=== PATIENT | male | born 1985 | race Caucasian/White ===

== ENCOUNTER → 2017-01-09 | Outpatient (CLI) | payer OTHER ==
[~2017-01-09] MED LIST: ALBUAER2 INH; CEPH500C PO; CEPH500C2 PO; CRG3125 PO; DIPH25TA24 PO; GABA-113 PO; GABA600T PO; IBUP1CAP9 PO; METH10CO2 PO; MOME200A INH; PANT1TAB48 PO; RANI150T3 PO; SULF800T23 PO; SYMIN/8045 INH; TYLOTC500 PO; VNTHFA/IN INH
[2017-01-09 17:47] LABS: ALT/SGPT 38 U/L (12-78); BLOOD UREA NITROGEN 10 mg/dl (7-18); BUN/CREATININE RATIO 11.9 (10-20); CALCIUM 8.5 mg/dl (8.5-10.1); CARBON DIOXIDE 30 mmol/L (21-32); CHLORIDE 101 mmol/L (98-107); CHOLESTEROL 200 mg/dl (0-200); CREATININE 0.84 mg/dl (0.60-1.40); GLUCOSE 77 mg/dl (70-99); POTASSIUM 4.2 mmol/L (3.5-5.1); SODIUM 139 mmol/L (136-145)
[2017-01-09 17:57] LABS: ALB/GLOB RATIO 0.7 (0.9-2); ALKALINE PHOSPHATASE 168 U/L (45-117); AST/SGOT 56 U/L (15-37); CHOLESTEROL/HDL RATIO 3.5; HDL CHOLESTEROL 57 mg/dl; LDL CHOLESTEROL CALCULATED 120 mg/dl; TRIGLYCERIDES 114 mg/dl (0-150); VERY LOW DENSITY LIPOPROT CALC 23 mg/dl
[2017-01-10 06:16] LABS: ESTIMATED AVERAGE GLUCOSE 120 mg/dl; HA1C FLAG Normal (Normal)
== END | disposition home or self-care (01) ==
LOC: C.LABBFT 13:59
PROVIDERS: ATTEND Nurse Practitioner
DX: E03.9 Hypothyroidism, unspecified (principal); I10 Essential (primary) hypertension; R73.01 Impaired fasting glucose

== ENCOUNTER → 2017-01-29 | Outpatient (CLI) | payer OTHER ==
--- NOTE | 2017-01-29 14:32 | DIAGNOSTIC IMAGING REPORT ---
CT OF THE ABDOMEN AND PELVIS WITHOUT CONTRAST CLINICAL HISTORY: Follow up umbilical hernia. COMPARISON STUDY: CT of the abdomen and pelvis August 17, 2015. TECHNIQUE: Axial images of the abdomen and pelvis were obtained without IV contrast. Images were reviewed in the axial, sagittal, and coronal planes. FINDINGS: Fatty infiltration of the liver is noted. Mild splenomegaly is unchanged since CT of August 17, 2015. Unenhanced images of the kidneys, adrenal glands and pancreas are normal. This study is mildly compromised by artifact. There is no evidence for a bowel obstruction. There is chronic diverticulosis without evidence for acute diverticulitis. The 8 cm fat-containing umbilical hernia similar to exam of August 17, 2015. The defect within the anterior abdominal wall measures 3.9 cm. Mild infiltration/fluid adjacent to the hernia sac is unchanged. Skin thickening and subcutaneous infiltration of the lower anterior abdominal wall is unchanged. Prominent abdominal or pelvic lymph nodes are unchanged. IMPRESSION: 1. No change in appearance of the abdomen or pelvis since exam of August 17, 2015. 2. Stable appearance of the fat-containing umbilical hernia. Mild infiltration and fluid adjacent to the hernia sac as well as skin thickening and subcutaneous infiltration of the anterior abdominal wall remain unchanged. 3. Stable mild splenomegaly. 4. Fatty liver. Electronically signed by: Everardo Isabel M.D. 01/29/2017 2:29 PM Dictated Date/Time: 01/29/2017 2:22 PM
== END | disposition home or self-care (01) ==
LOC: C.CTS 12:32
PROVIDERS: ATTEND Nurse Practitioner
DX: K43.2 Incisional hernia without obstruction or gangrene (principal); K76.0 Fatty (change of) liver, not elsewhere classified

== ENCOUNTER 2017-06-22 10:57 | Emergency (ER) | payer OTHER ==
[~2017-06-22] VITALS: Ht 175.3 cm; Wt 185.0 kg
[~2017-06-22 10:57] MED LIST changes: -CEPH500C2 PO; -GABA-113 PO; -MOME200A INH; -SULF800T23 PO; -SYMIN/8045 INH; -VNTHFA/IN INH
[2017-06-22 10:59] VITALS: TEMP 36.6; Ht 175.3 cm; Wt 185.0 kg
[2017-06-22] MEDS ORDERED: VNTHFA/IN INH (11:26)
[2017-06-22] MEDS ORDERED: MOME200A INH (11:26)
[2017-06-22] MEDS ORDERED: CEFTRIAXONE SOD INJ 1 GM ADDVIAL IV STA (11:46)
--- NOTE | 2017-06-22 12:12 | DIAGNOSTIC IMAGING REPORT ---
RIGHT TIBIA/FIBULA 2 VIEWS ROUTINE CLINICAL HISTORY: Right lower leg ulceration. COMPARISON: None. DISCUSSION: There is moderate soft tissue edema, most pronounced anteriorly. There are no acute fractures. No destructive lesions are visualized. There is minimal periosteal reaction involving the lateral aspect the distal fibula. This is a nonspecific finding. If there is clinical concern over the presence of osteomyelitis, an MRI could always be obtained in follow-up. IMPRESSION: 1. Soft tissue swelling 2. No acute fractures 3. Minimal focus of nonspecific periosteal reaction involving the lateral aspect of the distal fibula Electronically signed by: Brian Sethi M.D. 06/22/2017 12:11 PM Dictated Date/Time: 06/22/2017 12:07 PM
[2017-06-22 12:29] LABS: BASO % 0.2 %; BASO ABS # 0.02 K/uL (0-0.2); COMPLETE YES; EOS % 2.4 %; HEMATOCRIT 35.5 % (42-52); IG% 0.1 %; LYMPH % 31.8 %; LYMPH ABS # 2.74 K/uL (1.2-3.4); MEAN CELL VOLUME 77.5 fL (80-100); MEAN CORPUSCULAR HEMOGLOBIN 22.7 pg (25-34); MEAN CORPUSCULAR HGB CONC 29.3 g/dl (32-36); MEAN PLATELET VOLUME 10.1 fL (7.4-10.4); MONO % 7.4 %; NEUT % 58.1 %; PLATELET COUNT 174 K/uL (130-400); RED BLOOD COUNT 4.58 M/uL (4.7-6.1); WHITE BLOOD COUNT 8.61 K/uL (4.8-10.8)
[2017-06-22 12:40] LABS: PARTIAL THROMBOPLASTIN RATIO 1.1; PROTHROMBIN TIME (PATIENT) 10.7 SECONDS (9.0-12.0)
[2017-06-22 12:45] LABS: BUN/CREATININE RATIO 9.2 (10-20); CALCIUM 8.7 mg/dl (8.5-10.1); CREATININE 0.79 mg/dl (0.60-1.40); POTASSIUM 3.9 mmol/L (3.5-5.1)
[2017-06-22 12:48] LABS: ALB/GLOB RATIO 0.7 (0.9-2)
--- NOTE | 2017-06-22 13:41 | DIAGNOSTIC IMAGING REPORT ---
RIGHT VENOUS DOPP LOWER EXT UNILAT CLINICAL HISTORY: 31 years-old Male presenting with RIGHT LOWER LEG ULCERATION Right. TECHNIQUE: Real-time grayscale and color and spectral Doppler ultrasound imaging of the veins of the right lower extremity was performed. Compression and augmentation were also utilized. COMPARISON: 01/20/2010. FINDINGS: Right: Common femoral vein: Patent. Femoral vein: Patent. Greater saphenous vein: Patent. Popliteal vein: Patent. Calf veins: Limited visualization. Other: Prominent benign-appearing right inguinal lymph nodes. Subcutaneous edema noted in the popliteal fossa. IMPRESSION: No evidence of deep venous thrombosis. Electronically signed by: Tyler Castillo M.D. 06/22/2017 1:40 PM Dictated Date/Time: 06/22/2017 1:39 PM
[2017-06-22 14:40] VITALS: BP 134/78; PULSE 75; O2SAT 94
[2017-06-22] MEDS ORDERED: SULFAMETHOXAZOLE/TRIMETHOPRIM DS 800/160MG TAB PO STA (14:50)
[2017-06-22] MEDS ORDERED: CEPH500C2 PO (14:59)
[2017-06-22] MEDS ORDERED: SULF800T23 PO (14:59)
--- NOTE | 2017-06-22 15:00 | EMERGENCY ROOM VISIT NOTE ---
History First contact with patient: 11:06 Chief Complaint: WOUND INFECTION Stated Complaint: 3 WOUNDS ON BOTTOM HALF OF MY RT LEG History of Present Illness Patient is a medically noncompliant 31-year-old white male with past medical history including hypothyroidism, hypertension, morbid obesity, asthma, history of opioid abuse on agonist therapy, among other problems who presents to the emergency department for evaluation of a painful ulceration on the right lower extremity. He has a history of venous stasis and is status post right greater saphenous vein ablation performed many years ago. He has had problems with ulcerations on the right lower extremity for several years. He periodically follows with the wound care center. He was last seen by them in April. He states that he "gets tired of having to go to the doctor" so he stopped going. Patient notes that the ulceration on the lower right leg has progressively gotten larger over the last 2 weeks. He developed 2 smaller ulcerations near the larger ulceration which have now, left. He has begun to experience some sharp, stabbing pain over the last 2 days. He has continued to perform local wound care at home until he ran out of his prescription medical supplies. He has been covering the area with paper towels and Gilbert wrap and Coban. He reports if the leg is not wrapped it drains fluid that can range from clear to bloody. He notes a foul odor from the discharge. He denies any fever, chills, nausea, vomiting or malaise. He reports that the wound care center was in the process of sending him for a new ultrasound to evaluate for any future surgical intervention. He reports that the left leg has been stable, no new wounds or ulcerations. He denies any chest pain, palpitations or shortness of breath. In review of his medication list, he reports that he has not taken his carvedilol for his blood pressure in several months. He denies that he is diabetic. Review of Systems Review of systems as per HPI. All other systems reviewed were negative. 10 systems reviewed. Past Medical/Surgical History Medical Problems: (1) ASTHMA, UNSPECIFIED (2) Bipolar Disorder, Unspecified (3) Cellulitis (4) DRUG DEPEND NOS-CONTIN (5) Edema of right eyelid (6) Esophageal Reflux (7) Foot pain, right (8) Fracture of metatarsal bone (9) Hypertension Nos (10) Hypothyroidism, Unspecified (11) Low back pain on right side with sciatica (12) Lumbago (13) MORBID OBESITY Surgical Problems: (1) CARPAL TUNNEL SYNDROME (2) History of hernia repair (3) History of tonsillectomy (4) Status post ablation of incompetent vein using laser Electronic medical records are reviewed and summarized as above/below. See Problem List. Social History Smoking Status: Current Every Day Smoker Alcohol Use: none Drug Use: none Marital Status: Occupation Status: disabled Current/Historical Medications Scheduled Acetaminophen (Tylenol), 1,000 MG PO DAILY Albuterol Hfa (Ventolin Hfa), 2-4 PUFF INH NEEDED Cephalexin Monohydrate (Keflex), 500 MG PO QID Gabapentin (Neurontin), 900 MG PO TID Ibuprofen (Ibuprofen), 600 MG PO DAILY Methadone Hcl (Methadose), 132 MG PO DAILY Mometasone Furoate-Formoterol (Dulera 200/5 Mcg), 2 PUFF INH BID Sulfa/Trimethoprim (Bactrim Ds 800MG/160MG), 1 TAB PO BID Physical Exam Vital Signs Date Time Temp Pulse Resp B/P (MAP) Pulse Ox O2 Delivery O2 Flow Rate FiO2 06/22/17 14:40 75 16 134/78 94 Room Air 06/22/17 13:46 75 16 110/68 06/22/17 10:59 36.6 92 18 184/101 94 Room Air Physical Exam CONSTITUTIONAL: Patient is a morbidly obese 31-year-old white male who is awake and alert and sitting upright on the gurney in no acute distress. He is noted to be hypertensive in triage. A pressure of 180 01/20/2001. EYES: Pupils equal, round, reactive to light and accommodation. EOMs intact without nystagmus. Sclera are anicteric. ENT: Tympanic membranes intact, with normal landmarks. External canals are clear. Oral and nasopharynx are clear. Mucous membranes are moist, no lesions , tongue and gums appear normal. NECK: No bruits auscultated. Supple without lymphadenopathy. No thyromegaly. No meningeal signs. Full active range of motion without discomfort. CARDIOVASCULAR: Regular rate and rhythm, with normal S1 and S2, no murmur or gallop or rub is heard. No carotid bruits auscultated. No JVD. Peripheral pulses easily palpable. RESPIRATORY: Breath sounds equal and clear to auscultation without wheezes, rales, or rhonchi heard. Full and equal chest expansion without accessory muscle use or retractions. INTEGUMENTARY: Examination of the lower extremities bilaterally note brawny, chronic venous sedation changes circumferentially around the lower leg, proximal to the ankles. There is some dry scaling noted on the left leg, without tenderness or erythema. On the lateral aspect of the right lower leg, proximal to the ankle, the patient has a 5 x 6.5 cm oval-shaped ulceration. There is scant serous drainage noted. He has surrounding erythema, warmth, induration and tenderness. He has 2-3+ pitting edema to the knee. The calf is not particularly tender. Dorsalis pedis pulse is easily palpable. Sensation to light touch is intact. Capillary refills less than 2 seconds. There is no lymphangitic streaking. No palpable cords are appreciated. LYMPH: No lymphadenopathy. Medical Decision & Procedures ER Provider Diagnostic Interpretation: RIGHT TIBIA/FIBULA 2 VIEWS ROUTINE CLINICAL HISTORY: Right lower leg ulceration. COMPARISON: None. DISCUSSION: There is moderate soft tissue edema, most pronounced anteriorly. There are no acute fractures. No destructive lesions are visualized. There is minimal periosteal reaction involving the lateral aspect the distal fibula. This is a nonspecific finding. If there is clinical concern over the presence of osteomyelitis, an MRI could always be obtained in follow-up. IMPRESSION: 1. Soft tissue swelling 2. No acute fractures 3. Minimal focus of nonspecific periosteal reaction involving the lateral aspect of the distal fibula RIGHT VENOUS DOPP LOWER EXT UNILAT CLINICAL HISTORY: 31 years-old Male presenting with RIGHT LOWER LEG ULCERATION Right. TECHNIQUE: Real-time grayscale and color and spectral Doppler ultrasound imaging of the veins of the right lower extremity was performed. Compression and augmentation were also utilized. COMPARISON: 01/20/2010. FINDINGS: Right: Common femoral vein: Patent. Femoral vein: Patent. Greater saphenous vein: Patent. Popliteal vein: Patent. Calf veins: Limited visualization. Other: Prominent benign-appearing right inguinal lymph nodes. Subcutaneous edema noted in the popliteal fossa. IMPRESSION: No evidence of deep venous thrombosis. Laboratory Results 06/22/17 12:05 Red Blood Count 4.58, Mean Corpuscular Volume 77.5, Mean Corpuscular Hemoglobin 22.7, Mean Corpuscular Hemoglobin Concent 29.3, Mean Platelet Volume 10.1, Neutrophils (%) (Auto) 58.1, Lymphocytes (%) (Auto) 31.8, Monocytes (%) (Auto) 7.4, Eosinophils (%) (Auto) 2.4, Basophils (%) (Auto) 0.2, Neutrophils # (Auto) 4.99, Lymphocytes # (Auto) 2.74, Monocytes # (Auto) 0.64, Eosinophils # (Auto) 0.21, Basophils # (Auto) 0.02 06/22/17 12:05 Test 06/22/17 12:05 06/22/17 12:16 White Blood Count 8.61 K/uL (4.8-10.8) Red Blood Count 4.58 M/uL (4.7-6.1) Hemoglobin 10.4 g/dL (14.0-18.0) Hematocrit 35.5 % (42-52) Mean Corpuscular Volume 77.5 fL (80-100) Mean Corpuscular Hemoglobin 22.7 pg (25-34) Mean Corpuscular Hemoglobin Concent 29.3 g/dl (32-36) Platelet Count 174 K/uL (130-400) Mean Platelet Volume 10.1 fL (7.4-10.4) Neutrophils (%) (Auto) 58.1 % Lymphocytes (%) (Auto) 31.8 % Monocytes (%) (Auto) 7.4 % Eosinophils (%) (Auto) 2.4 % Basophils (%) (Auto) 0.2 % Neutrophils # (Auto) 4.99 K/uL (1.4-6.5) Lymphocytes # (Auto) 2.74 K/uL (1.2-3.4) Monocytes # (Auto) 0.64 K/uL (0.11-0.59) Eosinophils # (Auto) 0.21 K/uL (0-0.5) Basophils # (Auto) 0.02 K/uL (0-0.2) RDW Standard Deviation 46.9 fL (36.4-46.3) RDW Coefficient of Variation 16.6 % (11.5-14.5) Immature Granulocyte % (Auto) 0.1 % Immature Granulocyte # (Auto) 0.01 K/uL (0.00-0.02) Prothrombin Time 10.7 SECONDS (9.0-12.0) Prothromb Time International Ratio 1.0 (0.9-1.1) Activated Partial Thromboplast Time 28.7 SECONDS (21.0-31.0) Partial Thromboplastin Ratio 1.1 Anion Gap 6.0 mmol/L (3-11) Est Creatinine Clear Calc Drug Dose 223.1 ml/min Estimated GFR () 138.7 Estimated GFR (Non- 119.7 BUN/Creatinine Ratio 9.2 (10-20) Calcium Level 8.7 mg/dl (8.5-10.1) Total Bilirubin 0.3 mg/dl (0.2-1) Aspartate Amino Transf (AST/SGOT) 32 U/L (15-37) Alanine Aminotransferase (ALT/SGPT) 26 U/L (12-78) Alkaline Phosphatase 153 U/L (45-117) Total Protein 7.8 gm/dl (6.4-8.2) Albumin 3.2 gm/dl (3.4-5.0) Globulin 4.6 gm/dl (2.5-4.0) Albumin/Globulin Ratio 0.7 (0.9-2) Bedside Lactic Acid Venous 0.79 mmol/L (0.90-1.70) Medications Administered Medications (Trade) Dose Ordered Sig/Aida Route Start Time Stop Time Status Last Admin Dose Admin Ceftriaxone Sodium (Rocephin Inj) 1 gm NOW STAT IV 06/22/17 11:46 06/22/17 11:50 DC 06/22/17 12:18 1 GM Trimethoprim/ Sulfamethoxazole (Septra Ds 800/ 160MG Tab) 1 tab NOW STAT PO 06/22/17 14:50 06/22/17 14:52 DC 06/22/17 15:21 1 TAB ED Course The patient was seen and evaluated as above. His old records were reviewed, including his recent wound care visit notes. His last visit to the wound care center was 05/01/17, at which point the wound was debrided. Photographs were reviewed. He did have a culture taken at that time that was positive for pansensitive staph aureus. A prescription for Keflex was phoned in, and the patient reported that he did get and take the prescription as prescribed. He no showed for his next scheduled appointment on 05/08. IV lock was initiated. Laboratory studies were collected including CBC with differential, CMP, coags and [id number] lactic acid. The ulceration was cleansed with saline and a superficial wound culture was obtained and is pending. The patient was given Rocephin 1 g IV empirically. X-ray of the right tib-fib and ultrasound of the right lower extremity was obtained. Laboratory studies noted a normal white count at 8600, no left shift or bandemia. H&H 10.4 and 35.5. On review of his old records, he has always been borderline anemic, with his hemoglobin between 10 and 12, this appears stable for him. Electrolytes are without significant abnormality. Renal functions are normal. [id number] lactic acid is not elevated. Ultrasound of the right lower extremity was negative for DVT. X-ray of the right tib-fib does not show any evidence for acute fractures. Minimal focus of nonspecific periosteal reaction involving the lateral aspect of the distal fibula was noted. MRI could be obtained in follow-up if there was concern for osteomyelitis. All laboratory and diagnostic imaging studies were reviewed with the patient, and discussed with attending physician who also independently evaluated the patient. Given the chronic ulceration of the right lower extremity with associated cellulitis, and his comorbidities, I did discuss with the patient that I thought he would benefit from admission for IV antibiotics. He would prefer to go home. At this point, laboratory studies are fairly unremarkable, he has not been on any antibiotics recently, and would likely only meets for observation status if brought into the hospital. Patient will like to go home with a trial of oral antibiotics. He reassures me that he will be compliant with the antibiotic regimen. He will be placed on Keflex and Bactrim, was given his first dose of Bactrim in the emergency department. Antibiotic ointment and a light dressing were applied to the right lower extremity and a referral to the [facility] was made, as he is well known to them. The patient was given explicit verbal and written instructions outlining the worsening signs or symptoms for which she should return to the emergency department and he expressed understanding of this. Differential diagnoses entertained included DVT, superficial thrombophlebitis, cellulitis, chronic venous stasis changes, dependent edema, sepsis, osteomyelitis, among others. Medical Decision See Emergency Department course. Medication Reconcilliation Current Medication List: was personally reviewed by me Blood Pressure Screening Patient's blood pressure: Elevated blood pressure Blood pressure disposition: Referred to PCP Blood pressure screening: Patient was found to have a slightly elevated blood pressure initially, likely due to circumstances, as repeat blood pressure readings were normal. He does have a history of hypertension however and reports that he is noncompliant with his antihypertensives. I did encourage the patient to resume his carvedilol, and advised that he follow-up with his primary care provider next week for recheck. I do believe that the patient requires hypertension monitoring. Impression Primary Impression: Cellulitis of right lower extremity Additional Impression: Chronic cutaneous venous stasis ulcer Departure Information Prescriptions Sulfa/Trimethoprim (Bactrim Ds 800MG/160MG) Tab 1 TAB PO BID, #20 TAB Prov: Vijaya Miller PA 06/22/17 Cephalexin Monohydrate (KEFLEX) 500 Mg Cap 500 MG PO QID, #40 CAP Prov: Vijaya Miller PA 06/22/17 Referrals No Doctor, Assigned (PCP) Patient Instructions [facility] Additional Instructions Cephalexin(Keflex) 500mg: Take one pill four times daily for 10 days for your skin infection. All antibiotics can cause diarrhea. If this occurs and you feel worse or it does not resolve in 1-2 days follow up with your doctor or return to the Emergency Department as this could be signs of serious underlying problems. Any medication can cause an allergic reaction, stop the pills immediately and return to the ER for rash, hives, breathing difficulties, or swelling. Trimethoprim-Sulfamethoxazole(Bactrim DS): Take one pill twice daily for 10 days for your skin infection. All antibiotics can cause diarrhea. If this occurs and you feel worse or it does not resolve in 1-2 days follow up with your doctor or return to the Emergency Department as this could be signs of serious underlying problems. Any medication can cause an allergic reaction, stop the pills immediately and return to the ER for rash, hives, breathing difficulties, or swelling. Ibuprofen(Motrin, Advil) may be used for fever or pain. Use 600mg every six hours as needed. Take with food. Avoid using more than 2400mg in a 24 hour period. Do not use 2400mg per day for more than three consecutive days without physician direction. Prolonged inappropriate use can lead to stomach upset or ulcers. This is available over the counter and typically comes in 200mg tablets. (AND/OR) Acetaminophen(Tylenol) may be used for fever or pain. Use 1000mg every eight hours as needed. Avoid using more than 3000mg in a 24 hour period. This is available over the counter. Read all the package inserts or medication information paperwork provided. If you have any questions or concerns call your primary provider, pharmacist or the ER for assistance. Warm compresses to the affected area 4 times daily for 15-20 minutes. Rest and drink plenty of fluids. Continue current medications. Return to the ER for severe pain, persistent fevers, spreading redness, or any worsening of your condition. Follow up with your primary physician within 2-3 days for a recheck of the current condition. Follow up with the Wound Care Center as arranged. Problem Qualifiers
--- NOTE | 2017-06-22 15:12 | EMERGENCY ROOM VISIT NOTE ---
ED Visit Note First contact with patient: 11:06 The patient was seen and examined with Latha Miller PA-C. I agree with the history, physical and findings. I saw and evaluated the patient. Patient's laboratories fairly unremarkable however patient did have a fairly large area of cellulitis that was painful, erythematous, and warm. Discussed with patient that he would likely benefit from an inpatient stay within the hospital for IV antibiotics and additional wound care. Patient stated he would rather go home. I explained to the patient that his symptoms and overall health could deteriorate to possible . Patient was of sound mind and able to make his own decisions and stated that he knew the risks and consequences. Patient did state he would be able to follow-up in addition to obtain his antibiotics. He was given a first dose of antibiotics and an effort was made to obtain follow- up care. Please see the note for disposition and details.
--- NOTE | 2017-06-28 14:12 | Pharmacy Progress Note ---
ED Pharmacist Culture FollowUp Date of Service: Jun 28, 2017. Patient was sent home with a prescription for Bactrim 1 tab BID and cephalexin 500mg QID X 10 days, which should cover the coag negative staph/gram negative bacilli growing from the patient's surface wound culture. Per provider notes, patient was also encouraged to seek follow up care.
== END 2017-06-22 15:24 | disposition home or self-care (01) ==
LOC: C.EDB 10:59 → C.EDC 15:24
DX: L03.115 Cellulitis of right lower limb (principal); I87.2 Venous insufficiency (chronic) (peripheral); E03.9 Hypothyroidism, unspecified; I10 Essential (primary) hypertension; E66.01 Morbid (severe) obesity due to excess calories; J45.909 Unspecified asthma, uncomplicated; F11.10 Opioid abuse, uncomplicated; F31.9 Bipolar disorder, unspecified; K21.9 Gastro-esophageal reflux disease without esophagitis; M54.5 Low back pain; F17.210 Nicotine dependence, cigarettes, uncomplicated; Z79.899 Other long term (current) drug therapy

== ENCOUNTER 2017-11-09 07:09 | Inpatient (IN) | payer OTHER ==
[~2017-11-09] VITALS: Ht 175.3 cm; Wt 195.0 kg
[~2017-11-09 07:09] MED LIST changes: -ALBUAER2 INH; -CEPH500C PO; +CEPH500C2 PO; -CRG3125 PO; -DIPH25TA24 PO; +MOME200A INH; -PANT1TAB48 PO; -RANI150T3 PO; +VNTHFA/IN INH
[2017-11-09] MEDS ORDERED: ALBUT/IPRATROP 3MG/0.5MG NEB 3 ML VIAL INH STA ×2 (07:39→08:56)
[2017-11-09] MEDS ORDERED: METHYLPREDNISOLONE 125 MG VIAL IV STA (07:39)
[2017-11-09 08:36] LABS: BASO % 0.3 %; BASO ABS # 0.02 K/uL (0-0.2); EOS ABS # 0.12 K/uL (0-0.5); HEMATOCRIT 31.3 % (42-52); HEMOGLOBIN 9.1 g/dL (14.0-18.0); IG# 0.02 K/uL (0.00-0.02); LYMPH % 27.3 %; LYMPH ABS # 1.66 K/uL (1.2-3.4); MEAN CELL VOLUME 75.1 fL (80-100); MEAN CORPUSCULAR HEMOGLOBIN 21.8 pg (25-34); MEAN CORPUSCULAR HGB CONC 29.1 g/dl (32-36); MEAN PLATELET VOLUME 9.8 fL (7.4-10.4); MONO % 5.9 %; MONO ABS # 0.36 K/uL (0.11-0.59); NEUT % 64.2 %; NEUT ABS # 3.89 K/uL (1.4-6.5); PLATELET COUNT 150 K/uL (130-400); RED CELL DISTRIBUTION WIDTH CV 17.3 % (11.5-14.5); RED CELL DISTRIBUTION WIDTH SD 47.7 fL (36.4-46.3); WHITE BLOOD COUNT 6.07 K/uL (4.8-10.8)
[2017-11-09 08:47] LABS: ALBUMIN 3.1 gm/dl (3.4-5.0); CALCIUM 8.4 mg/dl (8.5-10.1); CREATININE 0.75 mg/dl (0.60-1.40); POTASSIUM 4.1 mmol/L (3.5-5.1)
[2017-11-09 08:49] LABS: TOTAL PROTEIN 7.9 gm/dl (6.4-8.2)
--- NOTE | 2017-11-09 08:51 | DIAGNOSTIC IMAGING REPORT ---
CHEST 2 VIEWS ROUTINE CLINICAL HISTORY: Shortness of breath and cough COMPARISON STUDY: 03/01/2014 FINDINGS: The cardiac and mediastinal contours remain stable. There is no failure. There is no focal pulmonary consolidation. There are no pleural effusions.[ IMPRESSION: No active disease in the chest. Electronically signed by: Brian Sethi M.D. 11/09/2017 8:50 AM Dictated Date/Time: 11/09/2017 8:49 AM
[2017-11-09] MEDS ORDERED: BENZ200C59 PO (09:43)
[2017-11-09] MEDS ORDERED: AMX875 PO (09:43)
--- NOTE | 2017-11-09 10:41 | EMERGENCY ROOM VISIT NOTE ---
History First contact with patient: 07:22 Chief Complaint: RESPIRATORY PROBLEMS Stated Complaint: CAN'T BREATHE AND CONGESTED Nursing Triage Summary: Since Sunday pt has a non productive cough and has been short of breath. Went to PCP, was placed on Amoxicillin and tessalon pearls, has been taking for 4 days without improvement. Sats 89-90% on room air in triage, pt does not wear O2 at home. Denies body aches, chills, or fevers. Pt having difficulty finishing sentences and is unable to walk due to dyspnea. History of Present Illness Patient is a 31-year-old white male with past medical history significant for asthma, GERD, morbid obesity, chronic low back pain, history of opiate dependence on methadone, among other medical problems, who presents to the emergency department today for evaluation of shortness of breath. The patient reports that he became ill last Sunday, one week ago. He states that "because the weather was warm I went outside in a short sleeve shirt," and after that he got sick. He reports that his symptoms started like a cold with sinus and nasal congestion and a cough productive of dark sputum. He is on albuterol MDI chronically, with an albuterol nebulizer treatment at bedtime, and Dulera BID, which he states that he has been compliant with. He was not seen by his primary care provider, rather his had a doctor's appointment and explain his symptoms to the provider on Sunday, 4 days ago, and he was provided a prescription for amoxicillin and Tessalon Perles without actually being evaluated by a practitioner. He reports that he has been taking these medications, in addition to using his inhaler/nebulizer, but his symptoms are worsening. He notes wheezing and shortness of breath and a cough. He denies any chest pain. He has not had a fever. He is a one pack-a-day smoker, but has not been smoking this week due to his illness. He has been hospitalized for asthma exacerbation/bronchitis in the past, but has never been intubated. He has not been on any steroids recently. Review of Systems Review of systems as per HPI. All other systems reviewed were negative. 10 systems reviewed. Past Medical/Surgical History Medical Problems: (1) Acute respiratory failure with hypoxia (2) ASTHMA, UNSPECIFIED (3) Bipolar Disorder, Unspecified (4) Cellulitis (5) Cellulitis of right lower extremity (6) Chronic cutaneous venous stasis ulcer (7) DRUG DEPEND NOS-CONTIN (8) Edema of right eyelid (9) Esophageal Reflux (10) Foot pain, right (11) Fracture of metatarsal bone (12) Hypertension Nos (13) Hypothyroidism, Unspecified (14) Low back pain on right side with sciatica (15) Lumbago (16) MORBID OBESITY Surgical Problems: (1) CARPAL TUNNEL SYNDROME (2) History of hernia repair (3) History of tonsillectomy (4) Status post ablation of incompetent vein using laser Electronic medical records are reviewed and summarized as above/below. See Problem List. Social History Smoking Status: Current Every Day Smoker Alcohol Use: none Drug Use: none Marital Status: Occupation Status: disabled Current/Historical Medications Scheduled Albuterol Hfa (Ventolin Hfa), 2-4 PUFF INH NEEDED Amoxicillin (Amoxicillin), 875 MG PO TID Benzonatate (Tessalon Perles), 200 MG PO TID Gabapentin (Neurontin), 900 MG PO TID Methadone Hcl (Methadose), 132 MG PO DAILY Mometasone Furoate-Formoterol (Dulera 200/5 Mcg), 2 PUFF INH BID Physical Exam Vital Signs Date Time Temp Pulse Resp B/P (MAP) Pulse Ox O2 Delivery O2 Flow Rate FiO2 11/09/17 09:59 81 24 158/91 85 Room Air 11/09/17 09:59 37.2 88 24 134/158 93 Nasal Cannula 2.0 11/09/17 09:15 86 22 134/83 93 Nasal Cannula 2.0 11/09/17 08:38 91 Nasal Cannula 4.0 11/09/17 08:31 88 24 139/91 90 Nasal Cannula 2.0 11/09/17 08:08 95 Nasal Cannula 2.0 11/09/17 07:43 94 Nasal Cannula 2.0 11/09/17 07:31 97 11/09/17 07:17 89 Room Air 11/09/17 07:17 37.2 95 28 163/112 89 Room Air Physical Exam CONSTITUTIONAL: Patient is a morbidly obese 31-year-old white male who is awake and alert and in mild respiratory distress. Oxygen saturation in triage is noted to be 89% on room air, he is, mildly tachycardic and hypertensive. Oxygen saturation in the exam room on 2 L by nasal cannula is 95%. EYES: Pupils equal, round, reactive to light and accommodation. EOMs intact without nystagmus. Sclera are anicteric. ENT: Tympanic membranes intact, with normal landmarks. External canals are clear. Oral and nasopharynx are clear. Mucous membranes are moist, no lesions , tongue and gums appear normal. NECK: No bruits auscultated. Supple without lymphadenopathy. No thyromegaly. No meningeal signs. Full active range of motion without discomfort. CARDIOVASCULAR: Regular rate and rhythm, with normal S1 and S2, no murmur or gallop or rub is heard. No carotid bruits auscultated. No JVD. Peripheral pulses easily palpable. RESPIRATORY: Breath sounds are diminished throughout, with inspiratory and expiratory wheezes. Full and equal chest expansion without accessory muscle use or retractions. INTEGUMENTARY: No lesions or rash, normal skin turgor. LYMPH: No lymphadenopathy. Medical Decision & Procedures ER Provider Diagnostic Interpretation: CHEST 2 VIEWS ROUTINE CLINICAL HISTORY: Shortness of breath and cough COMPARISON STUDY: 03/01/2014 FINDINGS: The cardiac and mediastinal contours remain stable. There is no failure. There is no focal pulmonary consolidation. There are no pleural effusions. IMPRESSION: No active disease in the chest. Laboratory Results 11/09/17 08:13 Test 11/09/17 08:13 11/09/17 08:15 Immature Granulocyte % (Auto) 0.3 % White Blood Count 6.07 K/uL (4.8-10.8) Red Blood Count 4.17 M/uL (4.7-6.1) Hemoglobin 9.1 g/dL (14.0-18.0) Hematocrit 31.3 % (42-52) Mean Corpuscular Volume 75.1 fL (80-100) Mean Corpuscular Hemoglobin 21.8 pg (25-34) Mean Corpuscular Hemoglobin Concent 29.1 g/dl (32-36) Platelet Count 150 K/uL (130-400) Mean Platelet Volume 9.8 fL (7.4-10.4) Neutrophils (%) (Auto) 64.2 % Lymphocytes (%) (Auto) 27.3 % Monocytes (%) (Auto) 5.9 % Eosinophils (%) (Auto) 2.0 % Basophils (%) (Auto) 0.3 % Neutrophils # (Auto) 3.89 K/uL (1.4-6.5) Lymphocytes # (Auto) 1.66 K/uL (1.2-3.4) Monocytes # (Auto) 0.36 K/uL (0.11-0.59) Eosinophils # (Auto) 0.12 K/uL (0-0.5) Basophils # (Auto) 0.02 K/uL (0-0.2) Immature Granulocyte # (Auto) 0.02 K/uL (0.00-0.02) Anion Gap 6.0 mmol/L (3-11) Est Creatinine Clear Calc Drug Dose 243.1 ml/min Estimated GFR () 141.7 Estimated GFR (Non- 122.2 BUN/Creatinine Ratio 9.7 (10-20) Calcium Level 8.4 mg/dl (8.5-10.1) Iron Level 13 mcg/dl (35-175) Total Iron Binding Capacity 362 mcg/dl (250-450) Total Bilirubin 0.3 mg/dl (0.2-1) Aspartate Amino Transf (AST/SGOT) 29 U/L (15-37) Alanine Aminotransferase (ALT/SGPT) 15 U/L (12-78) Alkaline Phosphatase 132 U/L (45-117) Total Protein 7.9 gm/dl (6.4-8.2) Albumin 3.1 gm/dl (3.4-5.0) Globulin 4.8 gm/dl (2.5-4.0) Albumin/Globulin Ratio 0.6 (0.9-2) Prothrombin Time 10.5 SECONDS (9.0-12.0) Prothromb Time International Ratio 1.0 (0.9-1.1) Medications Administered Medications (Trade) Dose Ordered Sig/Aida Route Start Time Stop Time Status Last Admin Dose Admin Methylprednisolone Sodium Succinate (Solu-Medrol IV) 125 mg NOW STAT IV 11/09/17 07:39 11/09/17 07:44 DC 11/09/17 08:03 125 MG Albuterol/ Ipratropium (Duoneb) 3 ml NOW STAT INH 11/09/17 07:39 11/09/17 07:44 DC 11/09/17 08:03 3 ML Albuterol/ Ipratropium (Duoneb) 3 ml NOW STAT INH 11/09/17 08:56 11/09/17 08:58 DC 11/09/17 09:14 3 ML ED Course The patient was seen and assessed as above. He was placed on 2 L of nasal cannula oxygen and placed on a desk monitor upon arrival in the exam room. His old records were reviewed. IV lock was initiated and laboratory studies were collected. CBC and CMP were drawn. He was medicated with Solu-Medrol 125 mg IV and given a DuoNeb treatment. He was reassessed when he returned from x- ray, and breath sounds were clearer, he had only end expiratory wheezes. He was given a second DuoNeb treatment. X-ray was unremarkable. Laboratory studies demonstrated a normal white count at 6.7 thousand, he is anemic with an H&H of 9.1 and 31.3, with a microcytic, hypochromic pattern. Electrolytes are within normal limits. Renal function is normal. LFTs are not elevated. He was reassessed after his second DuoNeb treatment and actually had near complete resolution of his wheezing, however oxygen was turned off, and sats dropped down to 85% on room air. Patient was reviewed with the attending physician and with the ED case management. He has had an upper respiratory illness for about a week, now with an exacerbation of his asthma despite antibiotic 4 days with associated bronchodilators. He appears to have failed outpatient management with suspected acute bronchitis and asthma exacerbation and is requiring oxygen at this time. Patient was reviewed with the [facility] any hospitalist service for further care and management in-house. Differential diagnoses entertained included URI, other viral illness including influenza, asthma exacerbation, acute bronchitis, pneumonia, pneumothorax, pulmonary embolus, CHF, among others. Medical Decision See ED Course. Medication Reconcilliation Current Medication List: was personally reviewed by pa Blood Pressure Screening Patient's blood pressure: Elevated blood pressure Blood pressure disposition: Elevated BP felt to be situational, Referred to PCP Impression Primary Impression: Asthmatic bronchitis with exacerbation Additional Impression: Hypoxia Departure Information Dispostion Admitted as an inpatient Referrals Maura Lee, C.R.N.P. (PCP) Patient Instructions My [facility] Problem Qualifiers
[2017-11-09] MEDS ORDERED: ALBUT/IPRATROP 3MG/0.5MG NEB 3 ML VIAL INH PRN (10:45)
[2017-11-09] MEDS ORDERED: ALUMINUM/MAGNESIUM/SIMETH (MAALOX MAX) 30 ML UDC PO PRN (10:45)
[2017-11-09] MEDS ORDERED: ONDANSETRON INJ 2 MG/ML 2 ML VIAL IV PRN (10:45)
[2017-11-09] MEDS ORDERED: MAGNESIUM HYDROXIDE SUSP 30 ML UDC PO PRN (10:45)
[2017-11-09] MEDS ORDERED: AZITHROMYCIN 250 MG TAB PO ONE (10:45)
[2017-11-09] MEDS ORDERED: ACETAMINOPHEN 325 MG TAB PO PRN (10:45)
--- NOTE | 2017-11-09 11:01 | History and Physical ---
History & Physical Date & Time of Service: Nov 09, 2017 at 10:55 Chief Complaint: Can't Breathe And Congested Primary Care Physician: Maura Lee C.R.NAlbanPAlban History of Present Illness 31-year-old morbidly obese asthmatic patient who takes chronic methadone and Neurontin who presents after 1 week prehospital illness which started as an upper respiratory type infection. He called his primary provider who placed him on antibiotics without significant help he presents today with diaphoresis dyspnea and increased work of breathing. He has had no fevers at home she had no change in bowel habits he said no ill contacts. In the ER is felt that he had respiratory distress similar to an asthmatic exacerbation he remains mildly hypoxemic. Patient currently is resting comfortably breathing through his nose with his nasal cannula he still is mildly diaphoretic but not febrile he has no focal air loss and only occasional respiratory wheezes Past Medical/Surgical History Medical Problems: (1) ASTHMA, UNSPECIFIED Status: Chronic (2) Bipolar Disorder, Unspecified Status: Chronic (3) Cellulitis Status: Resolved (4) Cellulitis of right lower extremity Status: Resolved (5) Chronic cutaneous venous stasis ulcer Status: Chronic (6) DRUG DEPEND NOS-CONTIN Status: Resolved (7) Edema of right eyelid Status: Resolved (8) Esophageal Reflux Status: Chronic (9) Foot pain, right Status: Resolved (10) Fracture of metatarsal bone Status: Resolved (11) Hypertension Nos Status: Chronic (12) Hypothyroidism, Unspecified Status: Chronic (13) Low back pain on right side with sciatica Status: Resolved (14) Lumbago Status: Chronic (15) MORBID OBESITY Status: Chronic Surgical Problems: (1) CARPAL TUNNEL SYNDROME Status: Resolved (2) History of hernia repair Status: Resolved (3) History of tonsillectomy Status: Resolved (4) Status post ablation of incompetent vein using laser Status: Resolved Social History Smoking Status: Current Every Day Smoker Drug Use: none Marital Status: Housing status: lives with family Occupational Status: disabled Immunizations History of Influenza Vaccine: Unknown History of Tetanus Vaccine?: Unknown History of Pneumococcal: Unknown History of Hepatitis B Vaccine: Unknown Multi-Drug Resistant Organisms History of MDRO: No Allergies Coded Allergies: No Known Allergies (Verified , 11/09/17) Home Medications Scheduled Albuterol Hfa (Ventolin Hfa), 2-4 PUFF INH NEEDED Amoxicillin (Amoxicillin), 875 MG PO TID Benzonatate (Tessalon Perles), 200 MG PO TID Gabapentin (Neurontin), 900 MG PO TID Methadone Hcl (Methadose), 132 MG PO DAILY Mometasone Furoate-Formoterol (Dulera 200/5 Mcg), 2 PUFF INH BID Review of Systems ROS: Morbidly obese No double vision blurry vision No problems with speech or swallowing No palpitations, chest pain or pressure Has had some Wheezing and increased work of breathing, he has chronic abdominal pain due to a hernia No nausea vomiting diarrhea changes in appetite or weight No burning urine urine frequency or changes in color No focal joint pain or muscle pain No skin rashes or oral lesions, he is edentulous He has bruising about his abdomen due to aching skin lesions and chronic redness and swelling to his lower legs which he self wraps He has persistent low back pain and paresthesias to his legs but no loss of muscular strength No changes in memory or confusion Physical Exam Vital Signs Date Time Temp Pulse Resp B/P (MAP) Pulse Ox O2 Delivery O2 Flow Rate FiO2 11/09/17 09:59 81 24 158/91 85 Room Air 11/09/17 09:59 37.2 88 24 134/158 93 Nasal Cannula 2.0 11/09/17 09:15 86 22 134/83 93 Nasal Cannula 2.0 11/09/17 08:38 91 Nasal Cannula 4.0 11/09/17 08:31 88 24 139/91 90 Nasal Cannula 2.0 11/09/17 08:08 95 Nasal Cannula 2.0 11/09/17 07:43 94 Nasal Cannula 2.0 11/09/17 07:31 97 11/09/17 07:17 89 Room Air 11/09/17 07:17 37.2 95 28 163/112 89 Room Air General Appearance: + mild distress, + obese Head: normocephalic, atraumatic Eyes: normal inspection, sclerae normal Neck: supple, no JVD Respiratory/Chest: no accessory muscle use, + respiratory distress (mild), + decreased breath sounds, + wheezing (mild) Cardiovascular: regular rate, rhythm, no murmur Abdomen/GI: normal bowel sounds, non tender, soft Back: normal inspection, no CVA tenderness, no muscle spasm Extremities/Musculoskelatal: + pedal edema, + swelling, + pertinent finding ( changes of chronic venostasis wraps are in place will need to be removed for further evaluation) Neurologic/Psych: alert, oriented x 3 Skin: normal color, warm/dry Lymphatic: no adenopathy Diagnostics Laboratory Results Results Past 24 Hours Test 11/09/17 08:13 Range/Units White Blood Count 6.07 4.8-10.8 K/uL Red Blood Count 4.17 4.7-6.1 M/uL Hemoglobin 9.1 14.0-18.0 g/dL Hematocrit 31.3 42-52 % Mean Corpuscular Volume 75.1 80-100 fL Mean Corpuscular Hemoglobin 21.8 25-34 pg Mean Corpuscular Hemoglobin Concent 29.1 32-36 g/dl Platelet Count 150 130-400 K/uL Mean Platelet Volume 9.8 7.4-10.4 fL Neutrophils (%) (Auto) 64.2 % Lymphocytes (%) (Auto) 27.3 % Monocytes (%) (Auto) 5.9 % Eosinophils (%) (Auto) 2.0 % Basophils (%) (Auto) 0.3 % Neutrophils # (Auto) 3.89 1.4-6.5 K/uL Lymphocytes # (Auto) 1.66 1.2-3.4 K/uL Monocytes # (Auto) 0.36 0.11-0.59 K/uL Eosinophils # (Auto) 0.12 0-0.5 K/uL Basophils # (Auto) 0.02 0-0.2 K/uL RDW Standard Deviation 47.7 36.4-46.3 fL RDW Coefficient of Variation 17.3 11.5-14.5 % Immature Granulocyte % (Auto) 0.3 % Immature Granulocyte # (Auto) 0.02 0.00-0.02 K/uL Sodium Level 138 136-145 mmol/L Potassium Level 4.1 3.5-5.1 mmol/L Chloride Level 103 98-107 mmol/L Carbon Dioxide Level 29 21-32 mmol/L Anion Gap 6.0 3-11 mmol/L Blood Urea Nitrogen 7 7-18 mg/dl Creatinine 0.75 0.60-1.40 mg/dl Est Creatinine Clear Calc Drug Dose 243.1 ml/min Estimated GFR () 141.7 Estimated GFR (Non- 122.2 BUN/Creatinine Ratio 9.7 10-20 Random Glucose 101 70-99 mg/dl Calcium Level 8.4 8.5-10.1 mg/dl Total Bilirubin 0.3 0.2-1 mg/dl Aspartate Amino Transf (AST/SGOT) 29 15-37 U/L Alanine Aminotransferase (ALT/SGPT) 15 12-78 U/L Alkaline Phosphatase 132 45-117 U/L Total Protein 7.9 6.4-8.2 gm/dl Albumin 3.1 3.4-5.0 gm/dl Globulin 4.8 2.5-4.0 gm/dl Albumin/Globulin Ratio 0.6 0.9-2 Diagnostic Radiology Microcytic anemia as noted CXR normal Impression Assessment and Plan 31-year-old male with a history of asthma here with bronchitic exacerbation and an exacerbation of his asthma For his asthma he'll be placed on Solu-Medrol 20 mg IV every 12 duo nebs both 4 times a day and every 2 when necessary and will continue his Symbicort For bronchitis of the continue azithromycin For his chronic pain he'll maintain his methadone and gabapentin For chronic venous stasis of the place a low-salt diet with wound care consultation for help with managing his chronic swelling He has a microcytic anemia we'll check an iron and TIBC panel Despite his obesity and large pannus he does not have any obvious intertrigo For DVT prevention the patient will be placed on Lovenox Advanced Directives Existing Advance Directive: No VTE Prophylaxis VTE Risk Assessment Done? Y/N: Yes Risk Level: Moderate Given or contraindicated: Enoxaparin (Lovenox)SQ
[2017-11-09 12:16] VITALS: BP 157/88; PULSE 87; TEMP 37.4; O2SAT 92; Ht 175.3 cm; Wt 195.0 kg
[2017-11-09] MEDS ORDERED: SODIUM CHLORIDE 0.9% 1000ML 1,000 ML IV SCH (12:30)
[2017-11-09 13:11] LABS: HEMATOCRIT 32.2 % (42-52); HEMOGLOBIN 9.4 g/dL (14.0-18.0); MEAN CELL VOLUME 75.2 fL (80-100); MEAN CORPUSCULAR HGB CONC 29.2 g/dl (32-36); MEAN PLATELET VOLUME 9.3 fL (7.4-10.4); PLATELET COUNT 136 K/uL (130-400); RED CELL DISTRIBUTION WIDTH CV 17.2 % (11.5-14.5); WHITE BLOOD COUNT 5.43 K/uL (4.8-10.8)
[2017-11-09] MEDS: GABAPENTIN 600 MG TAB PO SCH ×2 (13:59→21:05)
[2017-11-09] MEDS: NICOTINE 14 MG/24 HR TDSY TD SCH (13:59)
[2017-11-09] MEDS: METHYLPREDNISOLONE IV 40 MG in SYRINGE 0 ML IV SCH ×2 (13:59→21:05)
[2017-11-09] MEDS ORDERED: PNEUMOCOCCAL ADMINISTRATION CHARGE ONE (14:15)
[2017-11-09] MEDS ORDERED: INFLUENZA ADMINISTRATION CHARGE ONE (14:15)
[2017-11-09] MEDS ORDERED: PNEUMOCOCCAL POLYSACCHARIDES 25 MCG/0.5 ML VIAL/SYR IM. ONE (14:15)
[2017-11-09] MEDS ORDERED: INFLUENZA VIRUS QUAD VACCINE 0.5 ML SYR IM. ONE (14:15)
[2017-11-09] MEDS: ENOXAPARIN 40 MG/0.4 ML SYR SQ SCH (15:42)
[2017-11-09] MEDS: ALBUT/IPRATROP 3MG/0.5MG NEB 3 ML VIAL INH SCH ×2 (16:00→21:02)
[2017-11-09 16:04] VITALS: PULSE 82; O2SAT 87
[2017-11-09 21:04] VITALS: PULSE 75; O2SAT 93
[2017-11-09 23:20] VITALS: BP 127/76; PULSE 77; TEMP 36.9; O2SAT 92
[2017-11-10] VITALS: O2SAT 93
[2017-11-10 07:13] VITALS: PULSE 75; O2SAT 95
[2017-11-10] MEDS: ALBUT/IPRATROP 3MG/0.5MG NEB 3 ML VIAL INH SCH ×4 (07:13→19:55)
[2017-11-10 07:36] VITALS: BP 105/63; PULSE 72; TEMP 36.7; O2SAT 95
[2017-11-10 08:14] LABS: CALCIUM 8.2 mg/dl (8.5-10.1); CARBON DIOXIDE 29 mmol/L (21-32); CREATININE 0.65 mg/dl (0.60-1.40); GLUCOSE 101 mg/dl (70-99); POTASSIUM 4.2 mmol/L (3.5-5.1); SODIUM 137 mmol/L (136-145)
[2017-11-10 08:26] LABS: BLOOD UREA NITROGEN 11 mg/dl (7-18); HEMOGLOBIN 9.2 g/dL (14.0-18.0); MEAN CORPUSCULAR HEMOGLOBIN 21.9 pg (25-34); MEAN CORPUSCULAR HGB CONC 28.8 g/dl (32-36); MEAN PLATELET VOLUME 9.5 fL (7.4-10.4); PLATELET COUNT 140 K/uL (130-400); RED CELL DISTRIBUTION WIDTH SD 47.6 fL (36.4-46.3); WHITE BLOOD COUNT 7.74 K/uL (4.8-10.8)
[2017-11-10] MEDS: NICOTINE 14 MG/24 HR TDSY TD SCH (09:00)
[2017-11-10] MEDS: AZITHROMYCIN 250 MG TAB PO SCH (09:02)
[2017-11-10] MEDS: GABAPENTIN 600 MG TAB PO SCH ×3 (09:02→22:04)
[2017-11-10] MEDS: METHADONE ORAL SOLN 2 MG/1ML PO SCH (09:03)
[2017-11-10] MEDS: METHADONE PO SCH (09:03)
[2017-11-10] MEDS: METHYLPREDNISOLONE IV 40 MG in SYRINGE 0 ML IV SCH ×3 (10:41→22:30)
[2017-11-10 11:18] VITALS: PULSE 82; O2SAT 96
--- NOTE | 2017-11-10 12:40 | Progress Note ---
Subjective Date of Service: Nov 10, 2017. Subjective Pt evaluation today including: conversation w/ patient, physical exam, chart review, lab review, review of studies, conversation w/ risk consultant, review of inpatient medication list Still have a lot audible wheezing, but generally is better, reported cough with white sputum, no hemoptysis, denied chest pain palpitation Deny fever and chill Bilateral lower extremity with chronic wound, left lower extremity relative to new, right lower extremity anterior gamino has wound for years Problem List Medical Problems: (1) ASTHMA, UNSPECIFIED Status: Chronic (2) Asthmatic bronchitis with exacerbation Status: Acute (3) Bipolar Disorder, Unspecified Status: Chronic (4) Chronic cutaneous venous stasis ulcer Status: Chronic (5) Esophageal Reflux Status: Chronic (6) Hypertension Nos Status: Chronic (7) Hypothyroidism, Unspecified Status: Chronic (8) Hypoxia Status: Acute (9) Lumbago Status: Chronic (10) MORBID OBESITY Status: Chronic Review of Systems Constitutional: + weakness, No fever, No chills, No sweats, No weight loss, No fatigue, No problem reported Eyes: No worsening of vision, No eye pain, No redness, No discharge, No diplopia ENT: No hearing loss, No unusual epistaxis, No nasal symptoms, No sore throat, No tinnitus, No dental problems, No trouble swallowing Respiratory: + cough, + sputum, + wheezing, + shortness of breath, + dyspnea at rest, No dyspnea on exertion, No hemoptysis Cardiac: No chest pain, No orthopnea, No PND, No edema, No claudication, No palpitations Abdomen: No pain, No nausea, No vomiting, No diarrhea, No constipation Musculoskeletal: No joint pain, No muscle pain, No swelling, No calf pain Male : No dysuria, No urinary frequency, No incontinence, No nocturia more than once/night, No slowing stream, No hematuria Neurologic: No memory loss, No paralysis, No weakness, No numbness/tingling, No vertigo, No balance problems Psychiatric: No depression symptoms, No anhedonism, No anxiety, No insomnia, No substance abuse Heme: No abnormal bleeding/bruising, No clotting problems, No swollen lymph nodes, No night sweats Endo: No fatigue, No excessive thirst, No excessive urination Skin: + rash, + problem reported ( left lower extremity dime size, and rright lower extremity anterior gamino has 4x4 cm wound for years), No itch, No new/ changing skin lesions, No color change, No bleeding Objective Vital Signs Date Time Temp Pulse Resp B/P (MAP) Pulse Ox O2 Delivery O2 Flow Rate FiO2 11/10/17 11:18 82 16 96 Nasal Cannula 3.0 11/10/17 10:00 Nasal Cannula 4.0 11/10/17 08:00 Nasal Cannula 4.0 11/10/17 07:36 36.7 72 20 105/63 (77) 95 Nasal Cannula 4.0 11/10/17 07:13 75 16 95 Nasal Cannula 4.0 11/10/17 00:00 93 Nasal Cannula 4.0 11/09/17 23:20 36.9 77 18 127/76 (93) 92 11/09/17 21:04 75 16 93 Nasal Cannula 4.0 11/09/17 19:48 Nasal Cannula 4.0 11/09/17 16:04 82 16 87 Nasal Cannula 2.0 11/09/17 16:00 Nasal Cannula 4.0 Physical Exam General Appearance: WD/WN, no apparent distress, + obese (morbid obesity) Eyes: normal inspection, PERRL, EOMI, sclerae normal ENT: normal ENT inspection, hearing grossly normal, pharynx normal Neck: supple, no adenopathy, thyroid normal, no JVD, no carotid bruits, trachea midline Respiratory/Chest: chest non-tender, normal breath sounds, no respiratory distress, no accessory muscle use, + decreased breath sounds, + rales, + wheezing (expiratory) Cardiovascular: regular rate, rhythm, no gallop, no JVD, no murmur, + pertinent finding (1+) Abdomen: normal bowel sounds, non tender, soft, no organomegaly, no pulsatile mass Extremities: normal range of motion, non-tender, normal inspection, no pedal edema, no calf tenderness, normal capillary refill, pelvis stable Neurologic/Psychiatric: yarder puncher II-XII nml as tested, no motor/sensory deficits, alert, normal mood/affect, oriented x 3 Skin: normal color, warm/dry, no rash Lymphatic: no adenopathy Laboratory Results Last 24 Hours Test 11/09/17 13:04 11/10/17 07:26 White Blood Count 5.43 K/uL 7.74 K/uL Red Blood Count 4.28 M/uL 4.21 M/uL Hemoglobin 9.4 g/dL 9.2 g/dL Hematocrit 32.2 % 32.0 % Mean Corpuscular Volume 75.2 fL 76.0 fL Mean Corpuscular Hemoglobin 22.0 pg 21.9 pg Mean Corpuscular Hemoglobin Concent 29.2 g/dl 28.8 g/dl RDW Standard Deviation 47.0 fL 47.6 fL RDW Coefficient of Variation 17.2 % 17.0 % Platelet Count 136 K/uL 140 K/uL Mean Platelet Volume 9.3 fL 9.5 fL Sodium Level 137 mmol/L Potassium Level 4.2 mmol/L Chloride Level 101 mmol/L Carbon Dioxide Level 29 mmol/L Anion Gap 7.0 mmol/L Blood Urea Nitrogen 11 mg/dl Creatinine 0.65 mg/dl Est Creatinine Clear Calc Drug Dose 280.5 ml/min Estimated GFR () > 150.0 Estimated GFR (Non- 129.6 BUN/Creatinine Ratio 17.2 Random Glucose 101 mg/dl Calcium Level 8.2 mg/dl Assessment and Plan 31-year-old male with a history of asthma admitted on October and 2017 with bronchitic exacerbation asthma the patient and history of asthma, tobacco abuse disorder still smoking Continue Solu-Medro, duo nebs both 4 times a day and every 2 when necessary, continue his Symbicort, continue azithromycin Consult to quit smoking, offered help, nicotine patch ordered chronic pain, continue his methadone and gabapentin, check urine drug screening chronic venous stasis and chronic wound in bilateral lower extremities: wound care consultation and follow-up Microcytic anemia : Check anemia panel Morbid obesity DVT prevention: on Lovenox Continued [facility] stay due to: multiple IV medications needed Discharge planning: home
[2017-11-10 15:22] VITALS: BP 142/77; PULSE 77; TEMP 37.7; O2SAT 91
[2017-11-10 15:36] VITALS: PULSE 71; O2SAT 96
[2017-11-10] MEDS: ENOXAPARIN 40 MG/0.4 ML SYR SQ SCH (15:40)
[2017-11-11] VITALS (9 sets, daily range): BP systolic 133–145; BP diastolic 76–97; PULSE 68–84; TEMP 35.3–37.1; O2SAT 88–96
[2017-11-11] MEDS: ALBUT/IPRATROP 3MG/0.5MG NEB 3 ML VIAL INH SCH ×3 (07:36→14:36)
[2017-11-11 08:34] LABS: PHOSPHORUS 3.9 mg/dl (2.5-4.9)
[2017-11-11] MEDS: NICOTINE 14 MG/24 HR TDSY TD SCH (08:38)
[2017-11-11] MEDS: METHADONE ORAL SOLN 2 MG/1ML PO SCH (08:39)
[2017-11-11] MEDS: GABAPENTIN 600 MG TAB PO SCH ×2 (08:39→13:50)
[2017-11-11] MEDS: AZITHROMYCIN 250 MG TAB PO SCH (08:39)
[2017-11-11] MEDS: METHADONE PO SCH (08:40)
[2017-11-11] MEDS ORDERED: CYANOCOBALAMIN 100 MCG TAB (VIT B-12) PO SCH (09:00)
[2017-11-11] MEDS: ENOXAPARIN 40 MG/0.4 ML SYR SQ SCH (16:00)
[2017-11-11] MEDS ORDERED: AZIT-57 PO (16:11)
[2017-11-11] MEDS ORDERED: PRD20 PO (16:11)
[2017-11-11] MEDS ORDERED: NICO14DI5 TD (16:11)
[2017-11-11] MEDS ORDERED: VTMB12100 PO (16:11)
--- NOTE | 2017-11-11 16:12 | Discharge Instructions ---
Discharge Instructions Date of Service Nov 11, 2017. Admission Reason for Admission: Acute Respiratory Failure With Hypoxia Discharge Discharge Diagnosis / Problem: asthma exac Discharge Goals Goal(s): Decrease discomfort, Improve function, Increase independence, Improve disease control, Improve nutritional status, Learn about illness, Diagnostic testing, Therapeutic intervention, Prevent Disease Progression, Specific goals Activity Recommendations Activity Limitations: resume your previous activity . Instructions / Follow-Up Instructions / Follow-Up you have asthma exac I Rx you tapering dose of oral prednisone I give you Flovent you need to continue you was smoking, I recommend you quit smoking, never smoking around oxygen I find your Vit B12 is low, I Rx vit b12 pills for you I find your thyroid function is low, I start levothyroxine you need oxygen 2 L per min this when you addressed always neap and said he need them in this when he walking, you need to be referral to keyseating machine set up operator to have pulmonary function testing PCP You need to have on all of your medical conditions follow up with your primary care physician - you need to follow up with your primary care physician in 1 week, - take medication as instructed, never overdose or any misuse, or take with alcohol, because misuse of medicine may cause organ damage or , call your primary care physician if have questions of medicaitons. - call your primary care physician OR go to local emergency room if has any fever/chill, chest pain, shortness of breathing, nausea/vomiting/abdominal pain , facial droop/slurry speech/local weakness, or if has any questions. - fall precaution - diet as instructed - you need to follow up with your subspecialist - you should understand that it is important to follow up the above instruction , and "not following the above instruction" may cause delayed or missed care of your medical conditions which may cause permanent organ damage and even . Current Hospital Diet Patient's current hospital diet: Regular Diet Discharge Diet Recommended Diet: Regular Diet Pending Studies Studies pending at discharge: no Medical Emergencies . Who to Call and When: Medical Emergencies: If at any time you feel your situation is an emergency, please call 911 immediately. . Non-Emergent Contact Non-Emergency issues call your: Primary Care Provider . . "Provider Documentation" section prepared by Fran Kirby. . VTE Core Measure Inpt VTE Proph given/why not?: Enoxaparin (Lovenox)SQ
[2017-11-11] MEDS ORDERED: FLVHFA110 INH (16:15)
[2017-11-11] MEDS ORDERED: SYN25 PO (16:19)
--- NOTE | 2017-11-11 16:41 | Progress Note ---
Subjective Date of Service: Nov 11, 2017. 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 (5) Esophageal Reflux Status: Chronic (6) Hypertension Nos Status: Chronic (7) Hypothyroidism, Unspecified Status: Chronic (8) Hypoxia Status: Acute (9) Lumbago Status: Chronic (10) MORBID OBESITY Status: Chronic Review of Systems Constitutional: No fever, No chills, No sweats, No weight loss, No weakness, No fatigue, No problem reported Eyes: No worsening of vision, No eye pain, No redness, No discharge, No diplopia ENT: No hearing loss, No unusual epistaxis, No nasal symptoms, No sore throat, No tinnitus, No dental problems, No trouble swallowing Respiratory: + wheezing, + dyspnea on exertion, No cough, No sputum, No shortness of breath, No dyspnea at rest, No hemoptysis Cardiac: No chest pain, No orthopnea, No PND, No edema, No claudication, No palpitations Abdomen: No pain, No nausea, No vomiting, No diarrhea, No constipation Musculoskeletal: No joint pain, No muscle pain, No swelling, No calf pain Male : No dysuria, No urinary frequency, No incontinence, No nocturia more than once/night, No slowing stream, No hematuria Neurologic: No memory loss, No paralysis, No weakness, No numbness/tingling, No vertigo, No balance problems Psychiatric: No depression symptoms, No anhedonism, No anxiety, No insomnia, No substance abuse Heme: No abnormal bleeding/bruising, No clotting problems, No swollen lymph nodes, No night sweats Endo: No fatigue, No excessive thirst, No excessive urination Skin: + rash, + problem reported (chronic wounds in left lower extremity is not new), No itch, No new/changing skin lesions, No color change, No bleeding Objective Vital Signs Date Time Temp Pulse Resp B/P (MAP) Pulse Ox O2 Delivery O2 Flow Rate FiO2 1/21/18 15:39 88 Room Air 11/11/17 14:47 35.3 70 20 133/80 (97) 92 Room Air 11/11/17 14:37 75 16 93 Nasal Cannula 3.0 11/11/17 11:35 84 14 93 Nasal Cannula 3.0 11/11/17 08:30 Room Air 11/11/17 07:36 74 16 95 Nasal Cannula 3.0 11/11/17 07:26 37.1 76 20 133/76 (95) 94 Room Air 11/11/17 00:22 36.9 68 20 145/97 (113) 93 Room Air 11/11/17 00:15 96 Nasal Cannula 3.0 Physical Exam General Appearance: WD/WN, no apparent distress, + obese Eyes: normal inspection, PERRL, EOMI, sclerae normal ENT: normal ENT inspection, hearing grossly normal, pharynx normal Neck: supple, no adenopathy, thyroid normal, no JVD, no carotid bruits, trachea midline Respiratory/Chest: chest non-tender, normal breath sounds, no respiratory distress, no accessory muscle use, + decreased breath sounds, + wheezing ( occasional) Cardiovascular: regular rate, rhythm, no edema, no gallop, no JVD, no murmur Abdomen: normal bowel sounds, non tender, soft, no organomegaly, no pulsatile mass Extremities: normal range of motion, non-tender, normal inspection, no pedal edema, no calf tenderness, normal capillary refill, pelvis stable Neurologic/Psychiatric: 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 tested, no motor/sensory deficits, alert, normal mood/affect, oriented x 3 Skin: normal color, warm/dry, no rash Lymphatic: no adenopathy Laboratory Results Last 24 Hours Test 11/11/17 04:20 11/11/17 07:20 11/11/17 08:17 Urine Opiates Screen NEG Urine Methadone, Qualitative POS Urine Barbiturates NEG Urine Phencyclidine (PCP) Level NEG Ur Amphetamine/Methamphetamine NEG MDMA (Ecstasy) Screen NEG Urine Benzodiazepines Screen NEG Urine Cocaine Metabolite NEG Urine Marijuana (THC) NEG Phosphorus Level 3.9 mg/dl Magnesium Level 2.6 mg/dl Free Thyroxine 0.69 ng/dl Free Triiodothyronine 2.20 pg/ml Assessment and Plan 31-year-old male with a history of asthma admitted on October 2017 with bronchitic exacerbation asthma the patient and history of asthma, tobacco abuse disorder still smoking Stable and improved has been on Solu-Medro, duo nebs both 4 times a day and every 2 when necessary, continue his Symbicort, continue azithromycin Consult to quit smoking, offered help, nicotine patch ordered chronic pain, continue his methadone and gabapentin, check urine drug screening chronic venous stasis and chronic wound in bilateral lower extremities: wound care consultation and follow-up Microcytic anemia : Check anemia panel, we found vitamin B12 level is normal, start vitamin B12 by mouth History of hypothyroidism, found TSH is high and T3-T4 is now, therefore I started there was lateralizing 25 g by mouth daily, PCP please follow-up Upon discharge check oxygen, two-step exercise shows he needs 2LPM of [place] oxygen when in rest, and 3 LPM of [place] O2 when walking, requests social workers to setting up home O2 before discharge, Found patient to follow-up with PCP need to be referral to director physical therapy, and may need pulmonary function test Morbid obesity DVT prevention: on Lovenox Instructions / Follow-Up you have asthma exac I Rx you tapering dose of oral prednisone I give you Flovent you need to continue you was smoking, I recommend you quit smoking, never smoking around oxygen I find your Vit B12 is low, I Rx vit b12 pills for you I find your thyroid function is low, I start levothyroxine you need oxygen 2 L per min this when you addressed always neap and said he need them in this when he walking, you need to be referral to director physical therapy to have pulmonary function testing PCP You need to have on all of your medical conditions follow up with your primary care physician - you need to follow up with your primary care physician in 1 week, - take medication as instructed, never overdose or any misuse, or take with alcohol, because misuse of medicine may cause organ damage or , call your primary care physician if have questions of medicaitons. - call your primary care physician OR go to local emergency room if has any fever/chill, chest pain, shortness of breathing, nausea/vomiting/abdominal pain , facial droop/slurry speech/local weakness, or if has any questions. - fall precaution - diet as instructed - you need to follow up with your subspecialist - you should understand that it is important to follow up the above instruction , and "not following the above instruction" may cause delayed or missed care of your medical conditions which may cause permanent organ damage and even . Continued [facility] stay due to: home environment unsafe for pt Discharge planning: home
--- NOTE | 2017-11-11 16:52 | Discharge Summary ---
Discharge Summary Date of Service Nov 11, 2017. Discharge Summary Admission Date: Nov 09, 2017 at 10:35 Discharge Date: Nov 11, 2017 Discharge Disposition: Home Principal Diagnosis: asthma exacerbation Problems/Secondary Diagnoses: (1) ASTHMA, UNSPECIFIED Status: Chronic (2) Bipolar Disorder, Unspecified Status: Chronic (3) Chronic cutaneous venous stasis ulcer Status: Chronic (4) Esophageal Reflux Status: Chronic (5) Hypertension Nos Status: Chronic (6) Hypothyroidism, Unspecified Status: Chronic (7) Lumbago Status: Chronic (8) MORBID OBESITY Status: Chronic Immunizations: Have You Had Influenza Vaccine: Unknown History of Tetanus Vaccine?: Unknown History of Pneumococcal: Unknown History of Hepatitis B Vaccine: Unknown Medication Reconciliation New Medications: Levothyroxine Sodium (Synthroid) 25 Mcg Tab 25 MCG PO DAILY for 30 Days Azithromycin (Azithromycin) 250 Mg Tab 250 MG PO QAM for 3 Days, #3 TAB Cyanocobalamin (Vitamin B-12) 100 Mcg Tab 100 MCG PO QAM for 30 Days, #30 TAB Nicotine (Nicoderm Cq 14MG Patch) 14 Mg/24 Hr Dis 1 PATCH TD QAM for 30 Days Prednisone (Prednisone) 20 Mg Tab 40 MG PO DAILY for 6 Days, #6 TAB 30mg po daily for 2 days, then 20mg po daily for 2 days, then 10mg po daily for 2 days, then stop Continued Medications: Albuterol Hfa (Ventolin Hfa) 200 Puffs/72915 Mcg Aers 2-4 PUFF INH NEEDED, #18 Benzonatate (Tessalon Perles) 200 Mg Cap 200 MG PO TID Gabapentin (Neurontin) 600 Mg Tab 900 MG PO TID, TAB Methadone Hcl (Methadose) 10 Mg/Ml Con 132 MG PO DAILY Mometasone Furoate-Formoterol (Dulera 200/5 Mcg) 1 Aer Aer 2 PUFF INH BID, #13 Discontinued Medications: Amoxicillin (Amoxicillin) 875 Mg Tab 875 MG PO TID Discharge Exam Doing well, mild cough, occasional wheezing denied difficulty breathing, has been up and walk Review of Systems: Constitutional: No fever, No chills, No sweats, No weight loss, No weakness , No fatigue, No problem reported Eyes: No worsening of vision, No eye pain, No redness, No discharge, No diplopia, No problem reported ENT: No hearing loss, No unusual epistaxis, No nasal symptoms, No sore throat, No tinnitus, No dental problems, No trouble swallowing, No problem reported Respiratory: + cough, + shortness of breath, + dyspnea on exertion Cardiovascular: No chest pain, No orthopnea, No PND, No edema, No claudication, No palpitations, No problem reported Abdomen: No pain, No nausea, No vomiting, No diarrhea, No constipation, No GI bleeding, No problem reported Musculoskeletal: No joint pain, No muscle pain, No swelling, No calf pain, No problem reported Genitourinary - Male: No hematuria, No dysuria, No urinary frequency, No urinary urgency, No urinary hesitancy, No urinary retention, No urinary incontinence, No penile discharge, No lesions, No impotence, No problem reported Neurologic: No memory loss, No paralysis, No weakness, No numbness/tingling , No vertigo, No balance problems, No problem reported Psychiatric: No depression symptoms, No anhedonism, No anxiety, No insomnia , No substance abuse, No problem reported Endocrine: No fatigue, No excessive thirst, No excessive urination, No problem reported Hematologic / Lymphatic: No abnormal bleeding/bruising, No clotting problems , No swollen lymph nodes, No night sweats, No problem reported Integumentary: + problem reported (chronic wound in lower extremities), No rash, No itch, No new/changing skin lesions, No color change, No bleeding Physical Exam: General Appearance: WD/WN, no apparent distress, + obese Eyes: normal inspection, PERRL, EOMI ENT: normal ENT inspection, hearing grossly normal, TMs normal Neck: supple, no adenopathy, thyroid normal, no JVD Respiratory/Chest: chest non-tender, normal breath sounds, no respiratory distress, + decreased breath sounds, + wheezing (occasional) Cardiovascular: regular rate, rhythm, no gallop, + pertinent finding (trace edema) Abdomen / GI: normal bowel sounds, non tender, soft, no organomegaly, no pulsatile mass, normal rectal exam Extremities: normal inspection, no calf tenderness, normal capillary refill , no pedal edema Neurologic/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: 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, no motor/sensory deficits , alert, normal mood/affect, normal reflexes, oriented x 3 Skin: + pertinent finding (duane chronic lower extremities owunds are in dressing) Hospital Course 31-year-old male with a history of asthma admitted on October and 2017 with bronchitic exacerbation asthma exacerbation, the patient and history of asthma, tobacco abuse disorder , still smoking Stable and improved has been on Solu-Medro, duo nebs both 4 times a day and every 2 when necessary, continue his Symbicort, continue azithromycin Consult to quit smoking, offered help, nicotine patch ordered Has start tapering dose of prednisone chronic pain, continue his methadone and gabapentin, check urine drug screening chronic venous stasis and chronic wound in bilateral lower extremities: Neck lower extremities chronic wounds: wound care consultation and follow-up Microcytic anemia : Check anemia panel, we found vitamin B12 level is normal, start vitamin B12 by mouth History of hypothyroidism, found TSH is high 4.9 , and T3-T4 is now, therefore I started there was lateralizing 25 g by mouth daily, PCP please follow-up Upon discharge check oxygen, two-step exercise shows he needs 2LPM of [place] oxygen when in rest, and 3 LPM of [place] O2 when walking, requests social workers to setting up home O2 before discharge, Found patient to follow-up with PCP need to be referral to plastic surgery assistant, and may need pulmonary function test Morbid obesity DVT prevention: on Lovenox Instructions / Follow-Up you have asthma exac I Rx you tapering dose of oral prednisone I give you Flovent you need to continue you was smoking, I recommend you quit smoking, never smoking around oxygen I find your Vit B12 is low, I Rx vit b12 pills for you I find your thyroid function is low, I start levothyroxine you need oxygen 2 L per min this when you addressed always neap and said he need them in this when he walking, you need to be referral to plastic surgery assistant to have pulmonary function testing PCP You need to have on all of your medical conditions follow up with your primary care physician - you need to follow up with your primary care physician in 1 week, - take medication as instructed, never overdose or any misuse, or take with alcohol, because misuse of medicine may cause organ damage or , call your primary care physician if have questions of medicaitons. - call your primary care physician OR go to local emergency room if has any fever/chill, chest pain, shortness of breathing, nausea/vomiting/abdominal pain , facial droop/slurry speech/local weakness, or if has any questions. - fall precaution - diet as instructed - you need to follow up with your subspecialist - you should understand that it is important to follow up the above instruction , and "not following the above instruction" may cause delayed or missed care of your medical conditions which may cause permanent organ damage and even . Total Time Spent: Greater than 30 minutes This includes examination of the patient, discharge planning, medication reconciliation, and communication with other providers. Discharge Instructions Please refer to the electronic Patient Visit Report (Discharge Instructions) for additional information. Additional Copies To Maura Lee C.R.N.P.
== END 2017-11-11 18:48 | disposition home or self-care (01) | DRG 202 ==
LOC: C.EDB 07:10 → C.MS2W 10:35 → EDBEDREQ 10:42 → ENRESERV 10:55
PROVIDERS: ADMIT Internal Medicine; ATTEND Hospitalist
DX: J45.901 Unspecified asthma with (acute) exacerbation (principal); Z68.44 Body mass index [BMI] 60.0-69.9, adult; J40 Bronchitis, not specified as acute or chronic; G89.29 Other chronic pain; I87.2 Venous insufficiency (chronic) (peripheral); D50.9 Iron deficiency anemia, unspecified; E66.01 Morbid (severe) obesity due to excess calories; F17.200 Nicotine dependence, unspecified, uncomplicated; Z79.891 Long term (current) use of opiate analgesic; Z79.899 Other long term (current) drug therapy

== ENCOUNTER 2018-02-05 19:40 | Inpatient (IN) | payer OTHER ==
[~2018-02-05] VITALS: Ht 175.3 cm; Wt 191.8 kg
[~2018-02-05 19:40] MED LIST changes: +AZIT-57 PO; +BENZ200C59 PO; -CEPH500C2 PO; -IBUP1CAP9 PO; +NICO14DI5 TD; +PRD20 PO; +SYN25 PO; -TYLOTC500 PO; +VTMB12100 PO
--- NOTE | 2018-02-05 20:39 | EMERGENCY ROOM VISIT NOTE ---
History Report prepared by Lyndsay: Dejon Becerril Under the Supervision of: Dr. Jeff Mcginnis M.D. First contact with patient: 20:31 Chief Complaint: WOUND INFECTION Stated Complaint: WOUND INFECTION ON RT LEG Nursing Triage Summary: c/o a wound right leg for 5 years thinks its infected unable to get weight in triage History of Present Illness The patient is a 32 year old male who presents to the Emergency Room with complaints of a worsening right leg infection that started 5 years ago. He states that he was following-up with wound clinic for this, but the last time he was there was 4 to 5 months ago because he was kicked out and they won't take him back. The patient states this is the case because they needed him to go in twice a week, but he was having transportation problems. The patient says that he thinks the leg is infected, and the leg is reddened and swollen. He states that there was pus coming out of it yesterday. Source of History: patient, family Onset: 5 years ago Position: leg (right) Symptom Intensity: patient "thinks it is infected" - has not seen wound clinic in 4 to 5 months Quality: other (infection) Timing: worsening Note: Associated symptoms: Right lower leg redness and swelling. Pus coming out of it. Review of Systems See HPI for pertinent positives & negatives. A total of 10 systems reviewed and were otherwise negative. Past Medical & Surgical Medical Problems: (1) Acute respiratory failure with hypoxia (2) ASTHMA, UNSPECIFIED (3) Bipolar Disorder, Unspecified (4) Cellulitis (5) Cellulitis of right lower extremity (6) Cellulitis of right lower extremity (7) Chronic cutaneous venous stasis ulcer (8) DRUG DEPEND NOS-CONTIN (9) Edema of right eyelid (10) Esophageal Reflux (11) Foot pain, right (12) Fracture of metatarsal bone (13) Hypertension Nos (14) Hypothyroidism, Unspecified (15) Low back pain on right side with sciatica (16) Lumbago (17) MORBID OBESITY Surgical Problems: (1) CARPAL TUNNEL SYNDROME (2) History of hernia repair (3) History of tonsillectomy (4) Status post ablation of incompetent vein using laser Family History Diabetes mellitus Heart disease Hypertension Social History Smoking Status: Current Every Day Smoker Alcohol Use: none Drug Use: none Marital Status: Occupation Status: disabled Current/Historical Medications Scheduled Gabapentin (Gabapentin), 300 MG PO TID Gabapentin (Gabapentin), 600 MG PO TID Home O2 Therapy (Oxygen), 2-3 LITERS NA CONTINOUS Methadone Hcl (Methadose), 132 MG PO DAILY Omeprazole Magnesium (Prilosec Otc), 20 MG PO BID Scheduled PRN Acetaminophen (Tylenol), 1,000 MG PO Q6H PRN for Pain or Fever Albuterol Hfa (Ventolin Hfa), 2-4 PUFFS INH UD PRN for SOB/Wheezing Ibuprofen (Advil), 800 MG PO Q8 PRN for Pain or Fever Allergies Coded Allergies: No Known Allergies (Verified , 11/09/17) Physical Exam Vital Signs Date Time Temp Pulse Resp B/P (MAP) Pulse Ox O2 Delivery O2 Flow Rate FiO2 02/05/18 21:49 85 22 134/81 98 Room Air 02/05/18 21:34 82 02/05/18 19:50 36.5 91 20 166/77 96 Nasal Cannula Physical Exam GENERAL: Awake, alert, well-appearing, in no acute distress HENT: Normocephalic, atraumatic. Oropharynx unremarkable. EYES: Normal conjunctiva. Sclera non-icteric. NECK: Supple. No nuchal rigidity. FROM. No JVD. RESPIRATORY: Clear to auscultation. CARDIAC: Regular rate, normal rhythm. Extremities warm and well perfused. Pulses equal. ABDOMEN: Soft, non-distended. No tenderness to palpation. No rebound or guarding. No masses. RECTAL: Deferred. MUSCULOSKELETAL: Chest examination reveals no tenderness. The back is symmetrical on inspection without obvious abnormality. There is no CVA tenderness to palpation. No joint edema. LOWER EXTREMITIES: 6 inch by 4 inch ulcer to the right lower extremity. Chronic venous stasis changes. NEURO: Normal sensorium. No sensory or motor deficits noted. SKIN: No rash or jaundice noted. Medical Decision & Procedures ER Provider Diagnostic Interpretation: Patient Name: MICKIE RUTHERFORD Unit Number: [id number] Dictated: 02/05/182230 Transcribed: 02/05/182230 ARG Printed Date/Time: [~ rep prt dt]/[~ rep prt tm] [~ rep ct labl] - [~ rep ct ivnm] [facility] [place] [address] Dictated: 02/05/182230 Transcribed: 02/05/182230 ARG Printed Date/Time: [~ rep prt dt]/[~ rep prt tm] [~ rep ct labl] - [~ rep ct ivnm] R TIBIA/FIBULA 2 VIEWS ROUTINE CLINICAL HISTORY: Right lower leg wound COMPARISON: 06/22/2017 DISCUSSION: No acute fractures are visualized. There is mild periosteal reaction involving the lateral cortex of the distal fibula. IMPRESSION: 1. No evidence of fracture 2. Minimal increase in the periosteal reaction involving the lateral cortex of the distal fibula Electronically signed by: Brian Sethi M.D. 02/05/2018 10:33 PM Dictated Date/Time: 02/05/2018 10:31 PM The status of this report is Signed. Draft = Not yet reviewed or approved by Radiologist. Signed = Reviewed and approved by Radiologist. <AttendingPhy></AttendingPhy> <FamilyPhy>No Doctor, Assigned</FamilyPhy> < PrimaryPhy>No Doctor, Assigned</PrimaryPhy> <UnitNumber>[id number]</UnitNumber> <VisitNumber>[id number]</VisitNumber> <PatientName>MICKIE RUTHERFORD</PatientName> <DateOfBirth>1985</DateOfBirth> <Location>C.EDB</Location> <ServiceDate></ServiceDate> <MNE>ESINDI</MNE> <OrderingPhy>Jeff Mcginnis MD</ OrderingPhy> <OrderingPhyMNE>f rep ord dr almaguer</OrderingPhyMNE> <DictatingPhyMNE> f rep dict dr almaguer</DictatingPhyMNE> <CCListMNE>f rep ct mne</CCListMNE> < AdmittingPhyMNE>f pt admit dr almaguer</AdmittingPhyMNE> <AttendingPhyMNE>f pt attend dr almaguer</AttendingPhyMNE> <ConsultingPhyMNE>f pt consult dr almaguer</ConsultingPhyMNE> <FamilyPhyMNE>f pt fam dr almaguer</FamilyPhyMNE> <OtherPhyMNE>f pt other dr mne</OtherPhyMNE> < PrimaryPhyMNE>f pt prim care dr almaguer</PrimaryPhyMNE> <ReferringPhyMNE>f pt referring dr almaguer</ReferringPhyMNE> Laboratory Results 02/05/18 21:10 Neutrophils (%) (Auto) 55.7, Lymphocytes (%) (Auto) 32.5, Monocytes (%) (Auto) 7.3, Eosinophils (%) (Auto) 3.9, Basophils (%) (Auto) 0.5, Neutrophils # (Auto) 4.25, Lymphocytes # (Auto) 2.48, Monocytes # (Auto) 0.56, Eosinophils # (Auto) 0.30, Basophils # (Auto) 0.04 02/05/18 21:10 Test 02/05/18 21:10 02/05/18 21:20 Neutrophils (%) (Auto) 55.7 % Lymphocytes (%) (Auto) 32.5 % Monocytes (%) (Auto) 7.3 % Eosinophils (%) (Auto) 3.9 % Basophils (%) (Auto) 0.5 % Neutrophils # (Auto) 4.25 K/uL (1.4-6.5) Lymphocytes # (Auto) 2.48 K/uL (1.2-3.4) Monocytes # (Auto) 0.56 K/uL (0.11-0.59) Eosinophils # (Auto) 0.30 K/uL (0-0.5) Basophils # (Auto) 0.04 K/uL (0-0.2) Immature Granulocyte % (Auto) 0.1 % Immature Granulocyte # (Auto) 0.01 K/uL (0.00-0.02) Hypochromasia PRESENT Stomatocytes 1+ Anion Gap 4.0 mmol/L (3-11) Estimated GFR () 138.4 Estimated GFR (Non- 119.4 BUN/Creatinine Ratio 13.8 (10-20) Calcium Level 8.2 mg/dl (8.5-10.1) Total Bilirubin 0.2 mg/dl (0.2-1) Direct Bilirubin < 0.1 mg/dl (0-0.2) Aspartate Amino Transf (AST/SGOT) 26 U/L (15-37) Alanine Aminotransferase (ALT/SGPT) 22 U/L (12-78) Alkaline Phosphatase 132 U/L (45-117) Total Protein 7.8 gm/dl (6.4-8.2) Albumin 3.4 gm/dl (3.4-5.0) Lipase 256 U/L (73-393) Urine Color YELLOW Urine Appearance CLEAR (CLEAR) Urine pH 5.0 (4.5-7.5) Urine Specific [place] 1.025 (1.000-1.030) Urine Protein NEG (NEG) Urine Glucose (UA) NEG (NEG) Urine Ketones NEG (NEG) Urine Occult Blood NEG (NEG) Urine Nitrite NEG (NEG) Urine Bilirubin NEG (NEG) Urine Urobilinogen NEG (NEG) Urine Leukocyte Esterase NEG (NEG) Labs reviewed by ED physician. Medications Administered Medications (Trade) Dose Ordered Sig/Aida Route Start Time Stop Time Status Last Admin Dose Admin Ceftriaxone Sodium (Rocephin Inj) 1 gm NOW STAT IV 02/05/18 20:42 02/05/18 20:46 DC 02/05/18 21:18 1 GM Levofloxacin (Levaquin / D5W) 750 mg NOW STAT IV 02/05/18 20:42 02/05/18 20:46 DC 02/05/18 21:47 750 MG ED Course 2032: Past medical records reviewed. The patient was evaluated in room B3B. A complete history and physical examination was performed. 2041: Vancomycin 1 gm Ed/Asu Omnicell 1 gm IV, Levaquin / D5W 750 mg IV, Rocephin Inj 1 gm IV. 2144: Upon reexamination the patient is resting. I discussed results and treatment plan with the patient. He verbalizes agreement and understanding. The patient will be evaluated for further management. 2154: I discussed the patient with Dr. Briscoe - [facility] it compliance analyst - he will evaluate the patient for further treatment. Medical Decision Differential diagnosis: Etiologies such as cellulitis, abscess, MRSA infection, DVT, necrotizing fasciitis, dermatitis, drug eruption, as well as others were entertained. This is a 32 this is a 32-year-old male who presents to the emergency department complaining of large wound to the right lower extremity. The patient has had poor follow-up in the past for this wound. The wound smells like Pseudomonas. For this reason the patient was started on broad-spectrum antibiotics. Cultures were obtained from both the wound as well as blood. I did discuss the case with the hospitalist service who agreed to admit the patient. Patient and family were in agreement with the treatment plan. Medication Reconcilliation Current Medication List: was personally reviewed by me Blood Pressure Screening Patient's blood pressure: Elevated blood pressure Blood pressure disposition: Elevated BP felt to be situational Consults Time Called: 2144 Consulting Physician: Dr. Rachna JORDAN it compliance analyst Returned Call: 2154 I discussed the patient with Dr. Rachna JORDAN it compliance analyst - he will evaluate the patient for further treatment. Impression Primary Impression: Cellulitis Scribe Attestation The scribe's documentation has been prepared under my direction and personally reviewed by me in its entirety. I confirm that the note above accurately reflects all work, treatment, procedures, and medical decision making performed by me. Departure Information Dispostion Being Evaluated By Hospitalist Referrals No Doctor, Assigned (PCP) Patient Instructions My [facility] Problem Qualifiers Primary Impression: Cellulitis Site of cellulitis: extremity Site of cellulitis of extremity: lower extremity Laterality: right Qualified Codes: L03.115 - Cellulitis of right lower limb
[2018-02-05] MEDS ORDERED: LEVAQUIN 750MG / 150ML D5W IV STA (20:42)
[2018-02-05] MEDS ORDERED: CEFTRIAXONE SOD INJ 1 GM ADDVIAL IV STA (20:42)
[2018-02-05] MEDS ORDERED: VANCOMYCIN 1GM ED/ASU OMNICELL IV STA (20:42)
[2018-02-05] MEDS ORDERED: ACET-1256 PO (20:58)
[2018-02-05] MEDS ORDERED: NRN600 PO (20:58)
[2018-02-05] MEDS ORDERED: GABA-1219 PO (20:58)
[2018-02-05] MEDS ORDERED: IBUP-1050 PO (20:58)
[2018-02-05] MEDS ORDERED: OMEP20TA14 PO (20:58)
[2018-02-05] MEDS ORDERED: OXGN (20:58)
[2018-02-05 21:46] LABS: ALBUMIN 3.4 gm/dl (3.4-5.0); ALT/SGPT 22 U/L (12-78); AST/SGOT 26 U/L (15-37); BLOOD UREA NITROGEN 11 mg/dl (7-18); CALCIUM 8.2 mg/dl (8.5-10.1); CARBON DIOXIDE 29 mmol/L (21-32); CREATININE 0.78 mg/dl (0.60-1.40); GLUCOSE 84 mg/dl (70-99); LIPASE 256 U/L (73-393); SODIUM 135 mmol/L (136-145)
[2018-02-05 21:49] LABS: ALKALINE PHOSPHATASE 132 U/L (45-117); TOTAL PROTEIN 7.8 gm/dl (6.4-8.2)
[2018-02-05] MEDS ORDERED: VANCOMYCIN CONSULT ACTIVE PRN (22:15)
[2018-02-05] MEDS ORDERED: ACETAMINOPHEN 325 MG TAB PO PRN (22:15)
[2018-02-05] MEDS ORDERED: ALUMINUM/MAGNESIUM/SIMETH (MAALOX MAX) 30 ML UDC PO PRN (22:15)
[2018-02-05] MEDS ORDERED: ONDANSETRON 8MG OD TAB PO PRN (22:15)
[2018-02-05] MEDS ORDERED: ONDANSETRON INJ 2 MG/ML 2 ML VIAL IV PRN (22:15)
[2018-02-05] MEDS ORDERED: MAGNESIUM HYDROXIDE SUSP 30 ML UDC PO PRN (22:15)
[2018-02-05] MEDS ORDERED: PIPERACILL/TAZOBAC CONSULT ACTIVE PRN (22:15)
[2018-02-05] MEDS ORDERED: POLYETHYLENE (MIRALAX) 17 GM PACK PO PRN (22:15)
[2018-02-05] MEDS ORDERED: ALBUTEROL HFA 8 GM INHALER INH PRN (22:30)
[2018-02-05] MEDS ORDERED: ALBUT/IPRATROP 3MG/0.5MG NEB 3 ML VIAL INH PRN (22:30)
[2018-02-05] MEDS ORDERED: PATIENT'S HEIGHT AND/OR WEIGHT NEEDED SCH (22:30)
[2018-02-05] MEDS ORDERED: PIPERACILLIN/TAZOBACTAM 4.5 GM/100ML D5W IV STA (22:33)
--- NOTE | 2018-02-05 22:35 | DIAGNOSTIC IMAGING REPORT ---
R TIBIA/FIBULA 2 VIEWS ROUTINE CLINICAL HISTORY: Right lower leg wound COMPARISON: 06/22/2017 DISCUSSION: No acute fractures are visualized. There is mild periosteal reaction involving the lateral cortex of the distal fibula. IMPRESSION: 1. No evidence of fracture 2. Minimal increase in the periosteal reaction involving the lateral cortex of the distal fibula Electronically signed by: Brian Sethi M.D. 02/05/2018 10:33 PM Dictated Date/Time: 02/05/2018 10:31 PM
--- NOTE | 2018-02-05 22:38 | History and Physical ---
History & Physical Date & Time of Service: Feb 05, 2018 at 22:38 Chief Complaint: Wound Infection On Rt Leg Primary Care Physician: No Doctor, Assigned History of Present Illness Source: patient, family The patient is a 32-year-old male, who presents to the emergency department with worsening of her chronic right lower extremity infection, that he is noted over the past 3-4 days. He has had this infection on and off for the past 3-4 years, and has been followed by wound care clinic in the past. Past Medical/Surgical History Medical Problems: (1) Acute respiratory failure with hypoxia (2) ASTHMA, UNSPECIFIED (3) Asthmatic bronchitis with exacerbation (4) Bipolar Disorder, Unspecified (5) Cellulitis (6) Cellulitis of right lower extremity (7) Cellulitis of right lower extremity (8) Chronic cutaneous venous stasis ulcer (9) DRUG DEPEND NOS-CONTIN (10) Edema of right eyelid (11) Esophageal Reflux (12) Foot pain, right (13) Fracture of metatarsal bone (14) Hypertension Nos (15) Hypothyroidism, Unspecified (16) Hypoxia (17) Low back pain on right side with sciatica (18) Lumbago (19) MORBID OBESITY Surgical Problems: (1) CARPAL TUNNEL SYNDROME (2) History of hernia repair (3) History of tonsillectomy (4) Status post ablation of incompetent vein using laser Family History Diabetes mellitus Heart disease Hypertension Social History Smoking Status: Current Every Day Smoker Smokeless Tobacco Use: No Alcohol Use: none Drug Use: none Marital Status: Housing status: lives with family Occupational Status: disabled Immunizations History of Influenza Vaccine: Unknown History of Tetanus Vaccine?: Unknown History of Pneumococcal: Unknown History of Hepatitis B Vaccine: Unknown Allergies Coded Allergies: No Known Allergies (Verified , 11/09/17) Home Medications Scheduled Gabapentin (Gabapentin), 300 MG PO TID Gabapentin (Gabapentin), 600 MG PO TID Home O2 Therapy (Oxygen), 2-3 LITERS NA CONTINOUS Methadone Hcl (Methadose), 132 MG PO DAILY Omeprazole Magnesium (Prilosec Otc), 20 MG PO BID Scheduled PRN Acetaminophen (Tylenol), 1,000 MG PO Q6H PRN for Pain or Fever Albuterol Hfa (Ventolin Hfa), 2-4 PUFFS INH UD PRN for SOB/Wheezing Ibuprofen (Advil), 800 MG PO Q8 PRN for Pain or Fever Review of Systems The patient denies chest pain, palpitations, cough, sore throat, fevers, chills, sweats, weight change, fatigue, nausea, vomiting, diarrhea , constipation, abdominal pain, pelvic pain, blood in urine or stool, dysuria, urinary frequency or urgency, lightheadedness , dizziness, headache, memory loss, loss of consciousness, imbalance, focal or generalized weakness, numbness or tingling in arms, back or neck pain, or night sweats. The review of systems is otherwise negative other than for that already noted above, and at least 10 systems have been reviewed. Physical Exam Vital Signs Date Time Temp Pulse Resp B/P (MAP) Pulse Ox O2 Delivery O2 Flow Rate FiO2 02/05/18 21:49 85 22 134/81 98 Room Air 02/05/18 21:34 82 02/05/18 19:50 36.5 91 20 166/77 96 Nasal Cannula The patient is awake, alert and oriented 3, smells of smoke, normocephalic and atraumatic, lying in bed and in no acute distress. HEENT--PERRL, EOMI, mucous membranes and oropharynx dry. Neck--supple. No JVD. No bruits. Thyroid normal, trachea midline, no adenopathy. Heart--normal S1 and S2. No murmurs, rubs or gallops. Lungs--clear bilaterally, no respiratory distress, no accessory muscle use. Abdomen--normal bowel sounds and soft. Nontender. Nondistended, no hernias or masses, no organomegaly. Extremities--left lower extremity with chronic venous stasis changes. Right lower extremity with large oval area of infection and ulceration down to muscle layer. Dermatologic--normal skin turgor, normal color, no abnormal lymph nodes, no rash. Neurologic--cranial nerves II through XII grossly intact. Rheumatologic--normal range of motion. Psychiatric--normal affect. Diagnostics Laboratory Results Results Past 24 Hours Test 02/05/18 21:10 02/05/18 21:20 Range/Units Neutrophils (%) (Auto) 55.7 % Lymphocytes (%) (Auto) 32.5 % Monocytes (%) (Auto) 7.3 % Eosinophils (%) (Auto) 3.9 % Basophils (%) (Auto) 0.5 % Neutrophils # (Auto) 4.25 1.4-6.5 K/uL Lymphocytes # (Auto) 2.48 1.2-3.4 K/uL Monocytes # (Auto) 0.56 0.11-0.59 K/uL Eosinophils # (Auto) 0.30 0-0.5 K/uL Basophils # (Auto) 0.04 0-0.2 K/uL Immature Granulocyte % (Auto) 0.1 % Immature Granulocyte # (Auto) 0.01 0.00-0.02 K/uL Hypochromasia PRESENT Stomatocytes 1+ Sodium Level 135 136-145 mmol/L Potassium Level 4.0 3.5-5.1 mmol/L Chloride Level 102 98-107 mmol/L Carbon Dioxide Level 29 21-32 mmol/L Anion Gap 4.0 3-11 mmol/L Blood Urea Nitrogen 11 7-18 mg/dl Creatinine 0.78 0.60-1.40 mg/dl Estimated GFR () 138.4 Estimated GFR (Non- 119.4 BUN/Creatinine Ratio 13.8 10-20 Random Glucose 84 70-99 mg/dl Calcium Level 8.2 8.5-10.1 mg/dl Total Bilirubin 0.2 0.2-1 mg/dl Direct Bilirubin < 0.1 0-0.2 mg/dl Aspartate Amino Transf (AST/SGOT) 26 15-37 U/L Alanine Aminotransferase (ALT/SGPT) 22 12-78 U/L Alkaline Phosphatase 132 45-117 U/L Total Protein 7.8 6.4-8.2 gm/dl Albumin 3.4 3.4-5.0 gm/dl Lipase 256 73-393 U/L Urine Color YELLOW Urine Appearance CLEAR CLEAR Urine pH 5.0 4.5-7.5 Urine Specific [place] 1.025 1.000-1.030 Urine Protein NEG NEG Urine Glucose (UA) NEG NEG Urine Ketones NEG NEG Urine Occult Blood NEG NEG Urine Nitrite NEG NEG Urine Bilirubin NEG NEG Urine Urobilinogen NEG NEG Urine Leukocyte Esterase NEG NEG Microbiology Results 02/05/18 Gram Stain, Received Pending 02/05/18 Wound Culture, Received Pending Diagnostic Radiology Patient Name: MICKIE RUTHERFORD Unit Number: [id number] Dictated: 02/05/182230 Transcribed: 02/05/182230 ARG Printed Date/Time: [~ rep prt dt]/[~ rep prt tm] [~ rep ct labl] - [~ rep ct ivnm] [facility] Radiology Department [place], [place] [id number] Dictated: 02/05/182230 Transcribed: 02/05/182230 ARG Printed Date/Time: [~ rep prt dt]/[~ rep prt tm] [~ rep ct labl] - [~ rep ct ivnm] [~ rep ct add3]] R TIBIA/FIBULA 2 VIEWS ROUTINE CLINICAL HISTORY: Right lower leg wound COMPARISON: 06/22/2017 DISCUSSION: No acute fractures are visualized. There is mild periosteal reaction involving the lateral cortex of the distal fibula. IMPRESSION: 1. No evidence of fracture 2. Minimal increase in the periosteal reaction involving the lateral cortex of the distal fibula Electronically signed by: Brian Sethi M.D. 02/05/2018 10:33 PM Dictated Date/Time: 02/05/2018 10:31 PM The status of this report is Signed. Draft = Not yet reviewed or approved by Radiologist. Signed = Reviewed and approved by Radiologist. <AttendingPhy></AttendingPhy> <FamilyPhy>No Doctor, Assigned</FamilyPhy> < PrimaryPhy>No Doctor, Assigned</PrimaryPhy> <UnitNumber>[id number]</UnitNumber> <VisitNumber>[id number]</VisitNumber> <PatientName>MICKIE RUTHERFORD</PatientName> <DateOfBirth>1985</DateOfBirth> <Location>C.EDB</Location> <ServiceDate></ServiceDate> <MNE>ESINDI</MNE> <OrderingPhy>Jeff Mcginnis MD</ OrderingPhy> <OrderingPhyMNE>f rep ord dr almaguer</OrderingPhyMNE> <DictatingPhyMNE> f rep dict dr almaguer</DictatingPhyMNE> <CCListMNE>f rep ct mne</CCListMNE> < AdmittingPhyMNE>f pt admit dr almaguer</AdmittingPhyMNE> <AttendingPhyMNE>f pt attend dr almaguer</AttendingPhyMNE> <ConsultingPhyMNE>f pt consult dr almaguer</ConsultingPhyMNE> <FamilyPhyMNE>f pt fam dr almaguer</FamilyPhyMNE> <OtherPhyMNE>f pt other dr almaguer</OtherPhyMNE> < PrimaryPhyMNE>f pt prim care dr almaguer</PrimaryPhyMNE> <ReferringPhyMNE>f pt referring dr almaguer</ReferringPhyMNE> Impression Assessment and Plan Right lower extremity cellulitis/probable osteomyelitis-- Admit to medical surgical floor.. Expand antibiotics to vancomycin IV, Zosyn IV and Levaquin IV. Follow wound culture, blood culture and sensitivities. Order CT of right lower extremity without contrast. May get an MRI if physically fits in to the MRI unit vs. bone scan in am Consult surgery. Will likely need a PICC line and long-term IV antibiotics. COPD with chronic hypoxia/chronic oxygen requirement 2 L at rest and 3 L with activity/tobacco use disorder- Continue albuterol HFA 2 puffs 4 times daily as needed. Duonebs every 4 hours when necessary. Tobacco cessation counselling. Chronic pain syndrome-- Continue methadone. Neuropathy-- Continue gabapentin 900 mg p.o. 3 times daily. GERD-- Change omeprazole to pantoprazole. Advanced Directives Existing Advance Directive: No Existing Living Will: No Existing Power of Painting Contractor: No Resuscitation Status VTE Prophylaxis Will order VTE Prophylaxis: Yes
[2018-02-05] MEDS ORDERED: VANCOMYCIN IV 2,750 MG in SODIUM CHLORIDE 0.9% 500ML 500 ML IV ONE (22:45)
--- NOTE | 2018-02-05 22:51 | Pharmacy Progress Note ---
Pharmacy Abx Initial Consult Date of Service Feb 05, 2018. Pharmacy Dosing Scope Date of Consult: 02/05/18 Consultation requested by: Dr. Briscoe Pharmacy is consulted to initiate vancomycin/Zosyn IV dosing therapy, order appropriate labs and adjust drug dose/frequency. Subjective The patient is a 32 year old male admitted on 02/05/18 for a chronic wound infection. Objective Height (Feet): 5 Height (Inches): 9.00 Vital Signs (Past 12Hrs) Vital Signs Past 12 Hours Date Time Temp Pulse Resp B/P (MAP) Pulse Ox O2 Delivery O2 Flow Rate FiO2 02/05/18 21:49 85 22 134/81 98 Room Air 02/05/18 21:34 82 02/05/18 19:50 36.5 91 20 166/77 96 Nasal Cannula Lab Results (24Hrs) Laboratory Tests (24 Hours) Test 02/05/18 21:10 Neutrophils (%) (Auto) 55.7 % Lymphocytes (%) (Auto) 32.5 % Monocytes (%) (Auto) 7.3 % Eosinophils (%) (Auto) 3.9 % Basophils (%) (Auto) 0.5 % Neutrophils # (Auto) 4.25 K/uL (1.4-6.5) Lymphocytes # (Auto) 2.48 K/uL (1.2-3.4) Monocytes # (Auto) 0.56 K/uL (0.11-0.59) Eosinophils # (Auto) 0.30 K/uL (0-0.5) Basophils # (Auto) 0.04 K/uL (0-0.2) Micro Results Date/Time Source Procedure Growth Status 02/05/18 21:10 Ulcer Leg Right Lower Gram Stain Pending Received 02/05/18 21:10 Ulcer Leg Right Lower Wound Culture Pending Received Risk Factors for Resistance * History of infection with a multidrug-resistant organism: Enterobacter, MSSA , and coag negative staph sensitive to oxacillin * wound clinic patient (not active x past 4-5 months) Assessment & Plan Assessment 32 year old male with a PMH of chronic wound (previously growing enterobacter, MSSA, and coag negative staph) who presents with worsening infection. Patient states there was pus. Plan vancomycin/Zosyn for treatment of chronic wound infection Vancomycin IV * Loading dose: 2750 mg (14.1 mg/kg) * Maintenance dose: 2500 mg IV (13.5 mg/kg) every 8 hours (population pharmacokinetics suggest a half-life of ~8 hours; due to weight will use lower mg/kg dose plus close frequency_ * Goal trough level for cellulitis, chronic : 15 to 20 mcg/mL * Trough ordered for 02/07/18 * A less than traditional dose has been selected due to likelihood of drug accumulation in obese patient. Piperacillin/tazobactam * 4.5 g bolus administered over 30 minutes, then 4.5 g IV extended infusion every 8 hours for CrCl greater than 20 mL/min * Aggressive dosing selected due to BMI 35 or more. Pharmacy will continue to follow and will adjust dose/frequency as necessary. Thank you.
[2018-02-05] MEDS ORDERED: GABAPENTIN 300 MG CAP PO ONE (23:00)
[2018-02-05 23:51] VITALS: BP 154/93; PULSE 84; TEMP 36.8; Ht 175.3 cm; Wt 191.8 kg
[2018-02-06] VITALS: BP 154/93; PULSE 84; TEMP 36.8; O2SAT 99
[2018-02-06] MEDS ORDERED: PIPERACILL/TAZOBAC IV 4.5 GM in NSS 100 ML IV ONE (00:30)
[2018-02-06] MEDS: PIPERACILL/TAZOBAC IV 4.5 GM in DEXTROSE 5% 100ML 100 ML IV SCH ×2 (06:06→13:38)
--- NOTE | 2018-02-06 07:14 | DIAGNOSTIC IMAGING REPORT ---
R LOWER EXTREMITY WITHOUT HISTORY: 32 years-old Male ulceration RLE acute ulceration of the right lower extremity COMPARISON: Right tibia and fibula radiographs of same day and also 06/22/2017, 10/12/2014 ankle radiographs TECHNIQUE: Multiple axial CT images of the right lower extremity were obtained without the use of IV contrast. Coronal and sagittal reformatted images were obtained from the axial data set and were submitted for review. A dose lowering technique was used consistent with the principals of ANNETTE. FINDINGS: Bone mineralization appears to be within normal limits. There is no acute fracture or dislocation. 7 mm corticated bone fragment is noted adjacent to the anterior process calcaneus suggesting healed remote fracture deformity. Mild to moderate dorsal spurring about the midfoot. Small Achilles enthesophyte about the calcaneus. No intra-articular loose body. Midfoot alignment appears anatomic. Mild marginal spurring with subcortical cystic changes are noted within the distribution of the metatarsal tarsal articulations. Chronic appearing cortical thickening with mild periosteal elevation also distal fibula which appears unchanged dating back to radiograph dated 10/12/2014. Ovoid circumscribed focal area of lucency involving the distal fibula measures up to 1.9 cm in long axis which is unchanged dating back to 2013 suggesting benign etiology. Superior to this there is a focal bone island measuring 10 mm within the distal fibular shaft. No osteochondral defect. There is moderate subcutaneous edema about the imaged right lower extremity with skin thickening also noted. No drainable fluid collections or definite large skin ulcer identified. No opaque foreign body. Imaged flexor and extensor tendons appear grossly intact. The Achilles tendon also appears intact. Thickening of the peroneus longus tendon suggests tendinosis. No large ankle joint effusion. Dorsal band Lisfranc ligament is identified and appears intact. IMPRESSION: 1. No acute fracture or dislocation. Chronic cortical thickening with periosteal elevation involves the distal fibula which appears unchanged dating back to ankle radiograph dated 10/12/2014. No definite evidence of acute osteomyelitis at this time. 2. Circumscribed 1.9 cm lucent lesion of the distal fibular metaphysis also appears unchanged from 2014 suggesting benign etiology. 3. Moderate subcutaneous edema and skin thickening about the imaged lower leg, foot and ankle without drainable fluid collection. Differential considerations would include cellulitis, venous stasis or lymphedema. 4. Probable peroneus longus tendinosis. 5. Healed remote fracture of the anterior process calcaneus. The above report was generated using voice recognition software. It may contain grammatical, syntax or spelling errors. Electronically signed by: Kiko Valdez M.D. 02/06/2018 7:12 AM Dictated Date/Time: 02/06/2018 7:00 AM
[2018-02-06 07:32] VITALS: BP 144/80; PULSE 87; TEMP 36.8; O2SAT 93
[2018-02-06] MEDS: GABAPENTIN 600 MG TAB PO SCH ×3 (07:33→21:08)
[2018-02-06] MEDS: PANTOprazole SOD 40 MG TAB PO SCH ×2 (07:34→21:08)
[2018-02-06] MEDS: GABAPENTIN 300 MG CAP PO SCH ×3 (07:34→21:08)
[2018-02-06 07:39] LABS: CREATININE 0.81 mg/dl (0.60-1.40)
[2018-02-06 07:45] LABS: CALCIUM 8.2 mg/dl (8.5-10.1); CREATININE 0.82 mg/dl (0.60-1.40); POTASSIUM 4.5 mmol/L (3.5-5.1)
[2018-02-06 08:05] LABS: BASO % 0.4 %; BASO ABS # 0.03 K/uL (0-0.2); EOS % 3.6 %; EOS ABS # 0.26 K/uL (0-0.5); HEMOGLOBIN 8.9 g/dL (14.0-18.0); IG# 0.02 K/uL (0.00-0.02); LYMPH % 29.6 %; LYMPH ABS # 2.13 K/uL (1.2-3.4); MEAN CORPUSCULAR HEMOGLOBIN 21.2 pg (25-34); MEAN CORPUSCULAR HGB CONC 28.7 g/dl (32-36); MONO % 8.6 %; MONO ABS # 0.62 K/uL (0.11-0.59); NEUT % 57.5 %; NEUT ABS # 4.14 K/uL (1.4-6.5); PLATELET COUNT 156 K/uL (130-400); RED CELL DISTRIBUTION WIDTH CV 17.3 % (11.5-14.5); RED CELL DISTRIBUTION WIDTH SD 47.1 fL (36.4-46.3)
[2018-02-06] MEDS: VANCOMYCIN IV 2,500 MG in SODIUM CHLORIDE 0.9% 500ML 500 ML IV SCH ×3 (08:15→23:41)
[2018-02-06] MEDS: METHADONE PO SCH (10:37)
[2018-02-06] MEDS: METHADONE ORAL SOLN 2 MG/1ML PO SCH (10:37)
--- NOTE | 2018-02-06 10:48 | Medical Consult ---
Consultation Date of Consultation: Feb 06, 2018. Attending Physician: Stanley Guardado D.O. Reason for Consultation: Recurrent RLE cellulitis History of Present Illness 32-year-old male with severe COPD, with chronic lower extremity lymphedema and venous stasis disease with prior history of recurrent lower extremity cellulitis , with over 1 year history of right lower extremity open wound on the lateral aspect of the lower leg, and over the past several days has noted increasing redness, swelling, and severe pain, rated 8/10 in intensity. Ultimately came to the hospital and found to have right lower extremity cellulitis, and has been started on vancomycin and Zosyn. Gram stain of wound is unremarkable, cultures are pending. Patient denies any significant fever. 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 (5) Esophageal Reflux Status: Chronic (6) Hypertension Nos Status: Chronic (7) Hypothyroidism, Unspecified Status: Chronic (8) Hypoxia Status: Acute (9) Lumbago Status: Chronic (10) MORBID OBESITY Status: Chronic Medical Problems: (1) Acute respiratory failure with hypoxia (2) ASTHMA, UNSPECIFIED (3) Bipolar Disorder, Unspecified (4) Cellulitis (5) Cellulitis of right lower extremity (6) Cellulitis of right lower extremity (7) Chronic cutaneous venous stasis ulcer (8) DRUG DEPEND NOS-CONTIN (9) Edema of right eyelid (10) Esophageal Reflux (11) Foot pain, right (12) Fracture of metatarsal bone (13) Hypertension Nos (14) Hypothyroidism, Unspecified (15) Low back pain on right side with sciatica (16) Lumbago (17) MORBID OBESITY Surgical Problems: (1) CARPAL TUNNEL SYNDROME (2) History of hernia repair (3) History of tonsillectomy (4) Status post ablation of incompetent vein using laser Family History Diabetes mellitus Heart disease Hypertension Social History Smoking Status: Current Every Day Smoker Smokeless Tobacco Use: No Alcohol Use: none Drug Use: none Marital Status: Occupation Status: disabled Allergies Coded Allergies: No Known Allergies (Verified , 11/09/17) Current Inpatient Medications Current Inpatient Medications Medications (Trade) Dose Ordered Sig/Aida Route Start Time Stop Time Status Last Admin Dose Admin Acetaminophen (Tylenol Tab) 650 mg Q4H PRN PO 02/05/18 22:15 03/07/18 22:14 Al Hydrox/Mg Hydrox/Simethicone (Maalox Max Susp) 15 ml Q4H PRN PO 02/05/18 22:15 03/07/18 22:14 Magnesium Hydroxide (Milk Of Magnesia Susp) 30 ml Q6H PRN PO 02/05/18 22:15 03/07/18 22:14 Polyethylene (Miralax Powder Packet) 17 gm DAILY PRN PO 02/05/18 22:15 03/07/18 22:14 Ondansetron HCl (Zofran Odt) 8 mg Q6H PRN PO 02/05/18 22:15 03/07/18 22:14 Piperacillin Sod/ Tazobactam Sod 4.5 gm/Dextrose 120 ml @ 30 mls/hr Q8H IV 02/06/18 06:00 02/16/18 05:59 02/06/18 06:06 30 MLS/HR Vancomycin HCl 2500 mg/Sodium Chloride 550 ml @ 200 mls/hr Q8H IV 02/06/18 08:00 02/16/18 07:59 02/06/18 08:15 200 MLS/HR Ondansetron HCl (Zofran Inj) 4 mg Q6H PRN IV 02/05/18 22:15 03/07/18 22:14 Levofloxacin 500 mg/Prmx 100 ml @ 100 mls/hr Q24H IV 02/06/18 22:00 02/15/18 22:14 Miscellaneous Information (Consult) 1 ea UD PRN N/A 02/05/18 22:15 03/07/18 22:14 Miscellaneous Information (Consult) 1 ea UD PRN N/A 02/05/18 22:15 03/07/18 22:14 Albuterol (Ventolin Hfa Inhaler) 2 puffs QID PRN INH 02/05/18 22:30 03/07/18 22:29 Gabapentin (Neurontin Cap) 300 mg TID PO 02/06/18 09:00 03/08/18 08:59 02/06/18 07:34 300 MG Gabapentin (Neurontin Tab) 600 mg TID PO 02/06/18 09:00 03/08/18 08:59 02/06/18 07:33 600 MG Methadone HCl (Methadone HCl) 132 mg DAILY PO 02/06/18 10:00 02/20/18 08:59 02/06/18 10:37 132 MG Pantoprazole Sodium (Protonix Tab) 40 mg BID PO 02/06/18 09:00 03/08/18 08:59 02/06/18 07:34 40 MG Albuterol/ Ipratropium (Duoneb) 3 ml Q4 PRN INH 02/05/18 22:30 03/07/18 22:29 Non-Formulary Medication (Patient'S Own Controlled Med) 1 ea DAILY PO 02/06/18 10:00 02/20/18 09:59 02/06/18 10:37 1 EA Review of Systems All systems were reviewed and are negative except as per HPI except for chronic shortness of breath. Physical Exam Date Time Temp Pulse Resp B/P (MAP) Pulse Ox O2 Delivery O2 Flow Rate FiO2 02/06/18 08:15 Room Air 02/06/18 07:32 36.8 87 18 144/80 (101) 93 Nasal Cannula 2.0 02/06/18 00:00 Nasal Cannula 2.0 02/06/18 00:00 36.8 84 16 154/93 (113) 99 Nasal Cannula 2.0 02/05/18 23:51 36.8 84 16 154/93 Nasal Cannula 2.0 02/05/18 23:32 86 19 115/75 99 02/05/18 23:25 86 19 115/75 99 Room Air 02/05/18 21:49 85 22 134/81 98 Room Air 02/05/18 21:34 82 02/05/18 19:50 36.5 91 20 166/77 96 Nasal Cannula General Appearance: WD/WN, no apparent distress, + obese Head: normocephalic, atraumatic Eyes: normal inspection, EOMI, sclerae normal ENT: normal ENT inspection, hearing grossly normal, pharynx normal Neck: supple, no adenopathy, thyroid normal, trachea midline Respiratory/Chest: chest non-tender, lungs clear, normal breath sounds, no respiratory distress Cardiovascular: regular rate, rhythm, no gallop, no murmur Abdomen/GI: normal bowel sounds, non tender, soft, no organomegaly Back: normal inspection, no CVA tenderness Extremities/Musculoskelatal: + inflammation (RLE), + swelling (RLE) Neurologic/Psych: alert, oriented x 3 Skin: normal color, + pertinent finding (venous stasis changes, large right lateral lower leg ulcer with cellulitis) Lymphatic: no adenopathy Laboratory Results Date/Time Source Procedure Growth Status 02/05/18 21:10 Ulcer Leg Right Lower Gram Stain - Final Resulted 02/05/18 21:10 Ulcer Leg Right Lower Wound Culture Pending Resulted Last 24 Hours Test 02/05/18 21:10 02/05/18 21:20 02/06/18 06:45 Sodium Level 135 mmol/L 138 mmol/L Potassium Level 4.0 mmol/L 4.5 mmol/L Chloride Level 102 mmol/L 104 mmol/L Carbon Dioxide Level 29 mmol/L 30 mmol/L Anion Gap 4.0 mmol/L 4.0 mmol/L Blood Urea Nitrogen 11 mg/dl 10 mg/dl Creatinine 0.78 mg/dl 0.81 mg/dl Estimated GFR () 138.4 136.3 Estimated GFR (Non- 119.4 117.6 BUN/Creatinine Ratio 13.8 12.1 Random Glucose 84 mg/dl 85 mg/dl Calcium Level 8.2 mg/dl 8.2 mg/dl Total Bilirubin 0.2 mg/dl Direct Bilirubin < 0.1 mg/dl Aspartate Amino Transf (AST/SGOT) 26 U/L Alanine Aminotransferase (ALT/SGPT) 22 U/L Alkaline Phosphatase 132 U/L Total Protein 7.8 gm/dl Albumin 3.4 gm/dl Lipase 256 U/L Urine Color YELLOW Urine Appearance CLEAR Urine pH 5.0 Urine Specific [place] 1.025 Urine Protein NEG Urine Glucose (UA) NEG Urine Ketones NEG Urine Occult Blood NEG Urine Nitrite NEG Urine Bilirubin NEG Urine Urobilinogen NEG Urine Leukocyte Esterase NEG White Blood Count 7.20 K/uL Red Blood Count 4.19 M/uL Hemoglobin 8.9 g/dL Hematocrit 31.0 % Mean Corpuscular Volume 74.0 fL Mean Corpuscular Hemoglobin 21.2 pg Mean Corpuscular Hemoglobin Concent 28.7 g/dl Platelet Count 156 K/uL Mean Platelet Volume 10.0 fL Neutrophils (%) (Auto) 57.5 % Lymphocytes (%) (Auto) 29.6 % Monocytes (%) (Auto) 8.6 % Eosinophils (%) (Auto) 3.6 % Basophils (%) (Auto) 0.4 % Neutrophils # (Auto) 4.14 K/uL Lymphocytes # (Auto) 2.13 K/uL Monocytes # (Auto) 0.62 K/uL Eosinophils # (Auto) 0.26 K/uL Basophils # (Auto) 0.03 K/uL RDW Standard Deviation 47.1 fL RDW Coefficient of Variation 17.3 % Immature Granulocyte % (Auto) 0.3 % Immature Granulocyte # (Auto) 0.02 K/uL Platelet Estimate NORMAL Hypochromasia PRESENT Microcytosis PRESENT Est Creatinine Clear Calc Drug Dose 220.7 ml/min Magnesium Level 2.2 mg/dl C-Reactive Protein 1.57 mg/dl Chemistry Specimen Hemolysis Patient Name: MICKIE RUTHERFORD Unit Number: [id number] Dictated: 02/06/18699 Transcribed: 02/06/18699 JRB Printed Date/Time: [~ rep prt dt]/[~ rep prt tm] [~ rep ct labl] - [~ rep ct ivnm] [facility] [place] [address] Dictated: 02/06/18699 Transcribed: 02/06/18699 JRB Printed Date/Time: [~ rep prt dt]/[~ rep prt tm] [~ rep ct labl] - [~ rep ct ivnm] R LOWER EXTREMITY WITHOUT HISTORY: 32 years-old Male ulceration RLE acute ulceration of the right lower extremity COMPARISON: Right tibia and fibula radiographs of same day and also 06/22/2017, 10/12/2014 ankle radiographs TECHNIQUE: Multiple axial CT images of the right lower extremity were obtained without the use of IV contrast. Coronal and sagittal reformatted images were obtained from the axial data set and were submitted for review. A dose lowering technique was used consistent with the principals of ANNETTE. FINDINGS: Bone mineralization appears to be within normal limits. There is no acute fracture or dislocation. 7 mm corticated bone fragment is noted adjacent to the anterior process calcaneus suggesting healed remote fracture deformity. Mild to moderate dorsal spurring about the midfoot. Small Achilles enthesophyte about the calcaneus. No intra-articular loose body. Midfoot alignment appears anatomic. Mild marginal spurring with subcortical cystic changes are noted within the distribution of the metatarsal tarsal articulations. Chronic appearing cortical thickening with mild periosteal elevation also distal fibula which appears unchanged dating back to radiograph dated 10/12/2014. Ovoid circumscribed focal area of lucency involving the distal fibula measures up to 1.9 cm in long axis which is unchanged dating back to 2014 suggesting benign etiology. Superior to this there is a focal bone island measuring 10 mm within the distal fibular shaft. No osteochondral defect. There is moderate subcutaneous edema about the imaged right lower extremity with skin thickening also noted. No drainable fluid collections or definite large skin ulcer identified. No opaque foreign body. Imaged flexor and extensor tendons appear grossly intact. The Achilles tendon also appears intact. Thickening of the peroneus longus tendon suggests tendinosis. No large ankle joint effusion. Dorsal band Lisfranc ligament is identified and appears intact. IMPRESSION: 1. No acute fracture or dislocation. Chronic cortical thickening with periosteal elevation involves the distal fibula which appears unchanged dating back to ankle radiograph dated 10/12/2014. No definite evidence of acute osteomyelitis at this time. 2. Circumscribed 1.9 cm lucent lesion of the distal fibular metaphysis also appears unchanged from 2014 suggesting benign etiology. 3. Moderate subcutaneous edema and skin thickening about the imaged lower leg, foot and ankle without drainable fluid collection. Differential considerations would include cellulitis, venous stasis or lymphedema. 4. Probable peroneus longus tendinosis. 5. Healed remote fracture of the anterior process calcaneus. The above report was generated using voice recognition software. It may contain grammatical, syntax or spelling errors. Electronically signed by: Kiko Valdez M.D. 02/06/2018 7:12 AM Dictated Date/Time: 02/06/2018 7:00 AM The status of this report is Signed. Draft = Not yet reviewed or approved by Radiologist. Signed = Reviewed and approved by Radiologist. <AttendingPhy>Krystian Briscoe M.D.</AttendingPhy> <FamilyPhy>No Doctor, Assigned</FamilyPhy> <PrimaryPhy>No Doctor, Assigned</PrimaryPhy> <UnitNumber> [id number]</UnitNumber> <VisitNumber>[id number]</VisitNumber> <PatientName> MICKIE RUTHERFORD</PatientName> <DateOfBirth>1985</DateOfBirth> <Location> [facility]</Location> <ServiceDate>02/05/18</ServiceDate> <MNE>ESINDI</MNE> < OrderingPhy>Krystian Briscoe M.D.</OrderingPhy> <OrderingPhyMNE>f rep ord dr almaguer</OrderingPhyMNE> <DictatingPhyMNE>f rep dict dr almaguer</DictatingPhyMNE> < CCListMNE>f rep ct mne</CCListMNE> <AdmittingPhyMNE>f pt admit dr almaguer</ AdmittingPhyMNE> <AttendingPhyMNE>f pt attend dr almaguer</AttendingPhyMNE> <ConsultingPhyMNE>f pt consult dr almaguer</ConsultingPhyMNE> <FamilyPhyMNE>f pt fam dr almaguer</FamilyPhyMNE> <OtherPhyMNE>f pt other dr almaguer</OtherPhyMNE> < PrimaryPhyMNE>f pt prim care dr almaguer</PrimaryPhyMNE> <ReferringPhyMNE>f pt referring dr almaguer</ReferringPhyMNE> Assessment & Plan Recurrent RLE cellulitis with infected ulcer in setting of chronic venous stasis. Vancomycin and Zosyn adequate pending further culture results. Length of IV Rx will be determined by clinical response. Will follow.
[2018-02-06 15:08] LABS: PTT PATIENT 25.2 SECONDS (21.0-31.0)
[2018-02-06 15:24] VITALS: BP 125/62; PULSE 79; TEMP 36.8; O2SAT 94
--- NOTE | 2018-02-06 20:31 | Family Medicine Progress Note ---
Progress Note Date of Service Feb 06, 2018. Subjective Pt evaluation today including: conversation w/ patient, physical exam, chart review, lab review, review of studies Pain: Some tenderness of wound on RLE PO Intake: Tolerating well Voiding: no voiding problems Patient resting comfortably, Reports his wound discomfort is about the same as it was on admission. Has no complaints. Inquires if methadone is available for him yet. Constitutional: No fever, No chills Respiratory: + shortness of breath, + dyspnea on exertion, + dyspnea at rest , No cough Abdomen: No pain, No nausea, No vomiting Musculoskeletal: + muscle pain, + swelling, + calf pain Skin: + new/changing skin lesions, + color change All Other Systems: Reviewed and Negative Medications Current Inpatient Medications Medications (Trade) Dose Ordered Sig/Aida Route Start Time Stop Time Status Last Admin Dose Admin Acetaminophen (Tylenol Tab) 650 mg Q4H PRN PO 02/05/18 22:15 03/07/18 22:14 Al Hydrox/Mg Hydrox/Simethicone (Maalox Max Susp) 15 ml Q4H PRN PO 02/05/18 22:15 03/07/18 22:14 Magnesium Hydroxide (Milk Of Magnesia Susp) 30 ml Q6H PRN PO 02/05/18 22:15 03/07/18 22:14 Polyethylene (Miralax Powder Packet) 17 gm DAILY PRN PO 02/05/18 22:15 03/07/18 22:14 Ondansetron HCl (Zofran Odt) 8 mg Q6H PRN PO 02/05/18 22:15 03/07/18 22:14 Piperacillin Sod/ Tazobactam Sod 4.5 gm/Dextrose 120 ml @ 30 mls/hr Q8H IV 02/06/18 06:00 02/16/18 05:59 02/06/18 13:38 30 MLS/HR Vancomycin HCl 2500 mg/Sodium Chloride 550 ml @ 200 mls/hr Q8H IV 02/06/18 08:00 02/16/18 07:59 02/06/18 16:02 200 MLS/HR Ondansetron HCl (Zofran Inj) 4 mg Q6H PRN IV 02/05/18 22:15 03/07/18 22:14 Levofloxacin 500 mg/Prmx 100 ml @ 100 mls/hr Q24H IV 02/06/18 22:00 02/15/18 22:14 Miscellaneous Information (Consult) 1 ea UD PRN N/A 02/05/18 22:15 03/07/18 22:14 Miscellaneous Information (Consult) 1 ea UD PRN N/A 02/05/18 22:15 03/07/18 22:14 Albuterol (Ventolin Hfa Inhaler) 2 puffs QID PRN INH 02/05/18 22:30 03/07/18 22:29 Gabapentin (Neurontin Cap) 300 mg TID PO 02/06/18 09:00 03/08/18 08:59 02/06/18 13:38 300 MG Gabapentin (Neurontin Tab) 600 mg TID PO 02/06/18 09:00 03/08/18 08:59 02/06/18 13:38 600 MG Methadone HCl (Methadone HCl) 132 mg DAILY PO 02/06/18 10:00 02/20/18 08:59 02/06/18 10:37 132 MG Pantoprazole Sodium (Protonix Tab) 40 mg BID PO 02/06/18 09:00 03/08/18 08:59 02/06/18 07:34 40 MG Albuterol/ Ipratropium (Duoneb) 3 ml Q4 PRN INH 02/05/18 22:30 03/07/18 22:29 Non-Formulary Medication (Patient'S Own Controlled Med) 1 ea DAILY PO 02/06/18 10:00 02/20/18 09:59 02/06/18 10:37 1 EA Objective Vital Signs Date Time Temp Pulse Resp B/P (MAP) Pulse Ox O2 Delivery O2 Flow Rate FiO2 02/06/18 16:15 Room Air 02/06/18 15:24 36.8 79 18 125/62 (83) 94 Nasal Cannula 2.0 02/06/18 08:15 Room Air 02/06/18 07:32 36.8 87 18 144/80 (101) 93 Nasal Cannula 2.0 02/06/18 00:00 Nasal Cannula 2.0 02/06/18 00:00 36.8 84 16 154/93 (113) 99 Nasal Cannula 2.0 02/05/18 23:51 36.8 84 16 154/93 Nasal Cannula 2.0 02/05/18 23:32 86 19 115/75 99 02/05/18 23:25 86 19 115/75 99 Room Air 02/05/18 21:49 85 22 134/81 98 Room Air 02/05/18 21:34 82 Physical Exam General Appearance: WD/WN, no apparent distress, + obese Eyes: EOMI ENT: hearing grossly normal Respiratory/Chest: lungs clear, normal breath sounds, no respiratory distress, + decreased breath sounds Cardiovascular: regular rate, rhythm, no murmur Abdomen: normal bowel sounds, non tender, + distended Extremities: + pedal edema, + pertinent finding (Bilateral chronic venous insufficiency. RLE has open wound 5 cm diameter with surrounding induration) Neurologic/Psychiatric: stove polisher II-XII nml as tested, no motor/sensory deficits, alert, oriented x 3, + pertinent finding (flat affect) Laboratory Results Last Resulted 02/06/18 06:45 Red Blood Count 4.19, Mean Corpuscular Volume 74.0, Mean Corpuscular Hemoglobin 21.2, Mean Corpuscular Hemoglobin Concent 28.7, Mean Platelet Volume 10.0, Neutrophils (%) (Auto) 57.5, Lymphocytes (%) (Auto) 29.6, Monocytes (%) (Auto) 8.6, Eosinophils (%) (Auto) 3.6, Basophils (%) (Auto) 0.4, Neutrophils # (Auto) 4.14, Lymphocytes # (Auto) 2.13, Monocytes # (Auto) 0.62, Eosinophils # (Auto) 0.26, Basophils # (Auto) 0.03 Last Resulted 02/06/18 06:45 Past 24 Hours Test 02/06/18 14:52 Range/Units Prothromb Time International Ratio 1.0 0.9-1.1 Prothrombin Time 10.4 9.0-12.0 SECONDS Assessment and Plan 32 yo M PMH morbid obesity, Bipolar disorder, h/o cellulitis, ?COPD/Asthma presented with worsening RLE infection (chronic, 3-4 years) in the past 3-4 days Right lower extremity cellulitis/?osteomyelitis-- - Continue vanc and levaquin - Vancomycin IV and Levaquin IV. - Follow wound culture, blood culture and sensitivities. - May need a PICC line and long-term IV antibiotics depending on how he handles infection - Patient states he had been seeing wound clinic but was discharged due to no shows as he could not find transport to appointments. Will try to coordinate again - Wound care physician and nurse consult COPD with chronic hypoxia/chronic oxygen requirement 2 L at rest and 3 L with activity/tobacco use disorder- Continue albuterol HFA 2 puffs 4 times daily as needed. Duonebs every 4 hours when necessary. Tobacco cessation counselling. Likely element of obesity hypoventilation syndrome Overnight pulse ox morning ABG outpatient sleep study Chronic pain syndrome-- Continue methadone. Neuropathy-- Continue gabapentin 900 mg p.o. 3 times daily. GERD-- Change omeprazole to pantoprazole. Code:full DVTP: Heparin Dispo: med/surg Resident Physician Supervision Note: I interviewed and examined the patient. Discussed with Dr. Coy and agree with findings and plan as documented in the note. Any exceptions or clarifications are listed here: None Documented By: Stanley Guardado feeling ok notes tired all the time RLE hurts but not that much different was just getting worse vitals noted nad breathing unlabored no pallor or icterus thick voice diffuse b/ l LE edema RLE ulcer but only to about dermis mild surroudning erythema no induration no tenderness no crepitis RLE venous stasis, ulceration and mild cellulitis -lots of bone changes on CT but none appear acute -can't get MRI, could consider bone scan but for now low risk for osteo - and will need ongoing abx and close f/u so can continue to follow closely and w/u more extensively if the need arises -continue abx, supportive care fatigue/hypoxia -strongly concerning for AALIYAH/OHS - overnight pulse ox and AM blood gas to assess for safety and to qualify for bipap if possible. if not severe enough, then still will need sleep study morbid obesity w BMI of 62.4 - driving factor for all of above, will have to try to [employer] on weight loss/lifestyle otherwise as above Resident Tracking Resident Involvement: Resident Care Provided Care Provided: Adult Hospital Medicine
[2018-02-06] MEDS: HEPARIN SOD 5000 UNIT/0.5 ML CARP SQ SCH (21:10)
[2018-02-06] MEDS ORDERED: LEVOFLOXACIN / D5W 500 MG in PREMIXED IN D5W 100 ML IV SCH (22:00)
[2018-02-06 23:10] VITALS: BP 114/69; PULSE 79; TEMP 36.8; O2SAT 91
[2018-02-07 05:19] VITALS: O2SAT 90
[2018-02-07] MEDS ORDERED: VANCOMYCIN TROUGH ONE ×2 (05:30→07:30)
[2018-02-07] MEDS: HEPARIN SOD 5000 UNIT/0.5 ML CARP SQ SCH ×2 (05:48→14:00)
--- NOTE | 2018-02-07 07:10 | Family Medicine Progress Note ---
Progress Note Date of Service Feb 07, 2018. Medications Current Inpatient Medications Medications (Trade) Dose Ordered Sig/Aida Route Start Time Stop Time Status Last Admin Dose Admin Acetaminophen (Tylenol Tab) 650 mg Q4H PRN PO 02/05/18 22:15 03/07/18 22:14 Al Hydrox/Mg Hydrox/Simethicone (Maalox Max Susp) 15 ml Q4H PRN PO 02/05/18 22:15 03/07/18 22:14 Magnesium Hydroxide (Milk Of Magnesia Susp) 30 ml Q6H PRN PO 02/05/18 22:15 03/07/18 22:14 Polyethylene (Miralax Powder Packet) 17 gm DAILY PRN PO 02/05/18 22:15 03/07/18 22:14 Ondansetron HCl (Zofran Odt) 8 mg Q6H PRN PO 02/05/18 22:15 03/07/18 22:14 Vancomycin HCl 2500 mg/Sodium Chloride 550 ml @ 200 mls/hr Q8H IV 02/06/18 08:00 02/16/18 07:59 02/06/18 23:41 200 MLS/HR Ondansetron HCl (Zofran Inj) 4 mg Q6H PRN IV 02/05/18 22:15 03/07/18 22:14 Levofloxacin 500 mg/Prmx 100 ml @ 100 mls/hr Q24H IV 02/06/18 22:00 02/15/18 22:14 02/06/18 21:15 100 MLS/HR Miscellaneous Information (Consult) 1 ea UD PRN N/A 02/05/18 22:15 03/07/18 22:14 Albuterol (Ventolin Hfa Inhaler) 2 puffs QID PRN INH 02/05/18 22:30 03/07/18 22:29 Gabapentin (Neurontin Cap) 300 mg TID PO 02/06/18 09:00 03/08/18 08:59 02/06/18 21:08 300 MG Gabapentin (Neurontin Tab) 600 mg TID PO 02/06/18 09:00 03/08/18 08:59 02/06/18 21:08 600 MG Methadone HCl (Methadone HCl) 132 mg DAILY PO 02/06/18 10:00 02/20/18 08:59 02/06/18 10:37 132 MG Pantoprazole Sodium (Protonix Tab) 40 mg BID PO 02/06/18 09:00 03/08/18 08:59 02/06/18 21:08 40 MG Albuterol/ Ipratropium (Duoneb) 3 ml Q4 PRN INH 02/05/18 22:30 03/07/18 22:29 Non-Formulary Medication (Patient'S Own Controlled Med) 1 ea DAILY PO 02/06/18 10:00 02/20/18 09:59 02/06/18 10:37 1 EA Heparin Sodium (Porcine) (Heparin Sq 5000 Unit/0.5ml) 5,000 unit Q8 SQ 02/06/18 22:00 03/08/18 21:59 Objective Vital Signs Date Time Temp Pulse Resp B/P (MAP) Pulse Ox O2 Delivery O2 Flow Rate FiO2 02/07/18 05:19 90 Room Air 02/07/18 00:00 Room Air 02/06/18 23:10 36.8 79 18 114/69 (84) 91 Room Air 02/06/18 16:15 Room Air 02/06/18 15:24 36.8 79 18 125/62 (83) 94 Nasal Cannula 2.0 02/06/18 08:15 Room Air 02/06/18 07:32 36.8 87 18 144/80 (101) 93 Nasal Cannula 2.0 Laboratory Results Past 24 Hours Test 02/06/18 14:52 02/07/18 04:44 Range/Units Prothromb Time International Ratio 1.0 0.9-1.1 Prothrombin Time 10.4 9.0-12.0 SECONDS Assessment and Plan 32 yo M PMH morbid obesity, Bipolar disorder, h/o cellulitis, ?COPD/Asthma presented with worsening RLE infection (chronic, 3-4 years) in the past 3-4 days Right lower extremity cellulitis/?osteomyelitis-- - Continue vanc and levaquin IV, day 2 - Follow wound culture, blood culture and sensitivities. - May need a PICC line and long-term IV antibiotics depending on how he handles infection - Patient states he had been seeing wound clinic but was discharged due to no shows as he could not find transport to appointments. Will try to coordinate again - Wound care physician and nurse consult COPD with chronic hypoxia/chronic oxygen requirement 2 L at rest and 3 L with activity/tobacco use disorder- Continue albuterol HFA 2 puffs 4 times daily as needed. Duonebs every 4 hours when necessary. Tobacco cessation counselling. Likely element of obesity hypoventilation syndrome Overnight pulse ox showed significant time <88% morning ABG outpatient sleep study Chronic pain syndrome-- Continue methadone. Neuropathy-- Continue gabapentin 900 mg p.o. 3 times daily. GERD-- Change omeprazole to pantoprazole. Code:full DVTP: Heparin, patient declined injections Dispo: med/surg Resident Tracking Resident Involvement: Resident Care Provided Care Provided: Adult Hospital Medicine
[2018-02-07 07:37] VITALS: BP 152/83; PULSE 81; TEMP 36.8; O2SAT 93
[2018-02-07 07:51] LABS: HEMATOCRIT 31.8 % (42-52); HEMOGLOBIN 8.9 g/dL (14.0-18.0); MEAN CELL VOLUME 74.6 fL (80-100); MEAN CORPUSCULAR HEMOGLOBIN 20.9 pg (25-34); MEAN PLATELET VOLUME 9.7 fL (7.4-10.4); PLATELET COUNT 122 K/uL (130-400); PTT PATIENT 22.1 SECONDS (21.0-31.0); RED CELL DISTRIBUTION WIDTH CV 17.2 % (11.5-14.5); RED CELL DISTRIBUTION WIDTH SD 47.3 fL (36.4-46.3); WHITE BLOOD COUNT 6.06 K/uL (4.8-10.8)
[2018-02-07 08:08] LABS: CALCIUM 8.2 mg/dl (8.5-10.1); CREATININE 0.8 mg/dl (0.60-1.40); POTASSIUM 4.3 mmol/L (3.5-5.1)
[2018-02-07 08:19] LABS: BASO % 0.5 %; BASO ABS # 0.03 K/uL (0-0.2); EOS ABS # 0.18 K/uL (0-0.5); IG# 0.01 K/uL (0.00-0.02); LYMPH ABS # 1.76 K/uL (1.2-3.4); MONO % 8.1 %; MONO ABS # 0.49 K/uL (0.11-0.59); NEUT % 59.2 %; NEUT ABS # 3.59 K/uL (1.4-6.5)
[2018-02-07] MEDS: GABAPENTIN 300 MG CAP PO SCH ×3 (08:39→16:50)
[2018-02-07] MEDS: VANCOMYCIN IV 2,500 MG in SODIUM CHLORIDE 0.9% 500ML 500 ML IV SCH (08:39)
[2018-02-07] MEDS: METHADONE ORAL SOLN 2 MG/1ML PO SCH (08:39)
[2018-02-07] MEDS: PANTOprazole SOD 40 MG TAB PO SCH (08:40)
[2018-02-07] MEDS: METHADONE PO SCH (08:40)
[2018-02-07] MEDS: GABAPENTIN 600 MG TAB PO SCH ×3 (08:40→16:50)
--- NOTE | 2018-02-07 13:17 | Wound Clinic H&P ---
History & Physical Wound Clinic Date of Service: Feb 07, 2018. Complaint: Right lower extremity venous stasis ulcer Primary Care Physician: No Doctor, Assigned History of Present Illness Patient was recently admitted to [facility] 2 days ago for treatment of cellulitis the right lower extremity. Patient has had a long- standing chronic history of venous stasis ulcerations that have been nonhealing for "years". Patient states he got worse over the past 3-4 days requiring admission to the hospital. Patient denies any fever chills or night sweats. Patient denies any increased pain. Patient states she has had chronic swelling as before. Patient denies any chest pain shortness of breath abdominal discomfort nausea or vomiting. Patient denies any other systemic complaints at this time. Patient was a patient of the [facility] in a wound clinic however the patient was unable to keep his appointments and discontinued coming. Medical History (1) Acute respiratory failure with hypoxia (2) Cellulitis of right lower extremity (3) Cellulitis (4) Fracture of metatarsal bone (5) Edema of right eyelid (6) Low back pain on right side with sciatica Surgical History Hx Surgeries: Yes Hx Abdominal Surgery: Yes (Hernia repair ) Hx Cardiac Surgery: No Hx Urinary Tract Surgery: Yes Hx Orthopedic: Yes (Left wrist cyst removal, carpel tunnel ) Social History Occupation: disabled Smoking Status: Current Every Day Smoker Smokeless Tobacco Use: No Alcohol Use: none Current Medications Scheduled Gabapentin (Gabapentin), 300 MG PO TID Gabapentin (Gabapentin), 600 MG PO TID Home O2 Therapy (Oxygen), 2-3 LITERS NA CONTINOUS Methadone Hcl (Methadose), 132 MG PO DAILY Omeprazole Magnesium (Prilosec Otc), 20 MG PO BID Scheduled PRN Acetaminophen (Tylenol), 1,000 MG PO Q6H PRN for Pain or Fever Albuterol Hfa (Ventolin Hfa), 2-4 PUFFS INH UD PRN for SOB/Wheezing Ibuprofen (Advil), 800 MG PO Q8 PRN for Pain or Fever Allergies Coded Allergies: No Known Allergies (Verified , 11/09/17) Review of Systems 10 systems were reviewed in their entirety and positive findings were noted in HPI. Physical Exam Vital Signs: Last Vital Signs Documentation Date Time Temp Pulse Resp B/P (MAP) Pulse Ox O2 Delivery O2 Flow Rate FiO2 02/07/18 08:00 Room Air 02/07/18 07:37 36.8 81 19 152/83 (106) 93 02/06/18 15:24 2.0 Current Pain Level: 0.0 General: The patient is lying in hospital bed in no distress. Alert, cooperative and appropriate to all questions. HEENT: Pupils equal and reactive to light. Sclera clear, EOM intact. Neck: Supple, No JVD noted Chest: CTA in all [place]. No deformity Heart: RRR without murmurs, S3, S4, thrills, rubs or heaves Abdomen: Soft, No masses, Bowel Sound present Extremities: Venous stasis ulcerations present on the right lower extremity measuring 6.2 x 7.1 x 0.1 cm. Central slough is present. There is no eschar formation noted. Chronic edema with brawny induration is noted to both lower extremities. No appreciable tenderness to palpation is noted. No fluctuance is present. Range of motion appears intact. Neurological: Alert and oriented x3. No focal deficits. Assessment 1.: Venous stasis ulceration right lower extremity 2.: Chronic venous insufficiency Plan At this time the ulcer site did require debridement. With patient's permission and after the application topical Xylocaine 4% the site was debrided with a #5 curette of central slough. Minimal bleeding occurred which was controlled with direct pressure. The site of be dressed with Aquacel Ag and gauze a Coban light compression wrap will be applied. This rapidly reevaluated tomorrow. Patient will continue to be monitored during his hospital course. Due to the patient's noncompliance with follow-up the compression wraps will be moved upon discharge. Culture had already been obtained at this site and results are pending. This represented an acute non-excisional debridement of 43 cm.
[2018-02-07] MEDS ORDERED: DOXY-300 PO (13:35)
[2018-02-07] MEDS ORDERED: LEVO500T19 PO (13:35)
--- NOTE | 2018-02-07 13:36 | Discharge Instructions ---
Discharge Instructions Date of Service Feb 07, 2018. Admission Reason for Admission: Cellulitis On Rle Discharge Discharge Diagnosis / Problem: leg ulcer with surrounding infection Discharge Goals Goal(s): Diagnostic testing, Therapeutic intervention Activity Recommendations Activity Limitations: resume your previous activity . Instructions / Follow-Up Instructions / Follow-Up a) infection (cellulitis) -fortunately the infection itself did not seem too severe -we'll need ongoing antibiotics for now - possibly indefinite antibiotics to suppress further infection - this will be determined in follow up with Dr Christian of infectious disease -the current ulcer we'll treat with levaquin 500mg once a day for 10 more days, and doxycycline 100mg twice a day for 10 more days as well. your next dose of levaquin is tomorrow, you're next dose of doxycycline is tonight -levaquin can (really rarely) cause risk of tendonitis or even a tendon tear - so while we talked about starting to work towards getting more active, we'll want you to actually take it easy for the next month or so just to be safe -both levaquin and doxycycline have a small chance of causing an upset stomach - if that happens with you, just take it with food, usually that solves the problem, if you really can't take it, then call Dr Rudd / Maura Lee' s office for a switch to different medications -we'll have you follow up with Dr Christian in the next week or so to evaluate how long with antibiotics, and if a chronic suppressive antibiotic is going to be needed b) leg ulcer -the leg ulcer is related to the chronic swelling (see below) - the swelling constantly puts a pressure on the skin from the inside out - almost like a "pressure ulcer from within" - so treatment for the swelling is also treatment to help the ulcer itself heal. unless the swelling is managed, the ulcer is likely to be an ongoing thing, but if the swelling gets improved, it's also quite likely that over time the ulcer should be able to heal as well -we've got you set up with [facility] to work on the swelling and continue to do wound care for the ulcer. it is critically important to keep these appointments , because (especially early on) the physical management of wounds and swelling is the main way things get better - and not getting treated will almost guarantee not getting better -- if you're having trouble making appointments, call [facility] to let them know (so you're not viewed as a "no show") and also call Dr Rudd's office to see if they're able to work with the [facility] on any ways to help with transportation c) venous stasis (chronic swelling) -this is the main problem underlying the ulcer, and the infection -the leg swelling is from what's called venous stasis, or venous insufficiency. this happens because the blood flow from your legs back to central circulation (big veins, heart, etc) doesn't go as well as it should. veins are the "return circuit" of circulation, and unlike arteries (which carry blood out from the heart to the body) veins are a very elastic/stretchy tube (rather than a tight thick walled tube like an artery) and veins are also a very low pressure system (a steady pressure of about 10, instead of the 120/80 that most people's arteries run). veins have blood flow return by muscle contraction squeezing the vein and pushing blood up, then one-way valves keep the blood from flowing backwards. because you hold much of your weight centrally, your veins are always under backpressure (remember, veins only run at about 10 of pressure, so it doesn't take much to back them up) - this back pressure leads to the veins being swollen and then leaking - and this leaking is the fluid that ends up in your legs. -over the short term, the only truly successful way to manage this kind of swelling is compression - the reason being that by compressing your legs from the outside, it can create more pressure than your veins naturally can - and this can then move the blood up from your legs into central circulation. (to a degree this happens when you're asleep - which is why then you have to pee so frequently through the night - the fluid gets back to central circulation because when you're laying down your legs are up and gravity is out of the way, then once the fluid gets back to your heart it goes forward to your kidneys, which see all this "extra" fluid and make lots of urine, which then makes you have to pee). -because compression is the best way to manage the fluid in the short term, it' s critically important to follow up for your treatments to keep working on reducing the swelling -over time, working to be able to exercise more and get weight off will help to fundamentally fix the problem that is leading to the swelling -- so as we discussed, try as best you can to slowly increase activity (starting in about a month after you're off the levaquin for a while) to work to get the weight off d) sleep apnea -your overnight pulse ox and blood gas showed that you do appear to have sleep apnea - and while the caseworker protective services are re-reviewing that data, it appears that we'll need to get a formal sleep study to get treatment -as we discussed, the problem with sleep apnea starts because when we sleep, our brain secretes a natural muscle relaxant, which then relaxes the muscles in your throat and neck. when this happens, your neck and throat are able to " fold shut" cutting off breathing. there are lots of problems that this leads to : -sleep interruptions - almost every time you have an event where your airway closes off, your sleep will be interrupted. this happens because as your brain notices the drop in oxygen or rise in carbon dioxide, it will wake you to make you take a deep breath. this is usually not "awake and alert" -- but rather just "not asleep." because a healthy night's sleep - going through sleep cycles every 60-90 minutes, actually helps our brains secrete growth hormone and melatonin and other chemicals that help us heal and feel refreshed -- when your sleep gets interrupted it really knocks down how much of those hormones you can make -- this can impede healing, and definitely makes you feel exhausted and not as sharp as you can be -stress on your heart and lungs - every time you breathe in against a closed off airway, it generates a lot of pressure in your chest which slowly over time puts strain on your heart and lungs - leading to elevated blood pressures in your lungs, and stretched out heart muscles -oxygen alone only treats part of the problem - it generally blunts how low your oxygen numbers drop when you stop breathing - but does nothing to stop the sleep interruptions or change the pressure in your chest. pressure devices like CPAP and BiPAP generally are the only things that will help with this. as we discussed, the only people i've seen fail getting used to CPAP or BiPAP are people who have decided ahead of time they're not going to get used to it -- so give it an honest go, and I'm certain you'll get used to it -- then, much like my father in law, you'll see that you're sleeping so much better and feeling so much better you'll want to use it -over time, much like with the swelling, as you're able to get moving more and start to get weight off, it's highly likely the sleep apnea will improve (and a small chance it will go away) take care of yourself!! Current Hospital Diet Patient's current hospital diet: Regular Diet Discharge Diet Recommended Diet: Regular Diet Pending Studies Studies pending at discharge: no Medical Emergencies . Who to Call and When: Medical Emergencies: If at any time you feel your situation is an emergency, please call 911 immediately. . Non-Emergent Contact Non-Emergency issues call your: Primary Care Provider, Specialist . . "Provider Documentation" section prepared by Stanley Guardado. .
[2018-02-07 15:05] VITALS: BP 128/69; PULSE 84; TEMP 36.8; O2SAT 92
[2018-02-07 15:42] VITALS: BP 128/69; PULSE 84; TEMP 36.8; O2SAT 92
[2018-02-07] MEDS ORDERED: DAPTOMYCIN IV SCH (16:00)
--- NOTE | 2018-02-07 18:37 | Discharge Summary ---
Discharge Summary Date of Service Feb 07, 2018. Discharge Summary Admission Date: Feb 05, 2018 at 22:15 Discharge Date: Feb 07, 2018 Discharge Disposition: Home Principal Diagnosis: venous stasis ulcer, mild surrounding cellulitis Problems/Secondary Diagnoses: (1) ASTHMA, UNSPECIFIED Status: Chronic (2) Bipolar Disorder, Unspecified Status: Chronic (3) Chronic cutaneous venous stasis ulcer Status: Chronic (4) Esophageal Reflux Status: Chronic (5) Hypertension Nos Status: Chronic (6) Hypothyroidism, Unspecified Status: Chronic (7) Lumbago Status: Chronic (8) MORBID OBESITY Status: Chronic Immunizations: Have You Had Influenza Vaccine: Unknown History of Tetanus Vaccine?: Unknown History of Pneumococcal: Unknown History of Hepatitis B Vaccine: Unknown Procedures: debridement of ulcer by wound care physician CT leg: [~ rep ct add3]] R LOWER EXTREMITY WITHOUT HISTORY: 32 years-old Male ulceration RLE acute ulceration of the right lower extremity COMPARISON: Right tibia and fibula radiographs of same day and also 06/22/2017, 10/12/2014 ankle radiographs TECHNIQUE: Multiple axial CT images of the right lower extremity were obtained without the use of IV contrast. Coronal and sagittal reformatted images were obtained from the axial data set and were submitted for review. A dose lowering technique was used consistent with the principals of ANNETTE. FINDINGS: Bone mineralization appears to be within normal limits. There is no acute fracture or dislocation. 7 mm corticated bone fragment is noted adjacent to the anterior process calcaneus suggesting healed remote fracture deformity. Mild to moderate dorsal spurring about the midfoot. Small Achilles enthesophyte about the calcaneus. No intra-articular loose body. Midfoot alignment appears anatomic. Mild marginal spurring with subcortical cystic changes are noted within the distribution of the metatarsal tarsal articulations. Chronic appearing cortical thickening with mild periosteal elevation also distal fibula which appears unchanged dating back to radiograph dated 10/12/2014. Ovoid circumscribed focal area of lucency involving the distal fibula measures up to 1.9 cm in long axis which is unchanged dating back to 2013 suggesting benign etiology. Superior to this there is a focal bone island measuring 10 mm within the distal fibular shaft. No osteochondral defect. There is moderate subcutaneous edema about the imaged right lower extremity with skin thickening also noted. No drainable fluid collections or definite large skin ulcer identified. No opaque foreign body. Imaged flexor and extensor tendons appear grossly intact. The Achilles tendon also appears intact. Thickening of the peroneus longus tendon suggests tendinosis. No large ankle joint effusion. Dorsal band Lisfranc ligament is identified and appears intact. IMPRESSION: 1. No acute fracture or dislocation. Chronic cortical thickening with periosteal elevation involves the distal fibula which appears unchanged dating back to ankle radiograph dated 10/12/2014. No definite evidence of acute osteomyelitis at this time. 2. Circumscribed 1.9 cm lucent lesion of the distal fibular metaphysis also appears unchanged from 2014 suggesting benign etiology. 3. Moderate subcutaneous edema and skin thickening about the imaged lower leg, foot and ankle without drainable fluid collection. Differential considerations would include cellulitis, venous stasis or lymphedema. 4. Probable peroneus longus tendinosis. 5. Healed remote fracture of the anterior process calcaneus. The above report was generated using voice recognition software. It may contain grammatical, syntax or spelling errors. Electronically signed by: Kiko Valdez M.D. 02/06/2018 7:12 AM Dictated Date/Time: 02/06/2018 7:00 AM Last Resulted CBC 02/07/18 07:31 Red Blood Count 4.26, Mean Corpuscular Volume 74.6, Mean Corpuscular Hemoglobin 20.9, Mean Corpuscular Hemoglobin Concent 28.0, Mean Platelet Volume 9.7, Neutrophils (%) (Auto) 59.2, Lymphocytes (%) (Auto) 29.0, Monocytes (%) (Auto) 8.1, Eosinophils (%) (Auto) 3.0, Basophils (%) (Auto) 0.5, Neutrophils # (Auto) 3.59, Lymphocytes # (Auto) 1.76, Monocytes # (Auto) 0.49, Eosinophils # (Auto) 0.18, Basophils # (Auto) 0.03 Last Resulted BMP 02/07/18 07:31 Last 24 Hours Test 02/07/18 07:31 02/07/18 08:08 White Blood Count 6.06 K/uL Red Blood Count 4.26 M/uL Hemoglobin 8.9 g/dL Hematocrit 31.8 % Mean Corpuscular Volume 74.6 fL Mean Corpuscular Hemoglobin 20.9 pg Mean Corpuscular Hemoglobin Concent 28.0 g/dl Platelet Count 122 K/uL Mean Platelet Volume 9.7 fL Neutrophils (%) (Auto) 59.2 % Lymphocytes (%) (Auto) 29.0 % Monocytes (%) (Auto) 8.1 % Eosinophils (%) (Auto) 3.0 % Basophils (%) (Auto) 0.5 % Neutrophils # (Auto) 3.59 K/uL Lymphocytes # (Auto) 1.76 K/uL Monocytes # (Auto) 0.49 K/uL Eosinophils # (Auto) 0.18 K/uL Basophils # (Auto) 0.03 K/uL RDW Standard Deviation 47.3 fL RDW Coefficient of Variation 17.2 % Immature Granulocyte % (Auto) 0.2 % Immature Granulocyte # (Auto) 0.01 K/uL Microcytosis PRESENT Prothrombin Time 10.4 SECONDS Prothromb Time International Ratio 1.0 Activated Partial Thromboplast Time 22.1 SECONDS Partial Thromboplastin Ratio 0.9 Sodium Level 139 mmol/L Potassium Level 4.3 mmol/L Chloride Level 104 mmol/L Carbon Dioxide Level 31 mmol/L Anion Gap 4.0 mmol/L Blood Urea Nitrogen 9 mg/dl Creatinine 0.80 mg/dl Est Creatinine Clear Calc Drug Dose 223.4 ml/min Estimated GFR () 137.0 Estimated GFR (Non- 118.2 BUN/Creatinine Ratio 11.3 Random Glucose 92 mg/dl Calcium Level 8.2 mg/dl Magnesium Level 2.2 mg/dl Vancomycin Level Trough 30.7 mcg/ml Arterial Blood pH 7.40 Arterial Blood Partial Pressure CO2 51 mmHg Arterial Blood Partial Pressure O2 62 mm/Hg Arterial Blood HCO3 31 mmol/L Arterial Blood Oxygen Saturation 89.7 % Arterial Blood Base Excess 5.4 mEq/L Arterial Blood Gas Delivery ROOM AIR Alfonzo Test POS Consultations: wound infectious disease Medication Reconciliation New Medications: Doxycycline (Monohydrate) (Doxycycline) 100 Mg Cap 1 CAP PO BID, #20 CAP Levofloxacin (Levaquin) 500 Mg Tab 1 TAB PO DAILY for 10 Days, #10 TAB Continued Medications: Acetaminophen (Tylenol) 500 Mg Tab 1000 MG PO Q6H PRN for Pain or Fever, TAB Albuterol Hfa (Ventolin Hfa) 200 Puffs/85686 Mcg Aers 2-4 PUFFS INH UD PRN for SOB/Wheezing Gabapentin (Gabapentin) 300 Mg Cap 300 MG PO TID Gabapentin (Gabapentin) 600 Mg Tab 600 MG PO TID Home O2 Therapy (Oxygen) Gas 2-3 LITERS NA CONTINOUS, BTL Ibuprofen (Advil) 200 Mg Tab 800 MG PO Q8 PRN for Pain or Fever, TAB Methadone Hcl (Methadose) 10 Mg/Ml Con 132 MG PO DAILY Omeprazole Magnesium (Prilosec Otc) 20 Mg Tab 20 MG PO BID, TAB Discharge Exam Physical Exam: General Appearance: no apparent distress Eyes: EOMI ENT: hearing grossly normal Neck: trachea midline Respiratory/Chest: no respiratory distress, no accessory muscle use Extremities: + pertinent finding (RLE dressed, ongoing diffuse edema, no surrounding erythema) Neurologic/Psychiatric: assignment editor II-XII nml as tested, alert Hospital Course see discharge instructions given to pt for further information as well. venous stasis ulcer w mild surrounding cellulitis -debrided by wound care -local care and edema management need to be ongoing - due to prior noncompliance [facility] will not see him, but [facility] willing to work with him -twyla watson x 10 more days for now, then ongoing abx and/or suppressive abx based on clinical response and ongoing ID input -extensive discussion and reiterated in writing the importance of management of venous stasis in allowing ulcer to heal, and importance of working towards healthier lifestyle to help affect weight loss to improve venous stasis OHS/AALIYAH -overnight pulse ox and AM ABG confirm - fortunately not so severe as to be immediate crisis - case management working to either be able to set up BiPAP at home or more likely to arrange outpt sleep study in near future -extensive discussion w pt on pathophys/morbidity/mortality from this, and how CPAP/BiPAP are far superior treatment to simple NC O2, discussed how in my experience the enormous majority of people who can't tolerate CPAP/BiPAP don't truly fail, they decide before trying that they won't tolerate and simply prove themselves right (he expressed this as a concern not based on past experience but on his neighbor's machine being loud) -also discussed weight loss in this respect morbid obesity w BMI 62.4 -driving factor for all of above -he does face numerous hurdles - income situation, 's lifestyle perpetuates his own, his feeling that the methadone induces cravings for sweets -discussed the "have to rather than want to" necessity of his situation - that with positive lifestyle changes a lot of his comorbidities can improve (or ? resolve) but without lifestyle change they definitely won't improve, and he'll continue to get sicker -discussed practical starting points -for him simply slowly getting more active seems the most realistic for his hurdles/roadblocks and limitations -- will want him to wait ~4wks before getting more active simply due to levaquin carrying small risk of tendonitis/tendon rupture Total Time Spent: Greater than 30 minutes This includes examination of the patient, discharge planning, medication reconciliation, and communication with other providers. Discharge Instructions Please refer to the electronic Patient Visit Report (Discharge Instructions) for additional information. Additional Copies To Shiva Christian MD; Darrell Rudd M.D.; Maura Lee, C.R.N.P.
== END 2018-02-07 17:20 | disposition home health service (06) | DRG 593 ==
LOC: C.EDB 19:41 → C.MS2W 22:15 → ENRESERV 23:10
PROVIDERS: ADMIT Hospitalist; ATTEND Family Medicine
PROC: 0HDKXZZ Extraction of Right Lower Leg Skin, External Approach (ICD-10-PCS; principal; 2018-02-07)
DX: L97.219 Non-pressure chronic ulcer of right calf with unspecified severity (principal); L03.115 Cellulitis of right lower limb; E66.2 Morbid (severe) obesity with alveolar hypoventilation; Z68.44 Body mass index [BMI] 60.0-69.9, adult; I87.2 Venous insufficiency (chronic) (peripheral); I87.8 Other specified disorders of veins; I10 Essential (primary) hypertension; J44.9 Chronic obstructive pulmonary disease, unspecified; R09.02 Hypoxemia; G89.4 Chronic pain syndrome; G62.9 Polyneuropathy, unspecified; E03.9 Hypothyroidism, unspecified; K21.9 Gastro-esophageal reflux disease without esophagitis; J45.909 Unspecified asthma, uncomplicated; F17.200 Nicotine dependence, unspecified, uncomplicated; Z79.891 Long term (current) use of opiate analgesic; Z79.899 Other long term (current) drug therapy; Z99.81 Dependence on supplemental oxygen

== ENCOUNTER → 2018-06-13 | Outpatient (CLI) | payer OTHER ==
[~2018-06-13] MED LIST changes: +ACET-1256 PO; -AZIT-57 PO; +BCTROWC TOP; -BENZ200C59 PO; +CARV3.122 PO; +CEPH500C2 PO; +DOXY-300 PO; +GABA-1219 PO; -GABA600T PO; +IBUP-1050 PO; +MNC100 PO; -MOME200A INH; -NICO14DI5 TD; +NRN600 PO; +OMEP20TA14 PO; +OXGN; -PRD20 PO; -VTMB12100 PO; +XYLO/5 TOP
[2018-06-13 18:04] LABS: BLOOD UREA NITROGEN 8 mg/dl (7-18); CALCIUM 8.2 mg/dl (8.5-10.1); CARBON DIOXIDE 30 mmol/L (21-32); CREATININE 1.01 mg/dl (0.60-1.40); GLUCOSE 112 mg/dl (70-99); SODIUM 138 mmol/L (136-145)
[2018-06-13 18:08] LABS: HEMATOCRIT 26.1 % (42-52); HEMOGLOBIN 7.1 g/dL (14.0-18.0); MEAN CELL VOLUME 69.6 fL (80-100); MEAN CORPUSCULAR HEMOGLOBIN 18.9 pg (25-34); MEAN CORPUSCULAR HGB CONC 27.2 g/dl (32-36); MEAN PLATELET VOLUME 9.8 fL (7.4-10.4); PLATELET COUNT 204 K/uL (130-400); RED CELL DISTRIBUTION WIDTH CV 18.5 % (11.5-14.5); RED CELL DISTRIBUTION WIDTH SD 47.5 fL (36.4-46.3); WHITE BLOOD COUNT 8.42 K/uL (4.8-10.8)
[2018-06-13 18:10] LABS: BASO % 0.4 %; BASO ABS # 0.03 K/uL (0-0.2); EOS % 3.3 %; EOS ABS # 0.28 K/uL (0-0.5); IG# 0.02 K/uL (0.00-0.02); LYMPH % 25.8 %; LYMPH ABS # 2.17 K/uL (1.2-3.4); MONO % 6.9 %; MONO ABS # 0.58 K/uL (0.11-0.59); NEUT % 63.4 %; NEUT ABS # 5.34 K/uL (1.4-6.5)
== END | disposition home or self-care (01) ==
LOC: C.LABBFT 15:00
PROVIDERS: ATTEND Nurse Practitioner
DX: I83.009 Varicose veins of unspecified lower extremity with ulcer of unspecified site (principal); E03.9 Hypothyroidism, unspecified

== ENCOUNTER 2018-06-17 10:16 | Emergency (ER) | payer OTHER ==
[~2018-06-17] VITALS: Ht 175.3 cm; Wt 178.3 kg
[2018-06-17] VITALS (7 sets, daily range): BP systolic 100–129; BP diastolic 60–75; PULSE 77–88; TEMP 36.7–37.1; O2SAT 95–98; Ht 175.3 cm; Wt 178.3 kg
[~2018-06-17 10:16] MED LIST changes: -BCTROWC TOP; -CARV3.122 PO; -CEPH500C2 PO; -MNC100 PO; -SYN25 PO; -XYLO/5 TOP
[2018-06-17] MEDS ORDERED: CARV3.122 PO (10:55)
[2018-06-17] MEDS ORDERED: CEPH500C2 PO (10:55)
[2018-06-17] MEDS ORDERED: XYLO/5 TOP (10:55)
[2018-06-17] MEDS ORDERED: MNC100 PO (10:55)
[2018-06-17] MEDS ORDERED: BCTROWC TOP (10:55)
[2018-06-17 12:21] LABS: CREATININE 0.77 mg/dl (0.60-1.40); HEMATOCRIT 23.7 % (42-52); HEMOGLOBIN 6.2 g/dL (14.0-18.0); MEAN CELL VOLUME 69.3 fL (80-100); MEAN CORPUSCULAR HEMOGLOBIN 18.1 pg (25-34); MEAN CORPUSCULAR HGB CONC 26.2 g/dl (32-36); MEAN PLATELET VOLUME 9.6 fL (7.4-10.4); PLATELET COUNT 162 K/uL (130-400); POTASSIUM 4.1 mmol/L (3.5-5.1); RED CELL DISTRIBUTION WIDTH CV 18.6 % (11.5-14.5); RED CELL DISTRIBUTION WIDTH SD 47.7 fL (36.4-46.3); TOTAL PROTEIN 7.4 gm/dl (6.4-8.2); WHITE BLOOD COUNT 7.49 K/uL (4.8-10.8)
--- NOTE | 2018-06-17 12:27 | DIAGNOSTIC IMAGING REPORT ---
ABDOMEN 2VIEW W/PA CHEST RTN CLINICAL HISTORY: abd pain anemia ? perf ulcer pain COMPARISON STUDY: No previous studies for comparison. FINDINGS: The soft tissues, psoas shadows, renal outlines and intestinal gas pattern appear normal. There is no evidence for bowel obstruction. There is no evidence for free intraperitoneal air. No abnormal abdominal calcifications are seen. A frontal view of the chest was performed and is unremarkable. IMPRESSION: Normal study. The above report was generated using voice recognition software. It may contain grammatical, syntax or spelling errors. Electronically signed by: Ralph Durham M.D. 06/17/2018 12:26 PM Dictated Date/Time: 06/17/2018 12:25 PM
[2018-06-17] MEDS ORDERED: ACETAMINOPHEN 500 MG TAB PO STA (12:33)
[2018-06-17 12:36] LABS: BASO % 0.4 %; BASO ABS # 0.03 K/uL (0-0.2); EOS % 2.8 %; EOS ABS # 0.21 K/uL (0-0.5); IG# 0.02 K/uL (0.00-0.02); LYMPH % 24.7 %; LYMPH ABS # 1.85 K/uL (1.2-3.4); MONO % 6.4 %; MONO ABS # 0.48 K/uL (0.11-0.59); NEUT % 65.4 %
--- NOTE | 2018-06-17 12:50 | EMERGENCY ROOM VISIT NOTE ---
History First contact with patient: 11:01 Chief Complaint: REFERRED BY DOCTOR Stated Complaint: REFERRED BY History of Present Illness The patient is a 32 year old male who presents to the Emergency Room with complaints of intermittent dizziness and weakness for the last month. The patient saw his primary care physician last week. He had blood drawn. He was called on Sunday by his primary care physician telling him that he was severely anemic, and that he had to come to the hospital. He says he "did not get around to it until now." The patient denies chest pain or shortness of breath. He does admit to chronic epigastric abdominal pain, which she relates to having an ulcer. He denies any dark stools or blood in his stool. No fever or chills. He does have a history of mild anemia, but has never required a transfusion. Review of Systems 10 system review performed and negative unless noted in HPI or below Past Medical/Surgical History Medical Problems: (1) Acute respiratory failure with hypoxia (2) Anemia (3) ASTHMA, UNSPECIFIED (4) Bipolar Disorder, Unspecified (5) Cellulitis (6) Cellulitis of right lower extremity (7) Cellulitis of right lower extremity (8) Chronic cutaneous venous stasis ulcer (9) DRUG DEPEND NOS-CONTIN (10) Edema of right eyelid (11) Esophageal Reflux (12) Foot pain, right (13) Fracture of metatarsal bone (14) Hypertension Nos (15) Hypothyroidism, Unspecified (16) Low back pain on right side with sciatica (17) Lumbago (18) MORBID OBESITY Surgical Problems: (1) CARPAL TUNNEL SYNDROME (2) History of hernia repair (3) History of tonsillectomy (4) Status post ablation of incompetent vein using laser Family History Diabetes mellitus Heart disease Hypertension Social History Smoking Status: Current Every Day Smoker Alcohol Use: none Drug Use: none Marital Status: Occupation Status: disabled Current/Historical Medications Scheduled Carvedilol (Coreg), 3.125 MG PO DAILY Cephalexin Monohydrate (Keflex), 500 MG PO TID Gabapentin (Gabapentin), 300 MG PO TID Gabapentin (Gabapentin), 600 MG PO TID Home O2 Therapy (Oxygen), 2-3 LITERS NA CONTINOUS Lidocaine HCl (Lidocaine), 1 APPL TOP DAILY Methadone Hcl (Methadose), 132 MG PO DAILY Minocycline HCl (Minocycline HCl), 100 MG PO BID Mupirocin (Bactroban 2% Oint), 1 APPLN TOP BID Omeprazole Magnesium (Prilosec Otc), 20 MG PO BID Scheduled PRN Acetaminophen (Tylenol), 1,000 MG PO Q6H PRN for Pain or Fever Albuterol Hfa (Ventolin Hfa), 2-4 PUFFS INH UD PRN for SOB/Wheezing Physical Exam Vital Signs Date Time Temp Pulse Resp B/P (MAP) Pulse Ox O2 Delivery O2 Flow Rate FiO2 06/17/18 16:30 88 118/68 98 Nasal Cannula 2.0 06/17/18 15:47 37.1 80 16 114/69 98 2.0 06/17/18 15:24 77 16 114/69 99 Room Air 06/17/18 15:10 37.1 77 14 100/72 97 06/17/18 14:46 36.9 77 15 119/60 95 2.0 06/17/18 14:16 36.8 79 15 124/75 95 2.0 06/17/18 14:01 36.7 79 15 129/73 96 2.0 06/17/18 13:53 36.7 82 16 105/ 95 2.0 06/17/18 12:36 86 06/17/18 12:34 86 16 106/57 92 Room Air 06/17/18 10:41 37.0 87 20 164/96 94 Room Air 06/17/18 10:31 37.0 87 20 164/96 94 Room Air Physical Exam VITALS: Vitals are noted on the nurse's note and reviewed by myself. Vital signs stable. GENERAL: 32-year-old male, morbidly obese,, in no acute distress, SKIN: Skin is brawny in appearance on the lower extremities bilaterally.. HEAD: Normocephalic atraumatic. EYES: Conjunctivae without injection, sclerae without icterus. Extraocular movements intact. MOUTH: Mucous membranes fairly moist. NECK: Supple without nuchal rigidity. No JVD. HEART: Regular rate and rhythm without murmurs gallops or rubs. LUNGS: Clear to auscultation bilaterally without wheezes, rales or rhonchi. No accessory muscle use. ABDOMEN: Positive bowel sounds x 4.Soft, tenderness to palpation in the epigastric and right upper quadrant without organomegaly. No guarding or rebound tenderness. MUSCULOSKELETAL: No erythema or pitting edema in the lower extremities bilaterally. Strength 5/5 throughout. NEURO: Patient was alert and oriented to person place and time. Normal sensation to touch. No focal neurological deficits. RECTAL exam: Patient refused Medical Decision & Procedures ER Provider Diagnostic Interpretation: Chest/abdominal x-rays IMPRESSION: Normal study. The above report was generated using voice recognition software. It may contain grammatical, syntax or spelling errors. Electronically signed by: Ralph Durham M.D. 06/17/2018 12:26 PM Dictated Date/Time: 06/17/2018 12:25 PM Laboratory Results 06/17/18 11:38 Red Blood Count 3.42, Mean Corpuscular Volume 69.3, Mean Corpuscular Hemoglobin 18.1, Mean Corpuscular Hemoglobin Concent 26.2, Mean Platelet Volume 9.6, Neutrophils (%) (Auto) 65.4, Lymphocytes (%) (Auto) 24.7, Monocytes (%) (Auto) 6.4, Eosinophils (%) (Auto) 2.8, Basophils (%) (Auto) 0.4, Neutrophils # (Auto) 4.90, Lymphocytes # (Auto) 1.85, Monocytes # (Auto) 0.48, Eosinophils # (Auto) 0.21, Basophils # (Auto) 0.03 06/17/18 11:38 Test 06/17/18 11:38 06/17/18 12:36 06/17/18 17:45 White Blood Count 7.49 K/uL (4.8-10.8) Red Blood Count 3.42 M/uL (4.7-6.1) Hemoglobin 6.2 g/dL (14.0-18.0) Hematocrit 23.7 % (42-52) Mean Corpuscular Volume 69.3 fL (80-100) Mean Corpuscular Hemoglobin 18.1 pg (25-34) Mean Corpuscular Hemoglobin Concent 26.2 g/dl (32-36) Platelet Count 162 K/uL (130-400) Mean Platelet Volume 9.6 fL (7.4-10.4) Neutrophils (%) (Auto) 65.4 % Lymphocytes (%) (Auto) 24.7 % Monocytes (%) (Auto) 6.4 % Eosinophils (%) (Auto) 2.8 % Basophils (%) (Auto) 0.4 % Neutrophils # (Auto) 4.90 K/uL (1.4-6.5) Lymphocytes # (Auto) 1.85 K/uL (1.2-3.4) Monocytes # (Auto) 0.48 K/uL (0.11-0.59) Eosinophils # (Auto) 0.21 K/uL (0-0.5) Basophils # (Auto) 0.03 K/uL (0-0.2) RDW Standard Deviation 47.7 fL (36.4-46.3) RDW Coefficient of Variation 18.6 % (11.5-14.5) Immature Granulocyte % (Auto) 0.3 % Immature Granulocyte # (Auto) 0.02 K/uL (0.00-0.02) Hypochromasia PRESENT Anisocytosis PRESENT Ovalocytes 1+ Prothrombin Time 10.8 SECONDS (9.0-12.0) Prothromb Time International Ratio 1.0 (0.9-1.1) Anion Gap 6.0 mmol/L (3-11) Est Creatinine Clear Calc Drug Dose 221.6 ml/min Estimated GFR () 139.2 Estimated GFR (Non- 120.1 BUN/Creatinine Ratio 14.2 (10-20) Calcium Level 8.0 mg/dl (8.5-10.1) Iron Level 17 mcg/dl (35-175) Total Iron Binding Capacity 356 mcg/dl (250-450) Transferrin 267 mg/dl (200-360) Transferrin % Saturation 4 % (20-50) Ferritin 4.0 ng/ml (8.0-388.0) Total Bilirubin 0.3 mg/dl (0.2-1) Aspartate Amino Transf (AST/SGOT) 18 U/L (15-37) Alanine Aminotransferase (ALT/SGPT) 11 U/L (12-78) Alkaline Phosphatase 147 U/L (45-117) Total Protein 7.4 gm/dl (6.4-8.2) Albumin 3.0 gm/dl (3.4-5.0) Globulin 4.4 gm/dl (2.5-4.0) Albumin/Globulin Ratio 0.7 (0.9-2) Urine Color YELLOW Urine Appearance CLEAR (CLEAR) Urine pH 6.5 (4.5-7.5) Urine Specific [place] 1.009 (1.000-1.030) Urine Protein NEG (NEG) Urine Glucose (UA) NEG (NEG) Urine Ketones NEG (NEG) Urine Occult Blood NEG (NEG) Urine Nitrite NEG (NEG) Urine Bilirubin NEG (NEG) Urine Urobilinogen NEG (NEG) Urine Leukocyte Esterase NEG (NEG) Medications Administered Medications (Trade) Dose Ordered Sig/Aida Route Start Time Stop Time Status Last Admin Dose Admin Acetaminophen (Tylenol Tab) 1,000 mg NOW STAT PO 06/17/18 12:33 06/17/18 12:34 DC 06/17/18 12:57 1,000 MG Pantoprazole Sodium (Protonix IV Bolus/Drip) 1 ea NOW STAT IV 06/17/18 13:39 06/17/18 13:40 DC 06/17/18 13:39 1 EA Pantoprazole Sodium 80 mg/ Dextrose 120 ml @ 480 mls/hr NOW STAT IV 06/17/18 13:46 06/17/18 14:00 DC 06/17/18 14:32 480 MLS/HR Pantoprazole Sodium 40 mg/ Dextrose 100 ml @ 20 mls/hr Q5H IV 06/17/18 14:00 06/17/18 18:59 DC 06/17/18 14:52 20 MLS/HR ED Course Patient was seen and examined Vital signs including blood pressure were reviewed medications list was verified with patient Labs were obtained, and a saline lock was established A blood consent was signed. The patient was ordered 2 units of packed RBCs I discussed the findings of the workup with the patient and the patient's significant other. They voiced understanding. The patient was ordered Protonix bolus and drip the case was discussed with case management and subsequently the [facility]. They kindly agreed to evaluate the patient for further Workup, treatment and possible admission to the hospital Medical Decision Differential diagnosis: Acute on chronic anemia, GI bleed, malignancy, renal disease, malnutrition, among others were considered This patient is a 32-year-old male that was sent into the emergency department by his primary care with a significantly low hemoglobin. On exam, his vital signs were stable. He did have some epigastric discomfort. He also had a history of ulcer. The patient refused a rectal exam. His labs reveal marketed anemia. The patient was ordered 2 units of packed RBCs in the emergency department. Given his history of ulcer and profound drop in hemoglobin, I ordered Protonix. Again, the patient refused a rectal exam; therefore I cannot confirm a guaiac positive stool. Either way, the patient will be evaluated by the hospitalist service for further workup and treatment This chart was completed in part utilizing [employer] Speech Voice Recognition software. Attempts were made to minimize the grammatical errors, random word insertions, pronoun errors and incomplete sentences. Any formal questions or concerns about the content, text or information contained within the body of this dictation should be directly addressed to the provider for clarification. Medication Reconcilliation Current Medication List: was personally reviewed by me Blood Pressure Screening Patient's blood pressure: Elevated blood pressure Blood pressure disposition: Elevated BP felt to be situational, Did not require urgent referral Consults Consulting Physician: Dr. Wilson Impression Primary Impression: Anemia Departure Information Referrals Maura Lee, C.R.N.P. (PCP) Patient Instructions [facility]
[2018-06-17] MEDS ORDERED: PANTOprazole INJ 80 MG in DEXTROSE 5% 100ML IV STA (13:46)
[2018-06-17] MEDS ORDERED: PANTOprazole INJ 40 MG in DEXTROSE 5% 100ML IV SCH (14:00)
[2018-06-17] MEDS ORDERED: SODIUM CHLORIDE 0.9% 1000ML 1,000 ML IV SCH (17:45)
[2018-06-17] MEDS ORDERED: MAGNESIUM HYDROXIDE SUSP 30 ML UDC PO PRN (17:45)
[2018-06-17] MEDS ORDERED: ACETAMINOPHEN 325 MG TAB PO PRN (17:45)
[2018-06-17] MEDS ORDERED: ALBUTEROL HFA 8 GM INHALER INH PRN (17:45)
[2018-06-17] MEDS ORDERED: ONDANSETRON INJ 2 MG/ML 2 ML VIAL IV PRN (17:45)
--- NOTE | 2018-06-17 18:01 | History and Physical ---
History & Physical Date & Time of Service: Jun 17, 2018 at 17:52 Chief Complaint: Referred By Primary Care Physician: Maura Lee, C.R.N.PAlban History of Present Illness Source: patient, clinic records 32 y/o M who came to the ED for further evaluation after being called by PCP for abn labs. Pt states he went to see his PCP on for b/l LE redness and infection. He has a hx of b/l LE infections requiring abx and states he was told by ID that he would need abx for the rest of his life most likely. He has been off abx for about 1 month and noted b/l LE redness and ulceration. He states he would not get any abx unless he was seen, so he made an appt. He was started on 2 abx at that time, although he is not sure of the names. He states that the b/l LE redness is better. While he was in the office, it was mentioned that he has been dizzy, which he qualifies as a lightheadedness. This has been going on for about the last month. Pt states he gets chest pains at times and this is no different. He has asthma and wears O2, so he gets SOB regularly, which is no different. He has an abd hernia so he get abd pain and this is no different. Pt denies fever, abd pain, n/v/c/d. Pt denies blood in stool or on toilet tissue. No dark stools. Labs returned and pt was called on Sunday to come to the ED for a Hb of 7.1, however he "didn't get around to it" until today. Pt states he is supposed to taking thyroid medication, although he does not and has not for some time. "I don't know why, I just don't." He also states he has been told his iron was low in the past, but does not take iron. Past Medical/Surgical History Asthma, chronic O2 use HTN GERD Hypothyroidism, untx Hx of ulcer 2002 Hx of opiate abuse, on methadone Family History Family history was reviewed; no changes noted. Social History Smoking Status: Current Every Day Smoker (1ppd) Alcohol Use: none Drug Use: other (hx of opiate abuse (prescription meds), now on methadone and no opioid use in 6 yrs) Marital Status: Housing status: lives with family Occupational Status: disabled Immunizations History of Influenza Vaccine: Unknown History of Tetanus Vaccine?: Unknown History of Pneumococcal: Unknown History of Hepatitis B Vaccine: Unknown Allergies Coded Allergies: No Known Allergies (Verified , 06/17/18) Home Medications Scheduled Carvedilol (Coreg), 3.125 MG PO DAILY Cephalexin Monohydrate (Keflex), 500 MG PO TID Gabapentin (Gabapentin), 300 MG PO TID Gabapentin (Gabapentin), 600 MG PO TID Home O2 Therapy (Oxygen), 2-3 LITERS NA CONTINOUS Lidocaine HCl (Lidocaine), 1 APPL TOP DAILY Methadone Hcl (Methadose), 132 MG PO DAILY Minocycline HCl (Minocycline HCl), 100 MG PO BID Mupirocin (Bactroban 2% Oint), 1 APPLN TOP BID Omeprazole Magnesium (Prilosec Otc), 20 MG PO BID Scheduled PRN Acetaminophen (Tylenol), 1,000 MG PO Q6H PRN for Pain or Fever Albuterol Hfa (Ventolin Hfa), 2-4 PUFFS INH UD PRN for SOB/Wheezing Review of Systems Pertinent positives and negatives reviewed in HPI--all others negative Physical Exam Vital Signs Date Time Temp Pulse Resp B/P (MAP) Pulse Ox O2 Delivery O2 Flow Rate FiO2 06/17/18 15:47 37.1 80 16 114/69 98 2.0 06/17/18 15:24 77 16 114/69 99 Room Air 06/17/18 15:10 37.1 77 14 100/72 97 06/17/18 14:46 36.9 77 15 119/60 95 2.0 06/17/18 14:16 36.8 79 15 124/75 95 2.0 06/17/18 14:01 36.7 79 15 129/73 96 2.0 06/17/18 13:53 36.7 82 16 105/ 95 2.0 06/17/18 12:36 86 06/17/18 12:34 86 16 106/57 92 Room Air 06/17/18 10:41 37.0 87 20 164/96 94 Room Air 06/17/18 10:31 37.0 87 20 164/96 94 Room Air General Appearance: no apparent distress, + obese Head: normocephalic, atraumatic Eyes: normal inspection, sclerae normal Respiratory/Chest: normal breath sounds, no respiratory distress Cardiovascular: regular rate, rhythm, normal peripheral pulses Abdomen/GI: soft, + tenderness (along L sided abd hernia) Extremities/Musculoskelatal: no calf tenderness, + swelling (chronic appearing , non-pitting) Neurologic/Psych: alert, oriented x 3 Skin: warm/dry, + pertinent finding (b/l LE with chronic appearing skin changes , b/l bandages noted that are clean and dry) Diagnostics Laboratory Results Results Past 24 Hours Test 06/17/18 11:38 06/17/18 12:36 Range/Units White Blood Count 7.49 4.8-10.8 K/uL Red Blood Count 3.42 4.7-6.1 M/uL Hemoglobin 6.2 14.0-18.0 g/dL Hematocrit 23.7 42-52 % Mean Corpuscular Volume 69.3 80-100 fL Mean Corpuscular Hemoglobin 18.1 25-34 pg Mean Corpuscular Hemoglobin Concent 26.2 32-36 g/dl Platelet Count 162 130-400 K/uL Mean Platelet Volume 9.6 7.4-10.4 fL Neutrophils (%) (Auto) 65.4 % Lymphocytes (%) (Auto) 24.7 % Monocytes (%) (Auto) 6.4 % Eosinophils (%) (Auto) 2.8 % Basophils (%) (Auto) 0.4 % Neutrophils # (Auto) 4.90 1.4-6.5 K/uL Lymphocytes # (Auto) 1.85 1.2-3.4 K/uL Monocytes # (Auto) 0.48 0.11-0.59 K/uL Eosinophils # (Auto) 0.21 0-0.5 K/uL Basophils # (Auto) 0.03 0-0.2 K/uL RDW Standard Deviation 47.7 36.4-46.3 fL RDW Coefficient of Variation 18.6 11.5-14.5 % Immature Granulocyte % (Auto) 0.3 % Immature Granulocyte # (Auto) 0.02 0.00-0.02 K/uL Hypochromasia PRESENT Anisocytosis PRESENT Ovalocytes 1+ Prothrombin Time 10.8 9.0-12.0 SECONDS Prothromb Time International Ratio 1.0 0.9-1.1 Sodium Level 137 136-145 mmol/L Potassium Level 4.1 3.5-5.1 mmol/L Chloride Level 102 98-107 mmol/L Carbon Dioxide Level 29 21-32 mmol/L Anion Gap 6.0 3-11 mmol/L Blood Urea Nitrogen 11 7-18 mg/dl Creatinine 0.77 0.60-1.40 mg/dl Est Creatinine Clear Calc Drug Dose 221.6 ml/min Estimated GFR () 139.2 Estimated GFR (Non- 120.1 BUN/Creatinine Ratio 14.2 10-20 Random Glucose 96 70-99 mg/dl Calcium Level 8.0 8.5-10.1 mg/dl Total Bilirubin 0.3 0.2-1 mg/dl Aspartate Amino Transf (AST/SGOT) 18 15-37 U/L Alanine Aminotransferase (ALT/SGPT) 11 12-78 U/L Alkaline Phosphatase 147 45-117 U/L Total Protein 7.4 6.4-8.2 gm/dl Albumin 3.0 3.4-5.0 gm/dl Globulin 4.4 2.5-4.0 gm/dl Albumin/Globulin Ratio 0.7 0.9-2 Urine Color YELLOW Urine Appearance CLEAR CLEAR Urine pH 6.5 4.5-7.5 Urine Specific [place] 1.009 1.000-1.030 Urine Protein NEG NEG Urine Glucose (UA) NEG NEG Urine Ketones NEG NEG Urine Occult Blood NEG NEG Urine Nitrite NEG NEG Urine Bilirubin NEG NEG Urine Urobilinogen NEG NEG Urine Leukocyte Esterase NEG NEG Diagnostic Radiology CXR/AXR: neg for acute Impression Assessment and Plan 32 y/o M who was admitted on 06/17 with sx anemia Anemia: uncertain etiology, seen on prior labs as far back as 2013 Pt advised to come to the ED for care on Sunday Found to have worsening microcytic anemia today Given 1 unit PRBC in the ED, awaiting 2nd Iron, B12, folate pending Heme neg in ED Full liquid diet until repeat H/H completed after second unit of blood Iron noted to be low 10/2017 HTN: continue home meds Hypothyroid: pt has not taken medications for this for quite some time TSH noted to be elevated on last week's labs Restart synthroid Asthma: O2 as at home Continues to smoke on home O2 Tobacco use: declines nicotine patch "They don't work anyway" Reminded pt it is illegal to smoke in the hospital Methadone use: hx of prescription based opioid addiction continue home dose Resuscitation Status VTE Prophylaxis Will order VTE Prophylaxis: Yes Additional Copies To Maura Lee, C.R.N.P.
[2018-06-17] MEDS ORDERED: GABAPENTIN 600 MG TAB PO SCH (21:00)
[2018-06-17] MEDS ORDERED: MUPIROCIN 2% OINT 22 GM TUBE TOP SCH (21:00)
[2018-06-17] MEDS ORDERED: CEPHALEXIN MONOHYDRATE 500 MG CAP PO SCH (21:00)
[2018-06-17] MEDS ORDERED: PANTOprazole SOD 40 MG TAB PO SCH (21:00)
[2018-06-17] MEDS ORDERED: GABAPENTIN 300 MG CAP PO SCH (21:00)
[2018-06-18] MEDS ORDERED: [UNRECOGNIZED DRUG - OTHER] SCH
[2018-06-18] MEDS ORDERED: METHADONE ORAL SOLN 2 MG/1ML PO SCH (09:00)
[2018-06-18] MEDS ORDERED: LIDOCAINE HCL 5% OINT 30 GM TUBE EXT SCH (09:00)
[2018-06-18] MEDS ORDERED: CARVEDILOL 3.125 MG TAB PO SCH (09:00)
[2018-06-20] MEDS ORDERED: CARV3.122 PO (20:02)
[2018-06-20] MEDS ORDERED: SYN25 PO (20:04)
== END 2018-06-17 18:25 | disposition left against medical advice (07) ==
LOC: C.EDB 10:17 → C.EDA 18:25 → ENRESERV 18:25 → CANBEDREQ 18:33
DX: D64.9 Anemia, unspecified (principal); J45.909 Unspecified asthma, uncomplicated; F31.9 Bipolar disorder, unspecified; F17.210 Nicotine dependence, cigarettes, uncomplicated; K21.9 Gastro-esophageal reflux disease without esophagitis; I10 Essential (primary) hypertension; E03.9 Hypothyroidism, unspecified; E66.01 Morbid (severe) obesity due to excess calories; Z83.3 Family history of diabetes mellitus; Z82.49 Family history of ischemic heart disease and other diseases of the circulatory system; Z79.899 Other long term (current) drug therapy; Z99.81 Dependence on supplemental oxygen

== ENCOUNTER 2022-03-16 15:33 | Observation (INO) ==
[2022-03-16] MEDS ORDERED: PIPERACILLIN/TAZOBACTAM 4.5 GM/120 ML BAG IV ONE (15:59)
[2022-03-16] MEDS ORDERED: PIPERACILL/TAZOBAC CONSULT ACTIVE PRN (15:59)
--- NOTE | 2022-03-16 16:14 | Emergency Department Note ---
Impression & Plan Infected stasis ulcer of right lower extremity, Morbid obesity ED Provider Note Provider: Jayant Koehler MD DATE OF SERVICE: 03/16/2022 CHIEF COMPLAINT: Clearance for group home with a right leg infection HISTORY OF PRESENT ILLNESS: Patient is a 36-year-old gentleman history of chronic wound to the right lower extremity. Patient states this is been present for about 10 years. I patient states it seems to have recently worsened somewhat over the gamino with a deeper pain and some slightly increased discharge. Also states he had a blister on the back of his right lower leg that popped with a small wound there. States it does hurt. Denies new significant trauma. Patient denies fever or chills. Patient is currently with probation and they are here for clearance to possibly take him to [facility] group home. Patient states he has seen [facility] wound clinic recently and has been on Keflex. Over the last several months has been on several antibiotics. States the wound has not gotten better and he has inquired about possibly having the leg cut off. Patient states he has a few abrasions on his left leg but denies significant other injury here. She denies a history of diabetes. REVIEW OF SYSTEMS: A total of 10 review of systems was obtained and negative except as stated above in the HPI. PAST MEDICAL HISTORY: As noted above MEDICATIONS: Reviewed home medications currently on Keflex and uses methadone SOCIAL HISTORY: Patient endorses smoking. PHYSICAL EXAM: GENERAL: alert and oriented in no acute distress on stretcher with probation at bedside handcuffed Head: normocephalic and atraumatic EYES: No injection, discharge or icterus. NECK: Trachea midline. ENT: Mucous membranes pink and moist. LUNGS: Airway patent. No retractions. Breath sounds clear HEART: Regular rate and rhythm. No chest wall tenderness ABDOMEN: Soft and non-tender, without guarding or rebound. SKIN: Acyanotic, warm, dry EXTREMITIES: Some dry scaly skin in the left lower extremity minimally to no swelling with a small few abrasions in the calf here. The right lower extremity is erythematous with a large wound to the right anterior gamino to the right lateral aspect with a very small ulceration of the posterior right lower calf. No significant swelling or wounds of the right foot itself. Patient with a large amount of purulent brownish-green sloughing and discharge from the wound without fluctuant nature noted. NEUROLOGICAL: No focal deficits. No aphasia. No facial droop or slurred speech. Ambulatory. EK beats per normal sinus rhythm. No PVC or PAC. QTc 454. No acute ST segment elevation noted. Patient's laboratory studies and imaging reviewed. Differential includes Cellulitis, abscess, MRSA infection, DVT, necrotizing fasciitis, dermatitis, drug eruption, allergic reaction, as well as other pathologies. IMPRESSION/MEDICAL DECISION MAKING: Reviewed medical record he has been evaluated multiple times for this leg infection before. Refused admission and December. Wound culture from then noted. Over the past 6 months has been on Bactrim, Augmentin, doxycycline, and most recently last several days Keflex. Recently followed at the [facility] wound clinic in [place] he says several days ago. Denies trauma. Significant purulence and malodorous smell on exam. Removing the dressing which been in place for several days large amount of green to brownish sloughing and purulent material comes off. The wound is diffusely ulcerated. Clean this briefly with chlorhexidine and a significant amount of saline. X-ray and basic labs obtained as well as cultures. X-ray report reviewed without findings concerning for osteomyelitis noted. Surface culture from the wound sent. Covered empirically with Zosyn. Discussed with the hospitalist and the patient was agreeable to staying for further care of his wounds. DIAGNOSIS: Right lower leg cellulitis and wound DISPOSITION: Hospitalist will evaluate Past Med/Surg History Medical History (Updated 03/16/22 @ 21:27 by Jayant Koehler M.D.) Anemia Anxiety panic attacks Asthma treated at [facility] for asthma with bronchitis exacerbation/respiratory failure 10/2017- tx with oral steroids, duo nebs, azithromycin Chronic back pain Chronic venous stasis GERD (gastroesophageal reflux disease) Gout H/O gastric ulcer remote bleeding gastric ulcer (2000) Hiatal hernia History of wound infection 07/2020 abdominal, "resolved" Hx of opioid abuse 2012, follows with methadone clinic Hypertension Hypothyroidism Migraine Morbid obesity Obstructive sleep apnea Surgical History History of adenoidectomy History of carpal tunnel surgery of right wrist History of esophagogastroduodenoscopy (EGD) History of femoropopliteal bypass right leg History of herniorrhaphy UMBILICAL HERNIA REPAIR History of tonsillectomy History of tooth extraction S/P excision of ganglion cyst left wrist Family History Mother Cellulitis, leg Other No family history of adverse response to anesthesia Social History Smoking Status: Current every day smoker Tobacco Type: Cigarettes Cigarettes Per Day: 1 PPD; Second Hand Exposure: Yes; Hx Alcohol Use: No Hx Substance Use: Yes Last Used Substance Other:: 2012, follows with methadone clinic Substance Use Type Other:: hx opiate addiction Preferred Language: Qatari Communication Ability: Effective Insurance Application Investigator Required: No Beliefs That Will Affect Care: None Current Living Situation: Spouse Feels Safe at Home: Yes Assistive Devices: Cane, Contacts, Denture - Upper and Denture - Lower Allergies Allergies Allergy/AdvReac Type Severity Reaction Status Date / Time No Known Allergies Allergy Verified 03/16/22 17:50 Home Meds Home Medications Medication Instructions Recorded Confirmed albuterol sulfate 90 mcg/actuation 2 puff INHALATION Q4 PRN 08/20/18 03/16/22 aerosol inhaler methadone 10 mg/5 mL oral solution 111 mg PO QAM 08/20/18 03/16/22 pantoprazole 40 mg tablet,delayed 40 mg PO QAM 07/14/20 03/16/22 release acetaminophen 500 mg tablet 2,500 mg PO TID PRN 03/16/22 03/16/22 (Tylenol Extra Strength) cephalexin 500 mg capsule 500 mg PO TID 03/16/22 03/16/22 cyanocobalamin (vitamin B-12) 1,000 mcg PO DAILY 03/16/22 03/16/22 1,000 mcg tablet cyclobenzaprine 10 mg tablet 10 mg PO TID PRN 03/16/22 03/16/22 gabapentin 800 mg tablet 800 mg PO TID 03/16/22 03/16/22 ibuprofen 200 mg tablet 1,600 mg PO TID PRN 03/16/22 03/16/22 levothyroxine 25 mcg tablet 25 mcg PO QAM 03/16/22 03/16/22 lisinopril 10 mg tablet 10 mg PO QAM 03/16/22 03/16/22 Results & Data (ED) Vital Signs Vital Signs - 24 hr 03/16/22 15:38 03/16/22 16:34 03/16/22 17:28 Temperature 36.7 C Temperature Source Oral Pulse Rate 104 H Pulse Rate [Apical] 100 H 99 H Pulse Rhythm [Apical] Regular Regular Pulse Strength [Apical] Normal Respiratory Rate 18 22 20 Respiratory Effort / Characteristics Non-Labored Non-Labored Spontaneous Respiratory Depth Normal Normal Respiratory Pattern Regular Blood Pressure 187/111 H Blood Pressure [Left Arm] 190/110 H 164/90 H Blood Pressure Mean 136 Blood Pressure Mean [Left Arm] 136 114 Blood Pressure Position [Left Arm] Lying Pulse Oximetry 98 95 95 Oxygen Delivery Method Room Air Room Air Room Air Sepsis Recent Fever Within 48 Hours Yes Sepsis New/Unexplained Change in Mental Status No Sepsis Action Taken by Nursing No Action Required 03/16/22 19:00 Temperature Temperature Source Pulse Rate Pulse Rate [Apical] 92 H Pulse Rhythm [Apical] Pulse Strength [Apical] Respiratory Rate 18 Respiratory Effort / Characteristics Respiratory Depth Normal Respiratory Pattern Blood Pressure Blood Pressure [Left Arm] 180/110 H Blood Pressure Mean Blood Pressure Mean [Left Arm] 133 Blood Pressure Position [Left Arm] Pulse Oximetry 98 Oxygen Delivery Method Room Air Sepsis Recent Fever Within 48 Hours Sepsis New/Unexplained Change in Mental Status Sepsis Action Taken by Nursing Laboratory Data Result diagrams: 03/16/22 16:38 03/16/22 16:38 Lab Results 03/16/22 03/16/22 03/16/22 Range/Units 16:30 16:30 16:38 WBC 8.02 (4.8-10.8) K/uL RBC 4.71 (4.7-6.1) M/uL Hgb 10.9 L (14.0-18.0) g/dL Hct 37.3 L (42-52) % MCV 79.2 L (80-100) fL MCH 23.1 L (25-34) pg MCHC 29.2 L (32-36) g/dL RDW Std Deviation 47.2 H (36.4-46.3) fL RDW Coeff of Raul 16.2 H (11.5-14.5) % Plt Count 190 (130-400) K/uL MPV 9.9 (7.4-10.4) fL Immature Gran % (Auto) 0.4 % Neut % (Auto) 67.5 % Lymph % (Auto) 20.7 % [place] % (Auto) 8.9 % Eos % (Auto) 2.1 % Baso % (Auto) 0.4 % Neut # (Auto) 5.42 (1.4-6.5) K/uL Lymph # (Auto) 1.66 (1.2-3.4) K/uL [place] # (Auto) 0.71 H (0.11-0.59) K/uL Eos # (Auto) 0.17 (0-0.5) K/uL Baso # (Auto) 0.03 (0-0.2) K/uL Immature Gran # (Auto) 0.03 H (0.00-0.02) K/uL Stomatocytes 1+ ESR (0-15) mm/hr Sodium (136-145) mmol/L Potassium (3.5-5.1) mmol/L Chloride (98-107) mmol/L Carbon Dioxide (21-32) mmol/L Anion Gap (3-11) BUN (6-23) mg/dl Creatinine (0.6-1.4) mg/dl Est Cr Clr Drug Dosing ml/min Est GFR ( Amer) ml/min Est GFR (Non-Af Amer) ml/min BUN/Creatinine Ratio (10-20) Glucose (70-99(Fasting)) mg/dl Lactate (0.4-2.0) mmol/L Calcium (8.5-10.1) mg/dl Total Bilirubin (0.2-1.0) mg/dl AST (13-39) U/L ALT (7-52) U/L Alkaline Phosphatase (34-104) U/L C-Reactive Protein (0-0.5) mg/dl Total Protein (6.0-8.3) gm/dl Albumin (3.4-5.0) gm/dl Globulin (2.5-4.0) gm/dl Albumin/Globulin Ratio (0.9-2) Procalcitonin (0-0.5) ng/ml Nasal Screen MRSA (PCR) Negative (Negative) SARS-CoV-2, RNA, NAAT NEGATIVE (NEGATIVE) 03/16/22 03/16/22 03/16/22 Range/Units 16:38 16:38 16:38 WBC (4.8-10.8) K/uL RBC (4.7-6.1) M/uL Hgb (14.0-18.0) g/dL Hct (42-52) % MCV (80-100) fL MCH (25-34) pg MCHC (32-36) g/dL RDW Std Deviation (36.4-46.3) fL RDW Coeff of Raul (11.5-14.5) % Plt Count (130-400) K/uL MPV (7.4-10.4) fL Immature Gran % (Auto) % Neut % (Auto) % Lymph % (Auto) % [place] % (Auto) % Eos % (Auto) % Baso % (Auto) % Neut # (Auto) (1.4-6.5) K/uL Lymph # (Auto) (1.2-3.4) K/uL [place] # (Auto) (0.11-0.59) K/uL Eos # (Auto) (0-0.5) K/uL Baso # (Auto) (0-0.2) K/uL Immature Gran # (Auto) (0.00-0.02) K/uL Stomatocytes ESR 79 H (0-15) mm/hr Sodium 138 (136-145) mmol/L Potassium 3.9 (3.5-5.1) mmol/L Chloride 100 (98-107) mmol/L Carbon Dioxide 33 H (21-32) mmol/L Anion Gap 5 (3-11) BUN 10 (6-23) mg/dl Creatinine 0.77 (0.6-1.4) mg/dl Est Cr Clr Drug Dosing 196.6 ml/min Est GFR ( Amer) 135.3 ml/min Est GFR (Non-Af Amer) 116.7 ml/min BUN/Creatinine Ratio 13.0 (10-20) Glucose 85 (70-99(Fasting)) mg/dl Lactate (0.4-2.0) mmol/L Calcium 8.9 (8.5-10.1) mg/dl Total Bilirubin 0.4 (0.2-1.0) mg/dl AST 16 (13-39) U/L ALT 8 (7-52) U/L Alkaline Phosphatase 101 (34-104) U/L C-Reactive Protein 3.10 H (0-0.5) mg/dl Total Protein 7.9 (6.0-8.3) gm/dl Albumin 4.1 (3.4-5.0) gm/dl Globulin 3.8 (2.5-4.0) gm/dl Albumin/Globulin Ratio 1.1 (0.9-2) Procalcitonin < 0.05 (0-0.5) ng/ml Nasal Screen MRSA (PCR) (Negative) SARS-CoV-2, RNA, NAAT (NEGATIVE) 03/16/22 Range/Units 16:38 WBC (4.8-10.8) K/uL RBC (4.7-6.1) M/uL Hgb (14.0-18.0) g/dL Hct (42-52) % MCV (80-100) fL MCH (25-34) pg MCHC (32-36) g/dL RDW Std Deviation (36.4-46.3) fL RDW Coeff of Raul (11.5-14.5) % Plt Count (130-400) K/uL MPV (7.4-10.4) fL Immature Gran % (Auto) % Neut % (Auto) % Lymph % (Auto) % [place] % (Auto) % Eos % (Auto) % Baso % (Auto) % Neut # (Auto) (1.4-6.5) K/uL Lymph # (Auto) (1.2-3.4) K/uL [place] # (Auto) (0.11-0.59) K/uL Eos # (Auto) (0-0.5) K/uL Baso # (Auto) (0-0.2) K/uL Immature Gran # (Auto) (0.00-0.02) K/uL Stomatocytes ESR (0-15) mm/hr Sodium (136-145) mmol/L Potassium (3.5-5.1) mmol/L Chloride (98-107) mmol/L Carbon Dioxide (21-32) mmol/L Anion Gap (3-11) BUN (6-23) mg/dl Creatinine (0.6-1.4) mg/dl Est Cr Clr Drug Dosing ml/min Est GFR ( Amer) ml/min Est GFR (Non-Af Amer) ml/min BUN/Creatinine Ratio (10-20) Glucose (70-99(Fasting)) mg/dl Lactate 0.8 (0.4-2.0) mmol/L Calcium (8.5-10.1) mg/dl Total Bilirubin (0.2-1.0) mg/dl AST (13-39) U/L ALT (7-52) U/L Alkaline Phosphatase (34-104) U/L C-Reactive Protein (0-0.5) mg/dl Total Protein (6.0-8.3) gm/dl Albumin (3.4-5.0) gm/dl Globulin (2.5-4.0) gm/dl Albumin/Globulin Ratio (0.9-2) Procalcitonin (0-0.5) ng/ml Nasal Screen MRSA (PCR) (Negative) SARS-CoV-2, RNA, NAAT (NEGATIVE) Administered Medications Doxycycline Hyclate 100 mg/ (Dextrose) 110 mls @ 50 mls/hr IV NOW STA Stop: 03/16/22 21:34 Last Admin: 03/16/22 20:57 Dose: 50 mls/hr Documented by: [id number] Discontinued Medications Albuterol (Albut/Ipratrop 3mg/0.5mg Neb 3 Ml Vial) Confirm Administered Dose 3 ml .ROUTE .STK-MED ONE Stop: 03/16/22 20:25 Last Admin: 03/16/22 20:25 Dose: Not Given Documented by: [id number] Piperacillin Sod/Tazobactam Sod (Zosyn) 4.5 gm in 120 mls @ 240 mls/hr IV NOW ONE Stop: 03/16/22 16:28 Last Admin: 03/16/22 17:09 Dose: 240 mls/hr Documented by: [id number] Imaging Data Radiologist's Impression: Tibia/Fibula X-Ray 03/16/22 15:58 XR tibia fibula RT 2V CLINICAL HISTORY: gamino wound Comparison: None available at the time of this dictation. TECHNIQUE: 2 radiographic views of the right leg were obtained. FINDINGS: There is no evidence of an acute fracture. The alignment is anatomic. Joint spaces are well-preserved. Soft tissue swelling is seen. IMPRESSION: Soft tissue swelling is seen. ACT 112: Negative or not required by law. Electronically signed by: Wagner Bauer M.D. 03/16/2022 4:31 PM Discharge Plan Visit Data Chief Complaint: Infection Stated Complaint: INFECTION ON R LEG, SWELLING, MED CLEARANCE ED Provider: Jayant Koehler Discharge Problem: Infected stasis ulcer of right lower extremity, Morbid obesity Patient Disposition: Being Evaluated by Hospitalist Forms Stand Alone Forms: My [facility] Prescriptions Prescriptions: No Action pantoprazole 40 mg tablet,delayed release (DR/EC) 40 mg PO QAM RF: 0 methadone 10 mg/5 mL Solution 111 mg PO QAM RF: 0 albuterol sulfate 90 mcg/actuation Hfa Aerosol Inhaler 2 puff INHALATION Q4 PRN (Reason: Shortness Of Breath Or Wheezing) RF: 0 cyclobenzaprine 10 mg tablet 10 mg PO TID PRN (Reason: MUSCLE SPASMS) RF: 0 cyanocobalamin (vitamin B-12) 1,000 mcg Tablet 1,000 mcg PO DAILY RF: 0 acetaminophen [Tylenol Extra Strength] 500 mg Tablet 2,500 mg PO TID PRN (Reason: Pain) RF: 0 levothyroxine 25 mcg tablet 25 mcg PO QAM RF: 0 cephalexin 500 mg capsule 500 mg PO TID RF: 0 lisinopril 10 mg tablet 10 mg PO QAM RF: 0 ibuprofen 200 mg Tablet 1,600 mg PO TID PRN (Reason: Pain) RF: 0 gabapentin 800 mg tablet 800 mg PO TID RF: 0 Referrals Referrals: PCP,NO [Primary Care Provider] -
--- NOTE | 2022-03-16 16:33 | XRay Report ---
XR tibia fibula RT 2V CLINICAL HISTORY: gamino wound Comparison: None available at the time of this dictation. TECHNIQUE: 2 radiographic views of the right leg were obtained. FINDINGS: There is no evidence of an acute fracture. The alignment is anatomic. Joint spaces are well-preserved . Soft tissue swelling is seen. IMPRESSION: Soft tissue swelling is seen. ACT 112: Negative or not required by law. Electronically signed by: Wagner Bauer M.D. 03/16/2022 4:31 PM
[2022-03-16 16:52] LABS: Hematocrit (blood only) 37.3 % (42-52); Hemoglobin 10.9 g/dL (14.0-18.0); Mean Corpuscular Hemoglobin 23.1 pg (25-34); Mean Corpuscular Hgb Conc 29.2 g/dL (32-36); Mean Corpuscular Volume 79.2 fL (80-100); Mean Platelet Volume 9.9 fL (7.4-10.4); Platelet Count 190 K/uL (130-400); RDW Coefficient of Variation 16.2 % (11.5-14.5); RDW Standard Deviation 47.2 fL (36.4-46.3); Red Blood Count 4.71 M/uL (4.7-6.1); White Blood Count 8.02 K/uL (4.8-10.8)
[2022-03-16 17:08] LABS: Basophils # (auto) 0.03 K/uL (0-0.2); Basophils % (auto) 0.4 %; Eosinophils # (auto) 0.17 K/uL (0-0.5); Eosinophils % (auto) 2.1 %; Immature Granulocytes # (auto) 0.03 K/uL (0.00-0.02); Immature Granulocytes % (auto) 0.4 %; Lymphocytes # (auto) 1.66 K/uL (1.2-3.4); Lymphocytes % (auto) 20.7 %; Monocytes # (auto) 0.71 K/uL (0.11-0.59); Monocytes % (auto) 8.9 %; Neutrophils # (auto) 5.42 K/uL (1.4-6.5); Neutrophils % (auto) 67.5 %; Stomatocytes 1+
[2022-03-16 17:12] LABS: Albumin Globulin Ratio 1.1 (0.9-2); Albumin Level 4.1 gm/dl (3.4-5.0); Bilirubin,Total 0.4 mg/dl (0.2-1.0); C Reactive Protein 3.1 mg/dl (0-0.5); Calcium 8.9 mg/dl (8.5-10.1); Creatinine Clr Calc Pharmacy 196.6 ml/min; Est GFR (African American) 135.3 ml/min; Est GFR (Non-African American) 116.7 ml/min; Globulin 3.8 gm/dl (2.5-4.0); Potassium 3.9 mmol/L (3.5-5.1); Total Protein 7.9 gm/dl (6.0-8.3)
--- NOTE | 2022-03-16 17:54 | History & Physical Report ---
Date of Service March 16, 2022 Assessment & Plan (1) Infected stasis ulcer of right lower extremity: Plan: - Admit to med tele due to elevated BP and tachycardia - Empiric broad-spectrum antibiotics - continue Zosyn started in the ED, add doxycycline. At risk for MRSA with prior incarceration. Awaiting MRSA swab and wound culture collected in ED - Consult wound care and podiatry for additional recommendations - Blood cultures pending although does not appear septic at present - AM labs (2) Asthma: Plan: - Add prn albuterol nebs since wheezing on exam (3) GERD (gastroesophageal reflux disease): Plan: - Continue outpatient PPI therapy (4) Hx of opioid abuse: Plan: - Continue methadone (5) Hypothyroidism: Plan: Unclear if pt has been compliant with levothyroxine. Outpatient records revi ewed - pt is to be on 25 mcg daily so will order while admitted with outpatient f/u to adjust dose if needed (6) Morbid obesity: (7) Hypertension: Plan: BP in ED initially elevated - unclear if pt took the Lisinopril today. - Resume lisinopril - Add prn hydralazine for SBP >180, DBP >100 (8) Tobacco abuse: Plan: pt would like nicotine patch while admitted Plan: Pt seen and reviewed with collaborating physician, Dr. Jones. Plan of care discussed and as outlined above. When pt is ready for discharge, there is paperwork on the chart with the appropriate contacts since he is to be dis[facility] to [facility] as of this time. DVT Prophylaxis: Heparin subQ Code Status: Full code Cesar Small PA-C History of Present Illness Chief Complaint: RLE ulcer Primary Care Provider: Ralph Singer MD This is a 36 y/o male with a PMH of hypothyroidism, hx opioid abuse on chronic methadone, GERD, morbid obesity, AALIYAH not on CPAP due to missed appts with sleep med, HTN, and asthma who presented to the ED today for evaluation on a RLE ulcer. The patient has a history of chronic RLE wound due to venous stasis. Also notes a LLE wound though less severe. He has most recently been seen at the wound clinic in [place] then at [facility] wound clinic on 03/13/22. Wound was debrided at that visit and pt was started on cephalexin due to concern for infection. Santyl, aquacel, absorbent gauze and ProFore dressings were applied and pt was to return to wound clinic in 1 week for dressing change and evaluation. Pt reports increased pain in the RLE which he currently rates as an 8 out of 10. He has been changing the dressing daily because of significant amounts of purulent bloody drainage. Of note, pt has been on probation and was brought to the ED today for medical clearance prior to incarceration at [facility]. In the ED, wound was noted to have purulent drainage with concern for ongoing infection so admission was recommended for IV antibiotics and additional wound care. Pt's medical records were extensively reviewed. Previously, pt was noted to have some difficulty with compliance with prescribed medications and has refused treatment for these wounds at times. He was discharged from [place] wound clinic due to repeated no-shows. Currently, pt denies fevers, chills, sweats, chest pain, N/V. He has noted some wheezing, REID, and chronic cough which he attributes to underlying asthma. He does still smoke 1 PPD. He is on chronic methadone for which he follows at [facility]. Allergies Allergy/AdvReac Type Severity Reaction Status Date / Time No Known Allergies Allergy Verified 03/16/22 17:50 Home Medications Medication Instructions Recorded Confirmed Type albuterol sulfate 90 mcg/actuation 2 puff INHALATION Q4 PRN 08/20/18 03/16/22 History aerosol inhaler methadone 10 mg/5 mL oral solution 111 mg PO QAM 08/20/18 03/16/22 History pantoprazole 40 mg tablet,delayed 40 mg PO QAM 07/14/20 03/16/22 History release acetaminophen 500 mg tablet 2,500 mg PO TID PRN 03/16/22 03/16/22 History (Tylenol Extra Strength) cephalexin 500 mg capsule 500 mg PO TID 03/16/22 03/16/22 History cyanocobalamin (vitamin B-12) 1,000 mcg PO DAILY 03/16/22 03/16/22 History 1,000 mcg tablet cyclobenzaprine 10 mg tablet 10 mg PO TID PRN 03/16/22 03/16/22 History gabapentin 800 mg tablet 800 mg PO TID 03/16/22 03/16/22 History ibuprofen 200 mg tablet 1,600 mg PO TID PRN 03/16/22 03/16/22 History levothyroxine 25 mcg tablet 25 mcg PO QAM 03/16/22 03/16/22 History lisinopril 10 mg tablet 10 mg PO QAM 03/16/22 03/16/22 History Past Med/Surg History Medical History (Updated 03/16/22 @ 19:05 by Jeanette Small PA-C) Anemia Anxiety panic attacks Asthma treated at [facility] for asthma with bronchitis exacerbation/respiratory failure 10/2017- tx with oral steroids, duo nebs, azithromycin Chronic back pain Chronic venous stasis GERD (gastroesophageal reflux disease) Gout H/O gastric ulcer remote bleeding gastric ulcer (2000) Hiatal hernia History of wound infection 07/2020 abdominal, "resolved" Hx of opioid abuse 2012, follows with methadone clinic Hypertension Hypothyroidism Migraine Morbid obesity Obstructive sleep apnea Surgical History History of adenoidectomy History of carpal tunnel surgery of right wrist History of esophagogastroduodenoscopy (EGD) History of femoropopliteal bypass right leg History of herniorrhaphy UMBILICAL HERNIA REPAIR History of tonsillectomy History of tooth extraction S/P excision of ganglion cyst left wrist Family History Mother Cellulitis, leg Other No family history of adverse response to anesthesia Social History Smoking Status: Current every day smoker Tobacco Type: Cigarettes Cigarettes Per Day: 1 PPD; Second Hand Exposure: Yes; Hx Alcohol Use: No Hx Substance Use: Yes Last Used Substance Other:: 2012, follows with methadone clinic Substance Use Type Other:: hx opiate addiction Preferred Language: French Communication Ability: Effective Dental Insurance Coordinator Required: No Beliefs That Will Affect Care: None Current Living Situation: Spouse Feels Safe at Home: Yes Assistive Devices: Cane, Contacts, Denture - Upper and Denture - Lower Review of Systems Review of Systems: All systems reviewed & are unremarkable except as noted in HPI & below Constitutional: no fever, no chills, no sweats and no anorexia Respiratory: + cough, + dyspnea on exertion and + wheezing Cardiovascular: + edema; no chest pain and no palpitations Gastrointestinal: no nausea, no vomiting and no diarrhea/loose stools Genitourinary: no dysuria Musculoskeletal: + problem reported (RLE pain) Integumentary: as per Subjective / HPI and + wounds Neurologic: no generalized weakness and no headache(s) Physical Exam Constitutional: + morbidly obese; no acute distress Eyes: + anicteric sclerae Neck: trachea midline Respiratory: no respiratory distress and no labored breathing Auscultation: + wheezes (throughout but good air movement) Cardiovascular: Rate/Rhythm: regular rhythm and + tachycardic Extremities: + edema Gastrointestinal (Abdomen): Inspection/Auscultation: normal bowel sounds; abdomen not distended Percussion/Palpation: abdomen soft; abdomen nontender Musculoskeletal: Head/Neck/Chest: normocephalic, head atraumatic and neck supple Skin: scabbed wounds noted sternal area and right elbow. Bilateral LE with stasis changes. RLE ulcer with dressing that has purulent bloody drainage, wound and surrounding area tender to touch. Neurologic: moves all extremities; no focal motor deficits Psychiatric: A+Ox3, euthymic affect Results & Data Results & Data ([facility]) Vital Signs (Past 12 Hours) Vital Signs Temp Pulse Pulse Resp BP BP Pulse Ox 03/16/22 17:28 99 H 20 164/90 H 95 03/16/22 16:34 100 H 22 190/110 H 95 03/16/22 15:38 36.7 C 104 H 18 187/111 H 98 Laboratory Results Laboratory Results - last 24 hr 03/16/22 03/16/22 03/16/22 16:30 16:30 16:38 WBC 8.02 RBC 4.71 Hgb 10.9 L Hct 37.3 L MCV 79.2 L MCH 23.1 L MCHC 29.2 L RDW Std Deviation 47.2 H RDW Coeff of Raul 16.2 H Plt Count 190 MPV 9.9 Immature Gran % (Auto) 0.4 Neut % (Auto) 67.5 Lymph % (Auto) 20.7 Howell % (Auto) 8.9 Eos % (Auto) 2.1 Baso % (Auto) 0.4 Neut # (Auto) 5.42 Lymph # (Auto) 1.66 Howell # (Auto) 0.71 H Eos # (Auto) 0.17 Baso # (Auto) 0.03 Immature Gran # (Auto) 0.03 H Stomatocytes 1+ ESR Sodium Potassium Chloride Carbon Dioxide Anion Gap BUN Creatinine Est Cr Clr Drug Dosing Est GFR ( Amer) Est GFR (Non-Af Amer) BUN/Creatinine Ratio Glucose Lactate Calcium Total Bilirubin AST ALT Alkaline Phosphatase C-Reactive Protein Total Protein Albumin Globulin Albumin/Globulin Ratio Procalcitonin Nasal Screen MRSA (PCR) Pending SARS-CoV-2, RNA, NAAT NEGATIVE 03/16/22 03/16/22 03/16/22 16:38 16:38 16:38 WBC RBC Hgb Hct MCV MCH MCHC RDW Std Deviation RDW Coeff of Raul Plt Count MPV Immature Gran % (Auto) Neut % (Auto) Lymph % (Auto) Howell % (Auto) Eos % (Auto) Baso % (Auto) Neut # (Auto) Lymph # (Auto) Howell # (Auto) Eos # (Auto) Baso # (Auto) Immature Gran # (Auto) Stomatocytes ESR 79 H Sodium 138 Potassium 3.9 Chloride 100 Carbon Dioxide 33 H Anion Gap 5 BUN 10 Creatinine 0.77 Est Cr Clr Drug Dosing 196.6 Est GFR ( Amer) 135.3 Est GFR (Non-Af Amer) 116.7 BUN/Creatinine Ratio 13.0 Glucose 85 Lactate Calcium 8.9 Total Bilirubin 0.4 AST 16 ALT 8 Alkaline Phosphatase 101 C-Reactive Protein 3.10 H Total Protein 7.9 Albumin 4.1 Globulin 3.8 Albumin/Globulin Ratio 1.1 Procalcitonin < 0.05 Nasal Screen MRSA (PCR) SARS-CoV-2, RNA, NAAT 03/16/22 16:38 WBC RBC Hgb Hct MCV MCH MCHC RDW Std Deviation RDW Coeff of Raul Plt Count MPV Immature Gran % (Auto) Neut % (Auto) Lymph % (Auto) Howell % (Auto) Eos % (Auto) Baso % (Auto) Neut # (Auto) Lymph # (Auto) Howell # (Auto) Eos # (Auto) Baso # (Auto) Immature Gran # (Auto) Stomatocytes ESR Sodium Potassium Chloride Carbon Dioxide Anion Gap BUN Creatinine Est Cr Clr Drug Dosing Est GFR ( Amer) Est GFR (Non-Af Amer) BUN/Creatinine Ratio Glucose Lactate 0.8 Calcium Total Bilirubin AST ALT Alkaline Phosphatase C-Reactive Protein Total Protein Albumin Globulin Albumin/Globulin Ratio Procalcitonin Nasal Screen MRSA (PCR) SARS-CoV-2, RNA, NAAT Diagnostic Findings Right Tib/Fib X-ray 03/16/22 - IMPRESSION: Soft tissue swelling is seen. Medications Administered Discontinued Medications Piperacillin Sod/Tazobactam Sod (Zosyn) 4.5 gm in 120 mls @ 240 mls/hr IV NOW ONE Stop: 03/16/22 16:28 Last Admin: 03/16/22 17:09 Dose: 240 mls/hr Documented by: [id number] Code Status & VTE Plan VTE Prophylaxis Plan VTE Prophylaxis will be ordered: Yes Supervising Physician Co-Signing Physician Notes Patient is a 36-year-old male with history of hypothyroidism, chronic methadone use, GERD, morbid obesity, chronic venous stasis and other medical problems presents for evaluation of right leg ulcer. Patient states having chronic leg wounds and follows with wound clinic as outpatient. Patient was debrided at wound clinic recently and was started on Keflex. He states having significant pain of the right leg but denies any numbness, tingling, fever, chills, chest pain. Reports having shortness of breath associated with wheezing on exertion which he attributes to her asthma and smoking. Patient uses albuterol as needed. Please review HPI for complete details of presentation. On exam patie nt is morbidly obese, no apparent distress, normocephalic atraumatic, EOMI, decreased breath sounds, bilateral wheezing, S1-S2, no murmur, + scabbed wound on anterior chest,+ nonpitting bilateral lower extremity edema, abdomen soft, nontender,+S/P umbilical hernia repair, alert, awake, oriented, grossly no focal deficits, bilateral leg venous stasis present, right lower extremity ulcer purulent, tender, mildly erythematous, also has left lower extremity wound in dressing. Blood work showed no leukocytosis. Platelet count 190 K, CRP 3.1, normal procalcitonin, nasal MRSA screen negative, leg x-ray showed soft tissue swelling. Blood cultures pending. EKG showed normal sinus rhythm, nonspecific ST-T changes, QTC 454. Patient is admitted for management of infected right lower extremity venous stasis ulcer, mild asthma exacerbation. Will start on broad-spectrum antibiotics, wound and blood cultures obtained. Podiatry consulted for possible debridement. Will start on nebs for asthma management. Nicotine patch. Counseled to quit. I personally reviewed the record. Patient is interviewed and examined at bedside. Patient's care is coordinated with Jeanette Small PA-C. Please refer to the documentation above for details of patient's presentation and for discussion of other issues.
[2022-03-16] MEDS ORDERED: hydrALAZINE 10 MG TAB PO PRN (18:49)
[2022-03-16] MEDS ORDERED: ALBUT/IPRATROP 3MG/0.5MG NEB 3 ML VIAL NEB PRN (18:49)
[2022-03-16] MEDS ORDERED: DOXYCYCLINE HYCLATE 100 MG in DEXTROSE 5% 100 ML IV SCH (19:00)
[2022-03-16] MEDS ORDERED: DOXYCYCLINE HYCLATE 100 MG in DEXTROSE 5% 100 ML IV STA (19:23)
[2022-03-16] MEDS ORDERED: ALBUT/IPRATROP 3MG/0.5MG NEB 3 ML VIAL ONE (20:24)
[2022-03-16] MEDS: ALBUT/IPRATROP 3MG/0.5MG NEB 3 ML VIAL NEB SCH (20:30)
[2022-03-16] MEDS ORDERED: ACETAMINOPHEN 325 MG TAB PO PRN (22:50)
[2022-03-16] MEDS: HEPARIN SOD 5,000 UNIT/0.5 ML VIAL SQ SCH (23:45)
[2022-03-16] MEDS: PIPERACILLIN/TAZOBACTAM 4.5 GM in DEXTROSE 5% 100 ML IV SCH (23:46)
[2022-03-16] MEDS: GABAPENTIN 800 MG TAB PO SCH (23:46)
[2022-03-17] MEDS: HEPARIN SOD 5,000 UNIT/0.5 ML VIAL SQ SCH ×3 (05:36→21:07)
[2022-03-17] MEDS: LEVOTHYROXINE SODIUM 25 MCG TABLET PO SCH ×2 (05:37→09:13)
[2022-03-17] MEDS: ALBUT/IPRATROP 3MG/0.5MG NEB 3 ML VIAL NEB SCH (07:40)
[2022-03-17 08:56] LABS: Hematocrit (blood only) 35.4 % (42-52); Hemoglobin 10.3 g/dL (14.0-18.0); Mean Corpuscular Hemoglobin 22.9 pg (25-34); Mean Corpuscular Hgb Conc 29.1 g/dL (32-36); Mean Corpuscular Volume 78.8 fL (80-100); Mean Platelet Volume 9.8 fL (7.4-10.4); Platelet Count 157 K/uL (130-400); RDW Coefficient of Variation 16.5 % (11.5-14.5); RDW Standard Deviation 47.1 fL (36.4-46.3); Red Blood Count 4.49 M/uL (4.7-6.1); White Blood Count 6.06 K/uL (4.8-10.8)
[2022-03-17] MEDS: GABAPENTIN 800 MG TAB PO SCH ×3 (08:59→21:07)
[2022-03-17] MEDS: lisinopril 10 MG TAB PO SCH (09:00)
[2022-03-17] MEDS: PANTOprazole 40 MG TAB PO SCH (09:00)
[2022-03-17] MEDS: NICOTINE 21 MG/24 HR TDSY TD SCH (09:01)
[2022-03-17] MEDS: PATIENT'S OWN CONTROLLED MED 2 PO SCH (09:02)
[2022-03-17] MEDS: METHADONE ORAL SOLN 2 MG/ML PO SCH (09:02)
[2022-03-17] MEDS: DOXYCYCLINE HYCLATE 100 MG in DEXTROSE 5% 100 ML IV SCH ×2 (09:08→21:07)
[2022-03-17] MEDS: PIPERACILLIN/TAZOBACTAM 4.5 GM in DEXTROSE 5% 100 ML IV SCH ×2 (09:45→16:39)
[2022-03-17] MEDS ORDERED: ALBUT/IPRATROP 3MG/0.5MG NEB 3 ML VIAL NEB PRN (09:49)
[2022-03-17 10:08] LABS: Albumin Globulin Ratio 1.1 (0.9-2); Albumin Level 3.6 gm/dl (3.4-5.0); Bilirubin,Total 0.4 mg/dl (0.2-1.0); Calcium 8.4 mg/dl (8.5-10.1); Creatinine Clr Calc Pharmacy 234.7 ml/min; Est GFR (African American) 141.6 ml/min; Est GFR (Non-African American) 122.1 ml/min; Globulin 3.3 gm/dl (2.5-4.0); Magnesium 1.9 mg/dl (1.7-2.4); Potassium 4.1 mmol/L (3.5-5.1); Total Protein 6.9 gm/dl (6.0-8.3)
--- NOTE | 2022-03-17 13:26 | Hospitalist Progress Note ---
Date of Service March 17, 2022 Assessment & Plan (1) Infected stasis ulcer of right lower extremity: Plan: - Ongoing issue, follows OP wound clinic at [place], recently debrided and started on keflex - WBC normal, procal negative, ESR and CRP elevated. Does not meet SIRS criteria. Not septic or sick looking. - continue empiric antibiotics pending clx results - WOCN and podiatry to evaluate the patient (2) Asthma: Plan: - prn albuterol. Not in active exacerbation (3) GERD (gastroesophageal reflux disease): Plan: - Continue outpatient PPI therapy (4) Hx of opioid abuse: Plan: - Continue methadone (5) Hypothyroidism: Plan: Unclear if pt has been compliant with levothyroxine. Outpatient records reviewed - pt is to be on 25 mcg daily so will continue while admitted with outpatient f/u to adjust dose if needed (6) Morbid obesity: Plan: BMI 56.7. Weight loss recommended (7) Hypertension: Plan: Continue lisinopril- uptitrate if needed. Also on prn hydralazine (8) Tobacco abuse: Plan: recommend quitting. Continue nicoderm patch Plan: On chronic methadone Medical non compliance DVT Prophylaxis: Heparin subQ Dispo- continue empiric ABx pending wound clx as well as WOCN/podiatry evaluation. When medically stable, he is to discharge to skilled nursing. There is paperwork on the chart with the appropriate contacts since he is to be discharged to [facility] as of this time. Admission and Anticipated Discharge Date Admission Date: March 16, 2022 Subjective Feels okay. Denies any fever, chills, pain, nausea, vomiting. States ongoing right leg ulcer and on ABx as OP as well as follows wound clinic. Asking what time his morning meds would be administered. Physical Exam Physical Exam: General: Morbidly obese, lying comfortably in bed, not in distress, on room air HEENT: EOMI, KIARRA, MMM Chest: Clear breath sounds bilaterally, no wheezes or crackles CVS: Regular rate and rhythm, normal heart sounds, no murmur Abdomen: Soft, non tender, not distended, normal bowel sounds Neuro: Awake, alert, oriented, conversing well, non focal Extremities: Pretty large size right leg ulcer almost circumferential- covered with mepilex- some discharge+. Bilateral venous stasis changes noted. Results & Data Results & Data ([facility]) Vital Signs (Past 12 Hours) Vital Signs Temp Pulse Pulse Resp BP Pulse Ox 03/17/22 10:59 37.0 C 92 H 18 92 03/17/22 08:07 36.9 C 78 18 141/84 H 90 03/17/22 07:50 80 03/17/22 07:40 77 16 03/17/22 03:55 36.6 C 82 18 160/90 H 94 Laboratory Results Short CBC 03/16/22 03/17/22 Range/Units 16:38 08:22 WBC 8.02 6.06 (4.8-10.8) K/uL Hgb 10.9 L 10.3 L (14.0-18.0) g/dL Hct 37.3 L 35.4 L (42-52) % Plt Count 190 157 (130-400) K/uL BMP 03/16/22 03/17/22 16:38 08:22 Sodium 138 138 Potassium 3.9 4.1 Chloride 100 101 Carbon Dioxide 33 H 31 BUN 10 9 Creatinine 0.77 0.69 Glucose 85 90 Calcium 8.9 8.4 L Liver Function 03/16/22 03/17/22 Range/Units 16:38 08:22 Total Bilirubin 0.4 0.4 (0.2-1.0) mg/dl AST 16 15 (13-39) U/L ALT 8 6 L (7-52) U/L Alkaline Phosphatase 101 88 (34-104) U/L Albumin 4.1 3.6 (3.4-5.0) gm/dl Medications Administered Current Inpatient Medications Acetaminophen (Acetaminophen 325 Mg Tab) 650 mg PO Q4H PRN PRN Reason: Pain or Fever Stop: 04/15/22 22:49 Albuterol (Albut/Ipratrop 3mg/0.5mg Neb 3 Ml Vial) 3 ml NEB QIDR PRN; Protocol PRN Reason: Shortness Of Breath Or Wheezing Stop: 04/15/22 20:59 Gabapentin (Gabapentin 800 Mg Tab) 800 mg PO TID KERWIN Stop: 04/15/22 22:49 Last Admin: 03/17/22 08:59 Dose: 800 mg Documented by: Heparin Sodium (Porcine) (Heparin Sod 5,000 Unit/0.5 Ml Vial) 7,500 units SQ Q8 KERWIN Stop: 04/15/22 22:49 Last Admin: 03/17/22 05:36 Dose: Not Given Documented by: Hydralazine HCl (Hydralazine 10 Mg Tab) 10 mg PO Q6H PRN PRN Reason: Hypertension Stop: 04/15/22 18:59 Doxycycline Hyclate 100 mg/ (Dextrose) 110 mls @ 50 mls/hr IV Q12H [facility] Stop: 03/24/22 08:59 Last Infusion: 03/17/22 11:25 Dose: Infused Documented by: Piperacillin Sod/Tazobactam (Sod 4.5 gm/ Dextrose) 120 mls @ 30 mls/hr IV Q8H [facility]; Protocol Stop: 03/24/22 00:00 Last Admin: 03/17/22 09:45 Dose: 30 mls/hr Documented by: Levothyroxine Sodium (Levothyroxine Sodium 25 Mcg Tablet) [facility] Stop: 04/16/22 06:29 Last Admin: 03/17/22 09:13 Dose: 25 mcg Documented by: Lisinopril (Lisinopril 10 Mg Tab) 10 mg PO [facility] Stop: 04/16/22 08:59 Last Admin: 03/17/22 09:00 Dose: 10 mg Documented by: Methadone HCl (Methadone Oral Soln 2 Mg/Ml) 111 mg PO [facility] Stop: 03/31/22 08:59 Last Admin: 03/17/22 09:02 Dose: 111 mg Documented by: Miscellaneous (Remove Nicoderm Patch) 1 ea N/A DAILY@[id number] [facility] Stop: 04/16/22 08:58 Last Admin: 03/17/22 08:59 Dose: Not Given Documented by: Miscellaneous Information (Piperacill/Tazobac Consult Active) 1 ea N/A UD PRN PRN Reason: Consult Stop: 04/15/22 15:58 Nicotine (Nicotine 21 Mg/24 Hr Tdsy) 21 mg TD [facility] Stop: 04/16/22 08:59 Last Admin: 03/17/22 09:01 Dose: 21 mg Documented by: Non-Formulary Medication (Patient's Own Controlled Med 2) [facility] Stop: 03/31/22 08:59 Last Admin: 03/17/22 09:02 Dose: 1 ea Documented by: Pantoprazole Sodium (Pantoprazole 40 Mg Tab) 40 mg PO QAM [facility] Stop: 04/16/22 08:59 Last Admin: 03/17/22 09:00 Dose: 40 mg Documented by:
--- NOTE | 2022-03-17 15:35 | Electrocardiogram Report ---
Test Reason : Blood Pressure : / mmHG Vent. Rate : 100 BPM Atrial Rate : 100 BPM P-R Int : 160 ms QRS Dur : 084 ms QT Int : 352 ms P-R-T Axes : 035 -11 019 degrees QTc Int : 454 ms Normal sinus rhythm Nonspecific ST abnormality Abnormal ECG When compared with ECG of 19-JUN-2018 18:29, No significant change was found Confirmed by Salvatore Arroyo ([id number]) on 03/17/2022 3:35:26 PM Referred By: REFERRED SELF Confirmed By:Salvatore Arroyo
--- NOTE | 2022-03-17 21:32 | Orthopedic Consultation ---
Date of Consultation March 17, 2022 Assessment & Plan (1) Infected stasis ulcer of right lower extremity: I examined the patient for RLE ulcers that have been resistant to healing despite numerous interventions. The plan is now to examine any underlying characteristics that may impede healing. A thorough evaluation of the wound was done in detail. After evaluation of the patient and wound status and characteristics, it was decided that the wound would be debrided. See procedure note below. Wound cleanse with betadine followed by normal saline. Santyl ordered to bedside. Manners in which pressure reduction could be achieved were investigated and initiated. Pressure reduction from wound is a critical part of this patient's management. To remove pressure to the wound is essential. Application of adaptic, Aquacel, Foam. Application of multiple layer compression dressing including unna boot, coban, tubi risk management manager. Thank you for allowing me to participate in the Patients care. I will continue to follow while in house with dressing changes. Once discharged Patient will require continued weekly wound care. Today's procedure is an excisional debridement of deep tissue. There is a moderate amount of serosanguineous exudate draining from the ulcer. The ulcer base is described as containing has pink granulation. Necrotic or devitalized tissue is estimated to be present in approximately 60% of the pressure ulcer bed. The ulcer has been exposed full-thickness tissue. I have informed the patient of the risks and benefit of this procedure and they have had the opportunity to ask questions. Appropriate consent has been obtained. The patient refused site marking. The area was prepped and draped in usual aseptic manner. The procedure was performed and a clean field. I debrided the wound sharply with a sterile #15 blade and necrotic tissue was excised down to and including subcutaneous tissue . Bleeding was minimal and hemostasis was achieved using pressure. The patient tolerated procedure and anesthesia well. History of Present Illness Attending Physician: Zbigniew Hearn MD History of Present Illness Patient is a 36-year-old male seen at bedside in no acute distress. Patient has history of hypothyroidism, chronic methadone use, GERD, morbid obesity, chronic venous stasis. Patient notes chronic right leg wounds open for greater than one year. He has been seen at multiple wound centers most recently at [place] then at [facility] would clinic on 03/13/22. Wound was debrided at that visit and Patient was started on cephalexin due to concern for infection. Patient was discharged from [place] wound clinic due to repeated no-show. He notes treatments have utilized multiple layer lower extremity compression and Pneumatic Pump device. Patient self reports poor compliance. Allergies Allergy/AdvReac Type Severity Reaction Status Date / Time No Known Allergies Allergy Verified 03/16/22 17:50 Home Medications Medication Instructions Recorded Confirmed Type albuterol sulfate 90 mcg/actuation 2 puff INHALATION Q4 PRN 08/20/18 03/16/22 History aerosol inhaler methadone 10 mg/5 mL oral solution 111 mg PO QAM 08/20/18 03/16/22 History pantoprazole 40 mg tablet,delayed 40 mg PO QAM 07/14/20 03/16/22 History release acetaminophen 500 mg tablet 2,500 mg PO TID PRN 03/16/22 03/16/22 History (Tylenol Extra Strength) cephalexin 500 mg capsule 500 mg PO TID 03/16/22 03/16/22 History cyanocobalamin (vitamin B-12) 1,000 mcg PO DAILY 03/16/22 03/16/22 History 1,000 mcg tablet cyclobenzaprine 10 mg tablet 10 mg PO TID PRN 03/16/22 03/16/22 History gabapentin 800 mg tablet 800 mg PO TID 03/16/22 03/16/22 History ibuprofen 200 mg tablet 1,600 mg PO TID PRN 03/16/22 03/16/22 History levothyroxine 25 mcg tablet 25 mcg PO QAM 03/16/22 03/16/22 History lisinopril 10 mg tablet 10 mg PO QAM 03/16/22 03/16/22 History Patient History Medical History Anemia Anxiety panic attacks Asthma treated at [facility] for asthma with bronchitis exacerbation/respiratory failure 10/2017- tx with oral steroids, duo nebs, azithromycin Chronic back pain Chronic venous stasis GERD (gastroesophageal reflux disease) Gout H/O gastric ulcer remote bleeding gastric ulcer (2000) Hiatal hernia History of wound infection 07/2020 abdominal, "resolved" Hx of opioid abuse 2012, follows with methadone clinic Hypertension Hypothyroidism Migraine Morbid obesity Obstructive sleep apnea Surgical History History of adenoidectomy History of carpal tunnel surgery of right wrist History of esophagogastroduodenoscopy (EGD) History of femoropopliteal bypass right leg History of herniorrhaphy UMBILICAL HERNIA REPAIR History of tonsillectomy History of tooth extraction S/P excision of ganglion cyst left wrist Family History Mother Cellulitis, leg Other No family history of adverse response to anesthesia Social History Smoking Status: Current every day smoker Tobacco Type: Cigarettes Cigarettes Per Day: 1 PPD; Second Hand Exposure: Yes; Hx Alcohol Use: No Hx Substance Use: No Preferred Language: Luxembourger Communication Ability: Effective [employer] Required: No Beliefs That Will Affect Care: None marital status: Current Living Situation: Spouse Other Information That Helps Us Care for You: No Feels Safe at Home: Yes Assistive Devices: Cane Physical Exam Constitutional: WD/WN, vitals as above Cardiovascular: Regular rate and rhythm, normal heart sounds, no murmur Skin: Atrophic changes noted to skin secondary to chronic venous stasis. Integument shows hyperpigmentation hyperkeratosis hyperplasia with papillomatosis and fibrosis. Right full thickness ulcer into subcutaneous tissue. 60% fibrotic 40% granulation. Neurologic: Awake, alert, oriented, conversing well, non focal Psychiatric: A+Ox3, euthymic affect Lymphatic: Atrophic changes noted to skin secondary to lymphedema integument shows hyperpigmentation hyperkeratosis hyperplasia with papillomatosis and fibrosis. Results & Data ([facility]) Vital Signs (Past 12 Hours) Vital Signs Temp Pulse Pulse Resp BP Pulse Ox 03/17/22 19:09 36.7 C 80 18 132/82 93 03/17/22 15:21 85 03/17/22 10:59 37.0 C 92 H 18 92
[2022-03-17] MEDS ORDERED: COLLAGENASE OINT 30 GM TUBE EXT PRN (21:56)
[2022-03-18] MEDS: PIPERACILLIN/TAZOBACTAM 4.5 GM in DEXTROSE 5% 100 ML IV SCH ×2 (01:53→10:53)
[2022-03-18] MEDS: HEPARIN SOD 5,000 UNIT/0.5 ML VIAL SQ SCH ×2 (05:48→13:27)
[2022-03-18] MEDS: LEVOTHYROXINE SODIUM 25 MCG TABLET PO SCH (05:48)
[2022-03-18] MEDS: METHADONE ORAL SOLN 2 MG/ML PO SCH (08:47)
[2022-03-18] MEDS: DOXYCYCLINE HYCLATE 100 MG in DEXTROSE 5% 100 ML IV SCH (08:47)
[2022-03-18] MEDS: lisinopril 10 MG TAB PO SCH (08:48)
[2022-03-18] MEDS: NICOTINE 21 MG/24 HR TDSY TD SCH (08:48)
[2022-03-18] MEDS: GABAPENTIN 800 MG TAB PO SCH ×2 (08:48→13:27)
[2022-03-18] MEDS: PATIENT'S OWN CONTROLLED MED 2 PO SCH (08:48)
[2022-03-18] MEDS: PANTOprazole 40 MG TAB PO SCH (08:48)
[2022-03-18 10:29] LABS: Hematocrit (blood only) 36.4 % (42-52); Hemoglobin 10.5 g/dL (14.0-18.0); Mean Corpuscular Hemoglobin 22.7 pg (25-34); Mean Corpuscular Hgb Conc 28.8 g/dL (32-36); Mean Corpuscular Volume 78.8 fL (80-100); Mean Platelet Volume 9.9 fL (7.4-10.4); Platelet Count 146 K/uL (130-400); RDW Coefficient of Variation 16.6 % (11.5-14.5); RDW Standard Deviation 47.5 fL (36.4-46.3); Red Blood Count 4.62 M/uL (4.7-6.1); White Blood Count 6.19 K/uL (4.8-10.8)
[2022-03-18 10:42] LABS: C Reactive Protein 2.15 mg/dl (0-0.5); Calcium 8.8 mg/dl (8.5-10.1); Creatinine Clr Calc Pharmacy 221.1 ml/min; Est GFR (African American) 138.3 ml/min; Est GFR (Non-African American) 119.3 ml/min
--- NOTE | 2022-03-18 17:35 | Hospitalist Progress Note ---
Date of Service March 18, 2022 Assessment & Plan (1) Infected stasis ulcer of right lower extremity: Plan: (1) Infected stasis ulcer of right lower extremity: Plan: - Ongoing issue, follows OP wound clinic at [place], recently debrided and started on keflex - At admission: WBC normal, procal negative, ESR and CRP elevated. Does not meet SIRS criteria. Not septic or sick looking. - 03/16 Rt Leg Wound Cx: P. mirabilis, E. cloacae, Staph spp. f/u final results. - 03/17 doxy and 03/17 Zosyn --> can change zosyn to Cefepime 03/18 - WOCN on board. - ortho evaluated, s/p excisional debridement of deep tissue 03/18. (2) Asthma: Plan: - prn albuterol. Not in active exacerbation (3) GERD (gastroesophageal reflux disease): Plan: - Continue outpatient PPI therapy (4) Hx of opioid abuse: Plan: - Continue methadone (5) Hypothyroidism: Plan: Unclear if pt has been compliant with levothyroxine. Outpatient records reviewed - pt is to be on 25 mcg daily so will continue while admitted with outpatient f/u to adjust dose if needed (6) Morbid obesity: Plan: BMI 56.7. Weight loss recommended (7) Hypertension: Plan: Continue lisinopril- uptitrate if needed. Also on prn hydralazine (8) Tobacco abuse: Plan: recommend quitting. Continue nicoderm patch Plan: On chronic methadone Medical non compliance DVT Prophylaxis: Heparin subQ Dispo- continue tailoring ABx pending wound clx as well as WOCN/podiatry evaluation. When medically stable, he is to discharge to [facility]. There is paperwork on the chart with the appropriate contacts since he is to be d ischarged to [facility] as of this time. Admission and Anticipated Discharge Date Admission Date: March 17, 2022 Subjective Patient seen and examined at bedside as a follow-up of infected stasis ulcer of RLE. Patient was lying in bed, on room air, NAD, no new acute events overnight. Patient reports feeling better. Patient denies any fever/headache/chills/chest pain/palpitations/belly pain/acute changes in his bowel or bladder habits. Patient reports eating okay. Physical Exam Physical Exam: GENERAL: Alert and oriented x3. NAD, on RA. Morbidly obese. HEENT: No pallor, no icterus. Pupils equal, round and reactive to light. Oral mucosa moist. NECK: No JVD, no neck masses. HEART: S1 and S2 heard. Regular rate and rhythm. No murmur, no gallop. RESPIRATORY SYSTEM: Normal AP diameter. No accessory muscle use. No wheezing, no crackles. ABDOMEN: Soft, bowel sounds present, nontender, no distention. CENTRAL NERVOUS SYSTEM: No facial droop. Speech is clear. Obeys simple commands. Moves extremities. EXTREMITIES: LLE trace edema with venous stasis changes noted. RLE with dressing without soakage noted. RLE picture image reviewed, pretty large size right leg ulcer almost circumferential with some discharge. Results & Data Results & Data ([facility]) Vital Signs (Past 12 Hours) Vital Signs Temp Pulse Resp BP Pulse Ox 03/18/22 15:17 37.2 C 81 18 127/78 92 03/18/22 11:10 36.9 C 91 H 18 130/91 94 03/18/22 07:40 37.1 C 83 18 156/103 H 95
[2022-03-18] MEDS ORDERED: CEFEPIME 2,000 MG in SYRINGE 0 ML IV SCH (18:00)
[2022-03-19] MEDS ORDERED: ADVANCED PROBIOTIC 1250 MG CAPSULE PO SCH (09:00)
--- NOTE | 2022-03-19 16:38 | Discharge Summary ---
Date of Service March 18, 2022 Admission HPI Per Admitting Provider This is a 36 y/o male with a PMH of hypothyroidism, hx opioid abuse on chronic methadone, GERD, morbid obesity, AALIYAH not on CPAP due to missed appts with sleep med, HTN, and asthma who presented to the ED today for evaluation on a RLE ulcer. The patient has a history of chronic RLE wound due to venous stasis. Also notes a LLE wound though less severe. He has most recently been seen at the wound clinic in [place] then at [facility] wound clinic on 03/13/22. Wound was debrided at that visit and pt was started on cephalexin due to concern for infection. Santyl, aquacel, absorbent gauze and ProFore dressings were applied and pt was to return to wound clinic in 1 week for dressing change and evaluation. Pt reports increased pain in the RLE which he currently rates as an 8 out of 10. He has been changing the dressing daily because of significant amounts of purulent bloody drainage. Of note, pt has been on probation and was brought to the ED today for medical clearance prior to incarceration at [facility]. In the ED, wound was noted to have purulent drainage with concern for ongoing infection so admission was recommended for IV antibiotics and additional wound care. Pt's medical records were extensively reviewed. Previously, pt was noted to have some difficulty with compliance with prescribed medications and has refused treatment for these wounds at times. He was discharged from [place] wound clinic due to repeated no-shows. Currently, pt denies fevers, chills, sweats, chest pain, N/V. He has noted some wheezing, REID, and chronic cough which he attributes to underlying asthma. He does still smoke 1 PPD. He is on chronic methadone for which he follows at [facility]. Principal Diagnosis Constitutional: + morbidly obese; no acute distress Eyes: + anicteric sclerae Neck: trachea midline Respiratory: no respiratory distress and no labored breathing Auscultation: + wheezes (throughout but good air movement) Cardiovascular: Rate/Rhythm: regular rhythm and + tachycardic Extremities: + edema Gastrointestinal (Abdomen): Inspection/Auscultation: normal bowel sounds; abdomen not distended Percussion/Palpation: abdomen soft; abdomen nontender Musculoskeletal: Head/Neck/Chest: normocephalic, head atraumatic and neck supple Skin: scabbed wounds noted sternal area and right elbow. Bilateral LE with stasis changes. RLE ulcer with dressing that has purulent bloody drainage, wound and surrounding area tender to touch. Neurologic: moves all extremities; no focal motor deficits Psychiatric: A+Ox3, euthymic affect Discharge Exam see Progress note of March 18, 2022 Discharge Data Allergies Allergy/AdvReac Type Severity Reaction Status Date / Time No Known Allergies Allergy Verified 03/16/22 17:50 Consultations 03/16/22 17:21 ED Decision to Admit Stat 03/16/22 18:49 Consult Podiatry Routine Hospital Course (1) Infected stasis ulcer of right lower extremity: Pt was being managed for the following: (1) Infected stasis ulcer of right lower extremity: Plan: - Ongoing issue, follows OP wound clinic at [place], recently debrided and started on keflex - At admission: WBC normal, procal negative, ESR and CRP elevated. Does not meet SIRS criteria. Not septic or sick looking. - 03/16 Rt Leg Wound Cx: P. mirabilis, E. cloacae, Staph spp. f/u final results. - 03/17 doxy and 03/17 Zosyn --> can change zosyn to Cefepime 03/18 - WOCN on board. - ortho evaluated, s/p excisional debridement of deep tissue 03/18. (2) Asthma: Plan: - prn albuterol. Not in active exacerbation (3) GERD (gastroesophageal reflux disease): Plan: - Continue outpatient PPI therapy (4) Hx of opioid abuse: Plan: - Continue methadone (5) Hypothyroidism: Plan: Unclear if pt has been compliant with levothyroxine. Outpatient records reviewed - pt is to be on 25 mcg daily so will continue while admitted with outpatient f/u to adjust dose if needed (6) Morbid obesity: Plan: BMI 56.7. Weight loss recommended (7) Hypertension: Plan: Continue lisinopril- uptitrate if needed. Also on prn hydralazine (8) Tobacco abuse: Plan: recommend quitting. Continue nicoderm patch Plan: On chronic methadone Medical non compliance DVT Prophylaxis: Heparin subQ Dispo- continue tailoring ABx pending wound clx as well as WOCN/podiatry evaluation. When medically stable, he is to [facility]. There is paperwork on the chart with the appropriate contacts since he is to be discharged to [facility] as of this time. On March 18, 2022 he left AMA without notifying anybody. In other terms he "sneaked out" and later it was found that patient already left the hospital. Total Time Total Time Spent Total Time Spent (In Minutes): 30 Discharge Plan Discharge Items Patient Disposition: Against Medical Advice Reason For Visit: INFECTED LE ULCER Follow-up/Referrals: PCP,NO [Primary Care Provider] - Stand-Alone Forms: [facility], Smoking Cessation Medications and DC Order Prescriptions: No Action pantoprazole 40 mg tablet,delayed release (DR/EC) 40 mg PO QAM RF: 0 methadone 10 mg/5 mL Solution 111 mg PO QAM RF: 0 albuterol sulfate 90 mcg/actuation Hfa Aerosol Inhaler 2 puff INHALATION Q4 PRN (Reason: Shortness Of Breath Or Wheezing) RF: 0 cyclobenzaprine 10 mg tablet 10 mg PO TID PRN (Reason: MUSCLE SPASMS) RF: 0 cyanocobalamin (vitamin B-12) 1,000 mcg Tablet 1,000 mcg PO DAILY RF: 0 acetaminophen [Tylenol Extra Strength] 500 mg Tablet 2,500 mg PO TID PRN (Reason: Pain) RF: 0 levothyroxine 25 mcg tablet 25 mcg PO QAM RF: 0 cephalexin 500 mg capsule 500 mg PO TID RF: 0 lisinopril 10 mg tablet 10 mg PO QAM RF: 0 ibuprofen 200 mg Tablet 1,600 mg PO TID PRN (Reason: Pain) RF: 0 gabapentin 800 mg tablet 800 mg PO TID RF: 0 Discharge Orders: Left Against Medical Advice (Routine); Ordered 03/18/22 Ordered By: Bisi Welsh Admission Data Admit Date/Time: 03/17/22 15:49 Attending Provider: Bisi Welsh Admit Provider: Calin Jones Primary Care Provider: PCP,NO Other Providers: Calin Jones ; Marcelo Dupont
== END 2022-03-18 18:48 | disposition left against medical advice (07) | DRG 264 ==
LOC: ED 15:33 → 2N 15:33 → SUATTDRO 17:45 → 2N 22:43 → SUATTDRO 03-17 15:49

== ENCOUNTER 2022-03-30 13:53 | Inpatient (IN) ==
[2022-03-30] MEDS ORDERED: SODIUM CHLORIDE 0.9% 1000ML 1,000 ML IV ONE (14:16)
[2022-03-30] MEDS ORDERED: diphenhydrAMINE 50 MG/ML VIAL IV STA (14:35)
[2022-03-30] MEDS ORDERED: ONDANSETRON INJ 2 MG/ML 2 ML VIAL IV STA (14:35)
[2022-03-30 14:56] LABS: Basophils # (auto) 0.03 K/uL (0-0.2); Basophils % (auto) 0.3 %; Eosinophils # (auto) 0.07 K/uL (0-0.5); Eosinophils % (auto) 0.7 %; Hematocrit (blood only) 43.8 % (42-52); Hemoglobin 13.2 g/dL (14.0-18.0); Immature Granulocytes # (auto) 0.03 K/uL (0.00-0.02); Immature Granulocytes % (auto) 0.3 %; Lymphocytes # (auto) 2.25 K/uL (1.2-3.4); Lymphocytes % (auto) 21.5 %; Mean Corpuscular Hgb Conc 30.1 g/dL (32-36); Mean Corpuscular Volume 76.3 fL (80-100); Mean Platelet Volume 11.3 fL (7.4-10.4); Monocytes # (auto) 1.21 K/uL (0.11-0.59); Monocytes % (auto) 11.5 %; Neutrophils # (auto) 6.89 K/uL (1.4-6.5); Neutrophils % (auto) 65.7 %; Platelet Count 224 K/uL (130-400); RDW Coefficient of Variation 16.3 % (11.5-14.5); RDW Standard Deviation 45.4 fL (36.4-46.3); Red Blood Count 5.74 M/uL (4.7-6.1); White Blood Count 10.48 K/uL (4.8-10.8)
[2022-03-30 14:59] LABS: BUN Creatinine Ratio 13.2 (10-20); Calcium 9.3 mg/dl (8.5-10.1); Creatinine Clr Calc Pharmacy 167.8 ml/min; Est GFR (African American) 125.2 ml/min; Potassium 3.8 mmol/L (3.5-5.1)
[2022-03-30 15:03] LABS: Albumin Globulin Ratio 1.2 (0.9-2); Albumin Level 4.5 gm/dl (3.4-5.0); Bilirubin,Total 0.4 mg/dl (0.2-1.0); Globulin 3.8 gm/dl (2.5-4.0); Total Protein 8.3 gm/dl (6.0-8.3)
[2022-03-30] MEDS ORDERED: OPTIRAY 320 125ml IV ONE (15:13)
[2022-03-30 15:26] LABS: Bilirubin Direct 0.1 mg/dl (0-0.2)
--- NOTE | 2022-03-30 15:36 | CT Scan Report ---
ABDOMEN AND PELVIS CT WITH IV CONTRAST CT DOSE: 2135.30 mGy.cm HISTORY: Acute generalized abdominal pain with nausea abd pain, nausea TECHNIQUE: Multiaxial CT images of the abdomen and pelvis were performed following the IV administrat ion of 119 cc of Optiray, A dose lowering technique was utilized adhering to the principles of ALARA . COMPARISON STUDY: CT abdomen and pelvis 01/12/2020 FINDINGS: Imaged inferior cardiac chambers are unremarkable. Clear lung bases. No pneumatosis or pneu moperitoneum. Spleen is enlarged measuring up to 17 cm in length. The liver is mildly enlarged with h epatic steatosis. Patency of the hepatic and portal veins. Unremarkable gallbladder, pancreas and adr enal glands. Punctate nonobstructing calculus of the superior pole left kidney. Symmetric enhancement of the kidneys. No ureteral calculi or hydronephrosis. Unremarkable urinary bladder with partial dis tention mild wall thickening. Small fat filled left inguinal hernia. Aorta and IVC are unremarkable. There is a mildly enlarged right iliac chain lymph node on image 429 measuring 1.3 cm, similar to mil dly enlarged with the prior study and favored to be benign. Prominent bilateral inguinal chain lymph nodes. No bowel obstruction or bowel wall thickening. Colonic diverticulosis without acute diverticulitis. N o ascites or mesenteric inflammation. Normal terminal ileum and appendix. Status post periumbilical h ernia repair with trace fluid and inflammatory stranding superficial to the hernia mesh. There are 2 persistent versus recurrent fat filled abdominal wall hernias noted marginally along the mesh measuri ng 1.3 cm superiorly on image 256 and 2.3 cm inferiorly on image 305. Mild gynecomastia. No acute fra cture. Spondylitic spurring of the thoracic spine with intervertebral disc space narrowing. IMPRESSION: 1. No bowel obstruction or bowel wall thickening. Normal appendix. 2. Colonic diverticulosis. 3. Status post umbilical hernia repair with trace fluid and stranding noted superficial to the hernia mesh. Small recurrent versus residual fat filled periumbilical hernias are noted adjacent to the mes h. 4. Hepatosplenomegaly with hepatic steatosis. 5. Punctate nonobstructing left renal calculus. ACT 112: Negative or not required by law. The above report was generated using voice recognition software. It may contain grammatical, syntax o r spelling errors. Electronically signed by: Price Valdez M.D. 03/30/2022 3:34 PM
--- NOTE | 2022-03-30 15:52 | Emergency Department Note ---
Impression & Plan Infected stasis ulcer of right lower extremity, Hx of opioid abuse, History of umbilical hernia repair, Abdominal pain ED Provider Note NAME: MICKIE [id number] SNOW AGE: 36 SEX: M ARRIVES VIA: Ambulance INFORMANT: Patient ED PROVIDER(S): Sundar Duval MD CHIEF COMPLAINT: Abdominal pain, fever, referred. PLAN: Disposition: Admit MEDICAL DECISION MAKING: The patient is a pleasant 36-year-old gentleman, current [place] [facility] [place] inmate at [facility] with a past medical history of opioid abuse on methadone, hypertension, hypothyroidism, morbid obesity, GERD, history of prior umbilical hernia repair who presents to the emergency department from [facility], referred for evaluation of ongoing abdominal pain which he reports has been present for 6 months or more but became worse over the past several weeks. He reports it is associated with nausea where he has not eaten anything for "3 weeks". He reports he tried to eat something today and the pain became worse. He reports he has not moved his bowels in 3 weeks either because he reports "if you do not eat anything nothing will come out". He had a fever to 101 prior to arrival at the [facility]. Of note, the patient was admitted to this facility at the end of February for IV antibiotics and treatment of acute on chronic right lower leg wound infection but it was noted that the patient eloped from the hospital prior to discharge. The patient then returned several days later for medical clearance prior to being incarcerated at [facility] and was discharged with oral antibiotics, clindamycin and cefdinir which would be effective per his superficial wound culture on his recent admission. Patient reports he completed his antibiotics today. He does not feel as though the wound is any better and it continues to be painful. On arrival patient is no acute distress, with a temperature of 37.7 heart rate in 100s, BP 140-160s/90s and vital signs otherwise stable. He appears clinically dry. He is holding his left mid lower abdomen where reports the pain is worse but has generalized tenderness throughout his abdomen. He has acute on chronic right lower leg wound which is erythematous warm and tender. WBC and platelets within normal limits. HCT within normal limits. Chemistry without metabolic acidosis. Electrolytes and LFTs without significant abnormality. Lipase not significantly elevated. Procalcitonin is undetectable. Lactate, within normal limits. COVID-19 RNA, NAAT test was negative. CT of the abdomen pelvis was performed and demonstrates soft tissue stranding related to fat-containing periumbilical hernia adjacent to mesh from prior hernia repair. However, upon reevaluation the patient's abdominal pain was significantly improved and Resolved after IV fluid hydration, Zofran and Benadryl for antispasmodic. Given the patient's improvement and location of pain on arrival it is suspected that CT findings are not the cause of his presenting abdominal pain. Rather patient reports that since he has been incarcerated at [facility] he has not been provided with his methadone as this is not permitted due to policy and so symptoms may be related to opioid withdrawal. Given the patient's fever and persistent acute on chronic wound infection we will proceed with admission for additional IV antibiotics. Patient with discussed with general surgery on-call PRICILA Hernandez regarding CT finding [place] unlikely to require acute surgical intervention at this time. Case was discussed with Dr. Welsh, [facility], who will evaluate the patient for admission. Triage Nursing notes reviewed and agree them. Prior medical records reviewed Vital Signs: reviewed and remarkable for hypertension. Differential diagnosis: Appendicitis, testicular torsion, infections, diverticulitis, UTI, obstruction, mesenteric ischemia, aortic pathology, inflammatory bowel disease, renal colic, PUD, pancreatitis, biliary pathology, hernia, volvulus, constipation, as well as other pathologies. ER treatment provided: See below. Diagnostics interpreted by me: Cardiac Monitoring: An order for continuous cardiac monitoring was placed and demonstrated NSR, 89 bpm, no ectopy. Laboratory studies: See below Imaging studies: See below Consultation(s[facility], PAC Sheree Hernandez, with Dr. Mcallister. HPI: The patient is a pleasant 36-year-old gentleman, current [place] inmate at [facility] with a past medical history of opioid abuse on methadone, hypertension, hypothyroidism, morbid obesity, GERD, history of prior umbilical hernia repair who presents to the emergency department from [facility], referred for evaluation of ongoing abdominal pain which he reports has been present for 6 months or more but became worse over the past several weeks. He reports it is associated with nausea where he has not eaten anything for "3 weeks". He reports he tried to eat something today and the pain became worse. He reports he has not moved his bowels in 3 weeks either because he reports "if you do not eat anything nothing will come out". He had a fever to 101 prior to arrival at the [facility]. Of note, the patient was admitted to this facility at the end of February for IV antibiotics and treatment of acute on chronic right lower leg wound infection but it was noted that the patient eloped from the hospital prior to discharge. The patient then returned several days later for medical clearance prior to being incarcerated at [facility] and was discharged with oral antibiotics, clindamycin and cefdinir which would be effective per his superficial wound culture on his recent admission. Patient reports he completed his antibiotics today. He does not feel as though the wound is any better and it continues to be painful. ROS: See above HPI for pertinent positives & negatives. A total of 10 systems reviewed and were otherwise negative. VITALS:See Below PHYSICAL EXAMINATION: GENERAL: Awake, alert, uncomfortable-appearing, in no distress, BMI 50.5. HENT: Normocephalic, atraumatic. Oropharynx with dry mucous membranes and otherwise unremarkable. EYES: Normal conjunctiva. Sclera non-icteric. NECK: Supple. No nuchal rigidity. FROM. No JVD. RESPIRATORY: Clear to auscultation. CARDIAC: Regular rate, normal rhythm. Extremities warm and well perfused. Pulses equal. ABDOMEN: Soft, non-distended. He is holding his left mid lower abdomen where reports the pain is worse but has generalized tenderness throughout his abdomen. RECTAL: Deferred. MUSCULOSKELETAL: Chest examination reveals no tenderness. The back is symmetr ical on inspection without obvious abnormality. There is no CVA tenderness to palpation. No joint edema. LOWER EXTREMITIES: Calves are equal size bilaterally and non-tender. No edema. Acute on chronic right lateral lower leg wound which is erythematous warm and tender. NEURO: Normal sensorium. No sensory or motor deficits noted. SKIN: No rash or jaundice noted. Sundar Duval MD Past Med/Surg History Medical History Anemia Anxiety panic attacks Asthma treated at [facility] for asthma with bronchitis exacerbation/respiratory failure 10/2017- tx with oral steroids, duo nebs, azithromycin Chronic back pain Chronic venous stasis GERD (gastroesophageal reflux disease) Gout H/O gastric ulcer remote bleeding gastric ulcer (2000) Hiatal hernia History of wound infection 07/2020 abdominal, "resolved" Hx of opioid abuse 2012, follows with methadone clinic Hypertension Hypothyroidism Migraine Morbid obesity Obstructive sleep apnea Surgical History History of adenoidectomy History of carpal tunnel surgery of right wrist History of esophagogastroduodenoscopy (EGD) History of femoropopliteal bypass right leg History of herniorrhaphy UMBILICAL HERNIA REPAIR History of tonsillectomy History of tooth extraction S/P excision of ganglion cyst left wrist Family History Mother Cellulitis, leg Other No family history of adverse response to anesthesia Social History Smoking Status: Never smoker Tobacco Type: Cigarettes Cigarettes Per Day: 1 PPD; Second Hand Exposure: Yes; Hx Alcohol Use: No Hx Substance Use: No Preferred Language: [place] Communication Ability: Effective Operational Intelligence Analyst Required: No Beliefs That Will Affect Care: None marital status: Current Living Situation: Spouse Current Living Situation Comment: Inmate Feels Safe at Home: Yes Assistive Devices: Cane Allergies Allergies Allergy/AdvReac Type Severity Reaction Status Date / Time No Known Allergies Allergy Verified 03/30/22 14:41 Home Meds Home Medications Medication Instructions Recorded Confirmed albuterol sulfate 90 mcg/actuation 2 puff INHALATION QID PRN 08/20/18 03/30/22 aerosol inhaler acetaminophen 500 mg tablet 2,500 mg PO BID PRN 03/16/22 03/30/22 (Tylenol Extra Strength) cyanocobalamin (vitamin B-12) 1,000 mcg PO DAILY 03/16/22 03/30/22 1,000 mcg tablet levothyroxine 25 mcg tablet 25 mcg PO QAM 03/16/22 03/30/22 clindamycin HCl 300 mg capsule 300 mg PO QID 03/30/22 03/30/22 (Cleocin HCl) clonazepam 0.5 mg tablet 0.5 mg PO TID 03/30/22 03/30/22 clonazepam 1 mg tablet 1 mg PO BID 03/30/22 03/30/22 gabapentin 300 mg capsule 300 mg PO TID 03/30/22 03/30/22 lisinopril 20 mg tablet 20 mg PO DAILY 03/30/22 03/30/22 omeprazole 20 mg capsule,delayed 40 mg PO DAILY 03/30/22 03/30/22 release Results & Data (ED) Vital Signs Vital Signs - 24 hr 03/30/22 14:19 03/30/22 16:19 Temperature 37.7 C H Temperature Source Oral Pulse Rate 108 H Pulse Rate [Apical] 95 H Pulse Rhythm Regular Pulse Strength Normal Respiratory Rate 17 15 Respiratory Effort / Characteristics Non-Labored Respiratory Depth Normal Respiratory Pattern Regular Blood Pressure [Left Arm] 142/82 H Blood Pressure Mean [Left Arm] 102 Pulse Oximetry 97 98 Oxygen Delivery Method Room Air Room Air Sepsis Recent Fever Within 48 Hours Yes Sepsis New/Unexplained Change in Mental Status N/A Sepsis Action Taken by Nursing No Action Required Laboratory Data Attestation: I reviewed the patient's lab results. Result diagrams: 03/30/22 Unknown 03/30/22 Unknown Lab Results 03/30/22 03/30/22 03/30/22 Range/Units 14:35 15:23 15:50 PT Cancelled 11.5 INR Cancelled 1.1 Lactate (0.4-2.0) mmol/L Procalcitonin (0-0.5) ng/ml Urine Color Urine Appearance (Clear) Urine pH (4.5-7.5) Ur Specific [place] (1.000-1.030) Urine Protein (Negative) Urine Glucose (UA) (Negative) Urine Ketones (Negative) Urine Blood (Negative) Urine Nitrite (Negative) Urine Bilirubin (Negative) Urine Urobilinogen (Negative) Ur Leukocyte Esterase (Negative) SARS-CoV-2, RNA, NAAT NEGATIVE (NEGATIVE) 03/30/22 03/30/22 03/30/22 Range/Units 16:07 16:40 16:40 PT INR Lactate 0.9 (0.4-2.0) mmol/L Procalcitonin < 0.05 (0-0.5) ng/ml Urine Color Yellow Urine Appearance Clear (Clear) Urine pH 8.0 H (4.5-7.5) Ur Specific [place] > 1.045 H (1.000-1.030) Urine Protein Negative (Negative) Urine Glucose (UA) Negative (Negative) Urine Ketones Negative (Negative) Urine Blood Negative (Negative) Urine Nitrite Negative (Negative) Urine Bilirubin Negative (Negative) Urine Urobilinogen Negative (Negative) Ur Leukocyte Esterase Negative (Negative) SARS-CoV-2, RNA, NAAT (NEGATIVE) Administered Medications Acetaminophen (Acetaminophen 325 Mg Tab) 650 mg PO Q4H PRN PRN Reason: Pain or Fever Stop: 04/29/22 17:06 Last Admin: 03/30/22 19:22 Dose: 650 mg Documented by: [id number] Lactated Ringer's (Lr) 1,000 mls @ 75 mls/hr IV .[id number] KERWIN Stop: 04/29/22 16:29 Last Admin: 03/30/22 21:05 Dose: 125 mls/hr Documented by: [id number] Infusion: 03/30/22 21:05 Dose: 125 mls/hr Documented by: [id number] Admin: 03/30/22 17:27 Dose: 125 mls/hr Documented by: [id number] Ibuprofen (Ibuprofen 600 Mg Tab) 600 mg PO Q8H PRN PRN Reason: moderate pain Stop: 04/29/22 20:24 Last Admin: 03/30/22 20:45 Dose: 600 mg Documented by: [id number] Discontinued Medications Diphenhydramine HCl (Diphenhydramine 50 Mg/Ml Vial) 25 mg IV NOW STA Stop: 03/30/22 14:36 Last Admin: 03/30/22 14:46 Dose: 25 mg Documented by: [id number] Sodium Chloride (Nss 1000ml) 1,000 mls @ 999 mls/hr IV .[id number] ONE Stop: 03/30/22 15:16 Last Infusion: 03/30/22 15:47 Dose: 0 mls/hr Documented by: [id number] Admin: 03/30/22 14:46 Dose: 999 mls/hr Documented by: [id number] Piperacillin Sod/Tazobactam Sod (Zosyn) 4.5 gm in 120 mls @ 240 mls/hr IV NOW ONE Stop: 03/30/22 16:47 Last Infusion: 03/30/22 17:20 Dose: 0 mls/hr Documented by: [id number] Admin: 03/30/22 16:46 Dose: 240 mls/hr Documented by: [id number] Daptomycin 625 mg/ Syringe 12.5 mls @ 6.25 mls/min IV NOW ONE; Protocol Stop: 03/30/22 16:19 Last Admin: 03/30/22 16:41 Dose: 6.25 mls/min Documented by: [id number] Ioversol (Optiray 320 125ml) 119 ml IV ONCE ONE Stop: 03/30/22 15:14 Last Admin: 03/30/22 15:14 Dose: 119 ml Documented by: [id number] Ondansetron HCl (Ondansetron Inj 2 Mg/Ml 2 Ml Vial) 4 mg IV NOW STA Stop: 03/30/22 14:36 Last Admin: 03/30/22 14:46 Dose: 4 mg Documented by: [id number] Imaging Data Radiologist's Impression: Abdomen/Pelvis CT 03/30/22 14:[address] WITH IV CONTRAST CT DOSE: 2135.30 mGy.cm HISTORY: Acute generalized abdominal pain with nausea abd pain, nausea TECHNIQUE: Multiaxial CT images of the abdomen and pelvis were performed following the IV administration of 119 cc of Optiray, A dose lowering technique was utilized adhering to the principles of ALARA. COMPARISON STUDY: CT abdomen and pelvis 01/12/2020 FINDINGS: Imaged inferior cardiac chambers are unremarkable. Clear lung bases. No pneumatosis or pneumoperitoneum. Spleen is enlarged measuring up to 17 cm in length. The liver is mildly enlarged with hepatic steatosis. Patency of the hepatic and portal veins. Unremarkable gallbladder, pancreas and adrenal glands. Punctate nonobstructing calculus of the superior pole left kidney. Symmetric enhancement of the kidneys. No ureteral calculi or hydronephrosis. Unremarkable urinary bladder with partial distention mild wall thickening. Small fat filled left inguinal hernia. Aorta and IVC are unremarkable. There is a mildly enlarged right iliac chain lymph node on image 429 measuring 1.3 cm, similar to mildly enlarged with the prior study and favored to be benign. Prominent bilateral inguinal chain lymph nodes. No bowel obstruction or bowel wall thickening. Colonic diverticulosis without acute diverticulitis. No ascites or mesenteric inflammation. Normal terminal ileum and appendix. Status post periumbilical hernia repair with trace fluid and inflammatory stranding superficial to the hernia mesh. There are 2 persistent versus recurrent fat filled abdominal wall hernias noted marginally along the mesh measuring 1.3 cm superiorly on image 256 and 2.3 cm inferiorly on image 305. Mild gynecomastia. No acute fracture. Spondylitic spurring of the thoracic spine with intervertebral disc space narrowing. IMPRESSION: 1. No bowel obstruction or bowel wall thickening. Normal appendix. 2. Colonic diverticulosis. 3. Status post umbilical hernia repair with trace fluid and stranding noted superficial to the hernia mesh. Small recurrent versus residual fat filled per iumbilical hernias are noted adjacent to the mesh. 4. Hepatosplenomegaly with hepatic steatosis. 5. Punctate nonobstructing left renal calculus. ACT 112: Negative or not required by law. The above report was generated using voice recognition software. It may contain grammatical, syntax or spelling errors. Electronically signed by: Price Valdez M.D. 03/30/2022 3:34 PM Discharge Plan Visit Data Chief Complaint: Abdominal Pain Stated Complaint: AB PAIN ED Provider: Sundar Duval Discharge Problem: Infected stasis ulcer of right lower extremity, Hx of opioid abuse, History of umbilical hernia repair, Abdominal pain Patient Disposition: Admitted As Inpatient Discharge Instructions Interventions: ED Discharge Assessment Last Done: 03/30/22 20:07 Discharge Problem: Abdominal pain Qualifiers: Abdominal location: generalized Qualified Code(s): R10.84 - Generalized abdominal pain
[2022-03-30 16:11] LABS: INR 1.1 (0.9-1.1); Prothrombin Time 11.5 Seconds (9.0-12.0)
[2022-03-30] MEDS ORDERED: DAPTOmycin 625 MG in SYRINGE 0 ML IV ONE (16:18)
[2022-03-30] MEDS ORDERED: PIPERACILLIN/TAZOBACTAM 4.5 GM/120 ML BAG IV ONE (16:18)
[2022-03-30 16:46] LABS: Appearance Urine Clear (Clear); Bilirubin Urine Negative (Negative); Blood Urine Negative (Negative); Color Urine Yellow; Glucose Urine UA Negative (Negative); Ketones Urine Negative (Negative); Leukocyte Esterase Urine Negative (Negative); Nitrite Urine Negative (Negative); Protein Urine Negative (Negative); Specific Gravity Urine > 1.045 (1.000-1.030); Urobilinogen Urine Negative (Negative)
[2022-03-30] MEDS ORDERED: ONDANSETRON INJ 2 MG/ML 2 ML VIAL IV PRN (17:07)
[2022-03-30] MEDS ORDERED: ALUMINUM/MAGNESIUM SUSP 30 ML UDC PO PRN (17:07)
[2022-03-30] MEDS ORDERED: VANCOMYCIN CONSULT ACTIVE PRN (17:19)
[2022-03-30] MEDS: LACTATED RINGER'S 1,000 ML IV SCH ×2 (17:27→21:05)
--- NOTE | 2022-03-30 17:33 | Surgery Consultation ---
Date of Consultation March 30, 2022 Assessment & Plan (1) History of umbilical hernia repair: This is a 36y M recently incarcerated inmate as of 10 days ago with PMH of venous stasis wound of RLE, history of opioid abuse who was on methadone,, morbid obesity, HTN, GERD who presented to the [facility] on 03/30/22 with complaints of abdominal pain and nausea. Patient reports a history of abdominal hernia repair x3 in the past, most recently 08/[address] Pollard where he underwent an open umbilical and ventral hernia repair with mesh. He tells me pain started 6 months ago, but has become more severe over the last couple of weeks. He has had a low appetite and today he was encouraged to tried to eat some food which worsened his belly pain and prompted him to come into the ER. A CT a/p was obtained that revealed evidence of umbilical hernia repair with trace fluid and stranding noted superficial to the hernia mesh. Small recurrent versus residual fat filled periumbilical hernias are noted adjacent to the mesh. There is no evidence of bowel obstruction. On exam his abdomen is soft, non distended, with some discomfort elicited in the infraumbilical regions and left lower abdomen. He is febrile with a WBC of 10, being admitted for acute on chronic RLE wound infection. Patient does not have a surgical abdomen, there is no bowel in the hernia's, and there is no evidence of bowel obstruction on CT scan. ?wonder if constipation could be from history of opioid usage. He may resume a diet from our standpoint as he tolerates. We have no plans for acute surgical intervention in this patient at this time. He may follow up with a surgeon as outpatient if indicated for evaluation of fat containing abdominal wall hernias. Regarding his wound infection he has been started on IV abx and wound care has been consulted. Supervising Physician Co-Signing Physician Notes Dr. Mcallisterpatient is complaining of right leg pain and abdominal pain-he has had multiple hernia operations in the past including mesh placement by Dr. Pollard. His current CT does show the mesh in place with some changes in the subcutaneous tissue which I do not feel are concerning at all. He has no bowel involvement- his small and large bowel appear to be relatively normal and do not appear to be obstructed in any sense. I do not have an etiology for his pain. I would try to advance his diet There is no plan for any surgical intervention in our institution-if he would need further hernia surgery he may need to go to [facility] or other tertiary institution History of Present Illness History of Present Illness This is a 36y M recently incarcerated inmate as of 10 days ago with PMH of venous stasis wound of RLE, history of opioid abuse who was on methadone, morbid obesity, HTN, GERD who presented to the [facility] on 03/30/22 with complaints of abdominal pain. Patient reports a history of abdominal hernia repair x3 in the past, most recently 08/[address] Pollard where he underwent an open umbilical and ventral hernia repair with mesh. Patient reports as of 6 months ago he developed some abdominal pain. More recently over the last 2 weeks he tells me food has been unappetizing to him and that he has not been eating. He tells me his last BM was 2 weeks ago as well. Today he says the [facility] guards asked him to try eating of which he did and says his belly pain worsened. He points to the infraumbilical region and left lower abdomen. He reports + nausea, no vomiting. In the ER a CT a/p was performed that revealed evidence of umbilical hernia repair with trace fluid and stranding noted superficial to the hernia mesh. Small recurrent versus residual fat filled periumbilical hernias are noted adjacent to the mesh. No evidence of bowel obstruction. He does tell me he is feeling better than when he first came in. Of note he is being admitted for fevers likely related to an acute on chronic wound infection of his RLE related to a presumed venous stasis ulcer that he tells me has been present for >10 years. Allergies Allergy/AdvReac Type Severity Reaction Status Date / Time No Known Allergies Allergy Verified 03/30/22 14:41 Home Medications Medication Instructions Recorded Confirmed Type albuterol sulfate 90 mcg/actuation 2 puff INHALATION QID PRN 08/20/18 03/30/22 History aerosol inhaler acetaminophen 500 mg tablet 2,500 mg PO BID PRN 03/16/22 03/30/22 History (Tylenol Extra Strength) cyanocobalamin (vitamin B-12) 1,000 mcg PO DAILY 03/16/22 03/30/22 History 1,000 mcg tablet levothyroxine 25 mcg tablet 25 mcg PO QAM 03/16/22 03/30/22 History clindamycin HCl 300 mg capsule 300 mg PO QID 03/30/22 03/30/22 History (Cleocin HCl) clonazepam 0.5 mg tablet 0.5 mg PO TID 03/30/22 03/30/22 History clonazepam 1 mg tablet 1 mg PO BID 03/30/22 03/30/22 History gabapentin 300 mg capsule 300 mg PO TID 03/30/22 03/30/22 History lisinopril 20 mg tablet 20 mg PO DAILY 03/30/22 03/30/22 History omeprazole 20 mg capsule,delayed 40 mg PO DAILY 03/30/22 03/30/22 History release Patient History Medical History Anemia Anxiety panic attacks Asthma treated at [facility] for asthma with bronchitis exacerbation/respiratory failure 10/2017- tx with oral steroids, duo nebs, azithromycin Chronic back pain Chronic venous stasis GERD (gastroesophageal reflux disease) Gout H/O gastric ulcer remote bleeding gastric ulcer (2000) Hiatal hernia History of wound infection 07/2020 abdominal, "resolved" Hx of opioid abuse 2012, follows with methadone clinic Hypertension Hypothyroidism Migraine Morbid obesity Obstructive sleep apnea Surgical History History of adenoidectomy History of carpal tunnel surgery of right wrist History of esophagogastroduodenoscopy (EGD) History of femoropopliteal bypass right leg History of herniorrhaphy UMBILICAL HERNIA REPAIR History of tonsillectomy History of tooth extraction S/P excision of ganglion cyst left wrist Family History Mother Cellulitis, leg Other No family history of adverse response to anesthesia Social History Smoking Status: Never smoker Tobacco Type: Cigarettes Cigarettes Per Day: 1 PPD; Second Hand Exposure: Yes; Hx Alcohol Use: No Hx Substance Use: No Preferred Language: [place]orese Communication Ability: Effective [employer] 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: No Beliefs That Will Affect Care: None marital status: Current Living Situation: Spouse Feels Safe at Home: Yes Assistive Devices: Cane Review of Systems Constitutional: + fever and + anorexia Gastrointestinal: + abdominal pain, + bloating, + nausea and + constipation; no vomiting Integumentary: + wound on RLE Physical Exam Physical Exam: awake/alert, no acute distress Gastrointestinal (Abdomen): Inspection/Auscultation: + abdominal surgical scar (midline); abdomen not distended Percussion/Palpation: + abdomen tender (ttp infraumbically and left lower abd) and abdomen soft due to body habitus i do not appreciate any obvious hernia Skin: + venous stasis ulcer on RLE Results & Data ([facility]) Vital Signs (Past 12 Hours) Vital Signs Temp Pulse Pulse Resp BP Pulse Ox 03/30/22 16:19 95 H 15 142/82 H 98 03/30/22 14:19 37.7 C H 108 H 17 97 Diagnostic Findings ABDOMEN AND PELVIS CT WITH IV CONTRAST CT DOSE: 2135.30 mGy.cm HISTORY: Acute generalized abdominal pain with nausea abd pain, nausea TECHNIQUE: Multiaxial CT images of the abdomen and pelvis were performed fol lowing the IV administration of 119 cc of Optiray, A dose lowering technique was utilized adhering to the principles of ALARA. COMPARISON STUDY: CT abdomen and pelvis 01/12/2020 FINDINGS: Imaged inferior cardiac chambers are unremarkable. Clear lung bases. No pneumatosis or pneumoperitoneum. Spleen is enlarged measuring up to 17 cm in length. The liver is mildly enlarged with hepatic steatosis. Patency of the hepatic and portal veins. Unremarkable gallbladder, pancreas and adrenal glands. Punctate nonobstructing calculus of the superior pole left kidney. Symmetric enhancement of the kidneys. No ureteral calculi or hydronephrosis. Unremarkable urinary bladder with partial distention mild wall thickening. Small fat filled left inguinal hernia. Aorta and IVC are unremarkable. There is a mildly enlarged right iliac chain lymph node on image 429 measuring 1.3 cm, similar to mildly enlarged with the prior study and favored to be benign. Prominent bilateral inguinal chain lymph nodes. No bowel obstruction or bowel wall thickening. Colonic diverticulosis without acute diverticulitis. No ascites or mesenteric inflammation. Normal terminal ileum and appendix. Status post periumbilical hernia repair with trace fluid and inflammatory stranding superficial to the hernia mesh. There are 2 persistent versus recurrent fat filled abdominal wall hernias noted marginally along the mesh measuring 1.3 cm superiorly on image 256 and 2.3 cm inferiorly on image 305. Mild gynecomastia. No acute fracture. Spondylitic spurring of the thoracic spine with intervertebral disc space narrowing. IMPRESSION: 1. No bowel obstruction or bowel wall thickening. Normal appendix. 2. Colonic diverticulosis. 3. Status post umbilical hernia repair with trace fluid and stranding noted superficial to the hernia mesh. Small recurrent versus residual fat filled periumbilical hernias are noted adjacent to the mesh. 4. Hepatosplenomegaly with hepatic steatosis. 5. Punctate nonobstructing left renal calculus. ACT 112: Negative or not required by law. The above report was generated using voice recognition software. It may contain grammatical, syntax or spelling errors. Electronically signed by: Price Valdez M.D. 03/30/2022 3:34 PM PG Care Time/CCT Total # of Minutes Spent Total Time Spent with Patient: Total time spent is greater than 50% in coordination of care (as documented) at patient's floor/unit and/or counseling patient: Coding Level of Care Code 80637 Inpt Consult Level 2 Diagnoses History of umbilical hernia repair Z98.890; Z87.19
--- NOTE | 2022-03-30 17:42 | History & Physical Report ---
Date of Service March 30, 2022 Assessment & Plan (1) History of umbilical hernia repair: Plan: #. Abdominal pain #. History of umbilical hernia repair Patient had prior hernia repair, comes in with chronic abdominal pain worsening since last 2 to 3 weeks and not able to eat, has not moved bowel since last 2 to 3 weeks per patient. Admitting WBC WNL, admitting lactate WNL, admitting Pro-Mark negative, admitting lipase minimally elevated. Admitting CTAP reviewed, no bowel obstruction or bowel wall thickening, s/p umbilical hernia repair with trace fluid and stranding noted superficial to the hernia mesh. Small periumbilical hernia noted adjacent to mesh. Hepatic steatosis. Surgery aware by ER doctor, appreciate recs, will resume diet, advance MOISES, ? OP f/u w/ Sx. . Pain control, IV fluids. DC ivf if pt able to eat/drink. #. RLE Cellulitis Patient was receiving cefdinir and clindamycin as an outpatient for his RLE cellulitis, previously on IV antibiotic, 03/18 wound culture polymicrobial Patient reporting pain at his ulcer site, CT scan of RLE to rule out osteomyelitis. f/u result 03/13/22 [place] wound care OP chart review: Patient's visit was for evaluation of chronic right leg wound secondary to venous stasis, per chart review, patient had undergone several surgical intervention with wound graft application over the past 8 years, he had been seen at wound care clinics at both [facility], was discharged on oral Keflex 500mg 4 times daily at the time, also received debridement of right leg wound after application of lidocaine, was asked for follow-up in 1 week for dressing change and evaluation. Pt has h/o noncompliance w/ f/u with wound clinic and also medicine non compliance. Start cefepime and dapto per culture and sensitivity on 03/18, will send blood culture and wound culture, follow-up culture results and taper antibiotics. Mild fever at presentation. WBC wnl, pulse elevated, RR wnl; doesn't meet sepsis criteria. patient will likely need IV antibiotics on discharge #. Other chronic medical conditions: Asthma, GERD, history of PUD abuse, hypothyroidism, morbid obesity, HTN, tobacco abuse Continue with/resume home meds as and when appropriate Patient has history of medical noncompliance, noncompliance with follow-up with medical facilities Uses methadone 67 mg daily per outpatient chart review. DVT prophylaxis: Enoxaparin Full code History of Present Illness Chief Complaint: Abdominal pain Primary Care Provider: [facility] 36-year-old male with PMH of multiple hernia repair, recurrent RLE cellulitis [noncompliance with wound care clinic follow-up and with antibiotics], venous insufficiency, venous ulcer of right and left leg, hypothyroidism, opiate abuse on chronic methadone, GERD, morbid obesity, AALIYAH not on CPAP [noncompliance with sleep medicine follow-up], HTN, asthma presented to the ED 03/30 with complaint of abdominal pain. Patient states that he has been having this "stomach pain" for 6 months which has been worsening lately, patient reports that he has not been eating since last 2-3 weeks. When he eats anything, he reports having severe belly pain, denies any nausea or vomiting or diarrhea. Patient denies any bowel movement for the same duration, he refers it is mostly due to him not being able to eat. Patient denies any fever or dizziness. Patient reports some mild headache. Patient denies any chest pain or feeling of heart racing. Patient reports RLE pain at the ulcer site. Patient denies any cough. Patient reports smoking tobacco 1 packs a day, for 29 years, going use. Patient denies alcohol use. Patient reports past drug use, currently on methadone for which he follows at [facility]. Full code Allergies Allergy/AdvReac Type Severity Reaction Status Date / Time No Known Allergies Allergy Verified 03/30/22 14:41 Home Medications Medication Instructions Recorded Confirmed Type albuterol sulfate 90 mcg/actuation 2 puff INHALATION QID PRN 08/20/18 03/30/22 History aerosol inhaler acetaminophen 500 mg tablet 2,500 mg PO BID PRN 03/16/22 03/30/22 History (Tylenol Extra Strength) cyanocobalamin (vitamin B-12) 1,000 mcg PO DAILY 03/16/22 03/30/22 History 1,000 mcg tablet levothyroxine 25 mcg tablet 25 mcg PO QAM 03/16/22 03/30/22 History clindamycin HCl 300 mg capsule 300 mg PO QID 03/30/22 03/30/22 History (Cleocin HCl) clonazepam 0.5 mg tablet 0.5 mg PO TID 03/30/22 03/30/22 History clonazepam 1 mg tablet 1 mg PO BID 03/30/22 03/30/22 History gabapentin 300 mg capsule 300 mg PO TID 03/30/22 03/30/22 History lisinopril 20 mg tablet 20 mg PO DAILY 03/30/22 03/30/22 History omeprazole 20 mg capsule,delayed 40 mg PO DAILY 03/30/22 03/30/22 History release Past Med/Surg History Medical History Anemia Anxiety panic attacks Asthma treated at [facility] for asthma with bronchitis exacerbation/respiratory failure 10/2017- tx with oral steroids, duo nebs, azithromycin Chronic back pain Chronic venous stasis GERD (gastroesophageal reflux disease) Gout H/O gastric ulcer remote bleeding gastric ulcer (2000) Hiatal hernia History of wound infection 07/2020 abdominal, "resolved" Hx of opioid abuse 2012, follows with methadone clinic Hypertension Hypothyroidism Migraine Morbid obesity Obstructive sleep apnea Surgical History History of adenoidectomy History of carpal tunnel surgery of right wrist History of esophagogastroduodenoscopy (EGD) History of femoropopliteal bypass right leg History of herniorrhaphy UMBILICAL HERNIA REPAIR History of tonsillectomy History of tooth extraction S/P excision of ganglion cyst left wrist Family History Mother Cellulitis, leg Other No family history of adverse response to anesthesia Social History Smoking Status: Never smoker Tobacco Type: Cigarettes Cigarettes Per Day: 1 PPD; Second Hand Exposure: Yes; Hx Alcohol Use: No Hx Substance Use: No Preferred Language: Libyan Communication Ability: Effective Power Press Supervisor Required: No Beliefs That Will Affect Care: None marital status: Current Living Situation: Spouse Feels Safe at Home: Yes Assistive Devices: Cane Review of Systems Review of Systems: Negative otherwise mentioned in HPI. Physical Exam Physical Exam: GENERAL: Alert and oriented x3. NAD, on RA. Morbidly obese. HEENT: No pallor, no icterus. Pupils equal, round and reactive to light. Oral mucosa moist. NECK: No JVD, no neck masses. HEART: S1 and S2 heard. Regular rate and rhythm. No murmur, no gallop. RESPIRATORY SYSTEM: Normal AP diameter. No accessory muscle use. No wheezing, no crackles. Decreased breath sound, likely secondary to obesity. ABDOMEN: Soft, bowel sounds present, periumbilical and left upper quadrant tenderness, healed laparoscopic scars noted, no distention. CENTRAL NERVOUS SYSTEM: No facial droop. Speech is clear. Obeys simple commands. Moves extremities. EXTREMITIES: No edema, no erythema seen. LLE with chronic skin changes, RLE with chronic superficial wound/cellulitis, approximately 10 x 10 cm, tender, no surrounding erythema. Results & Data Results & Data ([facility]) Vital Signs (Past 12 Hours) Vital Signs Temp Pulse Pulse Resp BP Pulse Ox 03/30/22 16:19 95 H 15 142/82 H 98 03/30/22 14:19 37.7 C H 108 H 17 97 Code Status & VTE Plan VTE Prophylaxis Plan VTE Prophylaxis will be ordered: Yes
[2022-03-30] MEDS: ACETAMINOPHEN 325 MG TAB PO PRN (19:22)
--- NOTE | 2022-03-30 20:10 | CT Scan Report ---
CT tib/fib RT wo con CLINICAL HISTORY: r/o OM; RLE ulcer/cellulitis present. TECHNIQUE: Multidetector row helical CT of the right lower extremity was performed without intravenou s contrast. Coronal and sagittal reformations were obtained. Automated dose lowering techniques and/o r adjustment according to patient size were utilized for this examination. CT DOSE: 469.52 mGy.cm Comparison: Comparison is made to right lower extremity CT 02/05/2018 FINDINGS: Redemonstration of distal fibular cystic lesion, unchanged. The joint spaces are maintained. Soft tis luz swelling is seen most prominent in the anterolateral surface of the leg. There is no underlying e rosions to suggest osteomyelitis. IMPRESSION: Findings are compatible with cellulitis without evidence of osteomyelitis. ACT 112: Negative or not required by law. Electronically signed by: Wagner Bauer M.D. 03/30/2022 8:07 PM
[2022-03-30] MEDS ORDERED: ALBUTEROL HFA 8 GM INHALER INH PRN (20:25)
[2022-03-30] MEDS: IBUPROFEN 600 MG TAB PO PRN (20:45)
[2022-03-30] MEDS: CEFEPIME 2,000 MG in SYRINGE 0 ML IV SCH (21:49)
[2022-03-30] MEDS: CYCLOBENZAPRINE HCL 10 MG TAB PO SCH (21:50)
[2022-03-30] MEDS: ENOXAPARIN INJ 40 MG/0.4 ML SYR SQ SCH (21:50)
[2022-03-30] MEDS: GABAPENTIN 400 MG CAP PO SCH (21:51)
[2022-03-31] MEDS: ACETAMINOPHEN 325 MG TAB PO PRN ×2 (00:32→09:23)
[2022-03-31] MEDS: LEVOTHYROXINE SODIUM 25 MCG TABLET PO SCH (06:01)
[2022-03-31] MEDS: ENOXAPARIN INJ 40 MG/0.4 ML SYR SQ SCH ×2 (06:01→18:06)
[2022-03-31] MEDS: LACTATED RINGER'S 1,000 ML IV SCH ×2 (06:02→19:00)
[2022-03-31 06:30] LABS: Hematocrit (blood only) 42.9 % (42-52); Hemoglobin 12.5 g/dL (14.0-18.0); Mean Corpuscular Hemoglobin 22.5 pg (25-34); Mean Corpuscular Hgb Conc 29.1 g/dL (32-36); Mean Corpuscular Volume 77.3 fL (80-100); Mean Platelet Volume 10.5 fL (7.4-10.4); Platelet Count 182 K/uL (130-400); RDW Coefficient of Variation 16.3 % (11.5-14.5); RDW Standard Deviation 45.8 fL (36.4-46.3); Red Blood Count 5.55 M/uL (4.7-6.1); White Blood Count 8.59 K/uL (4.8-10.8)
[2022-03-31 06:41] LABS: Potassium 3.4 mmol/L (3.5-5.1)
[2022-03-31 06:42] LABS: BUN Creatinine Ratio 11.8 (10-20); Calcium 8.8 mg/dl (8.5-10.1); Creatinine Clr Calc Pharmacy 198.5 ml/min; Est GFR (Non-African American) 117.4 ml/min; Phosphorus 4.3 mg/dl (2.5-4.9)
[2022-03-31] MEDS ORDERED: POTASSIUM CHLORIDE CRTAB 20 MEQ TABCR PO STA (08:36)
--- NOTE | 2022-03-31 08:42 | Hospitalist Progress Note ---
Date of Service March 31, 2022 Assessment & Plan (1) History of umbilical hernia repair: Plan: Abdominal pain History of umbilical hernia repair Patient had prior hernia repair, comes in with chronic abdominal pain worsening since last 2 to 3 weeks and not able to eat, has not moved bowel since last 2 to 3 weeks per patient. Admitting WBC WNL, admitting lactate WNL, admitting Pro-Mark negative, admitting lipase minimally elevated. Admitting CTAP reviewed, no bowel obstruction or bowel wall thickening, s/p umbilical hernia repair with trace fluid and stranding noted superficial to the hernia mesh. Small periumbilical hernia noted adjacent to mesh. Hepatic steatosis. Surgery aware by ER doctor, appreciate recs, no surgical intervention planned, nonsurgical abdomen at this time resume diet, advance MOISES, ? OP f/u w/ Sx. . Pain control, IV fluids. DC ivf if pt able to eat/drink. Patient until recently on methadone. Last dose March 21. Then incarcerated, and being off methadone. RLE Cellulitis Patient was receiving cefdinir and clindamycin as an outpatient for his RLE cellulitis, previously on IV antibiotic, 03/18 wound culture polymicrobial Patient reporting pain at his ulcer site, CT scan of RLE to rule out osteomyelitis. IMPRESSION: Findings are compatible with cellulitis without evidence of osteomyelitis. 03/13/22 [place] wound care OP chart review: Patient's visit was for evaluation of chronic right leg wound secondary to venous stasis, per chart review, patient had undergone several surgical intervention with wound graft application over the past 8 years, he had been seen at wound care clinics at both [place] and [place], was discharged on oral Keflex 500mg 4 times daily at the time, also received debridement of right leg wound after application of lidocaine, was asked for follow-up in 1 week for dressing change and evaluation. Pt has h/o noncompliance w/ f/u with wound clinic and also medicine non compliance. Started cefepime and dapto on admission, per culture and sensitivity on 03/18, will cont. blood culture and wound culture pending Mild fever at presentation. WBC wnl, pulse elevated, RR wnl; doesn't meet sepsis criteria. patient may need IV antibiotics on discharge Wound care nurse consulted, reviewed wound together at the bedside Other chronic medical conditions: Asthma, GERD, history of PUD abuse, hypothyroidism, morbid obesity, HTN, tobacco abuse Continue with/resume home meds as and when appropriate Patient has history of medical noncompliance, noncompliance with follow-up with medical facilities Used methadone 111- 67 mg daily prior to his recent incarceration. DVT prophylaxis: Enoxaparin Full code Admission and Anticipated Discharge Date Admission Date: March 30, 2022 Subjective Patient seen in follow-up of abdominal pain, right lower extremity venous stasis ulcer/cellulitis Patient until recently on methadone, since he has been incarcerated, patient was stopped Also reports constipation for past 2 to 3 weeks Denies fevers, chills, chest pain, shortness of breath Reports inability to eat much CT abdomen obtained, surgery consulted, no intervention planned Wound culture pending wound care nurse consulted Review of Systems Review of Systems: All systems reviewed & are unremarkable except as noted in Subjective Physical Exam Physical Exam: GENERAL: Alert and oriented x3. NAD, on RA. Morbidly obese. HEENT: No pallor, no icterus . Pupils equal, r ound and reactive to light. Oral mu cosa moist. NECK: No JVD, no neck m asses. HEART: S1 and S2 heard. Reg ular rate and rhyt hm. No murmur, no gallop. RESPIRATO RY SYSTEM: Normal AP diameter. No accessory muscle u se. No wheezing, no crackles. Decr eased breath sound at bases ABDOMEN: Soft, bowel soun ds present, perium bilical and left u pper quadrant tend erness, healed lap aroscopic scars no tadeo, no distention . CENTRAL NERVOUS SYSTEM: No facial droop. Speech is clear. Obeys sim ple commands. Mov es extremities. EX TREMITIES: No srinivas ma, no erythema se en. LLE with desulfurizer machine morgan skin changes, RLE with chronic s uperficial wound/c ellulitis, approxi mately 10 x 10 cm, tender, no surrou nding erythema. Results & Data Results & Data ([facility]) Vital Signs (Past 12 Hours) Vital Signs Temp Pulse Resp BP Pulse Ox 03/31/22 07:55 37.1 C 86 16 147/96 H 99 03/30/22 22:42 36.9 C 89 18 150/89 H 100 Laboratory Results 03/31/22 03/31/22 03/30/22 Range/Units 06:09 06:09 Unknown WBC 8.59 (4.8-10.8) K/uL RBC 5.55 (4.7-6.1) M/uL Hgb 12.5 L (14.0-18.0) g/dL Hct 42.9 (42-52) % MCV 77.3 L (80-100) fL MCH 22.5 L (25-34) pg MCHC 29.1 L (32-36) g/dL RDW Std Deviation 45.8 (36.4-46.3) fL RDW Coeff of Raul 16.3 H (11.5-14.5) % Plt Count 182 (130-400) K/uL MPV 10.5 H (7.4-10.4) fL Immature Gran % (Auto) % Neut % (Auto) % Lymph % (Auto) % [place] % (Auto) % Eos % (Auto) % Baso % (Auto) % Neut # (Auto) (1.4-6.5) K/uL Lymph # (Auto) (1.2-3.4) K/uL [place] # (Auto) (0.11-0.59) K/uL Eos # (Auto) (0-0.5) K/uL Baso # (Auto) (0-0.2) K/uL Immature Gran # (Auto) (0.00-0.02) K/uL PT INR Sodium 140 (136-145) mmol/L Potassium 3.4 L (3.5-5.1) mmol/L Chloride 106 (98-107) mmol/L Carbon Dioxide 29 (21-32) mmol/L Anion Gap 5 (3-11) BUN 9 (6-23) mg/dl Creatinine 0.76 (0.6-1.4) mg/dl Est Cr Clr Drug Dosing 198.5 ml/min Est GFR ( Amer) 136.0 ml/min Est GFR (Non-Af Amer) 117.4 ml/min BUN/Creatinine Ratio 11.8 (10-20) Glucose 100 H (70-99(Fasting)) mg/dl Lactate (0.4-2.0) mmol/L Calcium 8.8 (8.5-10.1) mg/dl Phosphorus 4.3 (2.5-4.9) mg/dl Magnesium 2.0 (1.7-2.4) mg/dl Total Bilirubin (0.2-1.0) mg/dl Direct Bilirubin (0-0.2) mg/dl AST (13-39) U/L ALT (7-52) U/L Alkaline Phosphatase (34-104) U/L Total Protein (6.0-8.3) gm/dl Albumin (3.4-5.0) gm/dl Globulin (2.5-4.0) gm/dl Albumin/Globulin Ratio (0.9-2) Lipase (11-82) U/L Procalcitonin (0-0.5) ng/ml Urine Color Urine Appearance (Clear) Urine pH (4.5-7.5) Ur Specific [place] (1.000-1.030) Urine Protein (Negative) Urine Glucose (UA) (Negative) Urine Ketones (Negative) Urine Blood (Negative) Urine Nitrite (Negative) Urine Bilirubin (Negative) Urine Urobilinogen (Negative) Ur Leukocyte Esterase (Negative) Nasal Screen MRSA (PCR) Negative (Negative) SARS-CoV-2, RNA, NAAT (NEGATIVE) 03/30/22 03/30/22 03/30/22 Range/Units Unknown Unknown 16:40 WBC 10.48 (4.8-10.8) K/uL RBC 5.74 (4.7-6.1) M/uL Hgb 13.2 L (14.0-18.0) g/dL Hct 43.8 (42-52) % MCV 76.3 L (80-100) fL MCH 23.0 L (25-34) pg MCHC 30.1 L (32-36) g/dL RDW Std Deviation 45.4 (36.4-46.3) fL RDW Coeff of Raul 16.3 H (11.5-14.5) % Plt Count 224 (130-400) K/uL MPV 11.3 H (7.4-10.4) fL Immature Gran % (Auto) 0.3 % Neut % (Auto) 65.7 % Lymph % (Auto) 21.5 % [place] % (Auto) 11.5 % Eos % (Auto) 0.7 % Baso % (Auto) 0.3 % Neut # (Auto) 6.89 H (1.4-6.5) K/uL Lymph # (Auto) 2.25 (1.2-3.4) K/uL [place] # (Auto) 1.21 H (0.11-0.59) K/uL Eos # (Auto) 0.07 (0-0.5) K/uL Baso # (Auto) 0.03 (0-0.2) K/uL Immature Gran # (Auto) 0.03 H (0.00-0.02) K/uL PT INR Sodium 143 (136-145) mmol/L Potassium 3.8 (3.5-5.1) mmol/L Chloride 108 H (98-107) mmol/L Carbon Dioxide 27 (21-32) mmol/L Anion Gap 8 (3-11) BUN 12 (6-23) mg/dl Creatinine 0.91 (0.6-1.4) mg/dl Est Cr Clr Drug Dosing 167.8 ml/min Est GFR ( Amer) 125.2 ml/min Est GFR (Non-Af Amer) 108.0 ml/min BUN/Creatinine Ratio 13.2 (10-20) Glucose 98 (70-99(Fasting)) mg/dl Lactate (0.4-2.0) mmol/L Calcium 9.3 (8.5-10.1) mg/dl Phosphorus (2.5-4.9) mg/dl Magnesium (1.7-2.4) mg/dl Total Bilirubin 0.4 (0.2-1.0) mg/dl Direct Bilirubin 0.1 (0-0.2) mg/dl AST 21 (13-39) U/L ALT 14 (7-52) U/L Alkaline Phosphatase 88 (34-104) U/L Total Protein 8.3 (6.0-8.3) gm/dl Albumin 4.5 (3.4-5.0) gm/dl Globulin 3.8 (2.5-4.0) gm/dl Albumin/Globulin Ratio 1.2 (0.9-2) Lipase 83 H (11-82) U/L Procalcitonin < 0.05 (0-0.5) ng/ml Urine Color Urine Appearance (Clear) Urine pH (4.5-7.5) Ur Specific Hutch[place] (1.000-1.030) Urine Protein (Negative) Urine Glucose (UA) (Negative) Urine Ketones (Negative) Urine Blood (Negative) Urine Nitrite (Negative) Urine Bilirubin (Negative) Urine Urobilinogen (Negative) Ur Leukocyte Esterase (Negative) Nasal Screen MRSA (PCR) (Negative) SARS-CoV-2, RNA, NAAT (NEGATIVE) 03/30/22 03/30/22 03/30/22 Range/Units 16:40 16:07 15:50 WBC (4.8-10.8) K/uL RBC (4.7-6.1) M/uL Hgb (14.0-18.0) g/dL Hct (42-52) % MCV (80-100) fL MCH (25-34) pg MCHC (32-36) g/dL RDW Std Deviation (36.4-46.3) fL RDW Coeff of Raul (11.5-14.5) % Plt Count (130-400) K/uL MPV (7.4-10.4) fL Immature Gran % (Auto) % Neut % (Auto) % Lymph % (Auto) % [place] % (Auto) % Eos % (Auto) % Baso % (Auto) % Neut # (Auto) (1.4-6.5) K/uL Lymph # (Auto) (1.2-3.4) K/uL [place] # (Auto) (0.11-0.59) K/uL Eos # (Auto) (0-0.5) K/uL Baso # (Auto) (0-0.2) K/uL Immature Gran # (Auto) (0.00-0.02) K/uL PT 11.5 INR 1.1 Sodium (136-145) mmol/L Potassium (3.5-5.1) mmol/L Chloride (98-107) mmol/L Carbon Dioxide (21-32) mmol/L Anion Gap (3-11) BUN (6-23) mg/dl Creatinine (0.6-1.4) mg/dl Est Cr Clr Drug Dosing ml/min Est GFR ( Amer) ml/min Est GFR (Non-Af Amer) ml/min BUN/Creatinine Ratio (10-20) Glucose (70-99(Fasting)) mg/dl Lactate 0.9 (0.4-2.0) mmol/L Calcium (8.5-10.1) mg/dl Phosphorus (2.5-4.9) mg/dl Magnesium (1.7-2.4) mg/dl Total Bilirubin (0.2-1.0) mg/dl Direct Bilirubin (0-0.2) mg/dl AST (13-39) U/L ALT (7-52) U/L Alkaline Phosphatase (34-104) U/L Total Protein (6.0-8.3) gm/dl Albumin (3.4-5.0) gm/dl Globulin (2.5-4.0) gm/dl Albumin/Globulin Ratio (0.9-2) Lipase (11-82) U/L Procalcitonin (0-0.5) ng/ml Urine Color Yellow Urine Appearance Clear (Clear) Urine pH 8.0 H (4.5-7.5) Ur Specific [place]inson > 1.045 H (1.000-1.030) Urine Protein Negative (Negative) Urine Glucose (UA) Negative (Negative) Urine Ketones Negative (Negative) Urine Blood Negative (Negative) Urine Nitrite Negative (Negative) Urine Bilirubin Negative (Negative) Urine Urobilinogen Negative (Negative) Ur Leukocyte Esterase Negative (Negative) Nasal Screen MRSA (PCR) (Negative) SARS-CoV-2, RNA, NAAT (NEGATIVE) 03/30/22 03/30/22 Range/Units 15:23 14:35 WBC (4.8-10.8) K/uL RBC (4.7-6.1) M/uL Hgb (14.0-18.0) g/dL Hct (42-52) % MCV (80-100) fL MCH (25-34) pg MCHC (32-36) g/dL RDW Std Deviation (36.4-46.3) fL RDW Coeff of Raul (11.5-14.5) % Plt Count (130-400) K/uL MPV (7.4-10.4) fL Immature Gran % (Auto) % Neut % (Auto) % Lymph % (Auto) % [place] % (Auto) % Eos % (Auto) % Baso % (Auto) % Neut # (Auto) (1.4-6.5) K/uL Lymph # (Auto) (1.2-3.4) K/uL [place] # (Auto) (0.11-0.59) K/uL Eos # (Auto) (0-0.5) K/uL Baso # (Auto) (0-0.2) K/uL Immature Gran # (Auto) (0.00-0.02) K/uL PT Cancelled INR Cancelled Sodium (136-145) mmol/L Potassium (3.5-5.1) mmol/L Chloride (98-107) mmol/L Carbon Dioxide (21-32) mmol/L Anion Gap (3-11) BUN (6-23) mg/dl Creatinine (0.6-1.4) mg/dl Est Cr Clr Drug Dosing ml/min Est GFR ( Amer) ml/min Est GFR (Non-Af Amer) ml/min BUN/Creatinine Ratio (10-20) Glucose (70-99(Fasting)) mg/dl Lactate (0.4-2.0) mmol/L Calcium (8.5-10.1) mg/dl Phosphorus (2.5-4.9) mg/dl Magnesium (1.7-2.4) mg/dl Total Bilirubin (0.2-1.0) mg/dl Direct Bilirubin (0-0.2) mg/dl AST (13-39) U/L ALT (7-52) U/L Alkaline Phosphatase (34-104) U/L Total Protein (6.0-8.3) gm/dl Albumin (3.4-5.0) gm/dl Globulin (2.5-4.0) gm/dl Albumin/Globulin Ratio (0.9-2) Lipase (11-82) U/L Procalcitonin (0-0.5) ng/ml Urine Color Urine Appearance (Clear) Urine pH (4.5-7.5) Ur Specific [place] (1.000-1.030) Urine Protein (Negative) Urine Glucose (UA) (Negative) Urine Ketones (Negative) Urine Blood (Negative) Urine Nitrite (Negative) Urine Bilirubin (Negative) Urine Urobilinogen (Negative) Ur Leukocyte Esterase (Negative) Nasal Screen MRSA (PCR) (Negative) SARS-CoV-2, RNA, NAAT NEGATIVE (NEGATIVE) Medications Administered Current Inpatient Medications Acetaminophen (Acetaminophen 325 Mg Tab) 650 mg PO Q4H PRN PRN Reason: Pain or Fever Stop: 04/29/22 17:06 Last Admin: 03/31/22 00:32 Dose: 650 mg Documented by: Al Hydrox/Mg Hydrox/Simethicone (Aluminum/Magnesium Susp 30 Ml Udc) 15 ml PO Q4H PRN PRN Reason: Dyspepsia Stop: 04/29/22 17:06 Albuterol (Albuterol Hfa 8 Gm Inhaler) 2 puffs INH QID PRN PRN Reason: Shortness Of Breath Or Wheezing Stop: 04/29/22 20:24 Cyanocobalamin (Cyanocobalamin (B-12) 500 Mcg Tablet) 1,000 mcg PO DAILY [facility] Stop: 04/30/22 08:59 Cyclobenzaprine HCl (Cyclobenzaprine Hcl 10 Mg Tab) 10 mg PO TID [facility] Stop: 04/29/22 20:59 Last Admin: 03/30/22 21:50 Dose: 10 mg Documented by: Enoxaparin Sodium (Enoxaparin Inj 40 Mg/0.4 Ml Syr) 40 mg SQ Q12H [facility] Stop: 04/29/22 18:59 Last Admin: 03/31/22 06:01 Dose: 40 mg Documented by: Gabapentin (Gabapentin 400 Mg Cap) 800 mg PO TID [facility] Stop: 04/29/22 20:59 Last Admin: 03/30/22 21:51 Dose: 800 mg Documented by: Lactated Ringer's (Lr) 1,000 mls @ 75 mls/hr IV .[id number] [facility] Stop: 04/29/22 16:29 Last Infusion: 03/31/22 06:16 Dose: 75 mls/hr Documented by: Cefepime HCl 2,000 mg/ Syringe 20 mls @ 5 mls/min IV Q12H [facility]; Protocol Stop: 04/06/22 20:59 Last Admin: 03/30/22 21:49 Dose: 5 mls/min Documented by: Daptomycin 625 mg/ Syringe 12.5 mls @ 6.25 mls/min IV Q24H [facility]; Protocol Stop: 04/07/22 17:59 Ibuprofen (Ibuprofen 600 Mg Tab) 600 mg PO Q8H PRN PRN Reason: moderate pain Stop: 04/29/22 20:24 Last Admin: 03/30/22 20:45 Dose: 600 mg Documented by: Levothyroxine Sodium ([facility]othyroxine Sodium 25 Mcg Tablet) [facility]: 04/30/22 06:29 Last Admin: 03/31/22 06:01 Dose: 25 mcg Documented by: Lisinopril (Lisinopril 10 Mg Tab) 10 mg PO DAILY [facility] Stop: 04/30/22 08:59 Magnesium Hydroxide (Magnesium Hydroxide Susp 30 Ml Udc) 30 ml PO Q12H PRN PRN Reason: Constipation Stop: 04/29/22 17:06 Methadone HCl (Methadone Oral Soln 2 Mg/Ml) 67 mg PO QAM [facility] Stop: 04/14/22 08:59 Pantoprazole Sodium (Pantoprazole 40 Mg Tab) 40 mg PO DAILY [facility] Stop: 04/30/22 08:59 Polyethylene Glycol (Polyethylene (Miralax) 17 Gm Pack) 17 gm PO DAILY PRN PRN Reason: Constipation Stop: 04/29/22 17:06 Potassium Chloride (Potassium Chloride Crtab 20 Meq Tabcr) 40 meq PO NOW STA Stop: 03/31/22 08:37
[2022-03-31] MEDS ORDERED: METHADONE ORAL SOLN 2 MG/ML PO SCH (09:00)
[2022-03-31] MEDS: CEFEPIME 2,000 MG in SYRINGE 0 ML IV SCH ×2 (09:08→20:13)
[2022-03-31] MEDS: CYANOCOBALAMIN (B-12) 500 MCG TABLET PO SCH (09:09)
[2022-03-31] MEDS: PANTOprazole 40 MG TAB PO SCH (09:09)
[2022-03-31] MEDS: CYCLOBENZAPRINE HCL 10 MG TAB PO SCH ×3 (09:09→20:12)
[2022-03-31] MEDS: lisinopril 10 MG TAB PO SCH (09:09)
[2022-03-31] MEDS: GABAPENTIN 400 MG CAP PO SCH ×3 (09:09→20:12)
[2022-03-31] MEDS: clonazePAM 0.5 MG TAB PO SCH ×2 (09:23→20:13)
[2022-03-31] MEDS: IBUPROFEN 600 MG TAB PO PRN (09:23)
[2022-03-31] MEDS: ACETAMINOPHEN W/CODEINE #3 1 TAB PO PRN ×3 (11:58→20:22)
--- NOTE | 2022-03-31 12:06 | Ultrasound Report ---
US arterial duplex LE RT CLINICAL HISTORY: nonhealing ulcer in the right distal calf TECHNIQUE: Real-time grayscale and color and spectral Doppler ultrasound imaging of the bilateral low er extremity arteries was performed. Measurements calculated based on NASCET criteria. COMPARISON: None available at the time of this dictation. FINDINGS: RIGHT: Common femoral artery: Triphasic waveforms. Peak systolic velocity (PSV) 111 cm/s. Deep femoral artery: Triphasic waveforms. PSV 49 cm/s. Superficial femoral artery: Triphasic waveforms. PSV 03 cm/s. Popliteal artery: Triphasic waveforms. PSV 80 cm/s. Anterior tibial artery: Triphasic waveforms. PSV 63 cm/s. Posterior tibial artery: Triphasic waveforms. PSV 84 cm/s. Peroneal artery: Triphasic waveforms. PSV 58 cm/s. Dorsalis pedis: Triphasic waveforms. PSV 55 cm/s. Reference ranges: Normal Ankle/Brachial Index (DEVANTE) 1.0-1.4; 0.91-0.99 borderline; < or = 0.9 abnormal (0.7-0.89 mild, 0.51-0.69 moderate, < or = 0.5 severe peripheral arterial disease). Normal Toe/Brachial Index (TBI) > or = 0.6; < 0.6 abnormal (0.34-0.59 mild, 0.12-0.34 moderate, < or = 0.11 severe peripheral arterial disease). IMPRESSION: No hemodynamically significant stenosis. ACT 112: Negative or not required by law. Electronically signed by: Wagner Bauer M.D. 03/31/2022 12:05 PM
[2022-03-31] MEDS ORDERED: bisacodyL 10 MG SUPP PR STA (12:40)
[2022-03-31] MEDS: POLYETHYLENE (MIRALAX) 17 GM PACK PO PRN ×2 (13:36→18:32)
[2022-03-31] MEDS: SENNA 8.6 MG TAB PO SCH (13:36)
[2022-03-31] MEDS: DAPTOmycin 625 MG in SYRINGE 0 ML IV SCH (17:08)
[2022-03-31] MEDS: MAGNESIUM HYDROXIDE SUSP 30 ML UDC PO PRN (18:05)
--- NOTE | 2022-04-01 06:00 | Electrocardiogram Report ---
Test Reason : Blood Pressure : / mmHG Vent. Rate : 115 BPM Atrial Rate : 115 BPM P-R Int : 134 ms QRS Dur : 074 ms QT Int : 300 ms P-R-T Axes : 043 -20 -65 degrees QTc Int : 415 ms Poor data quality, interpretation may be adversely affected Sinus tachycardia Left ventricular hypertrophy with repolarization abnormality Abnormal ECG When compared with ECG of 16-MAR-2022 16:45, ST now depressed in Inferior leads ST now depressed in Lateral leads T wave inversion now evident in Lateral leads Confirmed by Chalo Mendoza ([id number]) on 04/01/2022 5:59:30 AM Referred By: [facility] Confirmed By:Chalo Mendoza
[2022-04-01] MEDS: LEVOTHYROXINE SODIUM 25 MCG TABLET PO SCH (06:13)
[2022-04-01] MEDS: ENOXAPARIN INJ 40 MG/0.4 ML SYR SQ SCH ×2 (06:14→18:54)
[2022-04-01] MEDS: LACTATED RINGER'S 1,000 ML IV SCH ×2 (06:14→20:07)
[2022-04-01] MEDS ORDERED: LACTULOSE SYRUP 30 GM/45 ML UDP PO PRN (08:03)
--- NOTE | 2022-04-01 08:04 | Hospitalist Progress Note ---
Date of Service April 01, 2022 Assessment & Plan (1) History of umbilical hernia repair: Plan: Abdominal pain History of umbilical hernia repair Patient had prior hernia repair, comes in with chronic abdominal pain worsening since last 2 to 3 weeks and not able to eat, has not moved bowel since last 2 to 3 weeks per patient. Admitting WBC WNL, admitting lactate WNL, admitting Pro-Mark negative, admitting lipase minimally elevated. Admitting CTAP reviewed, no bowel obstruction or bowel wall thickening, s/p umbilical hernia repair with trace fluid and stranding noted superficial to the hernia mesh. Small periumbilical hernia noted adjacent to mesh. Hepatic steatosis. Surgery aware by ER doctor, appreciate recs, no surgical intervention planned, nonsurgical abdomen at this time resume diet, advance MOISES, ? OP f/u w/ Sx. . Pain control, IV fluids. DC ivf if pt able to eat/drink. Patient until recently on methadone. Last dose March 21. Then incarcerated, and being off methadone. Currently on Tylenol No. 3, ibuprofen Constipation -Likely opioid related -Bowel regimen RLE Cellulitis Patient was receiving cefdinir and clindamycin as an outpatient for his RLE cellulitis, previously on IV antibiotic, 03/18 wound culture polymicrobial Patient reporting pain at his ulcer site, CT scan of RLE to rule out osteomyelitis. IMPRESSION: Findings are compatible with cellulitis without evidence of osteomyelitis. 03/13/22 [facility] OP chart review: Patient's visit was for evaluation of chronic right leg wound secondary to venous stasis, per chart review, patient had undergone several surgical intervention with wound graft application over the past 8 years, he had been seen at wound care clinics at both [facility] and [facility] (formerly [facility]), was discharged on oral Keflex 500mg 4 times daily at the time, also received debridement of right leg wound after application of lidocaine, was asked for follow-up in 1 week for dressing change and evaluation. Pt has h/o noncompliance w/ f/u with wound clinic and also medicine non compliance. Started cefepime and dapto on admission, per culture and sensitivity on 03/18, will cont. blood culture and wound culture pending Mild fever at presentation. WBC wnl, pulse elevated, RR wnl; doesn't meet sepsis criteria. patient may need IV antibiotics on discharge Wound care nurse consulted, reviewed wound together at the bedside Arterial Doppler obtained, No hemodynamically significant stenosis. Patient developed rash, upper chest, upper back, upper arms, likely drug related. Switch cefepime to Zosyn. Other chronic medical conditions: Asthma, GERD, history of PUD abuse, hypothyroidism, morbid obesity, HTN, tobacco abuse Continue with/resume home meds as and when appropriate Patient has history of medical noncompliance, noncompliance with follow-up with medical facilities Used methadone 111- 67 mg daily prior to his recent incarceration. DVT prophylaxis: Enoxaparin Full code Admission and Anticipated Discharge Date Admission Date: March 31, 2022 Subjective Patient seen in follow-up of abdominal pain, right lower extremity venous stasis ulcer/cellulitis Patient until recently on methadone, since he has been incarcerated, methadone was stopped Also reports constipation for past 2 to 3 weeks Denies fevers, chills, chest pain, shortness of breath Reports inability to eat much CT abdomen obtained, surgery consulted, no intervention planned Wound culture pending wound care nurse consulted Today patient had a very small BM, after bowel regimen. Patient is to be often persuaded to comply with treatment. Still reports abdominal pain/discomfort. He ate lunch, no vomiting. Rash noted at upper back, arms, upper chest, likely consistent with drug reaction. We will switch cefepime to Zosyn. Benadryl also ordered. Patient denies any itching or pain associated with the rash. Review of Systems Review of Systems: All systems reviewed & are unremarkable except as noted in Subjective Physical Exam Physical Exam: GENERAL: Alert and oriented x3. NAD, on RA. Morbidly obese. HEENT: No pallor, no icterus .EOMI. Pupils equ al, round and reac tive to light. Or al mucosa moist. N MARION: No JVD, no n marion masses. HEART: S1 and S2 heard. Regular rate and rhythm. No murmu r, no gallop. RESP IRATORY SYSTEM: N ormal AP diameter. No accessory mus chelsy use. No wheez ing, no crackles. Decreased breath sound at bases ABD OMEN: Soft, obese , bowel sounds pre sent, periumbilica l and left upper q uadrant tenderness , healed laparosco pic scars noted, n o distention. CENT RAL NERVOUS SYSTEM : No facial droop . Obeys simple co mmands. Moves ext remities. EXTREMIT IES: No edema, no erythema seen. L LE with chronic sk in changes, RLE wi th chronic superfi cial wound/celluli tis, approximately 10 x 10 cm, tende r, no surrounding erythema. Results & Data Results & Data ([facility]) Vital Signs (Past 12 Hours) Vital Signs Temp Pulse Resp BP BP Pulse Ox 04/01/22 07:09 36.7 C 74 17 156/93 H 100 04/01/22 06:16 36.7 C 03/31/22 22:49 36.7 C 79 18 120/79 94 Laboratory Results 04/01/22 04/01/22 Range/Units 08:33 08:33 WBC 6.02 (4.8-10.8) K/uL RBC 5.04 (4.7-6.1) M/uL Hgb 11.9 L (14.0-18.0) g/dL Hct 39.1 L (42-52) % MCV 77.6 L (80-100) fL MCH 23.6 L (25-34) pg MCHC 30.4 L (32-36) g/dL RDW Std Deviation 45.2 (36.4-46.3) fL RDW Coeff of Raul 15.9 H (11.5-14.5) % Plt Count 141 (130-400) K/uL MPV 10.7 H (7.4-10.4) fL Sodium 139 (136-145) mmol/L Potassium 3.7 (3.5-5.1) mmol/L Chloride 106 (98-107) mmol/L Carbon Dioxide 28 (21-32) mmol/L Anion Gap 5 (3-11) BUN 6 (6-23) mg/dl Creatinine 0.67 (0.6-1.4) mg/dl Est Cr Clr Drug Dosing 225.2 ml/min Est GFR ( Amer) 143.3 ml/min Est GFR (Non-Af Amer) 123.6 ml/min BUN/Creatinine Ratio 9.0 L (10-20) Glucose 104 H (70-99(Fasting)) mg/dl Calcium 8.6 (8.5-10.1) mg/dl Phosphorus 3.3 D (2.5-4.9) mg/dl Magnesium 2.0 (1.7-2.4) mg/dl Medications Administered Current Inpatient Medications Acetaminophen (Acetaminophen 325 Mg Tab) 650 mg PO Q4H PRN PRN Reason: Pain or Fever Stop: 04/29/22 17:06 Last Admin: 03/31/22 09:23 Dose: 650 mg Documented by: Acetaminophen/Codeine Phosphate (Acetaminophen W/Codeine #3 1 Tab) 1 tab PO QID PRN PRN Reason: Pain Stop: 04/30/22 11:19 Last Admin: 03/31/22 20:22 Dose: 1 tab Documented by: Al Hydrox/Mg Hydrox/Simethicone (Aluminum/Magnesium Susp 30 Ml Udc) 15 ml PO Q4H PRN PRN Reason: Dyspepsia Stop: 04/29/22 17:06 Albuterol (Albuterol Hfa 8 Gm Inhaler) 2 puffs INH QID PRN PRN Reason: Shortness Of Breath Or Wheezing Stop: 04/29/22 20:24 Bisacodyl (Bisacodyl 10 Mg Supp) 10 mg AR QAM [facility] Stop: 05/01/22 08:59 Clonazepam (Clonazepam 0.5 Mg Tab) 0.5 mg PO BID [facility]; Taper Stop: 04/04/22 08:59 Last Admin: 03/31/22 20:13 Dose: 0.5 mg Documented by: Cyanocobalamin (Cyanocobalamin (B-12) 500 Mcg Tablet) 1,000 mcg PO DAILY [facility] Stop: 04/30/22 08:59 Last Admin: 03/31/22 09:09 Dose: 1,000 mcg Documented by: Cyclobenzaprine HCl (Cyclobenzaprine Hcl 10 Mg Tab) 10 mg PO TID [facility] Stop: 04/29/22 20:59 Last Admin: 03/31/22 20:12 Dose: 10 mg Documented by: Enoxaparin Sodium (Enoxaparin Inj 40 Mg/0.4 Ml Syr) 40 mg SQ Q12H [facility] Stop: 04/29/22 18:59 Last Admin: 04/01/22 06:14 Dose: 40 mg Documented by: Gabapentin (Gabapentin 400 Mg Cap) 800 mg PO TID [facility] Stop: 04/29/22 20:59 Last Admin: 03/31/22 20:12 Dose: 800 mg Documented by: Lactated Ringer's (Lr) 1,000 mls @ 75 mls/hr IV .[id number] [facility] Stop: 04/29/22 16:29 Last Admin: 04/01/22 06:14 Dose: 75 mls/hr Documented by: Cefepime HCl 2,000 mg/ Syringe 20 mls @ 5 mls/min IV Q12H [facility]; Protocol Stop: 04/06/22 20:59 Last Admin: 03/31/22 20:13 Dose: 5 mls/min Documented by: Daptomycin 625 mg/ Syringe 12.5 mls @ 6.25 mls/min IV Q24H [facility]; Protocol Stop: 04/07/22 17:59 Last Admin: 03/31/22 17:08 Dose: 6.25 mls/min Documented by: Ibuprofen (Ibuprofen 600 Mg Tab) 600 mg PO Q8H PRN PRN Reason: moderate pain Stop: 04/29/22 20:24 Last Admin: 03/31/22 09:23 Dose: 600 mg Documented by: Lactulose (Lactulose Syrup 30 Gm/45 Ml Udp) 30 gm PO DAILY PRN PRN Reason: daily Stop: 05/01/22 08:59 Levothyroxine Sodium (Levothyroxine Sodium 25 Mcg Tablet) 25 mcg PO DAILYBB [facility] Stop: 04/30/22 06:29 Last Admin: 04/01/22 06:13 Dose: 25 mcg Documented by: Lisinopril (Lisinopril 10 Mg Tab) 10 mg PO DAILY [facility] Stop: 04/30/22 08:59 Last Admin: 03/31/22 09:09 Dose: 10 mg Documented by: Magnesium Hydroxide (Magnesium Hydroxide Susp 30 Ml Udc) 30 ml PO Q12H PRN PRN Reason: Constipation Stop: 04/29/22 17:06 Last Admin: 03/31/22 18:05 Dose: 30 ml Documented by: Pantoprazole Sodium (Pantoprazole 40 Mg Tab) 40 mg PO DAILY [facility] Stop: 04/30/22 08:59 Last Admin: 03/31/22 09:09 Dose: 40 mg Documented by: Polyethylene Glycol (Polyethylene (Miralax) 17 Gm Pack) 17 gm PO BID [facility] Stop: 05/01/22 08:59 Sennosides (Senna 8.6 Mg Tab) 8.6 mg PO QAM [facility] Stop: 04/30/22 12:44 Last Admin: 03/31/22 13:36 Dose: 8.6 mg Documented by:
[2022-04-01] MEDS: bisacodyL 10 MG SUPP PR SCH ×2 (08:42→10:28)
[2022-04-01] MEDS: SENNA 8.6 MG TAB PO SCH (08:43)
[2022-04-01] MEDS: CYANOCOBALAMIN (B-12) 500 MCG TABLET PO SCH (08:43)
[2022-04-01] MEDS: lisinopril 10 MG TAB PO SCH (08:43)
[2022-04-01] MEDS: PANTOprazole 40 MG TAB PO SCH (08:43)
[2022-04-01] MEDS: GABAPENTIN 400 MG CAP PO SCH ×3 (08:44→20:33)
[2022-04-01] MEDS: POLYETHYLENE (MIRALAX) 17 GM PACK PO SCH ×2 (08:45→20:33)
[2022-04-01] MEDS: CYCLOBENZAPRINE HCL 10 MG TAB PO SCH ×3 (08:45→20:33)
[2022-04-01 08:47] LABS: Mean Corpuscular Hgb Conc 30.4 g/dL (32-36)
[2022-04-01] MEDS: ACETAMINOPHEN W/CODEINE #3 1 TAB PO PRN ×3 (08:51→23:03)
[2022-04-01] MEDS: clonazePAM 0.5 MG TAB PO SCH ×2 (08:53→20:33)
[2022-04-01] MEDS: CEFEPIME 2,000 MG in SYRINGE 0 ML IV SCH (08:54)
[2022-04-01 09:04] LABS: Calcium 8.6 mg/dl (8.5-10.1); Creatinine Clr Calc Pharmacy 225.2 ml/min; Est GFR (African American) 143.3 ml/min; Est GFR (Non-African American) 123.6 ml/min; Phosphorus 3.3 mg/dl (2.5-4.9); Potassium 3.7 mmol/L (3.5-5.1)
[2022-04-01 09:17] LABS: Hematocrit (blood only) 39.1 % (42-52); Hemoglobin 11.9 g/dL (14.0-18.0); Mean Corpuscular Hemoglobin 23.6 pg (25-34); Mean Corpuscular Volume 77.6 fL (80-100); RDW Coefficient of Variation 15.9 % (11.5-14.5); RDW Standard Deviation 45.2 fL (36.4-46.3); Red Blood Count 5.04 M/uL (4.7-6.1); White Blood Count 6.02 K/uL (4.8-10.8)
[2022-04-01 09:21] LABS: Mean Platelet Volume 10.7 fL (7.4-10.4); Platelet Count 141 K/uL (130-400)
[2022-04-01] MEDS ORDERED: diphenhydrAMINE Capsule 25 MG CAP PO ONE (17:01)
[2022-04-01] MEDS ORDERED: PIPERACILLIN/TAZOBACTAM 3.375 GM in DEXTROSE 5% 100 ML IV SCH (17:15)
[2022-04-01] MEDS: DAPTOmycin 625 MG in SYRINGE 0 ML IV SCH (17:40)
[2022-04-01] MEDS ORDERED: PIPERACILLIN/TAZOBACTAM 4.5 GM in DEXTROSE 5% 100 ML IV ONE (20:00)
[2022-04-02] MEDS: PIPERACILLIN/TAZOBACTAM 4.5 GM in DEXTROSE 5% 100 ML IV SCH ×3 (01:51→18:06)
[2022-04-02] MEDS: LEVOTHYROXINE SODIUM 25 MCG TABLET PO SCH (06:13)
[2022-04-02] MEDS: ENOXAPARIN INJ 40 MG/0.4 ML SYR SQ SCH ×2 (06:14→18:30)
--- NOTE | 2022-04-02 07:48 | Hospitalist Progress Note ---
Date of Service April 02, 2022 Assessment & Plan (1) History of umbilical hernia repair: Plan: Abdominal pain History of umbilical hernia repair Patient had prior hernia repair, comes in with chronic abdominal pain worsening since last 2 to 3 weeks and not able to eat, has not moved bowel since last 2 to 3 weeks per patient. Admitting WBC WNL, admitting lactate WNL, admitting Pro-Mark negative, admitting lipase minimally elevated. Admitting CTAP reviewed, no bowel obstruction or bowel wall thickening, s/p umbilical hernia repair with trace fluid and stranding noted superficial to the hernia mesh. Small periumbilical hernia noted adjacent to mesh. Hepatic steatosis. Surgery aware by ER doctor, appreciate recs, no surgical intervention planned, nonsurgical abdomen at this time resume diet, advance MOISES, ? OP f/u w/ Sx. . Pain control, IV fluids. DC ivf if pt able to eat/drink. Patient until recently on methadone. Last dose March 21. Then incarcerated, and being off methadone. Currently on Tylenol No. 3, ibuprofen Constipation -Likely opioid related -Bowel regimen RLE Cellulitis Patient was receiving cefdinir and clindamycin as an outpatient for his RLE cellulitis, previously on IV antibiotic, 03/18 wound culture polymicrobial Patient reporting pain at his ulcer site, CT scan of RLE to rule out osteomyelitis. IMPRESSION: Findings are compatible with cellulitis without evidence of osteomyelitis. 03/13/22 [facility] wound [facility] OP chart review: Patient's visit was for evaluation of chronic right leg wound secondary to venous stasis, per chart review, patient had undergone several surgical intervention with wound graft application over the past 8 years, he had been seen at wound care clinics at both [place] and [facility], was discharged on oral Keflex 500mg 4 times daily at the time, also received debridement of right leg wound after application of lidocaine, was asked for follow-up in 1 week for dressing change and evaluation. Pt has h/o noncompliance w/ f/u with wound clinic and also medicine non compliance. Started cefepime and dapto on admission, per culture and sensitivity on 03/18, will cont. blood culture and wound culture obtained Wound culture positive for coag negative Staphylococcus Blood culture, so far negative Mild fever at presentation. WBC wnl, pulse elevated, RR wnl; doesn't meet sepsis criteria. patient may need IV antibiotics on discharge Wound care nurse consulted, reviewed wound together at the bedside Arterial Doppler obtained, No hemodynamically significant stenosis. Patient developed rash, upper chest, upper back, upper arms, likely drug related. Switch cefepime to Zosyn. ID consult pending Other chronic medical conditions: Asthma, GERD, history of PUD abuse, hypothyroidism, morbid obesity, HTN, tobacco abuse Continue with/resume home meds as and when appropriate Patient has history of medical noncompliance, noncompliance with follow-up with medical facilities Used methadone 111- 67 mg daily prior to his recent incarceration. DVT prophylaxis: Enoxaparin Full code Admission and Anticipated Discharge Date Admission Date: March 31, 2022 Subjective Patient seen in follow-up of abdominal pain, right lower extremity venous stasis ulcer/cellulitis Patient until recently on methadone, since he has been incarcerated, methadone w as stopped Also reports constipation for past 2 to 3 weeks Denies fevers, chills, chest pain, shortness of breath Reports inability to eat much CT abdomen obtained, surgery consulted, no intervention planned wound care nurse consulted Patient having small BMs. Patient is to be often persuaded to comply with treatment. Still reports abdominal pain/discomfort. No vomiting. No blood in the stool. Rash noted at upper back, arms, upper chest, likely consistent with drug reaction. Review of Systems Review of Systems: All systems reviewed & are unremarkable except as noted in Subjective Physical Exam Physical Exam: GENERAL: Alert and oriented x3. NAD, on RA. Morbidly obese. HEENT: No pallor, no icterus .EOMI. Pupils equ al, round and reac tive to light. Or al mucosa moist. N MARION: No JVD, no n marion masses. HEART: S1 and S2 heard. Regular rate and rhythm. No murmu r, no gallop. RESP IRATORY SYSTEM: N ormal AP diameter. No accessory mus chelsy use. No wheez ing, no crackles. Decreased breath sound at bases ABD OMEN: Soft, obese , bowel sounds pre sent, periumbilica l and left upper q uadrant tenderness , healed laparosco pic scars noted, n o distention. CENT RAL NERVOUS SYSTEM : No facial droop . Obeys simple co mmands. Moves ext remities. EXTREMIT IES: No edema, no erythema seen. L LE with chronic sk in changes, RLE wi th chronic superfi cial wound/celluli tis, approximately 10 x 10 cm, tende r, no surrounding erythema. Results & Data Results & Data ([facility]) Vital Signs (Past 12 Hours) Vital Signs Temp Pulse Resp BP Pulse Ox 04/02/22 07:29 36.6 C 73 17 137/79 99 04/01/22 23:05 36.9 C 75 18 124/83 98 Laboratory Results 04/01/22 04/01/22 Range/Units 08:33 08:33 WBC 6.02 (4.8-10.8) K/uL RBC 5.04 (4.7-6.1) M/uL Hgb 11.9 L (14.0-18.0) g/dL Hct 39.1 L (42-52) % MCV 77.6 L (80-100) fL MCH 23.6 L (25-34) pg MCHC 30.4 L (32-36) g/dL RDW Std Deviation 45.2 (36.4-46.3) fL RDW Coeff of Raul 15.9 H (11.5-14.5) % Plt Count 141 (130-400) K/uL MPV 10.7 H (7.4-10.4) fL Sodium 139 (136-145) mmol/L Potassium 3.7 (3.5-5.1) mmol/L Chloride 106 (98-107) mmol/L Carbon Dioxide 28 (21-32) mmol/L Anion Gap 5 (3-11) BUN 6 (6-23) mg/dl Creatinine 0.67 (0.6-1.4) mg/dl Est Cr Clr Drug Dosing 225.2 ml/min Est GFR ( Amer) 143.3 ml/min Est GFR (Non-Af Amer) 123.6 ml/min BUN/Creatinine Ratio 9.0 L (10-20) Glucose 104 H (70-99(Fasting)) mg/dl Calcium 8.6 (8.5-10.1) mg/dl Phosphorus 3.3 D (2.5-4.9) mg/dl Magnesium 2.0 (1.7-2.4) mg/dl Medications Administered Current Inpatient Medications Acetaminophen (Acetaminophen 325 Mg Tab) 650 mg PO Q4H PRN PRN Reason: Pain or Fever Stop: 04/29/22 17:06 Last Admin: 03/31/22 09:23 Dose: 650 mg Documented by: Acetaminophen/Codeine Phosphate (Acetaminophen W/Codeine #3 1 Tab) 2 tab PO TID PRN PRN Reason: Pain Stop: 04/30/22 19:59 Last Admin: 04/01/22 23:03 Dose: 2 tab Documented by: Al Hydrox/Mg Hydrox/Simethicone (Aluminum/Magnesium Susp 30 Ml Udc) 15 ml PO Q4H PRN PRN Reason: Dyspepsia Stop: 04/29/22 17:06 Albuterol (Albuterol Hfa 8 Gm Inhaler) 2 puffs INH QID PRN PRN Reason: Shortness Of Breath Or Wheezing Stop: 04/29/22 20:24 Bisacodyl (Bisacodyl 10 Mg Supp) 10 mg MT QAM [facility] Stop: 05/01/22 08:59 Last Admin: 04/01/22 10:28 Dose: 10 mg Documented by: Clonazepam (Clonazepam 0.5 Mg Tab) 0.5 mg PO BID [facility]; Taper Stop: 04/04/22 08:59 Last Admin: 04/01/22 20:33 Dose: 0.5 mg Documented by: Cyanocobalamin (Cyanocobalamin (B-12) 500 Mcg Tablet) 1,000 mcg PO DAILY [facility] Stop: 04/30/22 08:59 Last Admin: 04/01/22 08:43 Dose: 1,000 mcg Documented by: Cyclobenzaprine HCl (Cyclobenzaprine Hcl 10 Mg Tab) 10 mg PO TID [facility] Stop: 04/29/22 20:59 Last Admin: 04/01/22 20:33 Dose: 10 mg Documented by: Enoxaparin Sodium (Enoxaparin Inj 40 Mg/0.4 Ml Syr) 40 mg SQ Q12H [facility] Stop: 04/29/22 18:59 Last Admin: 04/02/22 06:14 Dose: 40 mg Documented by: Gabapentin (Gabapentin 400 Mg Cap) 800 mg PO TID [facility] Stop: 04/29/22 20:59 Last Admin: 04/01/22 20:33 Dose: 800 mg Documented by: Lactated Ringer's (Lr) 1,000 mls @ 75 mls/hr IV .[id number] [facility] Stop: 04/29/22 16:29 Last Admin: 04/01/22 20:07 Dose: 75 mls/hr Documented by: Daptomycin 625 mg/ Syringe 12.5 mls @ 6.25 mls/min IV Q24H [facility]; Protocol Stop: 04/07/22 17:59 Last Admin: 04/01/22 17:40 Dose: 6.25 mls/min Documented by: Piperacillin Sod/Tazobactam (Sod 4.5 gm/ Dextrose) 120 mls @ 30 mls/hr IV Q8H [facility]; Protocol Stop: 04/06/22 20:59 Last Infusion: 04/02/22 05:51 Dose: Infused Documented by: Ibuprofen (Ibuprofen 600 Mg Tab) 600 mg PO Q8H PRN PRN Reason: moderate pain Stop: 04/29/22 20:24 Last Admin: 03/31/22 09:23 Dose: 600 mg Documented by: Lactulose (Lactulose Syrup 30 Gm/45 Ml Udp) 30 gm PO DAILY PRN PRN Reason: daily Stop: 05/01/22 08:59 Levothyroxine Sodium (Levothyroxine Sodium 25 Mcg Tablet) 25 mcg PO DAILYBB [facility] Stop: 04/30/22 06:29 Last Admin: 04/02/22 06:13 Dose: 25 mcg Documented by: Lisinopril (Lisinopril 10 Mg Tab) 10 mg PO DAILY [facility] Stop: 04/30/22 08:59 Last Admin: 04/01/22 08:43 Dose: 10 mg Documented by: Magnesium Hydroxide (Magnesium Hydroxide Susp 30 Ml Udc) 30 ml PO Q12H PRN PRN Reason: Constipation Stop: 04/29/22 17:06 Last Admin: 03/31/22 18:05 Dose: 30 ml Documented by: Pantoprazole Sodium (Pantoprazole 40 Mg Tab) 40 mg PO DAILY [facility] Stop: 04/30/22 08:59 Last Admin: 04/01/22 08:43 Dose: 40 mg Documented by: Polyethylene Glycol (Polyethylene (Miralax) 17 Gm Pack) 17 gm PO BID [facility] Stop: 05/01/22 08:59 Last Admin: 04/01/22 20:33 Dose: Not Given Documented by: Sennosides (Senna 8.6 Mg Tab) 8.6 mg PO QAM [facility] Stop: 04/30/22 12:44 Last Admin: 04/01/22 08:43 Dose: Not Given Documented by:
[2022-04-02 08:45] LABS: Hematocrit (blood only) 41.4 % (42-52); Hemoglobin 12.2 g/dL (14.0-18.0); Mean Corpuscular Hemoglobin 22.8 pg (25-34); Mean Corpuscular Hgb Conc 29.5 g/dL (32-36); Mean Corpuscular Volume 77.4 fL (80-100); Mean Platelet Volume 11.4 fL (7.4-10.4); Platelet Count 152 K/uL (130-400); RDW Standard Deviation 44.9 fL (36.4-46.3); Red Blood Count 5.35 M/uL (4.7-6.1); White Blood Count 5.61 K/uL (4.8-10.8)
[2022-04-02] MEDS: CYANOCOBALAMIN (B-12) 500 MCG TABLET PO SCH (08:56)
[2022-04-02 08:58] LABS: BUN Creatinine Ratio 6.7 (10-20); Calcium 8.8 mg/dl (8.5-10.1); Creatinine Clr Calc Pharmacy 202.2 ml/min; Est GFR (African American) 136.8 ml/min; Phosphorus 4.1 mg/dl (2.5-4.9); Potassium 3.8 mmol/L (3.5-5.1)
[2022-04-02] MEDS: lisinopril 10 MG TAB PO SCH (08:59)
[2022-04-02] MEDS: POLYETHYLENE (MIRALAX) 17 GM PACK PO SCH ×2 (08:59→21:51)
[2022-04-02] MEDS: PANTOprazole 40 MG TAB PO SCH (08:59)
[2022-04-02] MEDS: CYCLOBENZAPRINE HCL 10 MG TAB PO SCH ×3 (09:00→21:50)
[2022-04-02] MEDS: GABAPENTIN 400 MG CAP PO SCH ×3 (09:00→21:50)
[2022-04-02] MEDS: SENNA 8.6 MG TAB PO SCH (09:00)
[2022-04-02] MEDS: bisacodyL 10 MG SUPP PR SCH (09:01)
[2022-04-02] MEDS ORDERED: diphenhydrAMINE Capsule 25 MG CAP PO ONE (10:09)
[2022-04-02] MEDS: ACETAMINOPHEN W/CODEINE #3 1 TAB PO PRN ×2 (11:13→21:50)
[2022-04-02] MEDS ORDERED: FAMOTIDINE 20 MG in SYRINGE 3 ML IV ONE (17:45)
[2022-04-02] MEDS: diphenhydrAMINE Capsule 25 MG CAP PO PRN (18:01)
[2022-04-02] MEDS: DAPTOmycin 625 MG in SYRINGE 0 ML IV SCH (18:02)
[2022-04-02] MEDS: MAGNESIUM HYDROXIDE SUSP 30 ML UDC PO PRN (18:22)
[2022-04-02] MEDS: clonazePAM 0.5 MG TAB PO SCH (21:49)
[2022-04-03] MEDS: PIPERACILLIN/TAZOBACTAM 4.5 GM in DEXTROSE 5% 100 ML IV SCH ×3 (01:33→18:47)
[2022-04-03] MEDS: LEVOTHYROXINE SODIUM 25 MCG TABLET PO SCH (05:24)
[2022-04-03] MEDS: ENOXAPARIN INJ 40 MG/0.4 ML SYR SQ SCH ×2 (06:06→19:34)
[2022-04-03] MEDS: POLYETHYLENE (MIRALAX) 17 GM PACK PO SCH ×2 (08:20→21:52)
[2022-04-03] MEDS: lisinopril 10 MG TAB PO SCH (08:20)
[2022-04-03] MEDS: CYCLOBENZAPRINE HCL 10 MG TAB PO SCH ×3 (08:20→21:50)
[2022-04-03] MEDS: SENNA 8.6 MG TAB PO SCH (08:21)
[2022-04-03] MEDS: PANTOprazole 40 MG TAB PO SCH (08:21)
[2022-04-03] MEDS: CYANOCOBALAMIN (B-12) 500 MCG TABLET PO SCH (08:21)
[2022-04-03] MEDS: GABAPENTIN 400 MG CAP PO SCH ×3 (08:21→21:51)
[2022-04-03] MEDS: bisacodyL 10 MG SUPP PR SCH (08:21)
[2022-04-03] MEDS: ACETAMINOPHEN W/CODEINE #3 1 TAB PO PRN ×3 (09:44→16:54)
[2022-04-03] MEDS: diphenhydrAMINE Capsule 25 MG CAP PO PRN (10:33)
--- NOTE | 2022-04-03 14:00 | Hospitalist Progress Note ---
Date of Service April 03, 2022 Assessment & Plan (1) History of umbilical hernia repair: Plan: Abdominal pain History of umbilical hernia repair Patient had prior hernia repair, comes in with chronic abdominal pain worsening since last 2 to 3 weeks and not able to eat, has not moved bowel since last 2 to 3 weeks per patient. Admitting WBC WNL, admitting lactate WNL, admitting Pro-Mark negative, admitting lipase minimally elevated. Admitting CTAP reviewed, no bowel obstruction or bowel wall thickening, s/p umbilical hernia repair with trace fluid and stranding noted superficial to the hernia mesh. Small periumbilical hernia noted adjacent to mesh. Hepatic steatosis. Surgery aware by ER doctor, appreciate recs, no surgical intervention planned, nonsurgical abdomen at this time resume diet, advance MOISES, ? OP f/u w/ Sx. . Pain control, IV fluids. DC ivf if pt able to eat/drink. Patient until recently on methadone. Last dose March 21. Then incarcerated, and being off methadone. Currently on Tylenol No. 3, ibuprofen Constipation -Likely opioid related -Bowel regimen 04/03 -patient had small breakfast in the morning, and small BM. He has chronic abdominal pain, that was managed with Tylenol with codeine. After lunch, pt developed acute exacerbation of abd. pain, per patient excruciating pain, patient became diaphoretic, RN contacted physician. I examined patient immedi ately, ordered stat CBC, BMP, lactic acid. Also ordered stat CT abdomen pelvis with IV contrast. I also contacted immediately Dr. Pollard, the surgeon on-call, Dr. Pollard also operated on the patient in the past. IV morphine ordered to control the pain. Also IV Tylenol given. Patient has history of several abdominal surgeries for his hernia. At least 30-minute critical care time was spent. RLE Cellulitis Patient was receiving cefdinir and clindamycin as an outpatient for his RLE cellulitis, previously on IV antibiotic, 03/18 wound culture polymicrobial Patient reporting pain at his ulcer site, CT scan of RLE to rule out osteomyelitis. IMPRESSION: Findings are compatible with cellulitis without evidence of osteomyelitis. 03/13/22 [place] wound care OP chart review: Patient's visit was for evaluation of chronic right leg wound secondary to venous stasis, per chart review, patient had undergone several surgical intervention with wound graft application over the past 8 years, he had been seen at wound care clinics at both [place] and [place], was discharged on oral Keflex 500mg 4 times daily at the time, also received debridement of right leg wound after application of lidocaine, was asked for follow-up in 1 week for dressing change and evaluation. Pt has h/o noncompliance w/ f/u with wound clinic and also medicine non com pliance. Started cefepime and dapto on admission, per culture and sensitivity on 03/18, will cont. blood culture and wound culture obtained Wound culture positive for coag negative Staphylococcus Blood culture, so far negative Mild fever at presentation. WBC wnl, pulse elevated, RR wnl; doesn't meet sepsis criteria. patient may need IV antibiotics on discharge Wound care nurse consulted, reviewed wound together at the bedside Arterial Doppler obtained, No hemodynamically significant stenosis. Patient developed rash, upper chest, upper back, upper arms, likely drug related. Switch cefepime to Zosyn. ID consult pending Other chronic medical conditions: Asthma, GERD, history of PUD abuse, hypothyroidism, morbid obesity, HTN, tobacco abuse Continue with/resume home meds as and when appropriate Patient has history of medical noncompliance, noncompliance with follow-up with medical facilities Used methadone 111- 67 mg daily prior to his recent incarceration. DVT prophylaxis: Enoxaparin Full code Admission and Anticipated Discharge Date Admission Date: March 31, 2022 Subjective Patient seen in follow-up of abdominal pain, right lower extremity venous stasis ulcer/cellulitis Patient until recently on methadone, since he has been incarcerated, methadone was stopped Also reports constipation for past 2 to 3 weeks Denies fevers, chills, chest pain, shortness of breath Reports inability to eat much CT abdomen on admission obtained, surgery consulted, no intervention planned wound care nurse consulted Patient having small BMs. Still reports abdominal pain/discomfort. No vomiting. No blood in the stool. Rash noted at upper back, arms, upper chest, likely consistent with drug reaction. 04/03 -patient had small breakfast in the morning, and small BM. He has chronic abdominal pain, that was managed with Tylenol with codeine. After lunch, pt developed acute exacerbation of abd. pain, per patient excruciating pain, patient became diaphoretic, RN contacted physician. I examined patient immediately, ordered stat CBC, BMP, lactic acid. Also ordered stat CT abdomen pelvis with IV contrast. I also contacted immediately Dr. Pollard, the surgeon on- call, Dr. Pollard also operated on the patient in the past. IV morphine ordered to control the pain. Also IV Tylenol given. Review of Systems Review of Systems: All systems reviewed & are unremarkable except as noted in Subjective Physical Exam Physical Exam: GENERAL: Alert and oriented x3. NAD, on RA. Morbidly obese. HEENT: No pallor, no icterus .EOMI. Pupils equ al, round and reac tive to light. Or al mucosa moist. N MARION: No JVD, no n marion masses. HEART: S1 and S2 heard. Regular rate and rhythm. No murmu r, no gallop. RESP IRATORY SYSTEM: N ormal AP diameter. No accessory mus chelsy use. No wheez ing, no crackles. Decreased breath sound at bases ABD OMEN: Soft, obese , bowel sounds pre sent, periumbilica l and left upper q uadrant tenderness , healed laparosco pic scars noted, n o distention. CENT RAL NERVOUS SYSTEM : No facial droop . Obeys simple co mmands. Moves ext remities. EXTREMIT IES: No edema, no erythema seen. L LE with chronic sk in changes, RLE wi th chronic superfi cial wound/celluli tis, approximately 10 x 10 cm, tende r, no surrounding erythema. Results & Data Results & Data ([facility]) Vital Signs (Past 12 Hours) Vital Signs Temp Pulse Resp BP Pulse Ox 04/03/22 08:17 36.5 C 76 17 146/92 H 97 Laboratory Results 04/03/22 04/03/22 04/03/22 Range/Units 17:40 17:40 17:40 WBC 9.88 (4.8-10.8) K/uL RBC 5.68 (4.7-6.1) M/uL Hgb 13.1 L (14.0-18.0) g/dL Hct 43.5 (42-52) % MCV 76.6 L (80-100) fL MCH 23.1 L (25-34) pg MCHC 30.1 L (32-36) g/dL RDW Std Deviation 44.5 (36.4-46.3) fL RDW Coeff of Raul 15.9 H (11.5-14.5) % Plt Count 180 (130-400) K/uL MPV 11.0 H (7.4-10.4) fL Sodium 140 (136-145) mmol/L Potassium 3.9 (3.5-5.1) mmol/L Chloride 105 (98-107) mmol/L Carbon Dioxide 26 (21-32) mmol/L Anion Gap 9 (3-11) BUN 6 (6-23) mg/dl Creatinine 0.80 (0.6-1.4) mg/dl Est Cr Clr Drug Dosing 189.5 ml/min Est GFR ( Amer) 133.2 ml/min Est GFR (Non-Af Amer) 114.9 ml/min BUN/Creatinine Ratio 7.5 L (10-20) Glucose 99 (70-99(Fasting)) mg/dl Lactate 1.1 (0.4-2.0) mmol/L Calcium 9.1 (8.5-10.1) mg/dl Phosphorus 3.3 (2.5-4.9) mg/dl Magnesium 2.1 (1.7-2.4) mg/dl Medications Administered Current Inpatient Medications Acetaminophen (Acetaminophen 325 Mg Tab) 650 mg PO Q4H PRN PRN Reason: Pain or Fever Stop: 04/29/22 17:06 Last Admin: 03/31/22 09:23 Dose: 650 mg Documented by: Acetaminophen/Codeine Phosphate (Acetaminophen W/Codeine #3 1 Tab) 2 tab PO TID PRN PRN Reason: Pain Stop: 04/30/22 19:59 Last Admin: 04/03/22 09:44 Dose: 2 tab Documented by: Al Hydrox/Mg Hydrox/Simethicone (Aluminum/Magnesium Susp 30 Ml Udc) 15 ml PO Q4H PRN PRN Reason: Dyspepsia Stop: 04/29/22 17:06 Albuterol (Albuterol Hfa 8 Gm Inhaler) 2 puffs INH QID PRN PRN Reason: Shortness Of Breath Or Wheezing Stop: 04/29/22 20:24 Bisacodyl (Bisacodyl 10 Mg Supp) 10 mg NE QAM [facility] Stop: 05/01/22 08:59 Last Admin: 04/03/22 08:21 Dose: Not Given Documented by: Clonazepam (Clonazepam 0.5 Mg Tab) 0.5 mg PO HS [facility]ERWIN; Taper Stop: 04/04/22 08:59 Last Admin: 04/02/22 21:49 Dose: 0.5 mg Documented by: Cyanocobalamin (Cyanocobalamin (B-12) 500 Mcg Tablet) 1,000 mcg PO DAILY [facility] Stop: 04/30/22 08:59 Last Admin: 04/03/22 08:21 Dose: 1,000 mcg Documented by: Cyclobenzaprine HCl (Cyclobenzaprine Hcl 10 Mg Tab) 10 mg PO TID [facility] Stop: 04/29/22 20:59 Last Admin: 04/03/22 08:20 Dose: 10 mg Documented by: Diphenhydramine HCl (Diphenhydramine Capsule 25 Mg Cap) 25 mg PO Q4H PRN PRN Reason: Rash Stop: 05/02/22 17:29 Last Admin: 04/03/22 10:33 Dose: 25 mg Documented by: Enoxaparin Sodium (Enoxaparin Inj 40 Mg/0.4 Ml Syr) 40 mg SQ Q12H [facility] Stop: 04/29/22 18:59 Last Admin: 04/03/22 06:06 Dose: Not Given Documented by: Gabapentin (Gabapentin 400 Mg Cap) 800 mg PO TID [facility] Stop: 04/29/22 20:59 Last Admin: 04/03/22 08:21 Dose: 800 mg Documented by: Daptomycin 625 mg/ Syringe 12.5 mls @ 6.25 mls/min IV Q24H [facility]; Protocol Stop: 04/07/22 17:59 Last Admin: 04/02/22 18:02 Dose: 6.25 mls/min Documented by: Piperacillin Sod/Tazobactam (Sod 4.5 gm/ Dextrose) 120 mls @ 30 mls/hr IV Q8H [facility]; Protocol Stop: 04/06/22 20:59 Last Admin: 04/03/22 10:31 Dose: 30 mls/hr Documented by: Ibuprofen (Ibuprofen 600 Mg Tab) 600 mg PO Q8H PRN PRN Reason: moderate pain Stop: 04/29/22 20:24 Last Admin: 03/31/22 09:23 Dose: 600 mg Documented by: Lactulose (Lactulose Syrup 30 Gm/45 Ml Udp) 30 gm PO DAILY PRN PRN Reason: daily Stop: 05/01/22 08:59 Levothyroxine Sodium (Levothyroxine Sodium 25 Mcg Tablet) 25 mcg PO DAILYBB [facility] Stop: 04/30/22 06:29 Last Admin: 04/03/22 05:24 Dose: 25 mcg Documented by: Lisinopril (Lisinopril 10 Mg Tab) 10 mg PO DAILY [facility] Stop: 04/30/22 08:59 Last Admin: 04/03/22 08:20 Dose: 10 mg Documented by: Magnesium Hydroxide (Magnesium Hydroxide Susp 30 Ml Udc) 30 ml PO Q12H PRN PRN Reason: Constipation Stop: 04/29/22 17:06 Last Admin: 04/02/22 18:22 Dose: 30 ml Documented by: Pantoprazole Sodium (Pantoprazole 40 Mg Tab) 40 mg PO DAILY [facility] Stop: 04/30/22 08:59 Last Admin: 04/03/22 08:21 Dose: 40 mg Documented by: Polyethylene Glycol (Polyethylene (Miralax) 17 Gm Pack) 17 gm PO BID [facility] Stop: 05/01/22 08:59 Last Admin: 04/03/22 08:20 Dose: 17 gm Documented by: Sennosides (Senna 8.6 Mg Tab) 8.6 mg PO QAM [facility] Stop: 04/30/22 12:44 Last Admin: 04/03/22 08:21 Dose: 8.6 mg Documented by:
[2022-04-03] MEDS ORDERED: clonazePAM 0.25 MG TAB PO STA (16:38)
[2022-04-03] MEDS ORDERED: MoRPHine SULFATE 2 MG/ML CARP IV STA ×2 (17:00→17:31)
[2022-04-03] MEDS ORDERED: ACETAMINOPHEN 1,000 MG/100 ML VIAL IV STA (17:31)
[2022-04-03 18:07] LABS: Hematocrit (blood only) 43.5 % (42-52); Hemoglobin 13.1 g/dL (14.0-18.0); Mean Corpuscular Hemoglobin 23.1 pg (25-34); Mean Corpuscular Volume 76.6 fL (80-100); Platelet Count 180 K/uL (130-400); RDW Coefficient of Variation 15.9 % (11.5-14.5); RDW Standard Deviation 44.5 fL (36.4-46.3); Red Blood Count 5.68 M/uL (4.7-6.1); White Blood Count 9.88 K/uL (4.8-10.8)
[2022-04-03 18:16] LABS: BUN Creatinine Ratio 7.5 (10-20); Calcium 9.1 mg/dl (8.5-10.1); Creatinine Clr Calc Pharmacy 189.5 ml/min; Est GFR (African American) 133.2 ml/min; Est GFR (Non-African American) 114.9 ml/min; Magnesium 2.1 mg/dl (1.7-2.4); Phosphorus 3.3 mg/dl (2.5-4.9); Potassium 3.9 mmol/L (3.5-5.1)
[2022-04-03] MEDS ORDERED: OPTIRAY 320 125ml IV ONE (18:22)
[2022-04-03] MEDS ORDERED: MoRPHine SULFATE 4 MG/ML 1 ML CARP\\VIAL IV STA (18:41)
[2022-04-03 18:42] LABS: Mean Corpuscular Hgb Conc 30.1 g/dL (32-36)
[2022-04-03] MEDS: DAPTOmycin 625 MG in SYRINGE 0 ML IV SCH (18:47)
[2022-04-03] MEDS ORDERED: SODIUM CHLORIDE 0.9% 1000ML 1,000 ML IV SCH (19:00)
--- NOTE | 2022-04-03 19:15 | CT Scan Report ---
CT SCAN OF THE ABDOMEN AND PELVIS WITH IV CONTRAST CLINICAL HISTORY: Acute on chronic generalized abdominal pain. COMPARISON STUDY: Prior abdominal CT scans, most recently dated 03/30/2022. TECHNIQUE: Following the IV administration of 119 cc of Optiray 320, CT scan of the abdomen and pelv is is performed from the lung bases to the proximal femora. Images are reviewed in the axial, sagitta l, and coronal planes. IV contrast was administered without complication. A dose lowering technique w as utilized adhering to the principles of ALARA. CT DOSE: 2368.75 mGy.cm FINDINGS: Lung bases: The heart is normal in size and without pericardial effusion. The lung bases are clear. T here is a tiny hiatal hernia. Liver: The contrast-enhanced liver is enlarged, measuring 19.5 cm in length. The liver demonstrates d iffusely diminished attenuation consistent with hepatic steatosis. Fatty sparing is seen adjacent to the gallbladder fossa. There is no intrahepatic biliary ductal dilatation. The hepatic veins and port al veins are patent. Gallbladder: Unremarkable. Spleen: The spleen is enlarged, measuring 17.8 cm in length. Pancreas: Unremarkable. Adrenal glands: Unremarkable. Kidneys: The contrast enhanced kidneys are normal in size and without hydronephrosis. The kidneys enh ance symmetrically. There is a punctate nonobstructing left renal calculus. Abdominal vasculature: The abdominal aorta is normal in course and caliber. Bowel: There is mild colonic diverticulosis without CT evidence of acute diverticulitis. No bowel obs truction is seen. The appendix is well-visualized and normal. Peritoneum: There is no intraperitoneal free air or abdominal ascites. There is laxity of the ventral abdominal wall with evidence of previous hernia repair. Trace fluid and stranding are again seen sup erficial to the hernia mesh. Lymphadenopathy: None. Pelvic viscera: The bladder, prostate, and seminal vesicles are normal as visualized. There is a fat- containing left inguinal hernia. Skeletal structures: No lytic or blastic lesions are seen. There is mild lumbosacral spondylosis. IMPRESSION: 1. There are no acute infectious or inflammatory findings in the abdomen or pelvis. No significant ch cresencio from 03/30/2022. 2. Hepatomegaly and hepatic steatosis. 3. Splenomegaly. 4. Punctate nonobstructing left renal calculus. 5. Trace fluid and stranding are again seen superficial to the ventral hernia mesh. 6. Additional findings as above. ACT 112: Negative or not required by law. Electronically signed by: Ar Lazaro M.D. 04/03/2022 7:13 PM
--- NOTE | 2022-04-03 19:44 | Surgery Consultation ---
Date of Consultation April 03, 2022 Assessment & Plan (1) Abdominal pain: pt is a 36 year-old male who is consulted for acute abdominal pain, IMP : abdominal pain, Plan, base on H/P, normal WBC, lactate acid, and CT scan finding, no surgical indication now, order U/S study for gallbladder to R/O gallbladder disease, U/A to R/O kidney stone, conservative treatment, control pain, repeat labs in morning, NPO now, I agree with DR. Mcallister consult note, will F/U Supervising Physician Co-Signing Physician Notes Dr. Mcallisterpatient is complaining of right leg pain and abdominal pain-he has had multiple hernia operations in the past including mesh placement by Dr. Pollard. His current CT does show the mesh in place with some changes in the subcutaneous tissue which I do not feel are concerning at all. He has no bowel involvement- his small and large bowel appear to be relatively normal and do not appear to be obstructed in any sense. I do not have an etiology for his pain. I would try to advance his diet There is no plan for any surgical intervention in our institution-if he would need further hernia surgery he may need to go to [facility] or other tertiary institution History of Present Illness Reason for Consultation: abdominal pain Requesting Physician: Nick Boggs MD Attending Physician: Nick Boggs MD History of Present Illness Chief Complaint: Abdominal pain Primary Care Provider: [facility] 36-year-old male with PMH of multiple hernia repair, recurrent RLE cellulitis [noncompliance with wound care clinic follow-up and with antibiotics], venous in sufficiency, venous ulcer of right and left leg, hypothyroidism, opiate abuse on chronic methadone, GERD, morbid obesity, AALIYAH not on CPAP [noncompliance with sleep medicine follow-up], HTN, asthma presented to the ED 03/30 with complaint of abdominal pain. Patient states that he has been having this "stomach pain" for 6 months which has been worsening lately, patient reports that he has not been eating since last 2-3 weeks. When he eats anything, he reports having severe belly pain, denies any nausea or vomiting or diarrhea. Patient denies any bowel movement for the same duration, he refers it is mostly due to him not being able to eat. Patient denies any fever or dizziness. Patient reports some mild headache. Patient denies any chest pain or feeling of heart racing. Patient reports RLE pain at the ulcer site. Patient denies any cough. Patient reports smoking tobacco 1 packs a day, for 29 years, going use. Patient denies alcohol use. Patient reports past drug use, currently on methadone for which he follows at [facility]. Full code I ( Donna Pollard MD ) got a call for consult acute abdominal pain, I reviewed pt's H/P, labs, CT scan with pt, pt started have abdominal pain today afternoon, with nausea, no vomiting, pt passed BM today, pt denies fever, I did ventral and umbilical hernia repair with [facility] on 08/2020. I reviewed pt's OR note, Allergies Allergy/AdvReac Type Severity Reaction Status Date / Time No Known Allergies Allergy Verified 03/30/22 14:41 Home Medications Medication Instructions Recorded Confirmed Type albuterol sulfate 90 mcg/actuation 2 puff INHALATION QID PRN 08/20/18 03/30/22 History aerosol inhaler acetaminophen 500 mg tablet 2,500 mg PO BID PRN 03/16/22 03/30/22 His tory (Tylenol Extra Strength) cyanocobalamin (vitamin B-12) 1,000 mcg PO DAILY 03/16/22 03/30/22 H istory 1,000 mcg tablet levothyroxine 25 mcg tablet 25 mcg PO QAM 03/16/22 03/30/22 His tory clindamycin HCl 300 mg capsule 300 mg PO QID 03/30/22 03/30/22 History (Cleocin HCl) clonazepam 0.5 mg tablet 0.5 mg PO TID 03/30/22 03/30/22 Histor y clonazepam 1 mg tablet 1 mg PO BID 03/30/22 03/30/22 History gabapentin 300 mg capsule 300 mg PO TID 03/30/22 03/30/22 Histo ry lisinopril 20 mg tablet 20 mg PO DAILY 03/30/22 03/30/22 History omeprazole 20 mg capsule,delayed 40 mg PO DAILY 03/30/22 2 History release Past Med/Surg History Medical History Anemia Anxiety panic attacksAsthma treated at [facility] asthma with bronchitis exacerbation/respiratory failure 10/2017- tx with oral steroids, duo nebs, azithromycinChronic back pain Chronic venous stasis GERD (gastroesophageal reflux disease) Gout H/O gastric ulcer remote bleeding gastric ulcer (2000)Hiatal hernia History of wound infection 07/2020 abdominal, "resolved"Hx of opioid abuse 2012, follows with methadone clinicHypertension Hypothyroidism Migraine Morbid obesity Obstructive sleep apnea Surgical History History of adenoidectomy History of carpal tunnel surgery of right wrist History of esophagogastroduodenoscopy (EGD) History of femoropopliteal bypass right legHistory of herniorrhaphy UMBILICAL HERNIA REPAIRHistory of tonsillectomy History of tooth extraction S/P excision of ganglion cyst left wrist Family History Mother Cellulitis, legOther No family history of adverse response to anesthesia Social History Smoking Status: Never smoker Tobacco Type: Cigarettes Cigarettes Per Day: 1 PPD; Second Hand Exposure: Yes; Hx Alcohol Use: No Hx Substance Use: No Preferred Language: [place] African Communication Ability: Effective Satellite Dish Installer Required: No Beliefs That Will Affect Care: None marital status: Current Living Situation: Spouse Feels Safe at Home: Yes Assistive Devices: Cane Review of Systems Review of Systems: Negative otherwise mentioned in HPI. Allergies Allergy/AdvReac Type Severity Reaction Status Date / Time No Known Allergies Allergy Verified 03/30/22 14:41 Home Medications Medication Instructions Recorded Confirmed Type albuterol sulfate 90 mcg/actuation 2 puff INHALATION QID PRN 08/20/18 03/30/22 History aerosol inhaler acetaminophen 500 mg tablet 2,500 mg PO BID PRN 03/16/22 03/30/22 History (Tylenol Extra Strength) cyanocobalamin (vitamin B-12) 1,000 mcg PO DAILY 03/16/22 03/30/22 History 1,000 mcg tablet levothyroxine 25 mcg tablet 25 mcg PO QAM 03/16/22 03/30/22 History clindamycin HCl 300 mg capsule 300 mg PO QID 03/30/22 03/30/22 History (Cleocin HCl) clonazepam 0.5 mg tablet 0.5 mg PO TID 03/30/22 03/30/22 History clonazepam 1 mg tablet 1 mg PO BID 03/30/22 03/30/22 History gabapentin 300 mg capsule 300 mg PO TID 03/30/22 03/30/22 History lisinopril 20 mg tablet 20 mg PO DAILY 03/30/22 03/30/22 History omeprazole 20 mg capsule,delayed 40 mg PO DAILY 03/30/22 03/30/22 History release Patient History Medical History Anemia Anxiety panic attacks Asthma treated at [facility] for asthma with bronchitis exacerbation/respiratory failure 10/2017- tx with oral steroids, duo nebs, azithromycin Chronic back pain Chronic venous stasis GERD (gastroesophageal reflux disease) Gout H/O gastric ulcer remote bleeding gastric ulcer (2000) Hiatal hernia History of wound infection 07/2020 abdominal, "resolved" Hx of opioid abuse 2012, follows with methadone clinic Hypertension Hypothyroidism Migraine Morbid obesity Obstructive sleep apnea Surgical History History of adenoidectomy History of carpal tunnel surgery of right wrist History of esophagogastroduodenoscopy (EGD) History of femoropopliteal bypass right leg History of herniorrhaphy UMBILICAL HERNIA REPAIR History of tonsillectomy History of tooth extraction S/P excision of ganglion cyst left wrist Family History Mother Cellulitis, leg Other No family history of adverse response to anesthesia Social History Smoking Status: Never smoker Tobacco Type: Cigarettes Cigarettes Per Day: 1 PPD; Second Hand Exposure: Yes; Hx Alcohol Use: No Hx Substance Use: No Preferred Language: [place] African Communication Ability: Effective Satellite Dish Installer Required: No Beliefs That Will Affect Care: None marital status: Current Living Situation: Spouse Current Living Situation Comment: Inmate Feels Safe at Home: Yes Assistive Devices: None Review of Systems Constitutional: obesity Eyes: as per Subjective / HPI Respiratory: tobacco abuse Cardiovascular: as per Subjective / HPI Gastrointestinal: GERD, diverticulosis, s/p open repair ventral and umbilical hernia with mesh 08/2020 Genitourinary: + problem reported (kidney stone) Musculoskeletal: as per Subjective / HPI (stasis ulcer orf right lower leg) Neurologic: as per Subjective / HPI Psychiatric: as per Subjective / HPI Endocrine: hypothyroidism Physical Exam Constitutional: WD/WN, vitals as above Eyes: PERRL, conjunctivae normal, anicteric sclerae Neck: trachea midline, no thyromegaly Respiratory: normal respiratory effort, lungs clear to auscultation Cardiovascular: RRR, no murmur, no edema Gastrointestinal (Abdomen): soft, tenderness at RUQ, periumbilical area, no rebound pain, no distend, surgical incision scar just above umbilical area, no redness, Neurologic: patellar DTR's 2+ bilat, sensation intact Psychiatric: A+Ox3, euthymic affect Results & Data ([facility]) Vital Signs (Past 12 Hours) Vital Signs Temp Pulse Resp BP Pulse Ox 04/03/22 16:04 139/94 04/03/22 15:35 36.9 C 78 18 146/90 H 97 04/03/22 09:45 136/84 04/03/22 08:17 36.5 C 76 17 146/92 H 97 Laboratory Results Abnormal lab results 04/03/22 04/03/22 Range/Units 17:40 17:40 Hgb 13.1 L (14.0-18.0) g/dL MCV 76.6 L (80-100) fL MCH 23.1 L (25-34) pg MCHC 30.1 L (32-36) g/dL RDW Coeff of Raul 15.9 H (11.5-14.5) % MPV 11.0 H (7.4-10.4) fL BUN/Creatinine Ratio 7.5 L (10-20) Diagnostic Findings CT SCAN OF THE ABDOMEN AND PELVIS WITH IV CONTRAST CLINICAL HISTORY: Acute on chronic generalized abdominal pain. COMPARISON STUDY: Prior abdominal CT scans, most recently dated 03/30/2022. TECHNIQUE: Following the IV administration of 119 cc of Optiray 320, CT scan of the abdomen and pelvis is performed from the lung bases to the proximal femora. Images are reviewed in the axial, sagittal, and coronal planes. IV contrast was administered without complication. A dose lowering technique was utilized adhering to the principles of ALARA. CT DOSE: 2368.75 mGy.cm FINDINGS: Lung bases: The heart is normal in size and without pericardial effusion. The lung bases are clear. There is a tiny hiatal hernia. Liver: The contrast-enhanced liver is enlarged, measuring 19.5 cm in length. The liver demonstrates diffusely diminished attenuation consistent with hepatic steatosis. Fatty sparing is seen adjacent to the gallbladder fossa. There is no intrahepatic biliary ductal dilatation. The hepatic veins and portal veins are patent. Gallbladder: Unremarkable. Spleen: The spleen is enlarged, measuring 17.8 cm in length. Pancreas: Unremarkable. Adrenal glands: Unremarkable. Kidneys: The contrast enhanced kidneys are normal in size and without hydronephrosis. The kidneys enhance symmetrically. There is a punctate nonobstructing left renal calculus. Abdominal vasculature: The abdominal aorta is normal in course and caliber. Bowel: There is mild colonic diverticulosis without CT evidence of acute diverticulitis. No bowel obstruction is seen. The appendix is well-visualized and normal. Peritoneum: There is no intraperitoneal free air or abdominal ascites. There is laxity of the ventral abdominal wall with evidence of previous hernia repair. Trace fluid and stranding are again seen superficial to the hernia mesh. Lymphadenopathy: None. Pelvic viscera: The bladder, prostate, and seminal vesicles are normal as visualized. There is a fat-containing left inguinal hernia. Skeletal structures: No lytic or blastic lesions are seen. There is mild lumbosacral spondylosis. IMPRESSION: 1. There are no acute infectious or inflammatory findings in the abdomen or pelvis. No significant change from 03/30/2022. 2. Hepatomegaly and hepatic steatosis. 3. Splenomegaly. 4. Punctate nonobstructing left renal calculus. 5. Trace fluid and stranding are again seen superficial to the ventral hernia mesh. 6. Additional findings as above. (1) Abdominal pain Abdominal location: generalized Qualified Code(s): R10.84 - Generalized abdominal pain
[2022-04-03] MEDS: clonazePAM 0.5 MG TAB PO SCH (21:51)
[2022-04-03] MEDS: IBUPROFEN 600 MG TAB PO PRN (21:57)
[2022-04-04] MEDS: PIPERACILLIN/TAZOBACTAM 4.5 GM in DEXTROSE 5% 100 ML IV SCH ×3 (01:24→18:12)
[2022-04-04] MEDS: LEVOTHYROXINE SODIUM 25 MCG TABLET PO SCH (05:32)
[2022-04-04] MEDS: ACETAMINOPHEN 325 MG TAB PO PRN (05:37)
[2022-04-04] MEDS: ENOXAPARIN INJ 40 MG/0.4 ML SYR SQ SCH ×2 (06:08→18:13)
--- NOTE | 2022-04-04 07:38 | Hospitalist Progress Note ---
Date of Service April 04, 2022 Assessment & Plan (1) History of umbilical hernia repair: Plan: Abdominal pain History of umbilical hernia repair Patient had prior hernia repair, comes in with chronic abdominal pain worsening since last 2 to 3 weeks and not able to eat, has not moved bowel since last 2 to 3 weeks per patient. Admitting WBC WNL, admitting lactate WNL, admitting Pro-Mark negative, admitting lipase minimally elevated. Admitting CTAP reviewed, no bowel obstruction or bowel wall thickening, s/p umbilical hernia repair with trace fluid and stranding noted superficial to the hernia mesh. Small periumbilical hernia noted adjacent to mesh. Hepatic steatosis. Surgery aware by ER doctor, appreciate recs, no surgical intervention planned, nonsurgical abdomen at this time resume diet, advance MOISES, ? OP f/u w/ Sx. . Pain control, IV fluids. DC ivf if pt able to eat/drink. Patient until recently on methadone. Last dose March 21. Then incarcerated, and being off methadone. Currently on Tylenol No. 3, ibuprofen Constipation -Likely opioid related -Bowel regimen 04/03 -patient had small breakfast in the morning, and small BM. He has chronic abdominal pain, that was managed with Tylenol with codeine. After lunch, pt developed acute exacerbation of abd. pain, per patient excruciating pain, patient became diaphoretic, RN contacted physician. I examined patient immedi ately, ordered stat CBC, BMP, lactic acid. Also ordered stat CT abdomen pelvis with IV contrast. I also contacted immediately Dr. Pollard, the surgeon on-call, Dr. Pollard also operated on the patient in the past. IV morphine ordered to control the pain. Also IV Tylenol given. Patient has history of several abdominal surgeries for his hernia. At least 30-minute critical care time was spent. 04/04 CT abd/pelvis 1. There are no acute infectious or inflammatory findings in the abdomen or pelvis. No significant change from 03/30/2022. 2. Hepatomegaly and hepatic steatosis. 3. Splenomegaly. 4. Punctate nonobstructing left renal calculus. 5. Trace fluid and stranding are again seen superficial to the ventral hernia mesh. US liver - 1. Cholelithiasis with no definite ultrasound evidence for acute cholecystitis. There was a negative sonographic Radford sign reported. However, the patient was medicated. GI and Gen. surgery consult (Dr. Pollard) - based on pt is still have abdominal pain, U/S finding- cholelithiasis, CT scan- possible small hernia recurrence with fat contain, I recommend to do laparoscopic cholecystectomy, possible open or cholangiogram, and open repair ventral hernia, possible mesh, tomorrow (04/05) RLE Cellulitis Patient was receiving cefdinir and clindamycin as an outpatient for his RLE cellulitis, previously on IV antibiotic, 03/18 wound culture polymicrobial Patient reporting pain at his ulcer site, CT scan of RLE to rule out ost eomyelitis. IMPRESSION: Findings are compatible with cellulitis without evidence of osteomyelitis. 03/13/22 [place] wound care OP chart review: Patient's visit was for evaluation of chronic right leg wound secondary to venous stasis, per chart review, patient had undergone several surgical intervention with wound graft application over the past 8 years, he had been seen at wound care clinics at both [place] and [place], was discharged on oral Keflex 500mg 4 times daily at the time, also received debridement of right leg wound after application of lidocaine, was asked for follow-up in 1 week for dressing change and evaluation. Pt has h/o noncompliance w/ f/u with wound clinic and also medicine non compliance. Started cefepime and dapto on admission, per culture and sensitivity on 03/18, will cont. blood culture and wound culture obtained Wound culture positive for coag negative Staphylococcus Blood culture, so far negative Mild fever at presentation. WBC wnl, pulse elevated, RR wnl; doesn't meet sepsis criteria. patient may need IV antibiotics on discharge Wound care nurse consulted, reviewed wound together at the bedside Arterial Doppler obtained, No hemodynamically significant stenosis. Patient developed rash, upper chest, upper back, upper arms, likely drug related. Switch cefepime to Zosyn. 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 DVT prophylaxis: Enoxaparin Full code Admission and Anticipated Discharge Date Admission Date: March 31, 2022 Subjective Patient seen in follow-up of abdominal pain, right lower extremity venous stasis ulcer/cellulitis Patient until recently on methadone, since he has been incarcerated, methadone was stopped Also reports constipation for past 2 to 3 weeks Denies fevers, chills, chest pain, shortness of breath Reports inability to eat much CT abdomen on admission obtained, surgery consulted, no intervention planned wound care nurse consulted Rash noted at upper back, arms, upper chest, likely consistent with drug reaction. 04/03 another episode of acute abdominal pain- CT abdomen pelvis obtained, surgery consulted, liver ultrasound obtained, plan for cholecystectomy tomorrow Review of Systems Review of Systems: All systems reviewed & are unremarkable except as noted in Subjective Physical Exam Physical Exam: GENERAL: Alert and oriented x3. NAD, on RA. Morbidly obese. HEENT: No pallor, no icterus .EOMI. Pupils equ al, round and reac tive to light. Or al mucosa moist. N MARION: No JVD, no n marion masses. HEART: S1 and S2 heard. Regular rate and rhythm. No murmu r, no gallop. RESP IRATORY SYSTEM: N ormal AP diameter. No accessory mus chelsy use. No wheez ing, no crackles. Decreased breath sound at bases ABD OMEN: Soft, obese , bowel sounds pre sent, periumbilica l and upper quadra nt tenderness, hea led laparoscopic s cars noted, no dis tention. CENTRAL N ERVOUS SYSTEM: No facial droop. Ob eys simple command s. Moves extremit ies. EXTREMITIES: No edema, no eryt sherine seen. LLE wi th chronic skin ch anges, RLE with ch ronic superficial wound/cellulitis, approximately 10 x 10 cm, tender, no surrounding eryth marlon. Results & Data Results & Data ([facility]) Vital Signs (Past 12 Hours) Vital Signs Temp Pulse Pulse Resp BP Pulse Ox 04/04/22 07:24 36.8 C 81 20 151/73 H 100 04/03/22 21:23 37.0 C 85 18 134/89 91
--- NOTE | 2022-04-04 07:43 | Ultrasound Report ---
US liver CLINICAL HISTORY: Acute right upper quadrant pain. COMPARISON: None. TECHNIQUE: Multiple grayscale and color images of the right upper quadrant of the abdomen. FINDINGS: The study is limited by overlying bowel gas. Pancreas: The imaged portion of the pancreas is within normal limits with no focal mass or peripancre atic fluid collection identified. Liver: The liver is enlarged with increase echogenicity present characteristic of fatty infiltration. It measures 20 cm in the axillary margin. There is no evidence for a focal mass. There is no intrahe patic biliary duct dilatation. Gallbladder: The gallbladder is well distended with cholelithiasis. There is no evidence for wall thi ckening or pericholecystic edema. There was reportedly a negative sonographic Radford sign. However, t he patient was medicated. Common Bile Duct: (CBD): It is normal in size measuring 4 mm. Inferior Vena Cava (IVC): The imaged IVC is patent. Right kidney: There is no evidence for hydronephrosis, calculus or gross renal mass. The kidney is no rmal in size. It measures 10.7 cm in greatest length. IMPRESSION: 1. Cholelithiasis with no definite ultrasound evidence for acute cholecystitis. There was a negative sonographic Radford sign reported. However, the patient was medicated. ACT 112: Negative or not required by law. Electronically signed by: Gabriel Petersen M.D. 04/04/2022 7:42 AM
[2022-04-04] MEDS: ACETAMINOPHEN W/CODEINE #3 1 TAB PO PRN ×3 (08:05→20:45)
[2022-04-04] MEDS: CYCLOBENZAPRINE HCL 10 MG TAB PO SCH ×3 (08:12→20:42)
[2022-04-04] MEDS: GABAPENTIN 400 MG CAP PO SCH ×3 (08:12→20:42)
[2022-04-04] MEDS: bisacodyL 10 MG SUPP PR SCH (08:13)
[2022-04-04] MEDS: SENNA 8.6 MG TAB PO SCH (08:13)
[2022-04-04 08:54] LABS: Mean Corpuscular Hgb Conc 29.6 g/dL (32-36)
[2022-04-04 09:03] LABS: Albumin Globulin Ratio 1.3 (0.9-2); Albumin Level 4.2 gm/dl (3.4-5.0); BUN Creatinine Ratio 10.1 (10-20); Bilirubin,Total 0.5 mg/dl (0.2-1.0); Calcium 8.8 mg/dl (8.5-10.1); Creatinine Clr Calc Pharmacy 219.8 ml/min; Est GFR (African American) 141.6 ml/min; Est GFR (Non-African American) 122.1 ml/min; Globulin 3.2 gm/dl (2.5-4.0); Magnesium 2.1 mg/dl (1.7-2.4); Potassium 3.8 mmol/L (3.5-5.1); Total Protein 7.4 gm/dl (6.0-8.3)
[2022-04-04 09:04] LABS: Hematocrit (blood only) 41.9 % (42-52); Hemoglobin 12.4 g/dL (14.0-18.0); Mean Corpuscular Hemoglobin 22.9 pg (25-34); Mean Corpuscular Volume 77.3 fL (80-100); RDW Standard Deviation 45.1 fL (36.4-46.3); Red Blood Count 5.42 M/uL (4.7-6.1); White Blood Count 6.67 K/uL (4.8-10.8)
[2022-04-04 09:42] LABS: Mean Platelet Volume 10.8 fL (7.4-10.4); Platelet Count 130 K/uL (130-400)
[2022-04-04] MEDS: lisinopril 10 MG TAB PO SCH (09:56)
[2022-04-04] MEDS: PANTOprazole 40 MG TAB PO SCH (09:56)
[2022-04-04] MEDS: CYANOCOBALAMIN (B-12) 500 MCG TABLET PO SCH (09:56)
[2022-04-04] MEDS: POLYETHYLENE (MIRALAX) 17 GM PACK PO SCH ×2 (09:58→20:43)
--- NOTE | 2022-04-04 10:35 | Gastrointestinal Consultation ---
Date of Consultation April 04, 2022 Assessment & Plan (1) Abdominal pain: Acute worsening of chronic adhesive abdominal pain from prior surgeries. Worsening pain severity likely due to withdrawal of methadone increasing sensitivity of pain receptors. No GI indication for endoscopy or further diagnostic testing at this point. Pain management per primary hospitalist. GI will sign off. Supervising Physician Co-Signing Physician Notes Late entry: Patient was seen and examined on 04/04 with PRABHU Olson whose note reflects our findings and plan. Patient with multiple abd surgeries, chronic pain and history of methadone use (not currently receiving htis in correction). Multifactorial pain. No plan for additional testing. Symptomatic relief. Please call with questions. History of Present Illness Reason for Consultation: abdominal pain Requesting Physician: Dr. Boggs Attending Physician: Nick Boggs MD History of Present Illness 36-year-old male admitted on 03/30/22 for acute on chronic abdominal pain. Carries a history of multiple prior abdominal surgeries including hernia repair with mesh most recent surgery 10 years ago. Also history of obesity, recurrent cellulitis and venous insufficiency, hypothyroidism AALIYAH on CPAP, hypertension and asthma. Had been on methadone for treatment of prior substance abuse, this was discontinuation on March 22 when he was incarcerated. Reports chronic abdominal pain worse in the past 3 weeks. Continuing to pass bowel movements and flatus. CT without any acute changes. Hemoglobin hematocrit WBC, LFTs, electrolytes are all normal. Patient is awake alert oriented and hemodynamically stable. He describes exquisite diffuse abdominal pain. Allergies Allergy/AdvReac Type Severity Reaction Status Date / Time No Known Allergies Allergy Verified 04/05/22 08:20 Home Medications Medication Instructions Recorded Confirmed Type albuterol sulfate 90 mcg/actuation 2 puff INHALATION QID PRN 08/20/18 04/05/22 History aerosol inhaler acetaminophen 500 mg tablet 2,500 mg PO BID PRN 03/16/22 04/05/22 History (Tylenol Extra Strength) cyanocobalamin (vitamin B-12) 1,000 mcg PO DAILY 03/16/22 04/05/22 History 1,000 mcg tablet levothyroxine 25 mcg tablet 25 mcg PO QAM 03/16/22 04/05/22 History clindamycin HCl 300 mg capsule 300 mg PO QID 03/30/22 04/05/22 History (Cleocin HCl) clonazepam 0.5 mg tablet 0.5 mg PO TID 03/30/22 04/05/22 History clonazepam 1 mg tablet 1 mg PO BID 03/30/22 04/05/22 History gabapentin 300 mg capsule 300 mg PO TID 03/30/22 04/05/22 History lisinopril 20 mg tablet 20 mg PO DAILY 03/30/22 04/05/22 History omeprazole 20 mg capsule,delayed 40 mg PO DAILY 03/30/22 04/05/22 History release Patient History Medical History Anemia Anxiety panic attacks Asthma treated at [facility] for asthma with bronchitis exacerbation/respiratory failure 10/2017- tx with oral steroids, duo nebs, azithromycin Chronic back pain Chronic venous stasis GERD (gastroesophageal reflux disease) Gout H/O gastric ulcer remote bleeding gastric ulcer (2000) Hiatal hernia History of wound infection 07/2020 abdominal, "resolved" Hx of opioid abuse 2012, follows with methadone clinic Hypertension Hypothyroidism Migraine Morbid obesity Obstructive sleep apnea Surgical History History of adenoidectomy History of carpal tunnel surgery of right wrist History of esophagogastroduodenoscopy (EGD) History of femoropopliteal bypass right leg History of herniorrhaphy UMBILICAL HERNIA REPAIR History of tonsillectomy History of tooth extraction S/P excision of ganglion cyst left wrist Family History Mother Cellulitis, leg Other No family history of adverse response to anesthesia Social History Smoking Status: Never smoker Tobacco Type: Cigarettes Cigarettes Per Day: 1 PPD; Second Hand Exposure: Yes; Hx Alcohol Use: No Hx Substance Use: No Preferred Language: Greenlandic Communication Ability: Effective Facing End Trimmer Required: No Beliefs That Will Affect Care: None marital status: Current Living Situation: Spouse Current Living Situation Comment: Inmate Feels Safe at Home: Yes Assistive Devices: None Review of Systems Review of Systems: ROS: Gen: Denies weakness, fevers, weight loss Eyes: No eye redness, or pain, no recent vision changes Resp: No SOB, no cough Cardio: No palpitations/irregular beats, no chest pain GI: As per HPI otherwise negative : Denies pain on urination Skin: No jaundice, itching or new rashes Physical Exam Constitutional: well developed and cooperative Eyes: PERRL, conjunctivae normal, anicteric sclerae ENMT: external ear and nose normal, oropharynx normal Neck: trachea midline, no thyromegaly Respiratory: normal respiratory effort, lungs clear to auscultation Cardiovascular: RRR, no murmur, no edema Gastrointestinal (Abdomen): Percussion/Palpation: + abdomen tender (Exquisitely tender over the entire abdomen. ), + guarding and abdomen soft; abdomen not rigid Multiple scars from prior laparoscopic incisions. No visible or palpable masses. Skin: normal turgor Lower leg edema, dressing in place. Neurologic: PERRL, EOMI, accommodation nl, no face palsy, no dysarthria awake; not confused Psychiatric: A+Ox3, euthymic affect Orientation: cooperative Results & Data ([facility]) Vital Signs (Past 12 Hours) Vital Signs Temp Pulse Resp BP Pulse Ox 04/04/22 07:24 36.8 C 81 20 151/73 H 100 Laboratory Results WBC 6.6, Hb 12.4, HCT 41.9, PLT S1 30, NA 140, K3.8, CL 105, CO2 28, BUN 7, CR 0.69, glucose 111. Diagnostic Findings CTAP with IV contrast 04/03/2020: 1. There are no acute infectious or inflammatory findings in the abdomen or pelvis. No significant change from 03/30/2022. 2. Hepatomegaly and hepatic steatosis. 3. Splenomegaly. 4. Punctate nonobstructing left renal calculus. 5. Trace fluid and stranding are again seen superficial to the ventral hernia mesh. 6. Additional findings as above. Liver US 04/03/22: 1. Cholelithiasis with no definite ultrasound evidence for acute cholecystitis. There was a negative sonographic Radford sign reported. However, the patient was medicated. (1) Abdominal pain Abdominal location: generalized Qualified Code(s): R10.84 - Generalized abdominal pain
--- NOTE | 2022-04-04 17:24 | Surgery Progress Note ---
Date of Service April 04, 2022 Assessment & Plan (1) Abdominal pain: Plan: pt is a 36 year-old male who is consulted for acute abdominal pain, IMP : abdominal pain, Plan, base on H/P, normal WBC, lactate acid, and CT scan finding, no surgical indication now, order U/S study for gallbladder to R/O gallbladder disease, U/A to R/O kidney stone, conservative treatment, control pain, repeat labs in morning, NPO now, I agree with DR. Mcallister consult note, will F/U 04/04/2022 5: 25 PM, Dr. Pollard base on pt is still have abdominal pain, U/S finding- cholelithiasis, CT scan- possible small hernia recurrence with fat contain, I recommend to do laparoscopic cholecystectomy, possible open or cholangiogram, and open repair ventral hernia, possible mesh, tomorrow, D/W benefits, risks and alternatives of the surgery, the risks - infection, bleeding, injury other organs, hernia recurrence, seroma, complications relate to mesh, bowel obstruction, pt understood, he agrees with surgery, he signed informed consent, I answered all questions, , Admission and Anticipated Discharge Date Admission Date: March 31, 2022 Subjective pt is still have RUQ pain and periumbilical pain, with nausea, no vomiting, no fever, U/S finding- cholelithiasis, Review of Systems Constitutional: obesity Eyes: as per Subjective / HPI Respiratory: tobacco abuse Cardiovascular: as per Subjective / HPI Gastrointestinal: GERD, diverticulosis, s/p open repair ventral and umbilical hernia with mesh 08/2020 Genitourinary: + problem reported (kidney stone) Musculoskeletal: as per Subjective / HPI (stasis ulcer orf right lower leg) Neurologic: as per Subjective / HPI Psychiatric: as per Subjective / HPI Endocrine: hypothyroidism Physical Exam Constitutional: WD/WN, vitals as above Eyes: PERRL, conjunctivae normal, anicteric sclerae Neck: trachea midline, no thyromegaly Respiratory: normal respiratory effort, lungs clear to auscultation Cardiovascular: RRR, no murmur, no edema Gastrointestinal (Abdomen): mild tenderness at RUQ, and periumbilical area, no rebound pain, no distend, BS +, Musculoskeletal: no cyanosis or clubbing, extremities motor strength 5/5 Neurologic: patellar DTR's 2+ bilat, sensation intact Psychiatric: A+Ox3, euthymic affect Results & Data ([facility]) Vital Signs (Past 12 Hours) Vital Signs Temp Pulse Pulse Resp BP Pulse Ox 04/04/22 16:02 36.8 C 76 18 130/88 93 04/04/22 07:24 36.8 C 81 20 151/73 H 100 Laboratory Results Abnormal lab results 04/03/22 04/03/22 04/04/22 Range/Units 17:40 17:40 08:31 Hgb 13.1 L 12.4 L (14.0-18.0) g/dL Hct 41.9 L (42-52) % MCV 76.6 L 77.3 L (80-100) fL MCH 23.1 L 22.9 L (25-34) pg MCHC 30.1 L 29.6 L (32-36) g/dL RDW Coeff of Raul 15.9 H 16.0 H (11.5-14.5) % MPV 11.0 H 10.8 H (7.4-10.4) fL BUN/Creatinine Ratio 7.5 L (10-20) Glucose (70-99(Fasting)) mg/dl 04/04/22 Range/Units 08:31 Hgb (14.0-18.0) g/dL Hct (42-52) % MCV (80-100) fL MCH (25-34) pg MCHC (32-36) g/dL RDW Coeff of Raul (11.5-14.5) % MPV (7.4-10.4) fL BUN/Creatinine Ratio (10-20) Glucose 100 H (70-99(Fasting)) mg/dl Diagnostic Findings US liver CLINICAL HISTORY: Acute right upper quadrant pain. COMPARISON: None. TECHNIQUE: Multiple grayscale and color images of the right upper quadrant of the abdomen. FINDINGS: The study is limited by overlying bowel gas. Pancreas: The imaged portion of the pancreas is within normal limits with no focal mass or peripancreatic fluid collection identified. Liver: The liver is enlarged with increase echogenicity present characteristic of fatty infiltration. It measures 20 cm in the axillary margin. There is no evidence for a focal mass. There is no intrahepatic biliary duct dilatation. Gallbladder: The gallbladder is well distended with cholelithiasis. There is no evidence for wall thickening or pericholecystic edema. There was reportedly a negative sonographic Radford sign. However, the patient was medicated. Common Bile Duct: (CBD): It is normal in size measuring 4 mm. Inferior Vena Cava (IVC): The imaged IVC is patent. Right kidney: There is no evidence for hydronephrosis, calculus or gross renal mass. The kidney is normal in size. It measures 10.7 cm in greatest length. IMPRESSION: 1. Cholelithiasis with no definite ultrasound evidence for acute cholecystitis. There was a negative sonographic Radford sign reported. However, the patient was medicated. CT SCAN OF THE ABDOMEN AND PELVIS WITH IV CONTRAST CLINICAL HISTORY: Acute on chronic generalized abdominal pain. COMPARISON STUDY: Prior abdominal CT scans, most recently dated 03/30/2022. TECHNIQUE: Following the IV administration of 119 cc of Optiray 320, CT scan of the abdomen and pelvis is performed from the lung bases to the proximal femora. Images are reviewed in the axial, sagittal, and coronal planes. IV contrast was administered without complication. A dose lowering technique was utilized adhering to the principles of ALARA. CT DOSE: 2368.75 mGy.cm FINDINGS: Lung bases: The heart is normal in size and without pericardial effusion. The lung bases are clear. There is a tiny hiatal hernia. Liver: The contrast-enhanced liver is enlarged, measuring 19.5 cm in length. The liver demonstrates diffusely diminished attenuation consistent with hepatic steatosis. Fatty sparing is seen adjacent to the gallbladder fossa. There is no intrahepatic biliary ductal dilatation. The hepatic veins and portal veins are patent. Gallbladder: Unremarkable. Spleen: The spleen is enlarged, measuring 17.8 cm in length. Pancreas: Unremarkable. Adrenal glands: Unremarkable. Kidneys: The contrast enhanced kidneys are normal in size and without hydronephrosis. The kidneys enhance symmetrically. There is a punctate nonobstructing left renal calculus. Abdominal vasculature: The abdominal aorta is normal in course and caliber. Bowel: There is mild colonic diverticulosis without CT evidence of acute diverticulitis. No bowel obstruction is seen. The appendix is well-visualized and normal. Peritoneum: There is no intraperitoneal free air or abdominal ascites. There is laxity of the ventral abdominal wall with evidence of previous hernia repair. Trace fluid and stranding are again seen superficial to the hernia mesh. Lymphadenopathy: None. Pelvic viscera: The bladder, prostate, and seminal vesicles are normal as visualized. There is a fat-containing left inguinal hernia. Skeletal structures: No lytic or blastic lesions are seen. There is mild lumbosacral spondylosis. IMPRESSION: 1. There are no acute infectious or inflammatory findings in the abdomen or pelvis. No significant change from 03/30/2022. 2. Hepatomegaly and hepatic steatosis. 3. Splenomegaly. 4. Punctate nonobstructing left renal calculus. 5. Trace fluid and stranding are again seen superficial to the ventral hernia mesh. 6. Additional findings as above. (1) Abdominal pain Abdominal location: generalized Qualified Code(s): R10.84 - Generalized abdominal pain
[2022-04-04] MEDS: DAPTOmycin 625 MG in SYRINGE 0 ML IV SCH (18:12)
[2022-04-05] MEDS: PIPERACILLIN/TAZOBACTAM 4.5 GM in DEXTROSE 5% 100 ML IV SCH ×3 (01:03→17:36)
[2022-04-05] MEDS: LEVOTHYROXINE SODIUM 25 MCG TABLET PO SCH (05:13)
[2022-04-05] MEDS: PANTOprazole 40 MG TAB PO SCH ×2 (07:02→21:09)
[2022-04-05] MEDS: SENNA 8.6 MG TAB PO SCH (07:02)
[2022-04-05] MEDS: POLYETHYLENE (MIRALAX) 17 GM PACK PO SCH ×2 (07:02→20:28)
[2022-04-05] MEDS: lisinopril 10 MG TAB PO SCH (07:02)
[2022-04-05] MEDS: CYCLOBENZAPRINE HCL 10 MG TAB PO SCH ×3 (07:02→20:27)
[2022-04-05] MEDS: GABAPENTIN 400 MG CAP PO SCH ×3 (07:02→20:27)
[2022-04-05] MEDS: CYANOCOBALAMIN (B-12) 500 MCG TABLET PO SCH (07:02)
[2022-04-05] MEDS: bisacodyL 10 MG SUPP PR SCH (07:48)
[2022-04-05 08:03] LABS: Hematocrit (blood only) 40.5 % (42-52); Hemoglobin 11.9 g/dL (14.0-18.0); Mean Corpuscular Hemoglobin 22.8 pg (25-34); Mean Corpuscular Hgb Conc 29.4 g/dL (32-36); Mean Corpuscular Volume 77.4 fL (80-100); Mean Platelet Volume 11.4 fL (7.4-10.4); Platelet Count 132 K/uL (130-400); RDW Coefficient of Variation 15.9 % (11.5-14.5); RDW Standard Deviation 45.1 fL (36.4-46.3); Red Blood Count 5.23 M/uL (4.7-6.1); White Blood Count 6.37 K/uL (4.8-10.8)
[2022-04-05] MEDS ORDERED: ceFAZolin 2000MG 2,000 MG/15 ML SYR IV ONE (08:07)
--- NOTE | 2022-04-05 08:07 | History & Physical Bridge Note ---
Date of Service April 05, 2022 History & Physical Bridge Note I have examined the patient, reviewed the History & Physical and in the interval since the performance of the History & Physical I have noted the following changes of clinical significance: no changes noted
[2022-04-05 08:19] LABS: Albumin Globulin Ratio 1.3 (0.9-2); BUN Creatinine Ratio 9.2 (10-20); Bilirubin,Total 0.5 mg/dl (0.2-1.0); Calcium 8.8 mg/dl (8.5-10.1); Creatinine Clr Calc Pharmacy 199.5 ml/min; Est GFR (Non-African American) 117.4 ml/min; Globulin 3.1 gm/dl (2.5-4.0); Phosphorus 4.3 mg/dl (2.5-4.9); Potassium 3.6 mmol/L (3.5-5.1); Total Protein 7.1 gm/dl (6.0-8.3)
[2022-04-05] MEDS ORDERED: BACITRACIN OINT 15 GM TUBE ONE (08:21)
[2022-04-05] MEDS ORDERED: BUPIVACAINE 0.5 % 5 MG/1 ML MPF 30ML VIAL ONE (08:21)
[2022-04-05] MEDS ORDERED: LIDOCAINE 1% LOCAL 20 ML VIAL ONE (08:21)
[2022-04-05] MEDS ORDERED: ceFAZolin 2000MG 2,000 MG/15 ML SYR IV SCH (08:30)
--- NOTE | 2022-04-05 08:32 | Anesthesiology Consultation ---
Date of Service April 05, 2022 Assessment & Plan Chart Review Chart Review: Acceptable Risk for Surgery and Patient NOT seen in Pre Admission Testing Consults Requested none ASA ASA3 Proposed Anesthesia Anesthesia Type: General Risk / Benefits Reviewed With: PT / POA / Parent / Guardian, Accepts Plan and Informed Consent Obtained History Surgery Operation Date: 04/05/22 08:25 Proposed Procedures p Laparoscopic Cholecystectomy, Possible Cholangiogram - Donna Pollard MD s Possible Open Ventral Hernia Repair with Mesh - Donna Pollard MD Height/Weight Height: 5 ft 9 in Weight: 156.4 kg Allergies Allergy/AdvReac Type Severity Reaction Status Date / Time No Known Allergies Allergy Verified 04/05/22 08:20 Medications Home Medications Medication Instructions Recorded Confirmed Last Taken albuterol sulfate 90 mcg/actuation 2 puff INHALATION QID PRN 08/20/18 04/05/22 03/22/22 14:00 aerosol inhaler acetaminophen 500 mg tablet 2,500 mg PO BID PRN 03/16/22 04/05/22 03/23/22 07:00 (Tylenol Extra Strength) cyanocobalamin (vitamin B-12) 1,000 mcg PO DAILY 03/16/22 04/05/22 04/04/22 08:00 1,000 mcg tablet levothyroxine 25 mcg tablet 25 mcg PO QAM 03/16/22 04/05/22 04/04/22 07:00 clindamycin HCl 300 mg capsule 300 mg PO QID 03/30/22 04/05/22 03/23/22 07:00 (Cleocin HCl) clonazepam 0.5 mg tablet 0.5 mg PO TID 03/30/22 04/05/22 04/03/22 20:00 clonazepam 1 mg tablet 1 mg PO BID 03/30/22 04/05/22 Unknown gabapentin 300 mg capsule 300 mg PO TID 03/30/22 04/05/22 04/04/22 20:00 lisinopril 20 mg tablet 20 mg PO DAILY 03/30/22 04/05/22 04/04/22 07:00 omeprazole 20 mg capsule,delayed 40 mg PO DAILY 03/30/22 04/05/22 04/04/22 07:00 release Active Medications Generic Name Dose Route Start Last Admin Trade Name Freq PRN Reason Stop Dose Admin Acetaminophen 650 mg 03/30/22 17:07 04/04/22 05:37 Acetaminophen 325 Mg Tab PO 04/29/22 17:06 650 mg Q4H PRN Administration Pain or Fever Acetaminophen/Codeine Phosphate 2 tab 04/01/22 20:00 04/04/22 20:45 Acetaminophen W/Codeine #3 1 Tab PO 04/30/22 19:59 2 tab TID PRN Administration Pain Bisacodyl 10 mg 04/01/22 09:00 04/05/22 07:48 Bisacodyl 10 Mg Supp [place] 05/01/22 08:59 Not Given QAM KERWIN Cyanocobalamin 1,000 mcg 03/31/22 09:00 04/05/22 07:02 Cyanocobalamin (B-12) 500 Mcg Tablet PO 04/30/22 08:59 Not Given DAILY KERWIN Cyclobenzaprine HCl 10 mg 03/30/22 21:00 04/05/22 07:02 Cyclobenzaprine Hcl 10 Mg Tab PO 04/29/22 20:59 Not Given TID KERWIN Diphenhydramine HCl 25 mg 04/02/22 17:30 04/03/22 10:33 Diphenhydramine Capsule 25 Mg Cap PO 05/02/22 17:29 25 mg Q4H PRN Administration Rash Enoxaparin Sodium 40 mg 03/30/22 19:00 04/04/22 18:13 Enoxaparin Inj 40 Mg/0.4 Ml Syr SQ 04/29/22 18:59 40 mg Q12H KERWIN Administration Gabapentin 800 mg 03/30/22 21:00 04/05/22 07:02 Gabapentin 400 Mg Cap PO 04/29/22 20:59 Not Given TID KERWIN Daptomycin 625 mg/ Syringe 12.5 mls @ 6.25 mls/min 03/31/22 18:00 04/04/22 18:12 IV 04/07/22 17:59 6.25 mls/min Q24H KERWIN Administration Protocol Piperacillin Sod/Tazobactam 120 mls @ 30 mls/hr 04/02/22 02:00 04/05/22 05:13 Sod 4.5 gm/ Dextrose IV 04/06/22 20:59 Infused Q8H KERWIN Infusion Protocol Ibuprofen 600 mg 03/30/22 20:25 04/03/22 21:57 Ibuprofen 600 Mg Tab PO 04/29/22 20:24 600 mg Q8H PRN Administration moderate pain Levothyroxine Sodium 25 mcg 03/31/22 06:30 04/05/22 05:13 Levothyroxine Sodium 25 Mcg Tablet PO 04/30/22 06:29 Not Given DAILYBB KERWIN Lisinopril 10 mg 03/31/22 09:00 04/05/22 07:02 Lisinopril 10 Mg Tab PO 04/30/22 08:59 Not Given DAILY KERWIN Magnesium Hydroxide 30 ml 03/30/22 17:07 04/02/22 18:22 Magnesium Hydroxide Susp 30 Ml Udc PO 04/29/22 17:06 30 ml Q12H PRN Administration Constipation Pantoprazole Sodium 40 mg 03/31/22 09:00 04/05/22 07:02 Pantoprazole 40 Mg Tab PO 04/30/22 08:59 Not Given DAILY KERWIN Polyethylene Glycol 17 gm 04/01/22 09:00 04/05/22 07:02 Polyethylene (Miralax) 17 Gm Pack PO 05/01/22 08:59 Not Given BID KERWIN Sennosides 8.6 mg 03/31/22 12:45 04/05/22 07:02 Senna 8.6 Mg Tab PO 04/30/22 12:44 Not Given QAM KERWIN Past Medical History Medical History Anemia Anxiety panic attacks Asthma treated at [facility] for asthma with bronchitis exacerbation/respiratory failure 10/2017- tx with oral steroids, duo nebs, azithromycin Chronic back pain Chronic venous stasis GERD (gastroesophageal reflux disease) Gout H/O gastric ulcer remote bleeding gastric ulcer (2000) Hiatal hernia History of wound infection 07/2020 abdominal, "resolved" Hx of opioid abuse 2012, follows with methadone clinic Hypertension Hypothyroidism Migraine Morbid obesity Obstructive sleep apnea Exercise / Class Metabolic Activity II 4-5 Yardwork/Stairs/Walk up hill Past Family History Family History Mother Cellulitis, leg Other No family history of adverse response to anesthesia Past Surgical History Surgical History History of adenoidectomy History of carpal tunnel surgery of right wrist History of esophagogastroduodenoscopy (EGD) History of femoropopliteal bypass right leg History of herniorrhaphy UMBILICAL HERNIA REPAIR History of tonsillectomy History of tooth extraction S/P excision of ganglion cyst left wrist Past Anesthesia History No Hx of Anesthesia Complications and No Family Hx of Anesthesia Complications History of PONV No Hx of PONV and No Hx of Motion Sickness Social History Smoking Status: Never smoker tobacco type: cigarettes Smoking cigarettes per day: 1 PPD Hx Alcohol Use: No Hx Substance Use: No substance use type: opiates Substance Use Type Other:: hx opiate addiction Last Used Substance Other:: 2012, follows with methadone clinic Physical Exam Vital Signs Last Vital Signs Temp 36.3 C L 04/04/22 22:11 Pulse 64 04/04/22 22:11 Resp 16 04/04/22 22:11 BP 125/75 04/04/22 22:11 Pulse Ox 95 04/04/22 22:11 Constitutional + morbidly obese ENMT Mouth: no dentition abnormality Thyromental Distance: > or= 3.5 Finger Breadths Mallampati Class: II Neck normal visual inspection Respiratory normal respiratory effort Auscultation: lungs clear to auscultation bilaterally Cardiovascular Rate/Rhythm: regular rate and regular rhythm Psychiatric Orientation: alert Testing Laboratory Results 04/05/22 07:13 04/05/22 07:13 PT 11.5 Seconds (9.0-12.0) 03/30/22 15:50 INR 1.1 (0.9-1.1) 03/30/22 15:50 Urine Color Yellow 03/30/22 16:07 Urine Appearance Clear (Clear) 03/30/22 16:07 Urine pH 8.0 (4.5-7.5) H 03/30/22 16:07 Ur Specific [place] > 1.045 (1.000-1.030) H 03/30/22 16:07 Urine Protein Negative (Negative) 03/30/22 16:07 Urine Glucose (UA) Negative (Negative) 03/30/22 16:07 Urine Ketones Negative (Negative) 03/30/22 16:07 Urine Nitrite Negative (Negative) 03/30/22 16:07 Ur Leukocyte Esterase Negative (Negative) 03/30/22 16:07 03/30/22 16:39 Aerobic Blood Culture - Final Blood No growth in Aerobic bottle after 5 days. Anaerobic Blood Culture - Final No growth in Anaerobic bottle after 5 days. 03/30/22 16:40 Aerobic Blood Culture - Final Blood No growth in Aerobic bottle after 5 days. Anaerobic Blood Culture - Final No growth in Anaerobic bottle after 5 days. 03/30/22 19:26 Gram Stain - Final Leg,Right Deep Wound Culture - Final Coag negative Staphylococcus
--- NOTE | 2022-04-05 08:58 | Hospitalist Progress Note ---
Date of Service April 05, 2022 Assessment & Plan (1) History of umbilical hernia repair: Plan: Abdominal pain History of umbilical hernia repair Patient had prior hernia repair, comes in with chronic abdominal pain worsening since last 2 to 3 weeks and not able to eat, has not moved bowel since last 2 to 3 weeks per patient. Admitting WBC WNL, admitting lactate WNL, admitting Pro-Mark negative, admitting lipase minimally elevated. Admitting CTAP reviewed, no bowel obstruction or bowel wall thickening, s/p umbilical hernia repair with trace fluid and stranding noted superficial to the hernia mesh. Small periumbilical hernia noted adjacent to mesh. Hepatic steatosis. Surgery aware by ER doctor, appreciate recs, no surgical intervention initially planned, nonsurgical abdomen at this time resume diet, advance MOISES, ? OP f/u w/ Sx. . Pain control, IV fluids. DC ivf if pt able to eat/drink. Patient until recently on methadone. Last dose March 21. Then incarcerated, and being off methadone. Currently on Tylenol No. 3, ibuprofen Constipation -Likely opioid related -Bowel regimen 04/03 -patient had small breakfast in the morning, and small BM. He has chronic abdominal pain, that was managed with Tylenol with codeine. After lunch, pt developed acute exacerbation of abd. pain, per patient excruciating pain, patient became diaphoretic, RN contacted physician. I examined patient immediately, ordered stat CBC, BMP, lactic acid. Also ordered stat CT abdomen pelvis with IV contrast. I also contacted immediately Dr. Pollard, the surgeon on- call, Dr. Pollard also operated on the patient in the past. IV morphine ordered to control the pain. Also IV Tylenol given. Patient has history of several abdominal surgeries for his hernia. At least 30-minute critical care time was spent. 04/04 CT abd/pelvis 1. There are no acute infectious or inflammatory findings in the abdomen or pelvis. No significant change from 03/30/2022. 2. Hepatomegaly and hepatic steatosis. 3. Splenomegaly. 4. Punctate nonobstructing left renal calculus. 5. Trace fluid and stranding are again seen superficial to the ventral hernia mesh. US liver - 1. Cholelithiasis with no definite ultrasound evidence for acute cholecystitis. There was a negative sonographic Radford sign reported. However, the patient was medicated. GI and Gen. surgery consulted (Dr. Pollard) - based on pt is still have abdominal pain, U/S finding- cholelithiasis, CT scan- possible small hernia recurrence with fat contain, I recommend to do laparoscopic cholecystectomy, possible open or cholangiogram, and open repair ventral hernia, possible mesh, tomorrow (04/05) 04/05 - Patient underwent above-mentioned procedure, cholecystectomy for cholelithiasis, chronic cholecystitis. Also underwent ventral hernia repair. Tolerated procedure well. RLE Cellulitis Patient was receiving cefdinir and clindamycin as an outpatient for his RLE cellulitis, previously on IV antibiotic, 03/18 wound culture polymicrobial Patient reporting pain at his ulcer site, CT scan of RLE to rule out osteomyelitis. IMPRESSION: Findings are compatible with cellulitis without evidence of osteomyelitis. 03/13/22 [place] [facility] OP chart review: Patient's visit was for evaluation of chronic right leg wound secondary to venous stasis, per chart review, patient had undergone several surgical intervention with wound graft application over the past 8 years, he had been seen at wound care clinics at both [place] and [place], was discharged on oral Keflex 500mg 4 times daily at the time, also received debridement of right leg wound after application of lidocaine, was asked for follow-up in 1 week for dressing change and evaluation. Pt has h/o noncompliance w/ f/u with wound clinic and also medicine non compliance. Started cefepime and dapto on admission, per culture and sensitivity on 03/18, will cont. blood culture and wound culture obtained Wound culture positive for coag negative Staphylococcus Blood culture, so far negative Mild fever at presentation. WBC wnl, pulse elevated, RR wnl; doesn't meet sepsis criteria. patient may need IV antibiotics on discharge Wound care nurse consulted, reviewed wound together at the bedside Arterial Doppler obtained, No hemodynamically significant stenosis. Patient developed rash, upper chest, upper back, upper arms, likely drug related. Switch cefepime to Zosyn. 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 DVT prophylaxis: Enoxaparin Full code Admission and Anticipated Discharge Date Admission Date: March 31, 2022 Subjective Patient seen in follow-up of abdominal pain, right lower extremity venous stasis ulcer/cellulitis Patient until recently on methadone, since he has been incarcerated, methadone was stopped Also reports constipation for past 2 to 3 weeks Denies fevers, chills, chest pain, shortness of breath Reports inability to eat much CT abdomen on admission obtained, surgery consulted, no intervention was initially planned wound care nurse consulted Rash noted at upper back, arms, upper chest, likely consistent with drug reaction, now resolved. 04/03 another episode of acute abdominal pain- CT abdomen pelvis obtained, surgery consulted, liver ultrasound obtained, plan for cholecystectomy and ventral hernia repair 04/05 Patient underwent above-mentioned procedure today, tolerated well Review of Systems Review of Systems: All systems reviewed & are unremarkable except as noted in Subjective Physical Exam Physical Exam: GENERAL: Alert and oriented x3. NAD, on RA. Morbidly obese. HEENT: No pallor, no icterus .EOMI. Pupils equ al, round and reac tive to light. Or al mucosa moist. N MARION: No JVD, no n marion masses. HEART: S1 and S2 heard. Regular rate and rhythm. No murmu r, no gallop. RESP IRATORY SYSTEM: N ormal AP diameter. No accessory mus chelsy use. No wheez ing, no crackles. Decreased breath sound at bases ABD OMEN: Soft, obese , bowel sounds pre sent, Entire Abdom en covered with Ab dominal brace, S/p surgery CENTRAL N ERVOUS SYSTEM: No facial droop. Ob eys simple command s. Moves extremit ies. EXTREMITIES: No edema, no eryt sherine seen. LLE wi th chronic skin ch anges, RLE with ch ronic superficial wound, approximate ly 10 x 10 cm, ten petra, no surroundin g erythema. Results & Data Results & Data ([facility]) Vital Signs (Past 12 Hours) Vital Signs Temp Pulse Resp BP Pulse Ox 04/05/22 08:24 36.9 C 74 20 146/90 H 94 04/04/22 22:11 36.3 C L 64 16 125/75 95 Laboratory Results 04/05/22 04/05/22 04/04/22 Range/Units 07:13 07:13 08:31 WBC 6.37 (4.8-10.8) K/uL RBC 5.23 (4.7-6.1) M/uL Hgb 11.9 L (14.0-18.0) g/dL Hct 40.5 L (42-52) % MCV 77.4 L (80-100) fL MCH 22.8 L (25-34) pg MCHC 29.4 L (32-36) g/dL RDW Std Deviation 45.1 (36.4-46.3) fL RDW Coeff of Raul 15.9 H (11.5-14.5) % Plt Count 132 (130-400) K/uL MPV 11.4 H (7.4-10.4) fL Sodium 140 (136-145) mmol/L Potassium 3.6 (3.5-5.1) mmol/L Chloride 104 (98-107) mmol/L Carbon Dioxide 29 (21-32) mmol/L Anion Gap 7 (3-11) BUN 7 (6-23) mg/dl Creatinine 0.76 (0.6-1.4) mg/dl Est Cr Clr Drug Dosing 199.5 ml/min Est GFR ( Amer) 136.0 ml/min Est GFR (Non-Af Amer) 117.4 ml/min BUN/Creatinine Ratio 9.2 L (10-20) Glucose 103 H (70-99(Fasting)) mg/dl Lactate 0.6 (0.4-2.0) mmol/L Calcium 8.8 (8.5-10.1) mg/dl Phosphorus 4.3 (2.5-4.9) mg/dl Magnesium 2.0 (1.7-2.4) mg/dl Total Bilirubin 0.5 (0.2-1.0) mg/dl AST 23 (13-39) U/L ALT 17 (7-52) U/L Alkaline Phosphatase 77 (34-104) U/L Total Protein 7.1 (6.0-8.3) gm/dl Albumin 4.0 (3.4-5.0) gm/dl Globulin 3.1 (2.5-4.0) gm/dl Albumin/Globulin Ratio 1.3 (0.9-2) 04/04/22 04/04/22 Range/Units 08:31 08:31 WBC 6.67 (4.8-10.8) K/uL RBC 5.42 (4.7-6.1) M/uL Hgb 12.4 L (14.0-18.0) g/dL Hct 41.9 L (42-52) % MCV 77.3 L (80-100) fL MCH 22.9 L (25-34) pg MCHC (32-36) g/dL RDW Std Deviation 45.1 (36.4-46.3) fL RDW Coeff of Raul 16.0 H (11.5-14.5) % Plt Count 130 (130-400) K/uL MPV 10.8 H (7.4-10.4) fL Sodium 140 (136-145) mmol/L Potassium 3.8 (3.5-5.1) mmol/L Chloride 105 (98-107) mmol/L Carbon Dioxide 28 (21-32) mmol/L Anion Gap 7 (3-11) BUN 7 (6-23) mg/dl Creatinine 0.69 (0.6-1.4) mg/dl Est Cr Clr Drug Dosing 219.8 ml/min Est GFR ( Amer) 141.6 ml/min Est GFR (Non-Af Amer) 122.1 ml/min BUN/Creatinine Ratio 10.1 (10-20) Glucose 100 H (70-99(Fasting)) mg/dl Lactate (0.4-2.0) mmol/L Calcium 8.8 (8.5-10.1) mg/dl Phosphorus 4.0 (2.5-4.9) mg/dl Magnesium 2.1 (1.7-2.4) mg/dl Total Bilirubin 0.5 (0.2-1.0) mg/dl AST 30 (13-39) U/L ALT 19 (7-52) U/L Alkaline Phosphatase 78 (34-104) U/L Total Protein 7.4 (6.0-8.3) gm/dl Albumin 4.2 (3.4-5.0) gm/dl Globulin 3.2 (2.5-4.0) gm/dl Albumin/Globulin Ratio 1.3 (0.9-2) Medications Administered Current Inpatient Medications Acetaminophen (Acetaminophen 325 Mg Tab) 650 mg PO Q4H PRN PRN Reason: Pain or Fever Stop: 04/29/22 17:06 Last Admin: 04/04/22 05:37 Dose: 650 mg Documented by: Acetaminophen/Codeine Phosphate (Acetaminophen W/Codeine #3 1 Tab) 2 tab PO TID PRN PRN Reason: Pain Stop: 04/30/22 19:59 Last Admin: 04/04/22 20:45 Dose: 2 tab Documented by: Al Hydrox/Mg Hydrox/Simethicone (Aluminum/Magnesium Susp 30 Ml Udc) 15 ml PO Q4H PRN PRN Reason: Dyspepsia Stop: 04/29/22 17:06 Albuterol (Albuterol Hfa 8 Gm Inhaler) 2 puffs INH QID PRN PRN Reason: Shortness Of Breath Or Wheezing Stop: 04/29/22 20:24 Bisacodyl (Bisacodyl 10 Mg Supp) 10 mg NC QAM [facility] Stop: 05/01/22 08:59 Last Admin: 04/05/22 07:48 Dose: Not Given Documented by: Cyanocobalamin (Cyanocobalamin (B-12) 500 Mcg Tablet) 1,000 mcg PO DAILY [facility] Stop: 04/30/22 08:59 Last Admin: 04/05/22 07:02 Dose: Not Given Documented by: Cyclobenzaprine HCl (Cyclobenzaprine Hcl 10 Mg Tab) 10 mg PO TID [facility] Stop: 04/29/22 20:59 Last Admin: 04/05/22 07:02 Dose: Not Given Documented by: Diphenhydramine HCl (Diphenhydramine Capsule 25 Mg Cap) 25 mg PO Q4H PRN PRN Reason: Rash Stop: 05/02/22 17:29 Last Admin: 04/03/22 10:33 Dose: 25 mg Documented by: Enoxaparin Sodium (Enoxaparin Inj 40 Mg/0.4 Ml Syr) 40 mg SQ Q12H [facility] Stop: 04/29/22 18:59 Last Admin: 04/04/22 18:13 Dose: 40 mg Documented by: Gabapentin (Gabapentin 400 Mg Cap) 800 mg PO TID [facility] Stop: 04/29/22 20:59 Last Admin: 04/05/22 07:02 Dose: Not Given Documented by: Daptomycin 625 mg/ Syringe 12.5 mls @ 6.25 mls/min IV Q24H [facility]; Protocol Stop: 04/07/22 17:59 Last Admin: 04/04/22 18:12 Dose: 6.25 mls/min Documented by: Piperacillin Sod/Tazobactam (Sod 4.5 gm/ Dextrose) 120 mls @ 30 mls/hr IV Q8H [facility]; Protocol Stop: 04/06/22 20:59 Last Infusion: 04/05/22 05:13 Dose: Infused Documented by: Cefazolin Sodium (Ancef 2000mg) 2,000 mg in 15 mls @ 3.75 mls/min IV PREOP [facility] Stop: 04/05/22 12:00 Ibuprofen (Ibuprofen 600 Mg Tab) 600 mg PO Q8H PRN PRN Reason: moderate pain Stop: 04/29/22 20:24 Last Admin: 04/03/22 21:57 Dose: 600 mg Documented by: Lactulose (Lactulose Syrup 30 Gm/45 Ml Udp) 30 gm PO DAILY PRN PRN Reason: daily Stop: 05/01/22 08:59 Levothyroxine Sodium (Levothyroxine Sodium 25 Mcg Tablet) 25 mcg PO DAILYBB [facility] Stop: 04/30/22 06:29 Last Admin: 04/05/22 05:13 Dose: Not Given Documented by: Lisinopril (Lisinopril 10 Mg Tab) 10 mg PO DAILY [facility] Stop: 04/30/22 08:59 Last Admin: 04/05/22 07:02 Dose: Not Given Documented by: Magnesium Hydroxide (Magnesium Hydroxide Susp 30 Ml Udc) 30 ml PO Q12H PRN PRN Reason: Constipation Stop: 04/29/22 17:06 Last Admin: 04/02/22 18:22 Dose: 30 ml Documented by: Pantoprazole Sodium (Pantoprazole 40 Mg Tab) 40 mg PO DAILY [facility] Stop: 04/30/22 08:59 Last Admin: 04/05/22 07:02 Dose: Not Given Documented by: Polyethylene Glycol (Polyethylene (Miralax) 17 Gm Pack) 17 gm PO BID [facility] Stop: 05/01/22 08:59 Last Admin: 04/05/22 07:02 Dose: Not Given Documented by: Sennosides (Senna 8.6 Mg Tab) 8.6 mg PO QAM [facility] Stop: 04/30/22 12:44 Last Admin: 04/05/22 07:02 Dose: Not Given Documented by:
[2022-04-05] MEDS ORDERED: fentaNYL citrate 100 MCG/2 ML VIAL ONE (09:08)
[2022-04-05] MEDS ORDERED: HYDROmorphone INJ 2 MG/ML SYR/VIAL ONE (09:53)
[2022-04-05] MEDS ORDERED: ePHEDrine sulfate 50 MG/ML AMP ONE (10:00)
[2022-04-05] MEDS ORDERED: ROCURONIUM BROMIDE 10 MG/ML 5 ML VIAL IV ONE (10:39)
[2022-04-05] MEDS ORDERED: DEXAMETHASONE SOD INJ 4 MG/ML VIAL ONE (10:39)
[2022-04-05] MEDS ORDERED: NEOSTIGMINE METHYLSULFATE 1 MG/ML 10ML VIAL ONE (10:39)
[2022-04-05] MEDS ORDERED: SUCCINYLCHOLINE CHLORIDE 20 MG/ML 10 ML VIAL IV ONE (10:39)
[2022-04-05] MEDS ORDERED: ONDANSETRON INJ 2 MG/ML 2 ML VIAL ONE (10:39)
[2022-04-05] MEDS ORDERED: LIDOCAINE 2% 2 ML VIAL/AMP(20MG/ML) INFIL ONE (10:39)
[2022-04-05] MEDS ORDERED: GLYCOPYRROLATE 0.2 MG/ML VIAL ONE (10:39)
[2022-04-05] MEDS ORDERED: ePHEDrine sulfate 50 MG/ML SYR ONE ×2 (10:39→11:08)
[2022-04-05] MEDS ORDERED: PROPOFOL IV EMULSION 10 MG/ML 20 ML VIAL IV ONE (10:39)
--- NOTE | 2022-04-05 11:59 | Post Operative Brief Note ---
Immediate Post Op Note v1 Date of Surgery April 05, 2022 Pre & Post Diagnosis Operation Date: 04/05/22 08:25 Pre-Op Diagnosis: Abdominal pain, cholelithiasis, ventral hernia Post-Op Diagnosis: Abdominal pain, chronic cholecystitis, cholelithiasis, 2 ventral hernia, I identified the patient and participated in the time-out.: Yes Procedure Operation Date: 04/05/22 08:25 Actual Procedures p Laparoscopic Cholecystectomy(Not Applicable) - Donna Pollard MD s Open Ventral Hernia Repair with Mesh(Not Applicable) - Donna Pollard MD primary repair ventral hernia, Surgeon Donna Pollard MD Test Technician FIGUEROA Mera Estimated Blood Loss 10 Findings Consistent with Post-Op Diagnosis chronic cholecystitis, cholelithiasis, 2 ventral hernias, one ventral hernia, size about 1x1cm, other ventral hernia, size about 2x2cm, Fluids 1000ml Specimens gallbladder Anesthesia Type General Complications none Disposition Accompanied Patient To Recovery: Yes
--- NOTE | 2022-04-05 12:21 | Anesthesiology Progress Note ---
Date of Service April 05, 2022 Anesthesia Post Procedure Vital Signs Vital Signs: Temp Pulse Resp BP Pulse Ox 04/05/22 08:24 36.9 C 74 20 146/90 H 94 04/04/22 22:11 36.3 C L 64 16 125/75 95 04/04/22 16:02 36.8 C 76 18 130/88 93 Pain Intensity Abdomen: Pain Intensity: 6 Right Ankle: Pain Intensity: 5 Right Lower Leg: Pain Intensity: 2 Transfer of Care Handoff Completed per policy Notes Mental Status: alert / awake / arousable Patient Amnestic to Procedure: Yes Nausea / Vomiting: adequately controlled Pain: adequately controlled Airway Patency, RR, SpO2: stable & adequate BP & HR: stable & adequate Hydration State: stable & adequate Anesthetic Complications: no major complications apparent
[2022-04-05] MEDS ORDERED: HYDROmorphone INJ 1 MG/ML SYRINGE ONE (12:40)
[2022-04-05] MEDS ORDERED: HYDROmorphone INJ 0.5 MG/0.5 ML SYR IV PRN (12:49)
[2022-04-05] MEDS ORDERED: PROMETHAZINE HCL 12.5 MG in SODIUM CHLORIDE 0.9% 50 ML IV STA (12:56)
[2022-04-05] MEDS ORDERED: PROMETHAZINE HCL INJ 25 MG/ML 1 ML VIAL ONE (12:57)
[2022-04-05] MEDS ORDERED: SODIUM CHLORIDE 0.9% 50 ML BAG ONE (12:59)
--- NOTE | 2022-04-05 13:11 | Anesthesiology Progress Note ---
Date of Service April 05, 2022 Anesthesia Post Procedure Vital Signs Vital Signs: Temp Pulse Pulse Resp BP Pulse Ox 04/05/22 13:05 87 13 117/93 97 04/05/22 12:55 83 14 116/85 97 04/05/22 12:45 80 14 117/89 97 04/05/22 12:35 78 17 112/67 96 04/05/22 12:25 79 19 119/68 90 04/05/22 12:15 89 20 89/70 L 98 04/05/22 12:09 36.0 C L 93 H 21 113/58 L 99 04/05/22 08:24 36.9 C 74 20 146/90 H 94 04/04/22 22:11 36.3 C L 64 16 125/75 95 04/04/22 16:02 36.8 C 76 18 130/88 93 Pain Intensity Abdomen: Pain Intensity: 7 Right Ankle: Pain Intensity: 5 Right Lower Leg: Pain Intensity: 2 Transfer of Care Handoff Completed per policy Notes Mental Status: alert / awake / arousable and participated in evaluation Patient Amnestic to Procedure: Yes Nausea / Vomiting: adequately controlled Pain: adequately controlled Airway Patency, RR, SpO2: stable & adequate BP & HR: stable & adequate Hydration State: stable & adequate Anesthetic Complications: no major complications apparent and Pt Satisfied with anesthetic care
[2022-04-05] MEDS ORDERED: ACETAMINOPHEN 500 MG TAB PO PRN (13:32)
[2022-04-05] MEDS ORDERED: CLINDAMYCIN HCL 150 MG CAP PO SCH (13:32)
[2022-04-05] MEDS ORDERED: clonazePAM 0.5 MG TAB PO SCH (14:00)
[2022-04-05] MEDS: ACETAMINOPHEN W/CODEINE #3 1 TAB PO PRN (14:53)
--- NOTE | 2022-04-05 15:49 | Operative Report (OR) ---
DATE OF PROCEDURE: 04/05/2022. PREOPERATIVE DIAGNOSES: Chronic cholecystitis, cholelithiasis, 2 ventral hernias. POSTOPERATIVE DIAGNOSES: Chronic cholecystitis, cholelithiasis, 2 ventral hernias. PROCEDURE: Laparoscopic cholecystectomy, open repair of ventral hernia with mesh, primary repair of ventral hernia. SURGEON: Donna Pollard MD. A AND P MECHANIC: Maribel Leggett PA-C. ANESTHESIA: General. ESTIMATED BLOOD LOSS: About 10 mL. FINDINGS: Chronic cholecystitis, cholelithiasis and 2 ventral hernias - one small ventral hernia siz e about 1 x 1 cm, another ventral hernia size about 2 x 2 cm. COMPLICATIONS: None. INDICATIONS FOR THE PROCEDURE: This is a 36-year-old gentleman who was admitted to the hospital for abdominal pain and the patient had a CT scan and ultrasound diagnosis of gallstone with 2 small ventr al hernias around the umbilical area. I recommended to do laparoscopic cholecystectomy, possible ope n, possible cholangiogram and open repair of ventral hernia with possible mesh. I did talk to the starr morfin about the benefit, risk, alternate procedure. I indicated the risks may include, but not limit ed to, such as bleeding, infection, injury to other organs, injury to bowel, injury to common bile du ct, hernia recurrence, incisional hernia, seroma, complication related to mesh, bowel obstruction. T he patient understands. He signed informed consent and I answered all questions. DETAILS OF PROCEDURE: After we identified the patient and verified the procedure, we brought the pat ient to the OR, put the patient in the supine position on the OR table. The patient received SCD on bilateral legs to prevent DVT. Also, the patient received 3.375 grams of Zosyn IV for prophylactic a ntibiotic. The patient received general anesthesia without difficulty. The abdomen was prepped and draped in a routine sterile fashion. After timeout, I injected the local anesthesia by using 1% lido harsha mixed with 0.5% Marcaine on the right side of the abdomen. The patient had a midline incision just above the umbilicus, and the patient had ventral hernia and umbilical hernia repair a couple ago . We made a skin incision on the right side of the abdomen, about 1.5 cm incision and dissected the sub cutaneous layer, reached the fascial layer, opened the fascial layer and opened peritoneum. However, once we put a Reid trocar in and tried to create pneumoperitoneum, we could not. We saw some scar tissue around the right side of abdomen. At this moment, I decided to make a small incision just abo ve the old incision on the midline. Then, we dissected the subcutaneous layer, reached the external oblique, opened the external oblique, opened peritoneum. Under direct vision, put a Reid trocar in , connected to CO2 to create pneumoperitoneum, flow rate at 6 liters per minute, pressure not more th an 14 mmHg. Once we got a nice pneumoperitoneum, we put a camera in, looked around the abdomen. It shows the live r with possible early cirrhosis and the gallbladder shows chronic cholecystitis with gallbladder wall thickening. Also, we looked down at the peritoneum area and the umbilical area. There was one smal l hernia just above the mesh and another small ventral hernia on the right side of the abdomen near t he mesh. There was fat content in the hernia. At this moment, we put another three 5 mm trocars in t he right upper quadrant. Once all trocars in, we used the grasper to hold the base of gallbladder, p ut in the direction to the diaphragm, another grasper to hold the pouch of gallbladder, put a lateral to explore the triangle of Calot. The cystic duct was identified and mobilized. I put two 5 mm metal clips on the proximal cystic duct , one on the distal cystic duct, then used a scissor for transection of cystic duct. Then the cystic artery was identified and mobilized. I put two 5 mm metal clips on the proximal cystic artery, one o n the distal cystic artery, then used a scissor for transection of cystic artery. Rechecked, no activ e bleeding. Then, we used the Bovie to take down gallbladder from liver bed. Then, we removed gallb ladder through the catch bag. Then, we reinserted the Reid trocar in, connected to CO2 to create pneumoperitoneum, again looked a round the liver side, no active bleeding, no bile leak. Then, we removed all trocars under direct vi mervat. No active bleeding from the trocar site. Pneumoperitoneum was released. Then, we closed the three 5 mm trocar site of skin only by using 4-0 Vicryl and closed the right-sided abdominal incision fascial layer by using 0 Vicryl [id number] x2, closed subcutaneous layer by using 2-0 Vicryl in terruptedly, closed skin by using staple. From the midline incision, we extended to near the umbilicus, removed the old scar, used the old inci mervat. Dissected the subcutaneous layer. Then, we found the patient had one small ventral hernia jus t above the mesh. The ventral hernia size about 1 x 1 cm. We mobilized the hernia sac back to the a bdominal cavity. Then, I chose 0 Ethibond suture, closed the hernia interruptedly. The hernia close d with no tension. Then, we found the patient had another ventral hernia on the right side of the ab domen near the right-sided mesh and the hernia size about 2 x 2 cm. After we mobilized the hernia sa c back to the abdominal cavity, I chose a 4.3 cm circular mesh to repair the hernia using #1 Ethibond suture and sutured the fascia to the mesh interruptedly at 360 degrees, then we tied each suture one by one. The mesh seated nicely, no tension. Hemostasis obtained. Then, I closed the subcutaneous l himanshu by using 2-0 Vicryl interruptedly. During the procedure, we did not see any fluid collection geremias und the mesh. The old mesh seated nicely. Once we closed the subcutaneous layer by using 2-0 Vicryl , then we used luann to close the skin. Then, we put the dressing on. The patient tolerated the procedure well. All instrument, needle and sponge counts were correct x2 a t the end of the case. The patient was transferred to the recovery room in stable condition. The howard dey was sent to pathology. After the procedure, I did talk to the patient about the OR finding an d the procedure we did, patient understands. Job ID: [id number]
[2022-04-05] MEDS: LACTATED RINGER'S 1,000 ML IV SCH (17:36)
[2022-04-05] MEDS: DAPTOmycin 625 MG in SYRINGE 0 ML IV SCH (17:36)
[2022-04-05] MEDS ORDERED: MoRPHine SULFATE 2 MG/ML CARP IV STA (17:52)
[2022-04-05] MEDS: MoRPHine SULFATE 4 MG/ML 1 ML CARP\\VIAL IV PRN (20:28)
[2022-04-05] MEDS ORDERED: clonazePAM 1 MG TAB PO SCH (21:00)
[2022-04-06] MEDS: MoRPHine SULFATE 4 MG/ML 1 ML CARP\\VIAL IV PRN ×4 (00:54→22:01)
[2022-04-06] MEDS: PIPERACILLIN/TAZOBACTAM 4.5 GM in DEXTROSE 5% 100 ML IV SCH ×3 (01:32→17:50)
[2022-04-06] MEDS: LACTATED RINGER'S 1,000 ML IV SCH (04:55)
[2022-04-06] MEDS: LEVOTHYROXINE SODIUM 25 MCG TABLET PO SCH (04:56)
[2022-04-06] MEDS: ENOXAPARIN INJ 30 MG/0.3 ML SYR SQ SCH ×2 (07:39→20:38)
[2022-04-06] MEDS: PANTOprazole 40 MG TAB PO SCH (07:40)
[2022-04-06] MEDS: GABAPENTIN 400 MG CAP PO SCH ×3 (07:40→20:39)
[2022-04-06] MEDS: lisinopril 10 MG TAB PO SCH (07:40)
[2022-04-06] MEDS: SENNA 8.6 MG TAB PO SCH (07:41)
[2022-04-06] MEDS: CYCLOBENZAPRINE HCL 10 MG TAB PO SCH ×3 (07:41→20:39)
[2022-04-06] MEDS: CYANOCOBALAMIN (B-12) 500 MCG TABLET PO SCH (07:41)
[2022-04-06] MEDS: POLYETHYLENE (MIRALAX) 17 GM PACK PO SCH ×2 (07:41→20:39)
[2022-04-06] MEDS: bisacodyL 10 MG SUPP PR SCH (07:41)
[2022-04-06 07:45] LABS: Eosinophils # (auto) 0.05 K/uL (0-0.5); Eosinophils % (auto) 0.5 %; Hematocrit (blood only) 40.1 % (42-52); Hemoglobin 11.7 g/dL (14.0-18.0); Immature Granulocytes # (auto) 0.02 K/uL (0.00-0.02); Immature Granulocytes % (auto) 0.2 %; Lymphocytes # (auto) 1.88 K/uL (1.2-3.4); Lymphocytes % (auto) 20.4 %; Mean Corpuscular Hemoglobin 22.7 pg (25-34); Mean Corpuscular Hgb Conc 29.2 g/dL (32-36); Mean Corpuscular Volume 77.7 fL (80-100); Mean Platelet Volume 10.8 fL (7.4-10.4); Monocytes # (auto) 0.86 K/uL (0.11-0.59); Monocytes % (auto) 9.3 %; Neutrophils # (auto) 6.41 K/uL (1.4-6.5); Neutrophils % (auto) 69.6 %; Platelet Count 127 K/uL (130-400); RDW Coefficient of Variation 16.1 % (11.5-14.5); RDW Standard Deviation 45.8 fL (36.4-46.3); Red Blood Count 5.16 M/uL (4.7-6.1); White Blood Count 9.22 K/uL (4.8-10.8)
[2022-04-06 08:20] LABS: Albumin Globulin Ratio 1.3 (0.9-2); Albumin Level 3.8 gm/dl (3.4-5.0); BUN Creatinine Ratio 6.9 (10-20); Bilirubin,Total 0.6 mg/dl (0.2-1.0); Calcium 8.5 mg/dl (8.5-10.1); Creatinine Clr Calc Pharmacy 210.6 ml/min; Est GFR (African American) 139.1 ml/min; Magnesium 1.9 mg/dl (1.7-2.4); Phosphorus 3.7 mg/dl (2.5-4.9); Potassium 3.6 mmol/L (3.5-5.1); Total Protein 6.8 gm/dl (6.0-8.3)
[2022-04-06] MEDS: ACETAMINOPHEN W/CODEINE #3 1 TAB PO PRN ×2 (09:51→15:04)
--- NOTE | 2022-04-06 12:06 | Surgery Progress Note ---
Date of Service April 06, 2022 Assessment & Plan (1) Abdominal pain: Plan: POD # 1 s/p lap dung, open incisional hernia repair x 2 (1 with mesh) -afebrile, vss - moderate postop pain at midline incision - no n,v, hungry Plan: Advance to reg diet continue pain management continue binder continue medical management Dr. jha examined pt, agrees with above. Admission and Anticipated Discharge Date Admission Date: March 31, 2022 Subjective hungry, wants regular food no n,v pain moderate at incision site Physical Exam Constitutional: WD/WN, vitals as above no acute distress Respiratory: normal respiratory effort; no respiratory distress and no labored breathing Gastrointestinal (Abdomen): Inspection/Auscultation: abdomen normal to inspection and + abdominal surgical incision (covered with dry dressing ); abdomen not distended Percussion/Palpation: + abdomen tender (at midline incision site) and abdomen soft; no guarding and abdomen not rigid Psychiatric: Orientation: alert and oriented x 3 Results & Data ([facility]) Vital Signs (Past 12 Hours) Vital Signs Temp Pulse Pulse Resp BP Pulse Ox 04/06/22 07:08 37.1 C 83 16 129/79 98 04/06/22 03:43 37.1 C 73 16 114/70 97 Laboratory Results 04/06/22 04/06/22 Range/Units 07:34 07:34 WBC 9.22 (4.8-10.8) K/uL RBC 5.16 (4.7-6.1) M/uL Hgb 11.7 L (14.0-18.0) g/dL Hct 40.1 L (42-52) % MCV 77.7 L (80-100) fL MCH 22.7 L (25-34) pg MCHC 29.2 L (32-36) g/dL RDW Std Deviation 45.8 (36.4-46.3) fL RDW Coeff of Raul 16.1 H (11.5-14.5) % Plt Count 127 L (130-400) K/uL MPV 10.8 H (7.4-10.4) fL Immature Gran % (Auto) 0.2 % Neut % (Auto) 69.6 % Lymph % (Auto) 20.4 % [place] % (Auto) 9.3 % Eos % (Auto) 0.5 % Baso % (Auto) 0.0 % Neut # (Auto) 6.41 (1.4-6.5) K/uL Lymph # (Auto) 1.88 (1.2-3.4) K/uL [place] # (Auto) 0.86 H (0.11-0.59) K/uL Eos # (Auto) 0.05 (0-0.5) K/uL Baso # (Auto) 0.00 (0-0.2) K/uL Immature Gran # (Auto) 0.02 (0.00-0.02) K/uL Sodium 141 (136-145) mmol/L Potassium 3.6 (3.5-5.1) mmol/L Chloride 105 (98-107) mmol/L Carbon Dioxide 30 (21-32) mmol/L Anion Gap 6 (3-11) BUN 5 L (6-23) mg/dl Creatinine 0.72 (0.6-1.4) mg/dl Est Cr Clr Drug Dosing 210.6 ml/min Est GFR ( Amer) 139.1 ml/min Est GFR (Non-Af Amer) 120.0 ml/min BUN/Creatinine Ratio 6.9 L (10-20) Glucose 96 (70-99(Fasting)) mg/dl Calcium 8.5 (8.5-10.1) mg/dl Phosphorus 3.7 (2.5-4.9) mg/dl Magnesium 1.9 (1.7-2.4) mg/dl Total Bilirubin 0.6 (0.2-1.0) mg/dl AST 22 (13-39) U/L ALT 16 (7-52) U/L Alkaline Phosphatase 73 (34-104) U/L Total Protein 6.8 (6.0-8.3) gm/dl Albumin 3.8 (3.4-5.0) gm/dl Globulin 3.0 (2.5-4.0) gm/dl Albumin/Globulin Ratio 1.3 (0.9-2) (1) Abdominal pain Abdominal location: generalized Qualified Code(s): R10.84 - Generalized abdominal pain
--- NOTE | 2022-04-06 19:09 | Hospitalist Progress Note ---
Date of Service April 06, 2022 Assessment & Plan (1) History of umbilical hernia repair: Plan: Abdominal pain History of umbilical hernia repair Patient had prior hernia repair, comes in with chronic abdominal pain worsening since last 2 to 3 weeks and not able to eat, has not moved bowel since last 2 to 3 weeks per patient. Admitting WBC WNL, admitting lactate WNL, admitting Pro-Mark negative, admitting lipase minimally elevated. Admitting CTAP reviewed, no bowel obstruction or bowel wall thickening, s/p umbilical hernia repair with trace fluid and stranding noted superficial to the hernia mesh. Small periumbilical hernia noted adjacent to mesh. Hepatic steatosis. Surgery informed- initially no surgical intervention recommended as non surgical abdomen- diet resumed, Pain control, IV fluids. Hospital course 04/03 -patient had small breakfast in the morning, and small BM. He has chronic abdominal pain, that was managed with Tylenol with codeine. After lunch, pt developed acute exacerbation of abd. pain, per patient excruciating pain, patient became diaphoretic, RN contacted physician. Immediately evaluated at bedside, surgery informed and CT obtained 04/04- CT abd/pelvis- 1. There are no acute infectious or inflammatory findings in the abdomen or pelvis. No significant change from 03/30/2022. 2. Hepatomegaly and hepatic steatosis. 3. Splenomegaly. 4. Punctate nonobstructing left renal calculus. 5. Trace fluid and stranding are again seen superficial to the ventral hernia mesh. 04/04 US liver- 1. Cholelithiasis with no definite ultrasound evidence for acute cholecystitis. There was a negative sonographic Radford sign reported. However, the patient was medicated. 04/04- Seen by GI and Gen. surgery- Dr Pollard. Recommended laparoscopic cholec ystectomy, possible open or cholangiogram, and open repair ventral hernia, possible mesh 04/05 - Patient underwent above-mentioned procedure, cholecystectomy for cholelithiasis, chronic cholecystitis. Also underwent ventral hernia repair. Tolerated procedure well. 04/06- doing well post op- no issues RLE Cellulitis Patient was receiving cefdinir and clindamycin as an outpatient for his RLE cellulitis, previously on IV antibiotic, 03/18 wound culture polymicrobial Patient reporting pain at his ulcer site, CT scan 03/30 of RLE showed cellulitis without osteomyelitis. wound clx showing CONS on IV ABx since admission currently on zosyn Seen by ID- recommended antibiotic discontinuation and local wound care Prior history: 03/13/22 [place] wound care OP chart review: Patient's visit was for evaluation of chronic right leg wound secondary to venous stasis, per chart review, patient had undergone several surgical intervention with wound graft application over the past 8 years, he had been seen at wound care clinics at both [place] and [place], was discharged on oral Keflex 500mg 4 times daily at the time, also received debridement of right leg wound after application of lidocaine, was asked for follow-up in 1 week for dressing change and evaluation. Pt has h/o noncompliance w/ f/u with wound clinic and also medicine non compliance. Started cefepime and dapto on admission, per culture and sensitivity on 03/18, will cont. blood culture and wound culture obtained Wound culture positive for coag negative Staphylococcus Blood culture, so far negative Mild fever at presentation. WBC wnl, pulse elevated, RR wnl; doesn't meet sepsis criteria. patient may need IV antibiotics on discharge Wound care nurse consulted, reviewed wound together at the bedside Arterial Doppler obtained, No hemodynamically significant stenosis. Patient developed rash, upper chest, upper back, upper arms, likely drug related. Switch cefepime to Zosyn. 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 Iron deficiency anemia- will check iron studies and supplement if deficient DVT prophylaxis: Enoxaparin Full code Admission and Anticipated Discharge Date Admission Date: March 31, 2022 Subjective Feels better after the surgery. Pain is controlled. Tolerating diet well, no N/V. Had couple loose BM. No other issues. Officer at bedside Physical Exam Physical Exam: General: Lying comfortably in bed, not in distress, on room air HEENT: EOMI, KIARRA, MMM Chest: Clear breath sounds bilaterally, no wheezes or crackles CVS: Regular rate and rhythm, normal heart sounds, no murmur Abdomen: Soft, non tender, incision clean dry intact, abdominal binder +, bowel sounds present Neuro: Awake, alert, oriented, conversing well, non focal Extremities: RLE wound covered with dressing, LLE cuffed Results & Data Results & Data ([facility]) Vital Signs (Past 12 Hours) Vital Signs Temp Pulse Resp BP Pulse Ox 04/06/22 07:08 37.1 C 83 16 129/79 98 Laboratory Results Short CBC 04/06/22 Range/Units 07:34 WBC 9.22 (4.8-10.8) K/uL Hgb 11.7 L (14.0-18.0) g/dL Hct 40.1 L (42-52) % Plt Count 127 L (130-400) K/uL BMP 04/06/22 07:34 Sodium 141 Potassium 3.6 Chloride 105 Carbon Dioxide 30 BUN 5 L Creatinine 0.72 Glucose 96 Calcium 8.5 Liver Function 04/06/22 Range/Units 07:34 Total Bilirubin 0.6 (0.2-1.0) mg/dl AST 22 (13-39) U/L ALT 16 (7-52) U/L Alkaline Phosphatase 73 (34-104) U/L Albumin 3.8 (3.4-5.0) gm/dl Medications Administered Current Inpatient Medications Acetaminophen (Acetaminophen 325 Mg Tab) 650 mg PO Q4H PRN PRN Reason: Pain or Fever Stop: 04/29/22 17:06 Last Admin: 04/04/22 05:37 Dose: 650 mg Documented by: Acetaminophen/Codeine Phosphate (Acetaminophen W/Codeine #3 1 Tab) 2 tab PO TID PRN PRN Reason: Pain Stop: 04/30/22 19:59 Last Admin: 04/06/22 15:04 Dose: 2 tab Documented by: Al Hydrox/Mg Hydrox/Simethicone (Aluminum/Magnesium Susp 30 Ml Udc) 15 ml PO Q4H PRN PRN Reason: Dyspepsia Stop: 04/29/22 17:06 Albuterol (Albuterol Hfa 8 Gm Inhaler) 2 puffs INH QID PRN PRN Reason: Shortness Of Breath Or Wheezing Stop: 04/29/22 20:24 Bisacodyl (Bisacodyl 10 Mg Supp) 10 mg SC QAM KERWIN Stop: 05/01/22 08:59 Last Admin: 04/06/22 07:41 Dose: Not Given Documented by: Cyanocobalamin (Cyanocobalamin (B-12) 500 Mcg Tablet) 1,000 mcg PO DAILY COUNT INCLUDES THE [facility] Stop: 04/30/22 08:59 Last Admin: 04/06/22 07:41 Dose: 1,000 mcg Documented by: Cyclobenzaprine HCl (Cyclobenzaprine Hcl 10 Mg Tab) 10 mg PO TID COUNT INCLUDES THE [facility] Stop: 04/29/22 20:59 Last Admin: 04/06/22 15:05 Dose: 10 mg Documented by: Diphenhydramine HCl (Diphenhydramine Capsule 25 Mg Cap) 25 mg PO Q4H PRN PRN Reason: Rash Stop: 05/02/22 17:29 Last Admin: 04/03/22 10:33 Dose: 25 mg Documented by: Enoxaparin Sodium (Enoxaparin Inj 30 Mg/0.3 Ml Syr) 30 mg SQ Q12H COUNT INCLUDES THE [facility] Stop: 05/06/22 07:59 Last Admin: 04/06/22 07:39 Dose: 30 mg Documented by: Gabapentin (Gabapentin 400 Mg Cap) 800 mg PO TID COUNT INCLUDES THE [facility] Stop: 04/29/22 20:59 Last Admin: 04/06/22 15:04 Dose: 800 mg Documented by: Piperacillin Sod/Tazobactam (Sod 4.5 gm/ Dextrose) 120 mls @ 30 mls/hr IV Q8H COUNT INCLUDES THE [facility]; Protocol Stop: 04/07/22 09:59 Last Admin: 04/06/22 17:50 Dose: 30 mls/hr Documented by: Ibuprofen (Ibuprofen 600 Mg Tab) 600 mg PO Q8H PRN PRN Reason: moderate pain Stop: 04/29/22 20:24 Last Admin: 04/03/22 21:57 Dose: 600 mg Documented by: Lactulose (Lactulose Syrup 30 Gm/45 Ml Udp) 30 gm PO DAILY PRN PRN Reason: daily Stop: 05/01/22 08:59 Levothyroxine Sodium (Levothyroxine Sodium 25 Mcg Tablet) [facility] Stop: 04/30/22 06:29 Last Admin: 04/06/22 04:56 Dose: 25 mcg Documented by: Lisinopril (Lisinopril 10 Mg Tab) 10 mg PO DAILY COUNT INCLUDES THE [facility] Stop: 04/30/22 08:59 Last Admin: 04/06/22 07:40 Dose: 10 mg Documented by: Magnesium Hydroxide (Magnesium Hydroxide Susp 30 Ml Udc) 30 ml PO Q12H PRN PRN Reason: Constipation Stop: 04/29/22 17:06 Last Admin: 04/02/22 18:22 Dose: 30 ml Documented by: Morphine Sulfate (Morphine Sulfate 4 Mg/Ml 1 Ml Carp\Vial) 3 mg IV Q4H PRN PRN Reason: Pain Stop: 04/19/22 20:12 Last Admin: 04/06/22 17:50 Dose: 3 mg Documented by: Pantoprazole Sodium (Pantoprazole 40 Mg Tab) 40 mg PO DAILY COUNT INCLUDES THE [facility] Stop: 04/30/22 08:59 Last Admin: 04/06/22 07:40 Dose: 40 mg Documented by: Polyethylene Glycol (Polyethylene (Miralax) 17 Gm Pack) 17 gm PO BID COUNT INCLUDES THE [facility] Stop: 05/01/22 08:59 Last Admin: 04/06/22 07:41 Dose: Not Given Documented by: Sennosides (Senna 8.6 Mg Tab) 8.6 mg PO QAM COUNT INCLUDES THE [facility] Stop: 04/30/22 12:44 Last Admin: 04/06/22 07:41 Dose: Not Given Documented by:
[2022-04-07] MEDS: PIPERACILLIN/TAZOBACTAM 4.5 GM in DEXTROSE 5% 100 ML IV SCH (01:47)
[2022-04-07] MEDS: MoRPHine SULFATE 4 MG/ML 1 ML CARP\\VIAL IV PRN ×2 (02:18→09:13)
[2022-04-07] MEDS: LEVOTHYROXINE SODIUM 25 MCG TABLET PO SCH (06:26)
[2022-04-07 06:31] LABS: Hematocrit (blood only) 38.8 % (42-52); Hemoglobin 11.2 g/dL (14.0-18.0); Mean Corpuscular Hemoglobin 22.8 pg (25-34); Mean Corpuscular Hgb Conc 28.9 g/dL (32-36); Mean Corpuscular Volume 78.9 fL (80-100); Mean Platelet Volume 11.2 fL (7.4-10.4); Platelet Count 118 K/uL (130-400); RDW Coefficient of Variation 16.3 % (11.5-14.5); RDW Standard Deviation 47.1 fL (36.4-46.3); Red Blood Count 4.92 M/uL (4.7-6.1); White Blood Count 7.57 K/uL (4.8-10.8)
[2022-04-07 07:04] LABS: BUN Creatinine Ratio 11.4 (10-20); Calcium 8.3 mg/dl (8.5-10.1); Creatinine Clr Calc Pharmacy 216.6 ml/min; Est GFR (African American) 140.7 ml/min; Est GFR (Non-African American) 121.4 ml/min; Magnesium 1.8 mg/dl (1.7-2.4); Phosphorus 3.1 mg/dl (2.5-4.9); Potassium 3.4 mmol/L (3.5-5.1)
[2022-04-07 07:15] LABS: Ferritin 7.2 ng/ml (8-388)
[2022-04-07] MEDS ORDERED: POTASSIUM CHLORIDE CRTAB 20 MEQ TABCR PO ONE (07:53)
[2022-04-07] MEDS ORDERED: IRON SUCROSE 400 MG in SODIUM CHLORIDE 0.9% 250 ML IV ONE (08:30)
[2022-04-07] MEDS: CYCLOBENZAPRINE HCL 10 MG TAB PO SCH ×2 (09:07→14:22)
[2022-04-07] MEDS: bisacodyL 10 MG SUPP PR SCH (09:07)
[2022-04-07] MEDS: POLYETHYLENE (MIRALAX) 17 GM PACK PO SCH (09:07)
[2022-04-07] MEDS: SENNA 8.6 MG TAB PO SCH (09:08)
[2022-04-07] MEDS: GABAPENTIN 400 MG CAP PO SCH ×2 (09:08→14:22)
[2022-04-07] MEDS: ENOXAPARIN INJ 30 MG/0.3 ML SYR SQ SCH (09:19)
[2022-04-07] MEDS: PANTOprazole 40 MG TAB PO SCH (09:20)
[2022-04-07] MEDS: lisinopril 10 MG TAB PO SCH (09:21)
[2022-04-07] MEDS: CYANOCOBALAMIN (B-12) 500 MCG TABLET PO SCH (09:21)
--- NOTE | 2022-04-07 09:59 | Surgery Progress Note ---
Date of Service April 07, 2022 Assessment & Plan (1) Abdominal pain: Plan: POD # 2 s/p lap dung, open incisional hernia repair x 2 (1 with mesh) -afebrile, vss - postop pain at midline incision - no n,v, Plan: Continue regular diet continue pain management however needs to start taking the oral pain medication instead of the IV morphine. Discontinue IV morphine continue binder continue medical management Doing well from a surgical standpoint for discharge Discharge instructions review f/u surgery office in [address] Pollard has seen and examined pt, agrees with above. Admission and Anticipated Discharge Date Admission Date: March 31, 2022 Subjective Postop pain at midline incision controlled still taking the IV morphine per nu rse at bedside No nausea no vomiting Tolerating regular diet Urinating without difficulty Preoperative pain has resolved Physical Exam Constitutional: WD/WN, vitals as above + morbidly obese; no acute distress and not ill appearing Neck: normal visual inspection and trachea midline Respiratory: normal respiratory effort; no respiratory distress Gastrointestinal (Abdomen): Inspection/Auscultation: abdomen normal to inspection and + abdominal surgical incision (Clean, dry, intact with luann); abdomen not distended Percussion/Palpation: + abdomen tender (Midline incisio n) and abdomen soft; no guarding and abdomen not rigid Skin: no rashes, warm and dry Psychiatric: Orientation: alert and oriented x 3 Results & Data ([facility]) Vital Signs (Past 12 Hours) Vital Signs Temp Pulse Resp BP Pulse Ox 04/07/22 07:17 36.5 C 73 16 125/77 96 Laboratory Results 04/07/22 04/07/22 04/07/22 Range/Units 05:50 05:50 05:50 WBC 7.57 (4.8-10.8) K/uL RBC 4.92 (4.7-6.1) M/uL Hgb 11.2 L (14.0-18.0) g/dL Hct 38.8 L (42-52) % MCV 78.9 L (80-100) fL MCH 22.8 L (25-34) pg MCHC 28.9 L (32-36) g/dL RDW Std Deviation 47.1 H (36.4-46.3) fL RDW Coeff of Raul 16.3 H (11.5-14.5) % Plt Count 118 L (130-400) K/uL MPV 11.2 H (7.4-10.4) fL Sodium 141 (136-145) mmol/L Potassium 3.4 L (3.5-5.1) mmol/L Chloride 106 (98-107) mmol/L Carbon Dioxide 30 (21-32) mmol/L Anion Gap 5 (3-11) BUN 8 (6-23) mg/dl Creatinine 0.70 (0.6-1.4) mg/dl Est Cr Clr Drug Dosing 216.6 ml/min Est GFR ( Amer) 140.7 ml/min Est GFR (Non-Af Amer) 121.4 ml/min BUN/Creatinine Ratio 11.4 (10-20) Glucose 124 H (70-99(Fasting)) mg/dl Calcium 8.3 L (8.5-10.1) mg/dl Phosphorus 3.1 (2.5-4.9) mg/dl Magnesium 1.8 (1.7-2.4) mg/dl Iron 16 L (35-175) mcg/dl Unsaturated IBC 303 (155-355) mcg/dl Ferritin 7.2 L (8-388) ng/ml (1) Abdominal pain Abdominal location: generalized Qualified Code(s): R10.84 - Generalized abdominal pain
[2022-04-07] MEDS ORDERED: MoRPHine SULFATE 4 MG/ML 1 ML CARP\\VIAL IV PRN (10:01)
[2022-04-07] MEDS ORDERED: oxyCODONE/APAP 7.5/325MG TAB PO PRN (10:40)
[2022-04-07] MEDS: IBUPROFEN 600 MG TAB PO PRN (11:31)
--- NOTE | 2022-04-07 19:25 | Discharge Summary ---
Date of Service April 07, 2022 Admission HPI Per Admitting Provider 36-year-old male with PMH of multiple hernia repair, recurrent RLE cellulitis [noncompliance with wound care clinic follow-up and with antibiotics], venous insufficiency, venous ulcer of right and left leg, hypothyroidism, opiate abuse on chronic methadone, GERD, morbid obesity, AALIYAH not on CPAP [noncompliance with sleep medicine follow-up], HTN, asthma presented to the ED 03/30 with complaint of abdominal pain. Patient states that he has been having this "stomach pain" for 6 months which has been worsening lately, patient reports that he has not been eating since last 2-3 weeks. When he eats anything, he reports having severe belly pain, denies any nausea or vomiting or diarrhea. Patient denies any bowel movement for the same duration, he refers it is mostly due to him not being able to eat. Patient denies any fever or dizziness. Patient reports some mild headache. Patient denies any chest pain or feeling of heart racing. Patient reports RLE pain at the ulcer site. Patient denies any cough. Patient reports smoking tobacco 1 packs a day, for 29 years, going use. Patient denies alcohol use. Patient reports past drug use, currently on methadone for which he follows at [facility]. Full code Admission Exam Per Admitting Provider GENERAL: Alert and oriented x3. NAD, on RA. Morbidly obese. HEENT: No pallor, no icterus. Pupils equal, round and reactive to light. Oral mucosa moist. NECK: No JVD, no neck masses. HEART: S1 and S2 heard. Regular rate and rhythm. No murmur, no gallop. RESPIRATORY SYSTEM: Normal AP diameter. No accessory muscle use. No wheezing, no crackles. Decreased breath sound, likely secondary to obesity. ABDOMEN: Soft, bowel sounds present, periumbilical and left upper quadrant tenderness, healed laparoscopic scars noted, no distention. CENTRAL NERVOUS SYSTEM: No facial droop. Speech is clear. Obeys simple commands. Moves extremities. EXTREMITIES: No edema, no erythema seen. LLE with chronic skin changes, RLE with chronic superficial wound/cellulitis, approximately 10 x 10 cm, tender, no surrounding erythema. Principal Diagnosis Abdominal pain s/p lap dung and open incisional hernia repair, RLE cellulitis Discharge Exam General: Lying comfortably in bed, not in distress, on room air HEENT: EOMI, KIARAR, MMM Chest: Clear breath sounds bilaterally, no wheezes or crackles CVS: Regular rate and rhythm, normal heart sounds, no murmur Abdomen: Soft, non tender, incision clean dry intact, abdominal binder +, bowel sounds present Neuro: Awake, alert, oriented, conversing well, non focal Extremities: RLE wound covered with dressing, LLE cuffed Discharge Data Allergies Allergy/AdvReac Type Severity Reaction Status Date / Time No Known Allergies Allergy Verified 04/05/22 08:20 Consultations 03/30/22 16:21 ED Decision to Admit Stat 04/03/22 08:00 Consult Infectious Diseases Routine 04/03/22 16:40 Consult Gastroenterology Routine 04/03/22 19:27 Consult General Surgery Routine Procedures Performed Operation Date: 04/05/22 08:25 Actual Procedures p Laparoscopic Cholecystectomy(Not Applicable) - Donna Pollard MD s Open Ventral Hernia Repair with Mesh(Not Applicable) - Donna Pollard MD Ordered Studies 03/30/22 14:35 CT abd pelvis IV con only Stat 03/30/22 18:31 CT tib/fib RT wo con Routine 03/31/22 08:50 US arterial duplex LE RT Urgent 04/03/22 17:01 CT abd pelvis IV con only Stat 04/03/22 19:22 US liver Urgent Laboratory Results WBC 7.57 K/uL (4.8-10.8) 04/07/22 05:50 RBC 4.92 M/uL (4.7-6.1) 04/07/22 05:50 Hgb 11.2 g/dL (14.0-18.0) L 04/07/22 05:50 Hct 38.8 % (42-52) L 04/07/22 05:50 MCV 78.9 fL (80-100) L 04/07/22 05:50 MCH 22.8 pg (25-34) L 04/07/22 05:50 MCHC 28.9 g/dL (32-36) L 04/07/22 05:50 RDW Std Deviation 47.1 fL (36.4-46.3) H 04/07/22 05:50 RDW Coeff of Raul 16.3 % (11.5-14.5) H 04/07/22 05:50 Plt Count 118 K/uL (130-400) L 04/07/22 05:50 MPV 11.2 fL (7.4-10.4) H 04/07/22 05:50 Immature Gran % (Auto) 0.2 % 04/06/22 07:34 Neut % (Auto) 69.6 % 04/06/22 07:34 Lymph % (Auto) 20.4 % 04/06/22 07:34 [place] % (Auto) 9.3 % 04/06/22 07:34 Eos % (Auto) 0.5 % 04/06/22 07:34 Baso % (Auto) 0.0 % 04/06/22 07:34 Neut # (Auto) 6.41 K/uL (1.4-6.5) 04/06/22 07:34 Lymph # (Auto) 1.88 K/uL (1.2-3.4) 04/06/22 07:34 [place] # (Auto) 0.86 K/uL (0.11-0.59) H 04/06/22 07:34 Eos # (Auto) 0.05 K/uL (0-0.5) 04/06/22 07:34 Baso # (Auto) 0.00 K/uL (0-0.2) 04/06/22 07:34 Immature Gran # (Auto) 0.02 K/uL (0.00-0.02) 04/06/22 07:34 PT 11.5 Seconds (9.0-12.0) 03/30/22 15:50 INR 1.1 (0.9-1.1) 03/30/22 15:50 Sodium 141 mmol/L (136-145) 04/07/22 05:50 Potassium 3.4 mmol/L (3.5-5.1) L 04/07/22 05:50 Chloride 106 mmol/L (98-107) 04/07/22 05:50 Carbon Dioxide 30 mmol/L (21-32) 04/07/22 05:50 Anion Gap 5 (3-11) 04/07/22 05:50 BUN 8 mg/dl (6-23) 04/07/22 05:50 Creatinine 0.70 mg/dl (0.6-1.4) 04/07/22 05:50 Est Cr Clr Drug Dosing 216.6 ml/min 04/07/22 05:50 Est GFR ( Amer) 140.7 ml/min 04/07/22 05:50 Est GFR (Non-Af Amer) 121.4 ml/min 04/07/22 05:50 BUN/Creatinine Ratio 11.4 (10-20) 04/07/22 05:50 Glucose 124 mg/dl (70-99(Fasting)) H 04/07/22 05:50 Lactate 0.6 mmol/L (0.4-2.0) 04/04/22 08:31 Calcium 8.3 mg/dl (8.5-10.1) L 04/07/22 05:50 Phosphorus 3.1 mg/dl (2.5-4.9) 04/07/22 05:50 Magnesium 1.8 mg/dl (1.7-2.4) 04/07/22 05:50 Iron 16 mcg/dl (35-175) L 04/07/22 05:50 Unsaturated IBC 303 mcg/dl (155-355) 04/07/22 05:50 Ferritin 7.2 ng/ml (8-388) L 04/07/22 05:50 Total Bilirubin 0.6 mg/dl (0.2-1.0) 04/06/22 07:34 Direct Bilirubin 0.1 mg/dl (0-0.2) 03/30/22 Unknown AST 22 U/L (13-39) 04/06/22 07:34 ALT 16 U/L (7-52) 04/06/22 07:34 Alkaline Phosphatase 73 U/L (34-104) 04/06/22 07:34 Total Protein 6.8 gm/dl (6.0-8.3) 04/06/22 07:34 Albumin 3.8 gm/dl (3.4-5.0) 04/06/22 07:34 Globulin 3.0 gm/dl (2.5-4.0) 04/06/22 07:34 Albumin/Globulin Ratio 1.3 (0.9-2) 04/06/22 07:34 Lipase 83 U/L (11-82) H 03/30/22 Unknown Procalcitonin < 0.05 ng/ml (0-0.5) 03/30/22 16:40 Urine Color Yellow 03/30/22 16:07 Urine Appearance Clear (Clear) 03/30/22 16:07 Urine pH 8.0 (4.5-7.5) H 03/30/22 16:07 Ur Specific [place] > 1.045 (1.000-1.030) H 03/30/22 16:07 Urine Protein Negative (Negative) 03/30/22 16:07 Urine Glucose (UA) Negative (Negative) 03/30/22 16:07 Urine Ketones Negative (Negative) 03/30/22 16:07 Urine Blood Negative (Negative) 03/30/22 16:07 Urine Nitrite Negative (Negative) 03/30/22 16:07 Urine Bilirubin Negative (Negative) 03/30/22 16:07 Urine Urobilinogen Negative (Negative) 03/30/22 16:07 Ur Leukocyte Esterase Negative (Negative) 03/30/22 16:07 Nasal Screen MRSA (PCR) Negative (Negative) 03/30/22 Unknown SARS-CoV-2, RNA, NAAT NEGATIVE (NEGATIVE) 03/30/22 15:[address] 03/30/22 18:31 CT tib/fib RT wo con CLINICAL HISTORY: r/o OM; RLE ulcer/cellulitis present. TECHNIQUE: Multidetector row helical CT of the right lower extremity was performed without intravenous contrast. Coronal and sagittal reformations were obtained. Automated dose lowering techniques and/or adjustment according to patient size were utilized for this examination. CT DOSE: 469.52 mGy.cm Comparison: Comparison is made to right lower extremity CT 02/05/2018 FINDINGS: Redemonstration of distal fibular cystic lesion, unchanged. The joint spaces are maintained. Soft tissue swelling is seen most prominent in the anterolateral surface of the leg. There is no underlying erosions to suggest osteomyelitis. IMPRESSION: Findings are compatible with cellulitis without evidence of osteomyelitis. ACT 112: Negative or not required by law. Electronically signed by: Wagner Bauer M.D. 03/30/2022 8:07 PM Duplex Scan Lower Extremity Artery 03/31/22 08:50 US arterial duplex LE RT CLINICAL HISTORY: nonhealing ulcer in the right distal calf TECHNIQUE: Real-time grayscale and color and spectral Doppler ultrasound imaging of the bilateral lower extremity arteries was performed. Measurements calculated based on NASCET criteria. COMPARISON: None available at the time of this dictation. FINDINGS: RIGHT: Common femoral artery: Triphasic waveforms. Peak systolic velocity (PSV) 111 cm/s. Deep femoral artery: Triphasic waveforms. PSV 49 cm/s. Superficial femoral artery: Triphasic waveforms. PSV 03 cm/s. Popliteal artery: Triphasic waveforms. PSV 80 cm/s. Anterior tibial artery: Triphasic waveforms. PSV 63 cm/s. Posterior tibial artery: Triphasic waveforms. PSV 84 cm/s. Peroneal artery: Triphasic waveforms. PSV 58 cm/s. Dorsalis pedis: Triphasic waveforms. PSV 55 cm/s. Reference ranges: Normal Ankle/Brachial Index (DEVANTE) 1.0-1.4; 0.91-0.99 borderline; < or = 0.9 abnormal (0.7-0.89 mild, 0.51-0.69 moderate, < or = 0.5 severe peripheral arterial disease). Normal Toe/Brachial Index (TBI) > or = 0.6; < 0.6 abnormal (0.34-0.59 mild, 0.12-0.34 moderate, < or = 0.11 severe peripheral arterial disease). IMPRESSION: No hemodynamically significant stenosis. ACT 112: Negative or not required by law. Electronically signed by: Wagner Bauer M.D. 03/31/2022 12:05 PM Abdomen/Pelvis CT 04/03/22 17:01 CT SCAN OF THE ABDOMEN AND PELVIS WITH IV CONTRAST CLINICAL HISTORY: Acute on chronic generalized abdominal pain. COMPARISON STUDY: Prior abdominal CT scans, most recently dated 03/30/2022. TECHNIQUE: Following the IV administration of 119 cc of Optiray 320, CT scan of the abdomen and pelvis is performed from the lung bases to the proximal femora. Images are reviewed in the axial, sagittal, and coronal planes. IV contrast was administered without complication. A dose lowering technique was utilized adhering to the principles of ALARA. CT DOSE: 2368.75 mGy.cm FINDINGS: Lung bases: The heart is normal in size and without pericardial effusion. The lung bases are clear. There is a tiny hiatal hernia. Liver: The contrast-enhanced liver is enlarged, measuring 19.5 cm in length. The liver demonstrates diffusely diminished attenuation consistent with hepatic steatosis. Fatty sparing is seen adjacent to the gallbladder fossa. There is no intrahepatic biliary ductal dilatation. The hepatic veins and portal veins are patent. Gallbladder: Unremarkable. Spleen: The spleen is enlarged, measuring 17.8 cm in length. Pancreas: Unremarkable. Adrenal glands: Unremarkable. Kidneys: The contrast enhanced kidneys are normal in size and without hydronephrosis. The kidneys enhance symmetrically. There is a punctate nonobstructing left renal calculus. Abdominal vasculature: The abdominal aorta is normal in course and caliber. Bowel: There is mild colonic diverticulosis without CT evidence of acute diverticulitis. No bowel obstruction is seen. The appendix is well-visualized and normal. Peritoneum: There is no intraperitoneal free air or abdominal ascites. There is laxity of the ventral abdominal wall with evidence of previous hernia repair. Trace fluid and stranding are again seen superficial to the hernia mesh. Lymphadenopathy: None. Pelvic viscera: The bladder, prostate, and seminal vesicles are normal as visualized. There is a fat-containing left inguinal hernia. Skeletal structures: No lytic or blastic lesions are seen. There is mild lumbosacral spondylosis. IMPRESSION: 1. There are no acute infectious or inflammatory findings in the abdomen or pelvis. No significant change from 03/30/2022. 2. Hepatomegaly and hepatic steatosis. 3. Splenomegaly. 4. Punctate nonobstructing left renal calculus. 5. Trace fluid and stranding are again seen superficial to the ventral hernia mesh. 6. Additional findings as above. ACT 112: Negative or not required by law. Electronically signed by: Ar Lazaro M.D. 04/03/2022 7:13 PM Liver Ultrasound 04/03/22 19:22 US liver CLINICAL HISTORY: Acute right upper quadrant pain. COMPARISON: None. TECHNIQUE: Multiple grayscale and color images of the right upper quadrant of the abdomen. FINDINGS: The study is limited by overlying bowel gas. Pancreas: The imaged portion of the pancreas is within normal limits with no focal mass or peripancreatic fluid collection identified. Liver: The liver is enlarged with increase echogenicity present characteristic of fatty infiltration. It measures 20 cm in the axillary margin. There is no evidence for a focal mass. There is no intrahepatic biliary duct dilatation. Gallbladder: The gallbladder is well distended with cholelithiasis. There is no evidence for wall thickening or pericholecystic edema. There was reportedly a negative sonographic Radford sign. However, the patient was medicated. Common Bile Duct: (CBD): It is normal in size measuring 4 mm. Inferior Vena Cava (IVC): The imaged IVC is patent. Right kidney: There is no evidence for hydronephrosis, calculus or gross renal mass. The kidney is normal in size. It measures 10.7 cm in greatest length. IMPRESSION: 1. Cholelithiasis with no definite ultrasound evidence for acute cholecystitis. There was a negative sonographic Radford sign reported. However, the patient was medicated. ACT 112: Negative or not required by law. Electronically signed by: Gabriel Petersen M.D. 04/04/2022 7:42 AM Hospital Course (1) History of umbilical hernia repair: Hospital course 03/30- presented with abdominal pain for 2-3 weeks. WBC WNL, lactate WNL, procal negative, admitting lipase minimally elevated. CT A/P- no bowel obstruction or bowel wall thickening, s/p umbilical hernia repair with trace fluid and stranding noted superficial to the hernia mesh. Small periumbilical hernia noted adjacent to mesh. Hepatic steatosis. seen by surgery- no surgical plan- recommended conservative management 04/03 -patient had small breakfast in the morning, and small BM. He has chronic abdominal pain, that was managed with Tylenol with codeine. After lunch, pt developed acute exacerbation of abd. pain, per patient excruciating pain, patient became diaphoretic, RN contacted physician. Immediately evaluated at bedside, surgery informed and CT obtained 04/04- Seen by GI and Gen surgery. Repeat CT with no changes, US liver with cholelithiasis but no acute cholecystitis. Dr Pollard recommended laparoscopic cholecystectomy, possible open or cholangiogram, and open repair ventral hernia, possible mesh 04/05 - Patient underwent above-mentioned procedure, cholecystectomy for cholelithiasis, chronic cholecystitis. Also underwent ventral hernia repair. Tolerated procedure well. 04/06- doing well post op- no issues 04/07- Continues to do well- tolerating diet without issues, pain controlled, cleared by surgery for discharge, Discharge instructions provided by surgery. Sign out provided to Marychuy from [facility]. Abdominal pain - s/p lap dung for chronic cholecystitis and cholelithiasis, open incisional hernia repair x 2 (1 with mesh) POD#2 - doing well, pain controlled, tolerating diet well, passing gas, last BM 2 days back - Wound care per surgery- discharge instructions per surgery - Pain control- recommended oxycodone prn but per Marychuy, they do not allowed narcotics other than tramadol- recommended tramadol 100 mg q4-6hr prn for pain alternating with tylenol/motrin- further management per jail physician - continue abdominal binder - F/u with surgery in 2 weeks RLE Cellulitis - Patient was receiving cefdinir and clindamycin as an outpatient for his RLE cellulitis, previously on IV antibiotic, 03/18 wound culture polymicrobial - CT scan 03/30 of RLE showed cellulitis without osteomyelitis. - wound clx showing CONS, blood clx negative - s/p antibiotic course with dapto/cefepime which was changed to zosyn due to skin rash while on cefepime - Seen by ID and no further antibiotics recommended. - Seen by [facility] - Continue local wound care and follow up with wound clinic as needed. Prior history: 03/13/22 [place] wound care OP chart review: Patient's visit was for evaluation of chronic right leg wound secondary to venous stasis, per chart review, patient had undergone several surgical intervention with wound graft application over the past 8 years, he had been seen at wound care clinics at both [facility], was discharged on oral Keflex 500mg 4 times daily at the time, also received debridement of right leg wound after application of lidocaine, was asked for follow-up in 1 week for dressing change and evaluation. Pt has h/o noncompliance w/ f/u with wound clinic and also medicine non compliance. Other chronic medical conditions: Asthma, GERD, history of PUD abuse, hypothyroidism, morbid obesity, HTN, tobacco abuse Continue with/resume home meds as and when appropriate Patient has history of medical noncompliance, noncompliance with follow-up with medical facilities Used methadone 111- 67 mg daily prior to his recent incarceration. Iron deficiency anemia- s/p iv iron x1. discharged on po iron supplementation. Comfortable and stable for discharge. Total Time Total Time Spent Total Time Spent (In Minutes): 45 Discharge Plan Discharge Items [facility] Reason For Visit: ABD PAIN Discharge Diagnosis: Cholecystitis Incisional hernia x 2 Activity: Per Instructions section Non-emergency contact: Primary Care Provider Call non-emergency contact if: you have any medication questions, your symptoms worsen, your pain is not controlled, you have a fever, your wound has increased redness, your wound has increased drainage and your wound pain has increased Follow-up/Referrals: [facility] [Primary Care Provider] - Diet: Low Fat Addtl Attending Provider Instructions: Continue local wound care for your leg wound You can take pain medication as needed for pain- can consider tramadol 100 mg every 4-6 hours as needed for pain alternating with extra strength tylenol or motrin Continue iron supplementation for your low iron Continue bowel regimen We have decreased your lisinopril to 10 mg daily Recommend cutting down on flexeril. Follow up with the surgery in 2 weeks See the instructions below Addtl Senior Medical Transcriptionist Provider Instructions: Post-Surgical ~Discharge Instructions Activity Recommendations: - lifting limitation: (10 pounds for 6 weeks), - exercise/sex/sports limit: (nonstrenuous for 6 weeks), - driving or machine use limit: (none for 1 week or until pain free), - Shower/bathe limit: (may shower) Diet: - Resume previous diet SPECIAL CARE INSTRUCTIONS: - May shower. Let water run over area and pat dry. - Surgical luann will need removed in 14 days. - Wear abdominal binder for support. - Call the surgeon's office with any questions or concerns - - (ex. temperature higher than 101 degrees F, excessive bleeding or pain). MEDICATIONS: - Resume previous medications unless instructed otherwise by your surgeon. - May alternate extra strength Tylenol and Ibuprofen as needed for mild to moderate pain - 650 mg Tylenol every 6 hours as needed - Ibuprofen 600 mg every 6 hours as needed (take with food) FOLLOW UP VISIT: - If not already scheduled, please call the office to schedule a two week follow-up appointment. Office number Pending Studies at Discharge: No Stand-Alone Forms: My [facility] [employer] Skilled Items Patient informed of condition?: Yes Discharge Level of Care: Other Communicable Disease: No Discharge Prognosis: Stable Lines: None Urinary Catheter: No Medications and DC Order Prescriptions: New ferrous sulfate [iron] 325 mg (65 mg iron) tablet 325 mg PO DAILY Qty: 30 RF: 0 sennosides [Senokot] 8.6 mg Tablet 8.6 mg PO QAM Qty: 30 RF: 0 polyethylene glycol 3350 [Miralax] 17 gram Powder In Packet 17 g PO DAILY Qty: 30 RF: 0 cyclobenzaprine 10 mg Tablet 10 mg PO TID Qty: 30 RF: 0 Continued albuterol sulfate 90 mcg/actuation Hfa Aerosol Inhaler 2 puff INHALATION QID PRN (Reason: Shortness Of Breath Or Wheezing) RF: 0 omeprazole 20 mg Capsule,Delayed Release(Dr/Ec) 40 mg PO DAILY RF: 0 cyanocobalamin (vitamin B-12) 1,000 mcg Tablet 1,000 mcg PO DAILY RF: 0 levothyroxine 25 mcg tablet 25 mcg PO QAM RF: 0 Changed lisinopril 20 mg Tablet 10 mg PO DAILY Qty: 0 RF: 0 acetaminophen [Tylenol Extra Strength] 500 mg Tablet 1,500 mg PO BID PRN (Reason: Pain) Qty: 0 RF: 0 gabapentin 300 mg Capsule 800 mg PO TID Qty: 0 RF: 0 Discontinued clonazepam 0.5 mg Tablet 0.5 mg PO TID RF: 0 clonazepam 1 mg Tablet 1 mg PO BID RF: 0 clindamycin HCl [Cleocin HCl] 300 mg capsule 300 mg PO QID RF: 0 Discharge Orders: Discharge Order (Routine); Ordered 04/07/22 Ordered By: Zbigniew Young/Other Patient Handouts: Abdominal Pain Admission Data Admit Date/Time: 03/31/22 14:40 Attending Provider: Zbigniew Hearn Admit Provider: Bisi Welsh Primary Care Provider: Mercedes Arguelles Other Providers: Bisi Welsh ; Favio Aguirre ; Beau Boothe ; Todd Lopez I. ; Benitez Alejandre II ; Maya Corona ; Ralph Crowell ; Shemar Costello ; Flores Dotson ; Donna Pollard Other Interventions: Discharge Summary Assessment (RN) Last Done: 04/07/22 13:29
== END 2022-04-07 16:20 | DRG 354 ==
LOC: ED 13:53 → 3E 13:53 → SUATTDRO 17:09 → 3E 20:07 → SUATTDRO 03-31 14:40
DX: Z79.890 Hormone replacement therapy; I10 Essential (primary) hypertension; L03.115 Cellulitis of right lower limb; K43.2 Incisional hernia without obstruction or gangrene; F17.210 Nicotine dependence, cigarettes, uncomplicated; Z91.19 Patient's noncompliance with other medical treatment and regimen; Z68.43 Body mass index [BMI] 50.0-59.9, adult; M10.9 Gout, unspecified; E03.9 Hypothyroidism, unspecified; I83.018 Varicose veins of right lower extremity with ulcer other part of lower leg; L97.919 Non-pressure chronic ulcer of unspecified part of right lower leg with unspecified severity; K59.03 Drug induced constipation; F11.20 Opioid dependence, uncomplicated; K80.10 Calculus of gallbladder with chronic cholecystitis without obstruction; E66.01 Morbid (severe) obesity due to excess calories

== ENCOUNTER 2022-04-25 10:31 | Inpatient (IN) ==
[2022-04-25] MEDS ORDERED: SODIUM CHLORIDE 0.9% 1000ML 2,000 ML IV ONE (11:07)
[2022-04-25] MEDS ORDERED: ACETAMINOPHEN 325 MG TAB PO STA (11:07)
[2022-04-25] MEDS ORDERED: KETOROLAC TROMETHAMINE 15 MG/ML VIAL IV ONE (11:07)
[2022-04-25] MEDS ORDERED: cefTRIAXone SODIUM 2,000 MG/70 ML BAG IV STA (11:07)
--- NOTE | 2022-04-25 11:12 | Emergency Department Note ---
Impression & Plan SIRS (systemic inflammatory response syndrome), Chest pain, Abdominal pain ED Provider Note NAME: MICKIE [id number] SANGEETA AGE: 36 SEX: M : 1985 ARRIVES VIA: Ambulance INFORMANT: Patient ED PROVIDER(S): Stanley Wade DO CHIEF COMPLAINT: Chest pain HPI: Patient is a 36-year-old male with a past medical history of tobacco abuse, morbid obesity and hypertension as well as asthma that presents the ER for midsternal chest pain. This started this morning around 8 AM. Its worse with twisting, turning, bending, movement of his arms as well as palpation on his chest. He has some slight improvement when he holds pressure on it. It is also worse with breathing. He admits to an ulcer on his right leg/gamino which is been present for the past 10 years. He denies any headache or change in vision. This is a new epigastric abdominal pain. He did have a hernia repair several weeks ago by Dr. Pollard and is starting to have worsening abdominal pain in the epigastric region Denies any dysuria, urgency, or frequency. No other exacerbating or remitting factors. ROS: See above HPI for pertinent positives & negatives. A total of 10 systems reviewed and were otherwise negative. PAST MEDICAL HISTORY:See Below PAST SURGICAL HISTORY:See Below FAMILY HISTORY:See Below SOCIAL HISTORY:See Below HOME MEDICATIONS:See Below ALLERGIES:See Below VITALS:See Below PHYSICAL EXAMINATION: GENERAL: Sitting up in bed, alert, mildly ill-appearing, disheveled EYE EXAM: normal conjunctiva. PERRL and EOM's grossly intact. OROPHARYNX: no exudate, no erythema, lips, buccal mucosa, and tongue normal and mucous membranes are moist NECK: supple, no nuchal rigidity, no adenopathy, non-tender LUNGS: Clear to auscultation. Normal chest wall mechanics CHEST: Producible tenderness over the lower anterior sternum same stated complaint HEART: no murmurs, S1 normal and S2 normal ABDOMEN: abdomen soft, tenderness in the epigastric region with luann in place, wound is clean dry and intact, normo-active bowel sounds, no masses, no rebound or guarding. UPPER EXTREMITIES: upper extremities are grossly normal. LOWER EXTREMITIES: No pitting edema. NEURO EXAM: Normal sensorium, cranial nerves II-XII grossly intact, normal speech, no gross weakness of arms, no gross weakness of legs. MEDICAL DECISION MAKING: Patient is a 36-year-old male who presents ER for epigastric abdominal pain. IV was established blood work is obtained. He was found to be febrile and tachycardic. Labs show no significant leukocytosis or anemia. INR was unremarkable. BMP along with LFTs is unremarkable. Lactate and troponin was negative. CTA of the chest and abdomen/pelvis. Chest x-ray is unremarkable. Patient was given IV fluids and Rocephin and switched to azithromycin after CT abdomen pelvis showed fluid collections in the belly. CT PE was negative. C hest x-ray was unremarkable. EKG was nondiagnostic. Patient was updated bedside seen and evaluated by Dr. Pollard from general surgery who recommended IV antibiotics and admission. Discussed with hospitalist for further evaluation. Triage Nursing notes reviewed. Limited review of prior medical records performed Vital Signs: reviewed and remarkable for febrile and tachycardic Differential diagnosis: Differential diagnoses includes but is not limited to acute coronary syndrome, myocardial infarction, pericarditis, pulmonary embolus, aortic dissection, pneumonia, pneumothorax, musculoskeletal, shingles, esophageal. ER treatment provided: See below Diagnostics interpreted by me: ECG: Sinus tachycardia rate of 116 Left axis No PVCs Poor baseline Nonspecific ST wave changes in the high lateral leads QTC 453 Significant change from previous March 30, 2020 Cardiac Monitoring: An order was placed for continuous cardiac monitoring. The monitor shows a rate of 101 with sinus rhythm. Laboratory studies: As stated above and show below. Imaging studies: CT of the chest as well as abdomen pelvis as described above Consultation(s): This with the hospitalist as well as general surgery as described above Procedures: none Critical Care: None Past Med/Surg History Medical History Anemia Anxiety panic attacks Asthma treated at [facility] for asthma with bronchitis exacerbation/respiratory failure 10/2017- tx with oral steroids, duo nebs, azithromycin Chronic back pain Chronic venous stasis GERD (gastroesophageal reflux disease) Gout H/O gastric ulcer remote bleeding gastric ulcer (2000) Hiatal hernia History of wound infection 07/2020 abdominal, "resolved" Hx of opioid abuse 2012, follows with methadone clinic Hypertension Hypothyroidism Migraine Morbid obesity Obstructive sleep apnea Surgical History History of adenoidectomy History of carpal tunnel surgery of right wrist History of esophagogastroduodenoscopy (EGD) History of femoropopliteal bypass right leg History of herniorrhaphy UMBILICAL HERNIA REPAIR History of tonsillectomy History of tooth extraction S/P excision of ganglion cyst left wrist Family History Mother Cellulitis, leg Other No family history of adverse response to anesthesia Social History Smoking Status: Former smoker Tobacco Type: Cigarettes Cigarettes Per Day: 1 PPD; Second Hand Exposure: Yes; Hx Alcohol Use: No Hx Substance Use: No Preferred Language: Khmer Communication Ability: Effective Government Guard Required: No Beliefs That Will Affect Care: None marital status: Current Living Situation: Spouse Current Living Situation Comment: Inmate Feels Safe at Home: Yes Assistive Devices: None Allergies Allergies Allergy/AdvReac Type Severity Reaction Status Date / Time No Known Allergies Allergy Verified 04/25/22 14:55 Home Meds Home Medications Medication Instructions Recorded Confirmed acetaminophen 325 mg tablet 650 mg PO BID PRN 04/25/22 04/25/22 (Tylenol) albuterol sulfate 90 mcg/actuation 2 puff INHALATION QID PRN 04/25/22 04/25/22 aerosol inhaler cyanocobalamin (vitamin B-12) 1,000 mcg PO DAILY 04/25/22 04/25/22 1,000 mcg tablet (Vitamin B-12) doxycycline hyclate 100 mg capsule 100 mg PO BID 04/25/22 04/25/22 ferrous sulfate 325 mg (65 mg 325 mg PO DAILY 04/25/22 04/25/22 iron) tablet ibuprofen 200 mg tablet 400 mg PO BID PRN 04/25/22 04/25/22 levothyroxine 25 mcg tablet 25 mcg PO DAILY 04/25/22 04/25/22 omeprazole 20 mg capsule,delayed 40 mg PO DAILY 04/25/22 04/25/22 release ondansetron HCl 4 mg tablet 4 mg PO BID 04/25/22 04/25/22 polyethylene glycol 3350 17 gram 17 g PO DAILY PRN 04/25/22 04/25/22 oral powder packet (Miralax) sennosides 8.6 mg tablet (senna) 8.6 mg PO DAILY PRN 04/25/22 04/25/22 Results & Data (ED) Vital Signs Vital Signs - 24 hr 04/25/22 10:37 04/25/22 10:46 04/25/22 10:49 Temperature 38.0 C H Temperature Source Oral Pulse Rate 119 H Pulse Rate [Apical] Pulse Rhythm [Apical] Pulse Strength [Apical] Respiratory Rate 19 Respiratory Effort / Characteristics Non-Labored Spontaneous Respiratory Depth Normal Blood Pressure 122/76 Blood Pressure [Left Arm] Blood Pressure Mean 91 Blood Pressure Mean [Left Arm] Blood Pressure Position [Left Arm] Pulse Oximetry 95 96 Oxygen Delivery Method Room Air Room Air Room Air Sepsis Recent Fever Within 48 Hours No Sepsis New/Unexplained Change in Mental Status No Sepsis Action Taken by Nursing No Action Required 04/25/22 11:07 04/25/22 11:10 04/25/22 11:45 Temperature Temperature Source Pulse Rate Pulse Rate [Apical] 119 H 92 H Pulse Rhythm [Apical] Pulse Strength [Apical] Respiratory Rate 14 16 Respiratory Effort / Characteristics Non-Labored Spontaneous Non-Labored Spontaneous Respiratory Depth Normal Normal Blood Pressure Blood Pressure [Left Arm] 122/76 111/72 Blood Pressure Mean Blood Pressure Mean [Left Arm] 91 85 Blood Pressure Position [Left Arm] Pulse Oximetry 96 95 98 Oxygen Delivery Method Room Air Room Air Room Air Sepsis Recent Fever Within 48 Hours Sepsis New/Unexplained Change in Mental Status Sepsis Action Taken by Nursing 04/25/22 12:00 04/25/22 12:15 04/25/22 12:30 Temperature Temperature Source Pulse Rate Pulse Rate [Apical] 88 96 H 86 Pulse Rhythm [Apical] Pulse Strength [Apical] Respiratory Rate 14 19 25 H Respiratory Effort / Characteristics Non-Labored Spontaneous Non-Labored Spontaneous Respiratory Depth Normal Normal Blood Pressure Blood Pressure [Left Arm] 129/97 144/97 H 147/100 H Blood Pressure Mean Blood Pressure Mean [Left Arm] 107 112 115 Blood Pressure Position [Left Arm] Sitting Pulse Oximetry 96 99 97 Oxygen Delivery Method Room Air Room Air Room Air Sepsis Recent Fever Within 48 Hours Sepsis New/Unexplained Change in Mental Status Sepsis Action Taken by Nursing 04/25/22 13:00 04/25/22 13:13 04/25/22 14:00 Temperature Temperature Source Pulse Rate Pulse Rate [Apical] 83 Pulse Rhythm [Apical] Regular Pulse Strength [Apical] Normal Respiratory Rate 20 Respiratory Effort / Characteristics Non-Labored Spontaneous Non-Labored Spontaneous Non-Labored Spontaneous Respiratory Depth Normal Blood Pressure Blood Pressure [Left Arm] Blood Pressure Mean Blood Pressure Mean [Left Arm] Blood Pressure Position [Left Arm] Pulse Oximetry 97 98 Oxygen Delivery Method Room Air Room Air Sepsis Recent Fever Within 48 Hours Sepsis New/Unexplained Change in Mental Status Sepsis Action Taken by Nursing 04/25/22 14:30 04/25/22 15:00 Temperature Temperature Source Pulse Rate Pulse Rate [Apical] 97 H Pulse Rhythm [Apical] Pulse Strength [Apical] Respiratory Rate 17 Respiratory Effort / Characteristics Non-Labored Spontaneous Non-Labored Spontaneous Respiratory Depth Normal Blood Pressure Blood Pressure [Left Arm] Blood Pressure Mean Blood Pressure Mean [Left Arm] Blood Pressure Position [Left Arm] Pulse Oximetry 99 Oxygen Delivery Method Room Air Sepsis Recent Fever Within 48 Hours Sepsis New/Unexplained Change in Mental Status Sepsis Action Taken by Nursing Laboratory Data Result diagrams: 04/25/22 11:02 04/25/22 11:02 Lab Results 04/25/22 04/25/22 04/25/22 Range/Units 11:02 11:02 11:02 WBC 9.37 (4.8-10.8) K/uL RBC 5.79 (4.7-6.1) M/uL Hgb 14.1 (14.0-18.0) g/dL Hct 45.3 (42-52) % MCV 78.2 L (80-100) fL MCH 24.4 L (25-34) pg MCHC 31.1 L (32-36) g/dL RDW Std Deviation 48.1 H (36.4-46.3) fL RDW Coeff of Raul 16.9 H (11.5-14.5) % Plt Count 200 (130-400) K/uL MPV 11.8 H (7.4-10.4) fL Immature Gran % (Auto) 0.1 % Neut % (Auto) 71.9 % Lymph % (Auto) 18.1 % [place] % (Auto) 7.4 % Eos % (Auto) 2.0 % Baso % (Auto) 0.5 % Neut # (Auto) 6.73 H (1.4-6.5) K/uL Lymph # (Auto) 1.70 (1.2-3.4) K/uL [place] # (Auto) 0.69 H (0.11-0.59) K/uL Eos # (Auto) 0.19 (0-0.5) K/uL Baso # (Auto) 0.05 (0-0.2) K/uL Immature Gran # (Auto) 0.01 (0.00-0.02) K/uL PT 11.1 (9.0-12.0) Seconds INR 1.0 (0.9-1.1) APTT 26.2 (21.0-31.0) Seconds PTT Ratio 1.0 Sodium 140 (136-145) mmol/L Potassium 3.7 (3.5-5.1) mmol/L Chloride 106 (98-107) mmol/L Carbon Dioxide 26 (21-32) mmol/L Anion Gap 8 (3-11) BUN 8 (6-23) mg/dl Creatinine 0.76 (0.6-1.4) mg/dl Est Cr Clr Drug Dosing 194.3 ml/min Est GFR ( Amer) 136.0 ml/min Est GFR (Non-Af Amer) 117.4 ml/min BUN/Creatinine Ratio 10.5 (10-20) Glucose 120 H (70-99(Fasting)) mg/dl Lactate (0.4-2.0) mmol/L Calcium 9.3 (8.5-10.1) mg/dl Magnesium 1.9 (1.7-2.4) mg/dl Total Bilirubin 0.6 (0.2-1.0) mg/dl AST 23 (13-39) U/L ALT 24 (7-52) U/L Alkaline Phosphatase 93 (34-104) U/L Troponin I High Sens 5.5 (0-20) pg/ml C-Reactive Protein (0-0.5) mg/dl Total Protein 7.7 (6.0-8.3) gm/dl Albumin 4.3 (3.4-5.0) gm/dl Globulin 3.4 (2.5-4.0) gm/dl Albumin/Globulin Ratio 1.3 (0.9-2) Urine Color Urine Appearance (Clear) Urine pH (4.5-7.5) Ur Specific [place] (1.000-1.030) Urine Protein (Negative) Urine Glucose (UA) (Negative) Urine Ketones (Negative) Urine Blood (Negative) Urine Nitrite (Negative) Urine Bilirubin (Negative) Urine Urobilinogen (Negative) Ur Leukocyte Esterase (Negative) Urine WBC (Auto) (0-5) /hpf Urine RBC (Auto) (0-4) /hpf U Hyaline Cast (Auto) (0-5) /lpf U Epithel Cells (Auto) (0-5) /lpf Urine Bacteria (Auto) (Negative) Ur Renal Epithelial Cell Urine Crystals Calcium Oxalate Crystal (None Prsent) SARS-CoV-2, RNA, NAAT (NEGATIVE) 04/25/22 04/25/22 04/25/22 Range/Units 11:02 12:15 13:05 WBC (4.8-10.8) K/uL RBC (4.7-6.1) M/uL Hgb (14.0-18.0) g/dL Hct (42-52) % MCV (80-100) fL MCH (25-34) pg MCHC (32-36) g/dL RDW Std Deviation (36.4-46.3) fL RDW Coeff of Raul (11.5-14.5) % Plt Count (130-400) K/uL MPV (7.4-10.4) fL Immature Gran % (Auto) % Neut % (Auto) % Lymph % (Auto) % [place] % (Auto) % Eos % (Auto) % Baso % (Auto) % Neut # (Auto) (1.4-6.5) K/uL Lymph # (Auto) (1.2-3.4) K/uL [place] # (Auto) (0.11-0.59) K/uL Eos # (Auto) (0-0.5) K/uL Baso # (Auto) (0-0.2) K/uL Immature Gran # (Auto) (0.00-0.02) K/uL PT (9.0-12.0) Seconds INR (0.9-1.1) APTT (21.0-31.0) Seconds PTT Ratio Sodium (136-145) mmol/L Potassium (3.5-5.1) mmol/L Chloride (98-107) mmol/L Carbon Dioxide (21-32) mmol/L Anion Gap (3-11) BUN (6-23) mg/dl Creatinine (0.6-1.4) mg/dl Est Cr Clr Drug Dosing ml/min Est GFR ( Amer) ml/min Est GFR (Non-Af Amer) ml/min BUN/Creatinine Ratio (10-20) Glucose (70-99(Fasting)) mg/dl Lactate 0.8 (0.4-2.0) mmol/L Calcium (8.5-10.1) mg/dl Magnesium (1.7-2.4) mg/dl Total Bilirubin (0.2-1.0) mg/dl AST (13-39) U/L ALT (7-52) U/L Alkaline Phosphatase (34-104) U/L Troponin I High Sens (0-20) pg/ml C-Reactive Protein < 0.50 (0-0.5) mg/dl Total Protein (6.0-8.3) gm/dl Albumin (3.4-5.0) gm/dl Globulin (2.5-4.0) gm/dl Albumin/Globulin Ratio (0.9-2) Urine Color Urine Appearance (Clear) Urine pH (4.5-7.5) Ur Specific [place] (1.000-1.030) Urine Protein (Negative) Urine Glucose (UA) (Negative) Urine Ketones (Negative) Urine Blood (Negative) Urine Nitrite (Negative) Urine Bilirubin (Negative) Urine Urobilinogen (Negative) Ur Leukocyte Esterase (Negative) Urine WBC (Auto) (0-5) /hpf Urine RBC (Auto) (0-4) /hpf U Hyaline Cast (Auto) (0-5) /lpf U Epithel Cells (Auto) (0-5) /lpf Urine Bacteria (Auto) (Negative) Ur Renal Epithelial Cell Urine Crystals Calcium Oxalate Crystal (None Prsent) SARS-CoV-2, RNA, NAAT NEGATIVE (NEGATIVE) 04/25/22 Range/Units 13:08 WBC (4.8-10.8) K/uL RBC (4.7-6.1) M/uL Hgb (14.0-18.0) g/dL Hct (42-52) % MCV (80-100) fL MCH (25-34) pg MCHC (32-36) g/dL RDW Std Deviation (36.4-46.3) fL RDW Coeff of Raul (11.5-14.5) % Plt Count (130-400) K/uL MPV (7.4-10.4) fL Immature Gran % (Auto) % Neut % (Auto) % Lymph % (Auto) % [place] % (Auto) % Eos % (Auto) % Baso % (Auto) % Neut # (Auto) (1.4-6.5) K/uL Lymph # (Auto) (1.2-3.4) K/uL [place] # (Auto) (0.11-0.59) K/uL Eos # (Auto) (0-0.5) K/uL Baso # (Auto) (0-0.2) K/uL Immature Gran # (Auto) (0.00-0.02) K/uL PT (9.0-12.0) Seconds INR (0.9-1.1) APTT (21.0-31.0) Seconds PTT Ratio Sodium (136-145) mmol/L Potassium (3.5-5.1) mmol/L Chloride (98-107) mmol/L Carbon Dioxide (21-32) mmol/L Anion Gap (3-11) BUN (6-23) mg/dl Creatinine (0.6-1.4) mg/dl Est Cr Clr Drug Dosing ml/min Est GFR ( Amer) ml/min Est GFR (Non-Af Amer) ml/min BUN/Creatinine Ratio (10-20) Glucose (70-99(Fasting)) mg/dl Lactate (0.4-2.0) mmol/L Calcium (8.5-10.1) mg/dl Magnesium (1.7-2.4) mg/dl Total Bilirubin (0.2-1.0) mg/dl AST (13-39) U/L ALT (7-52) U/L Alkaline Phosphatase (34-104) U/L Troponin I High Sens (0-20) pg/ml C-Reactive Protein (0-0.5) mg/dl Total Protein (6.0-8.3) gm/dl Albumin (3.4-5.0) gm/dl Globulin (2.5-4.0) gm/dl Albumin/Globulin Ratio (0.9-2) Urine Color Dark Yellow Urine Appearance Clear (Clear) Urine pH 6.0 (4.5-7.5) Ur Specific [place] > 1.045 H (1.000-1.030) Urine Protein 1+ H (Negative) Urine Glucose (UA) Negative (Negative) Urine Ketones Trace H (Negative) Urine Blood 2+ H (Negative) Urine Nitrite Negative (Negative) Urine Bilirubin Negative (Negative) Urine Urobilinogen Negative (Negative) Ur Leukocyte Esterase Negative (Negative) Urine WBC (Auto) 5-10 H (0-5) /hpf Urine RBC (Auto) 10-30 H (0-4) /hpf U Hyaline Cast (Auto) 10-30 H (0-5) /lpf U Epithel Cells (Auto) >30 H (0-5) /lpf Urine Bacteria (Auto) Negative (Negative) Ur Renal Epithelial Cell Not Reportable Urine Crystals Not Reportable Calcium Oxalate Crystal Present A (None Prsent) SARS-CoV-2, RNA, NAAT (NEGATIVE) Administered Medications Discontinued Medications Acetaminophen (Acetaminophen 325 Mg Tab) 650 mg PO NOW STA Stop: 04/25/22 11:08 Last Admin: 04/25/22 11:32 Dose: 650 mg Documented by: [id number] Sodium Chloride (Nss 1000ml) 2,000 mls @ 999 mls/hr IV .Q2H1M ONE Stop: 04/25/22 13:07 Last Infusion: 04/25/22 13:39 Dose: 0 mls/hr Documented by: [id number] Admin: 04/25/22 11:38 Dose: 999 mls/hr Documented by: [id number] Ceftriaxone Sodium (Rocephin) 2,000 mg in 70 mls @ 140 mls/hr IV NOW STA Stop: 04/25/22 11:36 Last Infusion: 04/25/22 13:11 Dose: 0 mls/hr Documented by: [id number] Admin: 04/25/22 12:41 Dose: 140 mls/hr Documented by: [id number] Piperacillin Sod/Tazobactam Sod (Zosyn) 4.5 gm in 120 mls @ 240 mls/hr IV NOW ONE Stop: 04/25/22 15:05 Last Infusion: 04/25/22 16:27 Dose: 0 mls/hr Documented by: [id number] Admin: 04/25/22 15:47 Dose: 240 mls/hr Documented by: [id number] Ioversol (Optiray 320 125ml) 120 ml IV ONCE ONE Stop: 04/25/22 13:06 Last Admin: 04/25/22 12:55 Dose: 120 ml Documented by: [id number] Ketorolac Tromethamine (Ketorolac Tromethamine 15 Mg/Ml Vial) 15 mg IV NOW ONE Stop: 04/25/22 11:08 Last Admin: 04/25/22 11:32 Dose: 15 mg Documented by: [id number] Imaging Data Radiologist's Impression: Abdomen/Pelvis CT 04/25/22 11:07 CT ANGIOGRAM OF THE CHEST; CT SCAN OF THE ABDOMEN AND PELVIS WITH IV CONTRAST CLINICAL HISTORY: Left-sided chest pain. Generalized abdominal pain. COMPARISON STUDY: Chest x-ray dated 04/25/2022. Abdominal CT dated 04/03/2022. TECHNIQUE: Following the IV administration of 120 of Optiray 320, CT angiogram of the chest is performed from the upper abdomen to the thoracic inlet utilizing the pulmonary embolus protocol. Images are reviewed in the axial, sagittal, coronal planes. 3-D MIPS images are created and assessed. Subsequently, CT scan of the abdomen and pelvis was performed from the lung bases to the proximal femora. Images are reviewed in the axial, sagittal, and coronal planes. IV contrast was administered without complication. A dose lowering technique was utilized adhering to the principles of ALARA. The examinations are degraded by motion artifact. CT DOSE: 2739.94 mGy.cm FINDINGS: CHEST: Thyroid: Imaged portions of the thyroid gland are normal in size and attenuation. Thoracic aorta: The thoracic aorta is normal in caliber and demonstrates standard 3-vessel arch anatomy. No dissection is seen. Pulmonary vasculature: The pulmonary trunk is normal in caliber. There are no filling defects identified in the main, lobar, or proximal segmental pulmonary arteries to indicate pulmonary embolus. Evaluation of the segmental and subsegmental branches is degraded by motion artifact. Heart: The heart is normal in size and without pericardial effusion. Lungs and pleural spaces: Evaluation of lung parenchyma is degraded by motion artifact. No airspace consolidation or pleural effusion is identified. The trachea and central airways are clear. Mediastinum: There is no mediastinal lymphadenopathy. Barbara: Clear. Axillae: There is no axillary lymphadenopathy. Bony thorax: Degenerative change is noted in the thoracic spine. No lytic or blastic lesions are identified. ABDOMEN AND PELVIS: Liver: The contrast-enhanced liver is mildly enlarged measuring 18.8 cm in length. The liver demonstrates diffusely diminished attenuation dictating steatosis. There is no intrahepatic or ductal dilatation. The hepatic veins and portal veins are patent. Gallbladder: Surgically absent noting clips in the gallbladder fossa. There is mild soft tissue infiltration within the gallbladder fossa. No fluid collection is seen. Spleen: The spleen is enlarged measuring 20.5 cm in length. Pancreas: Unremarkable. Adrenal glands: Unremarkable. Kidneys: The contrast enhanced kidneys are normal in size and without hydronephrosis. The kidneys enhance symmetrically. There is a punctate nonobstructing calculus in the upper pole of the left kidney Abdominal vasculature: The abdominal aorta is normal in course and caliber. Bowel: There is mild to moderate sigmoid diverticulosis without CT evidence of acute diverticulitis. No bowel obstruction is seen. The appendix is well- visualized and normal. Peritoneum: There is no intraperitoneal free air or abdominal ascites. A midline surgical incision is noted with evidence of ventral hernia repair and surrounding infiltration. There is a multiloculated fluid collection within the abdominal midline due to the surgical incision. A simple appearing collection on image #[id number] measures approximately 9 x 3 x 5.5 cm. A more inferiorly located loculated collection on image #342 measures 3.5 x 2.0 cm, and a more laterally located collection in the right upper pelvis on image #321 measures up to 2.7 cm. Lymphadenopathy: None. Pelvic viscera: The bladder, prostate, and seminal vesicles are normal as visualized. Skeletal structures: There is mild lumbosacral spondylosis. No lytic or blastic lesions are seen. IMPRESSION: 1. There is no evidence of pulmonary embolus in the main, lobar, or proximal segmental pulmonary arteries. 2. There is no airspace consolidation or pleural effusion. 3. The patient is status post interval cholecystectomy. There is mild infiltration in the gallbladder fossa with no fluid collection identified. 4. There are loculated fluid collections in the ventral abdominal wall deep to an incision site as detailed above. These likely represent postoperative seromas. The sterility of this fluid cannot be assessed by imaging and clinical correlation will be required. 5. Hepatomegaly and hepatic steatosis. 6. Splenomegaly. 7. Colonic diverticulosis without CT evidence of acute diverticulitis. 8. Left-sided nephrolithiasis. 9. Additional findings as above. ACT 112: Negative or not required by law. Electronically signed by: Ar Lazaro M.D. 04/25/2022 1:18 PM Chest CTA 04/25/22 11:07 CT ANGIOGRAM OF THE CHEST; CT SCAN OF THE ABDOMEN AND PELVIS WITH IV CONTRAST CLINICAL HISTORY: Left-sided chest pain. Generalized abdominal pain. COMPARISON STUDY: Chest x-ray dated 04/25/2022. Abdominal CT dated 04/03/2022. TECHNIQUE: Following the IV administration of 120 of Optiray 320, CT angiogram of the chest is performed from the upper abdomen to the thoracic inlet utilizing the pulmonary embolus protocol. Images are reviewed in the axial, sagittal, coronal planes. 3-D MIPS images are created and assessed. Subsequently, CT scan of the abdomen and pelvis was performed from the lung bases to the proximal femora. Images are reviewed in the axial, sagittal, and coronal planes. IV contrast was administered without complication. A dose lowering technique was utilized adhering to the principles of ALARA. The examinations are degraded by motion artifact. CT DOSE: 2739.94 mGy.cm FINDINGS: CHEST: Thyroid: Imaged portions of the thyroid gland are normal in size and attenuation. Thoracic aorta: The thoracic aorta is normal in caliber and demonstrates standard 3-vessel arch anatomy. No dissection is seen. Pulmonary vasculature: The pulmonary trunk is normal in caliber. There are no filling defects identified in the main, lobar, or proximal segmental pulmonary arteries to indicate pulmonary embolus. Evaluation of the segmental and subsegmental branches is degraded by motion artifact. Heart: The heart is normal in size and without pericardial effusion. Lungs and pleural spaces: Evaluation of lung parenchyma is degraded by motion artifact. No airspace consolidation or pleural effusion is identified. The trachea and central airways are clear. Mediastinum: There is no mediastinal lymphadenopathy. Barbara: Clear. Axillae: There is no axillary lymphadenopathy. Bony thorax: Degenerative change is noted in the thoracic spine. No lytic or atif stic lesions are identified. ABDOMEN AND PELVIS: Liver: The contrast-enhanced liver is mildly enlarged measuring 18.8 cm in length. The liver demonstrates diffusely diminished attenuation dictating steatosis. There is no intrahepatic or ductal dilatation. The hepatic veins and portal veins are patent. Gallbladder: Surgically absent noting clips in the gallbladder fossa. There is mild soft tissue infiltration within the gallbladder fossa. No fluid collection is seen. Spleen: The spleen is enlarged measuring 20.5 cm in length. Pancreas: Unremarkable. Adrenal glands: Unremarkable. Kidneys: The contrast enhanced kidneys are normal in size and without hydronephrosis. The kidneys enhance symmetrically. There is a punctate nonobstructing calculus in the upper pole of the left kidney Abdominal vasculature: The abdominal aorta is normal in course and caliber. Bowel: There is mild to moderate sigmoid diverticulosis without CT evidence of acute diverticulitis. No bowel obstruction is seen. The appendix is well- visualized and normal. Peritoneum: There is no intraperitoneal free air or abdominal ascites. A midline surgical incision is noted with evidence of ventral hernia repair and surrounding infiltration. There is a multiloculated fluid collection within the abdominal midline due to the surgical incision. A simple appearing collection on image #268 measures approximately 9 x 3 x 5.5 cm. A more inferiorly located loculated collection on image #342 measures 3.5 x 2.0 cm, and a more laterally located collection in the right upper pelvis on image #321 measures up to 2.7 cm. Lymphadenopathy: None. Pelvic viscera: The bladder, prostate, and seminal vesicles are normal as visualized. Skeletal structures: There is mild lumbosacral spondylosis. No lytic or blastic lesions are seen. IMPRESSION: 1. There is no evidence of pulmonary embolus in the main, lobar, or proximal segmental pulmonary arteries. 2. There is no airspace consolidation or pleural effusion. 3. The patient is status post interval cholecystectomy. There is mild infiltration in the gallbladder fossa with no fluid collection identified. 4. There are loculated fluid collections in the ventral abdominal wall deep to an incision site as detailed above. These likely represent postoperative seromas. The sterility of this fluid cannot be assessed by imaging and clinical correlation will be required. 5. Hepatomegaly and hepatic steatosis. 6. Splenomegaly. 7. Colonic diverticulosis without CT evidence of acute diverticulitis. 8. Left-sided nephrolithiasis. 9. Additional findings as above. ACT 112: Negative or not required by law. Electronically signed by: Ar Lazaro M.D. 04/25/2022 1:18 PM Chest X-Ray 04/25/22 11:07 SINGLE VIEW CHEST CLINICAL HISTORY: Sepsis. FINDINGS: An AP, portable, upright chest radiograph is compared to study dated 01/12/2020. The cardiomediastinal silhouette is unremarkable. The lungs and pleural spaces are clear. No pneumothorax is seen. The bony thorax is grossly intact. IMPRESSION: No active disease in the chest. ACT 112: Negative or not required by law. Electronically signed by: Ar Lazaro M.D. 04/25/2022 11:32 AM Discharge Plan Visit Data Chief Complaint: Chest Pain ED Provider: Stanley Wade Discharge Problem: SIRS (systemic inflammatory response syndrome), Chest pain, Abdominal pain Forms Stand Alone Forms: [employer] Prescriptions Prescriptions: No Action sennosides [senna] 8.6 mg Tablet 8.6 mg PO DAILY PRN (Reason: Constipation) RF: 0 acetaminophen [Tylenol] 325 mg Tablet 650 mg PO BID PRN (Reason: Pain) RF: 0 doxycycline hyclate 100 mg capsule 100 mg PO BID RF: 0 polyethylene glycol 3350 [Miralax] 17 gram Powder In Packet 17 g PO DAILY PRN (Reason: Constipation) RF: 0 ondansetron HCl [Zofran] 4 mg Tablet 4 mg PO BID RF: 0 cyanocobalamin (vitamin B-12) [Vitamin B-12] 1,000 mcg Tablet 1,000 mcg PO DAILY RF: 0 levothyroxine 25 mcg tablet 25 mcg PO DAILY RF: 0 ferrous sulfate 325 mg (65 mg iron) Tablet 325 mg PO DAILY RF: 0 ibuprofen 200 mg Tablet 400 mg PO BID PRN (Reason: Pain) RF: 0 omeprazole 20 mg Capsule,Delayed Release(Dr/Ec) 40 mg PO DAILY RF: 0 albuterol sulfate 90 mcg/actuation HFA aerosol inhaler 2 puff INHALATION QID PRN (Reason: Shortness Of Breath Or Wheezing) RF: 0 Referrals Referrals: [facility] [Primary Care Provider] -
[2022-04-25 11:21] LABS: Basophils # (auto) 0.05 K/uL (0-0.2); Basophils % (auto) 0.5 %; Eosinophils # (auto) 0.19 K/uL (0-0.5); Hematocrit (blood only) 45.3 % (42-52); Hemoglobin 14.1 g/dL (14.0-18.0); Immature Granulocytes # (auto) 0.01 K/uL (0.00-0.02); Immature Granulocytes % (auto) 0.1 %; Lymphocytes % (auto) 18.1 %; Mean Corpuscular Hemoglobin 24.4 pg (25-34); Mean Corpuscular Hgb Conc 31.1 g/dL (32-36); Mean Corpuscular Volume 78.2 fL (80-100); Mean Platelet Volume 11.8 fL (7.4-10.4); Monocytes # (auto) 0.69 K/uL (0.11-0.59); Monocytes % (auto) 7.4 %; Neutrophils # (auto) 6.73 K/uL (1.4-6.5); Neutrophils % (auto) 71.9 %; Platelet Count 200 K/uL (130-400); RDW Coefficient of Variation 16.9 % (11.5-14.5); RDW Standard Deviation 48.1 fL (36.4-46.3); Red Blood Count 5.79 M/uL (4.7-6.1); White Blood Count 9.37 K/uL (4.8-10.8)
--- NOTE | 2022-04-25 11:34 | XRay Report ---
SINGLE VIEW CHEST CLINICAL HISTORY: Sepsis. FINDINGS: An AP, portable, upright chest radiograph is compared to study dated 01/12/2020. The cardiom ediastinal silhouette is unremarkable. The lungs and pleural spaces are clear. No pneumothorax is see n. The bony thorax is grossly intact. IMPRESSION: No active disease in the chest. ACT 112: Negative or not required by law. Electronically signed by: Ar Lazaro M.D. 04/25/2022 11:32 AM
[2022-04-25 11:48] LABS: Albumin Globulin Ratio 1.3 (0.9-2); Albumin Level 4.3 gm/dl (3.4-5.0); BUN Creatinine Ratio 10.5 (10-20); Bilirubin,Total 0.6 mg/dl (0.2-1.0); Calcium 9.3 mg/dl (8.5-10.1); Creatinine Clr Calc Pharmacy 194.3 ml/min; Est GFR (Non-African American) 117.4 ml/min; Globulin 3.4 gm/dl (2.5-4.0); Magnesium 1.9 mg/dl (1.7-2.4); Potassium 3.7 mmol/L (3.5-5.1); Total Protein 7.7 gm/dl (6.0-8.3)
[2022-04-25 11:49] LABS: Troponin I High Sensitivity 5.5 pg/ml (0-20)
[2022-04-25 11:58] LABS: Partial Thromboplastin Time 26.2 Seconds (21.0-31.0); Prothrombin Time 11.1 Seconds (9.0-12.0)
[2022-04-25] MEDS ORDERED: OPTIRAY 320 125ml IV ONE (13:05)
--- NOTE | 2022-04-25 13:20 | CT Scan Report ---
CT ANGIOGRAM OF THE CHEST; CT SCAN OF THE ABDOMEN AND PELVIS WITH IV CONTRAST CLINICAL HISTORY: Left-sided chest pain. Generalized abdominal pain. COMPARISON STUDY: Chest x-ray dated 04/25/2022. Abdominal CT dated 04/03/2022. TECHNIQUE: Following the IV administration of 120 of Optiray 320, CT angiogram of the chest is perfor med from the upper abdomen to the thoracic inlet utilizing the pulmonary embolus protocol. Images are reviewed in the axial, sagittal, coronal planes. 3-D MIPS images are created and assessed. Subsequen tly, CT scan of the abdomen and pelvis was performed from the lung bases to the proximal femora. Imag es are reviewed in the axial, sagittal, and coronal planes. IV contrast was administered without comp lication. A dose lowering technique was utilized adhering to the principles of ALARA. The examination s are degraded by motion artifact. CT DOSE: 2739.94 mGy.cm FINDINGS: CHEST: Thyroid: Imaged portions of the thyroid gland are normal in size and attenuation. Thoracic aorta: The thoracic aorta is normal in caliber and demonstrates standard 3-vessel arch anato my. No dissection is seen. Pulmonary vasculature: The pulmonary trunk is normal in caliber. There are no filling defects identif ied in the main, lobar, or proximal segmental pulmonary arteries to indicate pulmonary embolus. Evalu ation of the segmental and subsegmental branches is degraded by motion artifact. Heart: The heart is normal in size and without pericardial effusion. Lungs and pleural spaces: Evaluation of lung parenchyma is degraded by motion artifact. No airspace c onsolidation or pleural effusion is identified. The trachea and central airways are clear. Mediastinum: There is no mediastinal lymphadenopathy. Barbara: Clear. Axillae: There is no axillary lymphadenopathy. Bony thorax: Degenerative change is noted in the thoracic spine. No lytic or blastic lesions are iden tified. ABDOMEN AND PELVIS: Liver: The contrast-enhanced liver is mildly enlarged measuring 18.8 cm in length. The liver demonstr ates diffusely diminished attenuation dictating steatosis. There is no intrahepatic or ductal dilatat ion. The hepatic veins and portal veins are patent. Gallbladder: Surgically absent noting clips in the gallbladder fossa. There is mild soft tissue infil tration within the gallbladder fossa. No fluid collection is seen. Spleen: The spleen is enlarged measuring 20.5 cm in length. Pancreas: Unremarkable. Adrenal glands: Unremarkable. Kidneys: The contrast enhanced kidneys are normal in size and without hydronephrosis. The kidneys enh ance symmetrically. There is a punctate nonobstructing calculus in the upper pole of the left kidney Abdominal vasculature: The abdominal aorta is normal in course and caliber. Bowel: There is mild to moderate sigmoid diverticulosis without CT evidence of acute diverticulitis. No bowel obstruction is seen. The appendix is well-visualized and normal. Peritoneum: There is no intraperitoneal free air or abdominal ascites. A midline surgical incision is noted with evidence of ventral hernia repair and surrounding infiltration. There is a multiloculated fluid collection within the abdominal midline due to the surgical incision. A simple appearing colle ction on image #268 measures approximately 9 x 3 x 5.5 cm. A more inferiorly located loculated collec tion on image #342 measures 3.5 x 2.0 cm, and a more laterally located collection in the right upper pelvis on image #321 measures up to 2.7 cm. Lymphadenopathy: None. Pelvic viscera: The bladder, prostate, and seminal vesicles are normal as visualized. Skeletal structures: There is mild lumbosacral spondylosis. No lytic or blastic lesions are seen. IMPRESSION: 1. There is no evidence of pulmonary embolus in the main, lobar, or proximal segmental pulmonary silvia eliana. 2. There is no airspace consolidation or pleural effusion. 3. The patient is status post interval cholecystectomy. There is mild infiltration in the gallbladder fossa with no fluid collection identified. 4. There are loculated fluid collections in the ventral abdominal wall deep to an incision site as de tailed above. These likely represent postoperative seromas. The sterility of this fluid cannot be ass essed by imaging and clinical correlation will be required. 5. Hepatomegaly and hepatic steatosis. 6. Splenomegaly. 7. Colonic diverticulosis without CT evidence of acute diverticulitis. 8. Left-sided nephrolithiasis. 9. Additional findings as above. ACT 112: Negative or not required by law. Electronically signed by: rA Lazaro M.D. 04/25/2022 1:18 PM
[2022-04-25 13:40] LABS: Appearance Urine Clear (Clear); Bacteria Urine Automated Negative (Negative); Bilirubin Urine Negative (Negative); Blood Urine 2+ (Negative); Color Urine Dark Yellow; Epithelial Cell Urine Auto >30 /lpf (0-5); Glucose Urine UA Negative (Negative); Ketones Urine Trace (Negative); Leukocyte Esterase Urine Negative (Negative); Nitrite Urine Negative (Negative); Protein Urine 1+ (Negative); Specific Gravity Urine > 1.045 (1.000-1.030); Urobilinogen Urine Negative (Negative)
[2022-04-25 13:58] LABS: Calcium Oxalate Crystals Urine Present (None Prsent)
[2022-04-25] MEDS ORDERED: PIPERACILLIN/TAZOBACTAM 4.5 GM/120 ML BAG IV ONE (14:36)
--- NOTE | 2022-04-25 15:57 | Surgery Consultation ---
Date of Consultation April 25, 2022 Assessment & Plan (1) Epigastric pain: pt is a 36 year-old male who presents to Er with one day history chest pain and epigastric pain, IMP: chest pain epigastric pain, plan, no surgery indication now, please medicine team admit pt to hospital conservative treatment, pt can have diet, iv antibiotic, control pain, repeat labs in morning, pt agrees with the plan, I answered all questions, will F/u, D/W ER attending, History of Present Illness Reason for Consultation: abdominal pain History of Present Illness CHIEF COMPLAINT: Chest pain HPI: Patient is a 36-year-old male with a past medical history of tobacco abuse, morbid obesity and hypertension as well as asthma that presents the ER for midsternal chest pain. This started this morning around 8:52 AM. Its worse with twisting turning bending, movement of his arms as well as palpation on his chest. He has some slight improvement when he holds pressure on it. It is also worse with breathing. He admits to an ulcer on his right leg/gamino which is been present for the past 10 years. He denies any headache or change in vision. This is a new epigastric abdominal pain. He did have a hernia repair about 20 days ago. Denies any dysuria urgency or frequency. No other exacerbating or remitting factors. I ( Donna Pollard MD ) got a call for consult epigastric pain and chest pain, I reviewed pt's H/P, labs, CT scan with pt, ROS: See above HPI for pertinent positives & negatives. A total of 10 systems reviewed and were otherwise negative. PAST MEDICAL HISTORY:See Below PAST SURGICAL HISTORY:See Below FAMILY HISTORY:See Below SOCIAL HISTORY:See Below HOME MEDICATIONS:See Below ALLERGIES:See Below Allergies Allergy/AdvReac Type Severity Reaction Status Date / Time No Known Allergies Allergy Verified 04/25/22 14:55 Home Medications Medication Instructions Recorded Confirmed Type acetaminophen 325 mg tablet 650 mg PO BID PRN 04/25/22 04/25/22 History (Tylenol) albuterol sulfate 90 mcg/actuation 2 puff INHALATION QID PRN 04/25/22 04/25/22 History aerosol inhaler cyanocobalamin (vitamin B-12) 1,000 mcg PO DAILY 04/25/22 04/25/22 History 1,000 mcg tablet (Vitamin B-12) doxycycline hyclate 100 mg capsule 100 mg PO BID 04/25/22 04/25/22 History ferrous sulfate 325 mg (65 mg 325 mg PO DAILY 04/25/22 04/25/22 History iron) tablet ibuprofen 200 mg tablet 400 mg PO BID PRN 04/25/22 04/25/22 History levothyroxine 25 mcg tablet 25 mcg PO DAILY 04/25/22 04/25/22 History omeprazole 20 mg capsule,delayed 40 mg PO DAILY 04/25/22 04/25/22 History release ondansetron HCl 4 mg tablet 4 mg PO BID 04/25/22 04/25/22 History polyethylene glycol 3350 17 gram 17 g PO DAILY PRN 04/25/22 04/25/22 History oral powder packet (Miralax) sennosides 8.6 mg tablet (senna) 8.6 mg PO DAILY PRN 04/25/22 04/25/22 History Patient History Medical History Anemia Anxiety panic attacks Asthma treated at [facility] for asthma with bronchitis exacerbation/respiratory failure 10/2017- tx with oral steroids, duo nebs, azithromycin Chronic back pain Chronic venous stasis GERD (gastroesophageal reflux disease) Gout H/O gastric ulcer remote bleeding gastric ulcer (2000) Hiatal hernia History of wound infection 07/2020 abdominal, "resolved" Hx of opioid abuse 2012, follows with methadone clinic Hypertension Hypothyroidism Migraine Morbid obesity Obstructive sleep apnea Surgical History History of adenoidectomy History of carpal tunnel surgery of right wrist History of esophagogastroduodenoscopy (EGD) History of femoropopliteal bypass right leg History of herniorrhaphy UMBILICAL HERNIA REPAIR History of tonsillectomy History of tooth extraction S/P excision of ganglion cyst left wrist Family History Mother Cellulitis, leg Other No family history of adverse response to anesthesia Social History Smoking Status: Former smoker Tobacco Type: Cigarettes Cigarettes Per Day: 1 PPD; Second Hand Exposure: Yes; Hx Alcohol Use: No Hx Substance Use: No Preferred Language: Czech Communication Ability: Effective Barrel Rifler Button Required: No Beliefs That Will Affect Care: None marital status: Current Living Situation: Spouse Current Living Situation Comment: Inmate Feels Safe at Home: Yes Assistive Devices: None Review of Systems Constitutional: obesity Eyes: as per Subjective / HPI Respiratory: tobacco abuse Cardiovascular: Additional Comments: HTN Gastrointestinal: S/P lap dung, open repair ventral hernia with mesh Neurologic: as per Subjective / HPI Psychiatric: as per Subjective / HPI Endocrine: hypothyroidism Hematologic / Lymphatic: as per Subjective / HPI Physical Exam Constitutional: obesity, no distress, Eyes: PERRL, conjunctivae normal, anicteric sclerae Neck: trachea midline, no thyromegaly Respiratory: normal respiratory effort, lungs clear to auscultation Cardiovascular: RRR, no murmur, no edema Gastrointestinal (Abdomen): soft, mild tenderness at epigastric area, no rebound pain, middle line incision heal well no redness, no drainage, BS + Neurologic: patellar DTR's 2+ bilat, sensation intact Psychiatric: A+Ox3, euthymic affect Results & Data ([facility]) Vital Signs (Past 12 Hours) Vital Signs Temp Pulse Pulse Resp BP BP Pulse Ox 04/25/22 15:00 97 H 17 99 04/25/22 14:00 98 04/25/22 13:13 83 20 97 04/25/22 12:30 86 25 H 147/100 H 97 04/25/22 12:15 96 H 19 144/97 H 99 04/25/22 12:00 88 14 129/97 96 04/25/22 11:45 92 H 16 111/72 98 04/25/22 11:10 95 04/25/22 11:07 119 H 14 122/76 96 04/25/22 10:49 96 04/25/22 10:37 38.0 C H 119 H 19 122/76 95 Laboratory Results Abnormal Labs 04/25/22 04/25/22 04/25/22 11:02 11:02 13:08 MCV 78.2 L MCH 24.4 L MCHC 31.1 L RDW Std Deviation 48.1 H RDW Coeff of Raul 16.9 H MPV 11.8 H Neut # (Auto) 6.73 H [place] # (Auto) 0.69 H Glucose 120 H Ur Specific [place] > 1.045 H Urine Protein 1+ H Urine Ketones Trace H Urine Blood 2+ H Urine WBC (Auto) 5-10 H Urine RBC (Auto) 10-30 H U Hyaline Cast (Auto) 10-30 H U Epithel Cells (Auto) >30 H Calcium Oxalate Crystal Present A Diagnostic Findings CT ANGIOGRAM OF THE CHEST; CT SCAN OF THE ABDOMEN AND PELVIS WITH IV CONTRAST CLINICAL HISTORY: Left-sided chest pain. Generalized abdominal pain. COMPARISON STUDY: Chest x-ray dated 04/25/2022. Abdominal CT dated 04/03/2022. TECHNIQUE: Following the IV administration of 120 of Optiray 320, CT angiogram of the chest is performed from the upper abdomen to the thoracic inlet utilizing the pulmonary embolus protocol. Images are reviewed in the axial, sagittal, coronal planes. 3-D MIPS images are created and assessed. Subsequently, CT scan of the abdomen and pelvis was performed from the lung bases to the proximal femora. Images are reviewed in the axial, sagittal, and coronal planes. IV contrast was administered without complication. A dose lowering technique was utilized adhering to the principles of ALARA. The examinations are degraded by motion artifact. CT DOSE: 2739.94 mGy.cm FINDINGS: CHEST: Thyroid: Imaged portions of the thyroid gland are normal in size and attenuation. Thoracic aorta: The thoracic aorta is normal in caliber and demonstrates standard 3-vessel arch anatomy. No dissection is seen. Pulmonary vasculature: The pulmonary trunk is normal in caliber. There are no filling defects identified in the main, lobar, or proximal segmental pulmonary arteries to indicate pulmonary embolus. Evaluation of the segmental and subsegmental branches is degraded by motion artifact. Heart: The heart is normal in size and without pericardial effusion. Lungs and pleural spaces: Evaluation of lung parenchyma is degraded by motion artifact. No airspace consolidation or pleural effusion is identified. The trachea and central airways are clear. Mediastinum: There is no mediastinal lymphadenopathy. Barbara: Clear. Axillae: There is no axillary lymphadenopathy. Bony thorax: Degenerative change is noted in the thoracic spine. No lytic or blastic lesions are identified. ABDOMEN AND PELVIS: Liver: The contrast-enhanced liver is mildly enlarged measuring 18.8 cm in lengt h. The liver demonstrates diffusely diminished attenuation dictating steatosis. There is no intrahepatic or ductal dilatation. The hepatic veins and portal veins are patent. Gallbladder: Surgically absent noting clips in the gallbladder fossa. There is mild soft tissue infiltration within the gallbladder fossa. No fluid collection is seen. Spleen: The spleen is enlarged measuring 20.5 cm in length. Pancreas: Unremarkable. Adrenal glands: Unremarkable. Kidneys: The contrast enhanced kidneys are normal in size and without hydronephrosis. The kidneys enhance symmetrically. There is a punctate nonobstructing calculus in the upper pole of the left kidney Abdominal vasculature: The abdominal aorta is normal in course and caliber. Bowel: There is mild to moderate sigmoid diverticulosis without CT evidence of acute diverticulitis. No bowel obstruction is seen. The appendix is well- visualized and normal. Peritoneum: There is no intraperitoneal free air or abdominal ascites. A midline surgical incision is noted with evidence of ventral hernia repair and surrounding infiltration. There is a multiloculated fluid collection within the abdominal midline due to the surgical incision. A simple appearing collection on image #268 measures approximately 9 x 3 x 5.5 cm. A more inferiorly located loculated collection on image #342 measures 3.5 x 2.0 cm, and a more laterally located collection in the right upper pelvis on image #321 measures up to 2.7 cm. Lymphadenopathy: None. Pelvic viscera: The bladder, prostate, and seminal vesicles are normal as visualized. Skeletal structures: There is mild lumbosacral spondylosis. No lytic or blastic lesions are seen. IMPRESSION: 1. There is no evidence of pulmonary embolus in the main, lobar, or proximal segmental pulmonary arteries. 2. There is no airspace consolidation or pleural effusion. 3. The patient is status post interval cholecystectomy. There is mild infiltration in the gallbladder fossa with no fluid collection identified. 4. There are loculated fluid collections in the ventral abdominal wall deep to an incision site as detailed above. These likely represent postoperative seromas. The sterility of this fluid cannot be assessed by imaging and clinical correlation will be required. 5. Hepatomegaly and hepatic steatosis. 6. Splenomegaly. 7. Colonic diverticulosis without CT evidence of acute diverticulitis. 8. Left-sided nephrolithiasis. 9. Additional findings as above.
--- NOTE | 2022-04-25 16:26 | History & Physical Report ---
Date of Service April 25, 2022 Assessment & Plan (1) SIRS (systemic inflammatory response syndrome): (2) Chest pain: (3) Epigastric pain: Plan: 36 year old male s/p lap dung and open incisional hernia repair 04/05 presented to the ED with left sided chest pain today as well as upper abd/epigastric pain for 1 week. Met SIRS criteria in ED. CT C/A/P 1. There is no evidence of pulmonary embolus in the main, lobar, or proximal segmental pulmonary arteries. 2. There is no airspace consolidation or pleural effusion. 3. The patient is status post interval cholecystectomy. There is mild infiltration in the gallbladder fossa with no fluid collection identified. 4. There are loculated fluid collections in the ventral abdominal wall deep to an incision site as detailed above. These likely represent postoperative seromas. The sterility of this fluid cannot be assessed by imaging and clinical correlation will be required. 5. Hepatomegaly and hepatic steatosis. 6. Splenomegaly. 7. Colonic diverticulosis without CT evidence of acute diverticulitis. 8. Left-sided nephrolithiasis. Chest pain- details as above. S/p 2 SL nitro and ASA full dose. Currently resolved. Trop x1 negative, EKG with no acute ischemic changes. Will trend trop, monitor on tele, repeat EKG and echo in am. Might need to consider stress test. Will keep npo overnight. SIRS- meet SIRS criteria with fever, tachycardia. WBC normal, lactate normal, CMP normal. CTA chest A/P reviewed- no acute abnormality or source of infection except for posttop seromas deep to the recent hernia repair site ?infected. Check CRP, procal. UA does not suggest UTI. - Given ceftriaxone/ zosyn in ED- will continue zosyn pending blood culture results - Seen by surgery- defer to surgical team whether the fluid needs to be drained or cultured Epigastric/upper abd pain around the surgical site - He is s/p lap dung for chronic cholecystitis and cholelithiasis, open incisional hernia repair 3 weeks back. Having abd pain for a week. Management per surgical team as above. - continue antibiotic, pain management with oxy prn, tylenol RLE wound- does not look infected. Continue local wound care. Follows with [facility] wound clinic. GERD- continue PPI Hypothyroid- continue synthroid DVT ppx- sc lovenox Dispo- Medsurg with tele. History of Present Illness Chief Complaint: chest pain Primary Care Provider: [facility] 36-year-old male with PMH of multiple hernia repair, recurrent RLE cellulitis [noncompliance with wound care clinic follow-up and with antibiotics], venous insufficiency, venous ulcer of right and left leg, hypothyroidism, opiate abuse on chronic methadone, GERD, morbid obesity, AALIYAH not on CPAP [noncompliance with sleep medicine follow-up], HTN, asthma who was recently admitted to the hospital 03/31-04/07 for abdominal pain and underwent lap dung with open ventral hernia repair at that time with improvement in his symptoms and discharged back to long term presented to the ED today with left sided chest pain with radiation to jaw and back. He was given 2 nitro and full dose aspirin en route. He was noted to be diaphoretic and breathing heavy upon arrival. Noted to have fever and tachycardia upon arrival. Labs and CT done. Given ceftriaxone and zosyn in ED for concern for sepsis. ED physician spoke to surgical team who recommended non surgical management for now and admission by hospitalist. Patient was seen and examined at bedside. States his chest pain did not immediately improve with nitro and ASA but slowly abated and is resolved now but has a headache from the nitro. States he now has upper abdominal pain around the surgical site and asking for pain medication. States he has been having pain for the past week, worsening. He was seen by surgery last week in the office in follow up. He also follows with wound care for RLE wound at [place] and was last seen on Sunday. He does not know if he had fever or chills at the long term as it is usually hot there. No nausea, vomiting, abd pain. Regular bowel movements, last one today. Smoking not allowed in long term. states he has neuropathy and is upset that his gabapentin was discontinued in the long term. No other issues. Allergies Allergy/AdvReac Type Severity Reaction Status Date / Time No Known Allergies Allergy Verified 04/25/22 14:55 Home Medications Medication Instructions Recorded Confirmed Type acetaminophen 325 mg tablet 650 mg PO BID PRN 04/25/22 04/25/22 History (Tylenol) albuterol sulfate 90 mcg/actuation 2 puff INHALATION QID PRN 04/25/22 04/25/22 History aerosol inhaler cyanocobalamin (vitamin B-12) 1,000 mcg PO DAILY 04/25/22 04/25/22 History 1,000 mcg tablet (Vitamin B-12) doxycycline hyclate 100 mg capsule 100 mg PO BID 04/25/22 04/25/22 History ferrous sulfate 325 mg (65 mg 325 mg PO DAILY 04/25/22 04/25/22 History iron) tablet ibuprofen 200 mg tablet 400 mg PO BID PRN 04/25/22 04/25/22 History levothyroxine 25 mcg tablet 25 mcg PO DAILY 04/25/22 04/25/22 History omeprazole 20 mg capsule,delayed 40 mg PO DAILY 04/25/22 04/25/22 History release ondansetron HCl 4 mg tablet 4 mg PO BID 04/25/22 04/25/22 History polyethylene glycol 3350 17 gram 17 g PO DAILY PRN 04/25/22 04/25/22 History oral powder packet (Miralax) sennosides 8.6 mg tablet (senna) 8.6 mg PO DAILY PRN 04/25/22 04/25/22 History Past Med/Surg History Medical History Anemia Anxiety panic attacks Asthma treated at [facility] for asthma with bronchitis exacerbation/respiratory failure 10/2017- tx with oral steroids, duo nebs, azithromycin Chronic back pain Chronic venous stasis GERD (gastroesophageal reflux disease) Gout H/O gastric ulcer remote bleeding gastric ulcer (2000) Hiatal hernia History of wound infection 07/2020 abdominal, "resolved" Hx of opioid abuse 2012, follows with methadone clinic Hypertension Hypothyroidism Migraine Morbid obesity Obstructive sleep apnea Surgical History History of adenoidectomy History of carpal tunnel surgery of right wrist History of esophagogastroduodenoscopy (EGD) History of femoropopliteal bypass right leg History of herniorrhaphy UMBILICAL HERNIA REPAIR History of tonsillectomy History of tooth extraction S/P excision of ganglion cyst left wrist Family History Mother Cellulitis, leg Other No family history of adverse response to anesthesia Social History Smoking Status: Former smoker Tobacco Type: Cigarettes Cigarettes Per Day: 1 PPD; Second Hand Exposure: Yes; Hx Alcohol Use: No Hx Substance Use: No Preferred Language: Sri [place]an Communication Ability: Effective Production Staff Worker Required: No Beliefs That Will Affect Care: None marital status: Current Living Situation: Spouse Current Living Situation Comment: Inmate Feels Safe at Home: Yes Assistive Devices: None Review of Systems Review of Systems: All systems reviewed & are unremarkable except as noted in Subjective Physical Exam Physical Exam: General: Lying comfortably in bed, not in distress, on room air HEENT: EOMI, KIARRA, MMM Chest: Clear breath sounds bilaterally, no wheezes or crackles CVS: Regular rate and rhythm, normal heart sounds, no murmur Abdomen: Soft, upper abd tenderness around the surgical site- incision site clean dry intact and closed with no cellulitis or drainage, normal bowel sounds Neuro: Awake, alert, oriented, conversing well, non focal Extremities: No cyanosis, clubbing or edema. RLE wound covered with dressing- does not look infected. LLE with chronic skin changes. Results & Data Results & Data ([facility]) Vital Signs (Past 12 Hours) Vital Signs Temp Pulse Pulse Resp BP BP Pulse Ox 04/25/22 15:00 97 H 17 99 04/25/22 14:00 98 04/25/22 13:13 83 20 97 04/25/22 12:30 86 25 H 147/100 H 97 04/25/22 12:15 96 H 19 144/97 H 99 04/25/22 12:00 88 14 129/97 96 04/25/22 11:45 92 H 16 111/72 98 04/25/22 11:10 95 04/25/22 11:07 119 H 14 122/76 96 04/25/22 10:49 96 04/25/22 10:37 38.0 C H 119 H 19 122/76 95 Laboratory Results Short CBC 04/25/22 Range/Units 11:02 WBC 9.37 (4.8-10.8) K/uL Hgb 14.1 (14.0-18.0) g/dL Hct 45.3 (42-52) % MCV 78.2 L (80-100) fL Plt Count 200 (130-400) K/uL BMP 04/25/22 11:02 Sodium 140 Potassium 3.7 Chloride 106 Carbon Dioxide 26 BUN 8 Creatinine 0.76 Glucose 120 H Calcium 9.3 Liver Function 04/25/22 Range/Units 11:02 Total Bilirubin 0.6 (0.2-1.0) mg/dl AST 23 (13-39) U/L ALT 24 (7-52) U/L Alkaline Phosphatase 93 (34-104) U/L Albumin 4.3 (3.4-5.0) gm/dl Urine 04/25/22 Range/Units 13:08 Urine Color Dark Yellow Urine Appearance Clear (Clear) Urine pH 6.0 (4.5-7.5) Ur Specific [place] > 1.045 H (1.000-1.030) Urine Protein 1+ H (Negative) Urine Glucose (UA) Negative (Negative) Diagnostic Findings Abdomen/Pelvis CT 04/25/22 11:07 CT ANGIOGRAM OF THE CHEST; CT SCAN OF THE ABDOMEN AND PELVIS WITH IV CONTRAST CLINICAL HISTORY: Left-sided chest pain. Generalized abdominal pain. COMPARISON STUDY: Chest x-ray dated 04/25/2022. Abdominal CT dated 04/03/2022. TECHNIQUE: Following the IV administration of 120 of Optiray 320, CT angiogram of the chest is performed from the upper abdomen to the thoracic inlet utilizing the pulmonary embolus protocol. Images are reviewed in the axial, sagittal, coronal planes. 3-D MIPS images are created and assessed. Subsequently, CT scan of the abdomen and pelvis was performed from the lung bases to the proximal femora. Images are reviewed in the axial, sagittal, and coronal planes. IV contrast was administered without complication. A dose lowering technique was utilized adhering to the principles of ALARA. The examinations are degraded by motion artifact. CT DOSE: 2739.94 mGy.cm FINDINGS: CHEST: Thyroid: Imaged portions of the thyroid gland are normal in size and attenuation. Thoracic aorta: The thoracic aorta is normal in caliber and demonstrates standard 3-vessel arch anatomy. No dissection is seen. Pulmonary vasculature: The pulmonary trunk is normal in caliber. There are no filling defects identified in the main, lobar, or proximal segmental pulmonary arteries to indicate pulmonary embolus. Evaluation of the segmental and subse gmental branches is degraded by motion artifact. Heart: The heart is normal in size and without pericardial effusion. Lungs and pleural spaces: Evaluation of lung parenchyma is degraded by motion artifact. No airspace consolidation or pleural effusion is identified. The trachea and central airways are clear. Mediastinum: There is no mediastinal lymphadenopathy. Barbara: Clear. Axillae: There is no axillary lymphadenopathy. Bony thorax: Degenerative change is noted in the thoracic spine. No lytic or blastic lesions are identified. ABDOMEN AND PELVIS: Liver: The contrast-enhanced liver is mildly enlarged measuring 18.8 cm in length. The liver demonstrates diffusely diminished attenuation dictating steatosis. There is no intrahepatic or ductal dilatation. The hepatic veins and portal veins are patent. Gallbladder: Surgically absent noting clips in the gallbladder fossa. There is mild soft tissue infiltration within the gallbladder fossa. No fluid collection is seen. Spleen: The spleen is enlarged measuring 20.5 cm in length. Pancreas: Unremarkable. Adrenal glands: Unremarkable. Kidneys: The contrast enhanced kidneys are normal in size and without hydronephrosis. The kidneys enhance symmetrically. There is a punctate nonobstructing calculus in the upper pole of the left kidney Abdominal vasculature: The abdominal aorta is normal in course and caliber. Bowel: There is mild to moderate sigmoid diverticulosis without CT evidence of acute diverticulitis. No bowel obstruction is seen. The appendix is well- visualized and normal. Peritoneum: There is no intraperitoneal free air or abdominal ascites. A midline surgical incision is noted with evidence of ventral hernia repair and surrounding infiltration. There is a multiloculated fluid collection within the abdominal midline due to the surgical incision. A simple appearing collection on image #268 measures approximately 9 x 3 x 5.5 cm. A more inferiorly located loculated collection on image #342 measures 3.5 x 2.0 cm, and a more laterally located collection in the right upper pelvis on image #321 measures up to 2.7 cm. Lymphadenopathy: None. Pelvic viscera: The bladder, prostate, and seminal vesicles are normal as visualized. Skeletal structures: There is mild lumbosacral spondylosis. No lytic or blastic lesions are seen. IMPRESSION: 1. There is no evidence of pulmonary embolus in the main, lobar, or proximal segmental pulmonary arteries. 2. There is no airspace consolidation or pleural effusion. 3. The patient is status post interval cholecystectomy. There is mild inf iltration in the gallbladder fossa with no fluid collection identified. 4. There are loculated fluid collections in the ventral abdominal wall deep to an incision site as detailed above. These likely represent postoperative seromas. The sterility of this fluid cannot be assessed by imaging and clinical correlation will be required. 5. Hepatomegaly and hepatic steatosis. 6. Splenomegaly. 7. Colonic diverticulosis without CT evidence of acute diverticulitis. 8. Left-sided nephrolithiasis. 9. Additional findings as above. ACT 112: Negative or not required by law. Electronically signed by: Ar Lazaro M.D. 04/25/2022 1:18 PM Chest CTA 04/25/22 11:07 CT ANGIOGRAM OF THE CHEST; CT SCAN OF THE ABDOMEN AND PELVIS WITH IV CONTRAST CLINICAL HISTORY: Left-sided chest pain. Generalized abdominal pain. COMPARISON STUDY: Chest x-ray dated 04/25/2022. Abdominal CT dated 04/03/2022. TECHNIQUE: Following the IV administration of 120 of Optiray 320, CT angiogram of the chest is performed from the upper abdomen to the thoracic inlet utilizing the pulmonary embolus protocol. Images are reviewed in the axial, sagittal, coronal planes. 3-D MIPS images are created and assessed. Subsequently, CT scan of the abdomen and pelvis was performed from the lung bases to the proximal femora. Images are reviewed in the axial, sagittal, and coronal planes. IV contrast was administered without complication. A dose lowering technique was utilized adhering to the principles of ALARA. The examinations are degraded by motion artifact. CT DOSE: 2739.94 mGy.cm FINDINGS: CHEST: Thyroid: Imaged portions of the thyroid gland are normal in size and attenuation. Thoracic aorta: The thoracic aorta is normal in caliber and demonstrates standard 3-vessel arch anatomy. No dissection is seen. Pulmonary vasculature: The pulmonary trunk is normal in caliber. There are no filling defects identified in the main, lobar, or proximal segmental pulmonary arteries to indicate pulmonary embolus. Evaluation of the segmental and subsegmental branches is degraded by motion artifact. Heart: The heart is normal in size and without pericardial effusion. Lungs and pleural spaces: Evaluation of lung parenchyma is degraded by motion artifact. No airspace consolidation or pleural effusion is identified. The trachea and central airways are clear. Mediastinum: There is no mediastinal lymphadenopathy. Barbara: Clear. Axillae: There is no axillary lymphadenopathy. Bony thorax: Degenerative change is noted in the thoracic spine. No lytic or blastic lesions are identified. ABDOMEN AND PELVIS: Liver: The contrast-enhanced liver is mildly enlarged measuring 18.8 cm in length. The liver demonstrates diffusely diminished attenuation dictating amilcar atosis. There is no intrahepatic or ductal dilatation. The hepatic veins and portal veins are patent. Gallbladder: Surgically absent noting clips in the gallbladder fossa. There is mild soft tissue infiltration within the gallbladder fossa. No fluid collection is seen. Spleen: The spleen is enlarged measuring 20.5 cm in length. Pancreas: Unremarkable. Adrenal glands: Unremarkable. Kidneys: The contrast enhanced kidneys are normal in size and without hydronephrosis. The kidneys enhance symmetrically. There is a punctate nonobstructing calculus in the upper pole of the left kidney Abdominal vasculature: The abdominal aorta is normal in course and caliber. Bowel: There is mild to moderate sigmoid diverticulosis without CT evidence of acute diverticulitis. No bowel obstruction is seen. The appendix is well- visualized and normal. Peritoneum: There is no intraperitoneal free air or abdominal ascites. A midline surgical incision is noted with evidence of ventral hernia repair and surrounding infiltration. There is a multiloculated fluid collection within the abdominal midline due to the surgical incision. A simple appearing collection on image #268 measures approximately 9 x 3 x 5.5 cm. A more inferiorly located loculated collection on image #342 measures 3.5 x 2.0 cm, and a more laterally located collection in the right upper pelvis on image #321 measures up to 2.7 c m. Lymphadenopathy: None. Pelvic viscera: The bladder, prostate, and seminal vesicles are normal as visualized. Skeletal structures: There is mild lumbosacral spondylosis. No lytic or blastic lesions are seen. IMPRESSION: 1. There is no evidence of pulmonary embolus in the main, lobar, or proximal segmental pulmonary arteries. 2. There is no airspace consolidation or pleural effusion. 3. The patient is status post interval cholecystectomy. There is mild infiltration in the gallbladder fossa with no fluid collection identified. 4. There are loculated fluid collections in the ventral abdominal wall deep to an incision site as detailed above. These likely represent postoperative seromas. The sterility of this fluid cannot be assessed by imaging and clinical correlation will be required. 5. Hepatomegaly and hepatic steatosis. 6. Splenomegaly. 7. Colonic diverticulosis without CT evidence of acute diverticulitis. 8. Left-sided nephrolithiasis. 9. Additional findings as above. ACT 112: Negative or not required by law. Electronically signed by: Ar Lazaro M.D. 04/25/2022 1:18 PM Chest X-Ray 04/25/22 11:07 SINGLE VIEW CHEST CLINICAL HISTORY: Sepsis. FINDINGS: An AP, portable, upright chest radiograph is compared to study dated 01/12/2020. The cardiomediastinal silhouette is unremarkable. The lungs and pleural spaces are clear. No pneumothorax is seen. The bony thorax is grossly intact. IMPRESSION: No active disease in the chest. ACT 112: Negative or not required by law. Electronically signed by: Ar Lazaro M.D. 04/25/2022 11:32 AM
[2022-04-25] MEDS ORDERED: SENNA 8.6 MG TAB PO PRN (17:41)
[2022-04-25] MEDS ORDERED: ALBUTEROL HFA 8 GM INHALER INH PRN (17:41)
[2022-04-25] MEDS ORDERED: ONDANSETRON INJ 2 MG/ML 2 ML VIAL IV PRN (20:36)
[2022-04-25] MEDS: oxyCODONE HCL IR 5 MG TAB (IMMEDIATE RELEASE) PO PRN (21:14)
[2022-04-25] MEDS: ACETAMINOPHEN 325 MG TAB PO SCH (21:14)
[2022-04-25] MEDS: ENOXAPARIN INJ 40 MG/0.4 ML SYR SQ SCH (21:15)
[2022-04-25] MEDS: GABAPENTIN 100 MG CAP PO SCH (21:17)
[2022-04-25] MEDS: DOXYCYCLINE HYCLATE 100 MG CAP PO SCH (22:18)
[2022-04-25] MEDS: PIPERACILLIN/TAZOBACTAM 4.5 GM in DEXTROSE 5% 100 ML IV SCH (22:18)
[2022-04-26] MEDS ORDERED: NITROGLYCERIN SL 0.4 MG/TAB TAB SL STA (01:41)
[2022-04-26] MEDS ORDERED: NITROGLYCERIN SL 0.4 MG/TAB TAB ONE (01:46)
[2022-04-26] MEDS: oxyCODONE HCL IR 5 MG TAB (IMMEDIATE RELEASE) PO PRN ×5 (02:12→21:28)
[2022-04-26] MEDS ORDERED: Nursing to Pharmacy Communication SCH (02:15)
[2022-04-26 02:41] LABS: Basophils # (auto) 0.06 K/uL (0-0.2); Basophils % (auto) 0.7 %; Eosinophils # (auto) 0.34 K/uL (0-0.5); Eosinophils % (auto) 4.1 %; Hematocrit (blood only) 40.9 % (42-52); Hemoglobin 12.4 g/dL (14.0-18.0); Immature Granulocytes # (auto) 0.01 K/uL (0.00-0.02); Immature Granulocytes % (auto) 0.1 %; Lymphocytes # (auto) 2.46 K/uL (1.2-3.4); Lymphocytes % (auto) 29.6 %; Mean Corpuscular Hemoglobin 23.5 pg (25-34); Mean Corpuscular Hgb Conc 30.3 g/dL (32-36); Mean Corpuscular Volume 77.6 fL (80-100); Mean Platelet Volume 11.4 fL (7.4-10.4); Monocytes % (auto) 10.8 %; Neutrophils # (auto) 4.55 K/uL (1.4-6.5); Neutrophils % (auto) 54.7 %; Platelet Count 169 K/uL (130-400); RDW Coefficient of Variation 17.2 % (11.5-14.5); RDW Standard Deviation 48.9 fL (36.4-46.3); Red Blood Count 5.27 M/uL (4.7-6.1); White Blood Count 8.32 K/uL (4.8-10.8)
[2022-04-26 02:43] LABS: Partial Thromboplastin Time 26.8 Seconds (21.0-31.0)
[2022-04-26 02:57] LABS: BUN Creatinine Ratio 11.3 (10-20); Calcium 8.4 mg/dl (8.5-10.1); Creatinine Clr Calc Pharmacy 209.2 ml/min; Est GFR (African American) 139.9 ml/min; Est GFR (Non-African American) 120.7 ml/min; Magnesium 1.9 mg/dl (1.7-2.4); Potassium 3.6 mmol/L (3.5-5.1)
[2022-04-26 03:13] LABS: Ferritin 22.8 ng/ml (8-388)
[2022-04-26] MEDS: PIPERACILLIN/TAZOBACTAM 4.5 GM in DEXTROSE 5% 100 ML IV SCH ×3 (05:02→20:14)
[2022-04-26] MEDS: LEVOTHYROXINE SODIUM 25 MCG TABLET PO SCH (05:04)
[2022-04-26] MEDS: ACETAMINOPHEN 325 MG TAB PO SCH ×4 (05:05→23:29)
--- NOTE | 2022-04-26 06:38 | Electrocardiogram Report ---
Test Reason : Blood Pressure : / mmHG Vent. Rate : 116 BPM Atrial Rate : 116 BPM P-R Int : 116 ms QRS Dur : 072 ms QT Int : 326 ms P-R-T Axes : 044 -13 074 degrees QTc Int : 453 ms Poor data quality, interpretation may be adversely affected Sinus tachycardia with Premature ventricular complexes Nonspecific ST and T wave abnormality Abnormal ECG When compared with ECG of 30-MAR-2022 14:35, PVC is now Present Confirmed by Chalo Mendoza ([id number]) on 04/26/2022 6:37:28 AM Referred By: REFERRED SELF Confirmed By:Chalo Mendoza
[2022-04-26] MEDS ORDERED: PERFLUTREN LIPID MICROSPHERE (DEFINITY) IV ONE (07:46)
[2022-04-26] MEDS: POLYETHYLENE (MIRALAX) 17 GM PACK PO SCH (08:05)
[2022-04-26] MEDS: CYANOCOBALAMIN (B-12) 500 MCG TABLET PO SCH (08:05)
[2022-04-26] MEDS: PANTOprazole 40 MG TAB PO SCH (08:05)
[2022-04-26] MEDS: FERROUS SULFATE 325 MG TAB PO SCH (08:05)
[2022-04-26] MEDS: DOXYCYCLINE HYCLATE 100 MG CAP PO SCH ×2 (09:42→21:13)
--- NOTE | 2022-04-26 10:00 | Surgery Progress Note ---
Date of Service April 26, 2022 Assessment & Plan (1) Epigastric pain: Plan: pt is a 36 year-old male who presents to Er with one day history chest pain and epigastric pain, IMP: chest pain epigastric pain, plan, no surgery indication now, please medicine team admit pt to hospital conservative treatment, pt can have diet, iv antibiotic, control pain, repeat labs in morning, pt agrees with the plan, I answered all questions, will F/u, D/W ER attending, 04/26/2022 9:58Am, Dr. Pollard base on normal WBC, no fever, no redness on incision site, no surgery indication now, continue antibiotic treatment, possible discharge tomorrow with 7 days po antibiotic, will F/U, Admission and Anticipated Discharge Date Admission Date: April 25, 2022 Subjective F/U chest pain and abdominal pain, pt said he still have some chest pain and epigastric pain, no nausea, no vomiting, no fever, normal WBC, Review of Systems Constitutional: obesity Eyes: as per Subjective / HPI Respiratory: tobacco abuse Cardiovascular: Additional Comments: HTN Gastrointestinal: S/P lap dung, open repair ventral hernia with mesh Neurologic: as per Subjective / HPI Psychiatric: as per Subjective / HPI Endocrine: hypothyroidism Hematologic / Lymphatic: as per Subjective / HPI Physical Exam Eyes: PERRL, conjunctivae normal, anicteric sclerae Neck: trachea midline, no thyromegaly Respiratory: normal respiratory effort, lungs clear to auscultation Cardiovascular: RRR, no murmur, no edema Gastrointestinal (Abdomen): soft, mild tenderness at epigastric area, no rebound pain, no redness, no distend, BS + Neurologic: patellar DTR's 2+ bilat, sensation intact Psychiatric: A+Ox3, euthymic affect Results & Data ([facility]) Vital Signs (Past 12 Hours) Vital Signs Temp Pulse Pulse Resp BP BP Pulse Ox 04/26/22 08:02 36.7 C 77 16 128/83 95 04/26/22 03:00 36.8 C 74 18 113/76 94 04/26/22 02:08 75 22 112/74 95 04/26/22 01:35 36.8 C 80 20 129/92 95 04/25/22 22:55 36.7 C 86 20 131/84 95 04/25/22 22:21 80 Laboratory Results Abnormal lab results 04/25/22 04/25/22 04/25/22 Range/Units 11:02 11:02 13:08 Hgb (14.0-18.0) g/dL Hct (42-52) % MCV 78.2 L (80-100) fL MCH 24.4 L (25-34) pg MCHC 31.1 L (32-36) g/dL RDW Std Deviation 48.1 H (36.4-46.3) fL RDW Coeff of Raul 16.9 H (11.5-14.5) % MPV 11.8 H (7.4-10.4) fL Neut # (Auto) 6.73 H (1.4-6.5) K/uL [place] # (Auto) 0.69 H (0.11-0.59) K/uL Chloride (98-107) mmol/L Glucose 120 H (70-99(Fasting)) mg/dl Calcium (8.5-10.1) mg/dl Ur Specific [place] > 1.045 H (1.000-1.030) Urine Protein 1+ H (Negative) Urine Ketones Trace H (Negative) Urine Blood 2+ H (Negative) Urine WBC (Auto) 5-10 H (0-5) /hpf Urine RBC (Auto) 10-30 H (0-4) /hpf U Hyaline Cast (Auto) 10-30 H (0-5) /lpf U Epithel Cells (Auto) >30 H (0-5) /lpf Calcium Oxalate Crystal Present A (None Prsent) 04/26/22 04/26/22 Range/Units 02:15 02:15 Hgb 12.4 L (14.0-18.0) g/dL Hct 40.9 L (42-52) % MCV 77.6 L (80-100) fL MCH 23.5 L (25-34) pg MCHC 30.3 L (32-36) g/dL RDW Std Deviation 48.9 H (36.4-46.3) fL RDW Coeff of Raul 17.2 H (11.5-14.5) % MPV 11.4 H (7.4-10.4) fL Neut # (Auto) (1.4-6.5) K/uL [place] # (Auto) 0.90 H (0.11-0.59) K/uL Chloride 108 H (98-107) mmol/L Glucose (70-99(Fasting)) mg/dl Calcium 8.4 L (8.5-10.1) mg/dl Ur Specific [place] (1.000-1.030) Urine Protein (Negative) Urine Ketones (Negative) Urine Blood (Negative) Urine WBC (Auto) (0-5) /hpf Urine RBC (Auto) (0-4) /hpf U Hyaline Cast (Auto) (0-5) /lpf U Epithel Cells (Auto) (0-5) /lpf Calcium Oxalate Crystal (None Prsent)
--- NOTE | 2022-04-26 15:12 | Hospitalist Progress Note ---
Date of Service April 26, 2022 Assessment & Plan (1) SIRS (systemic inflammatory response syndrome): (2) Chest pain: (3) Epigastric pain: Plan: 36 year old male s/p lap dung and open incisional hernia repair 04/05 presented to the ED with left sided chest pain today as well as upper abd/epigastric pain for 1 week. Met SIRS criteria in ED. CT C/A/P 1. There is no evidence of pulmonary embolus in the main, lobar, or proximal segmental pulmonary arteries. 2. There is no airspace consolidation or pleural effusion. 3. The patient is status post interval cholecystectomy. There is mild infiltration in the gallbladder fossa with no fluid collection identified. 4. There are loculated fluid collections in the ventral abdominal wall deep to an incision site as detailed above. These likely represent postoperative seromas. The sterility of this fluid cannot be assessed by imaging and clinical correlation will be required. 5. Hepatomegaly and hepatic steatosis. 6. Splenomegaly. 7. Colonic diverticulosis without CT evidence of acute diverticulitis. 8. Left-sided nephrolithiasis. Chest pain- S/p 2 SL nitro and ASA full dose yesterday. Trop x3 negative, EKG with no acute ischemic changes. Continues to have intermittent chest pain with radiation to left extremity. Last stress test was 11 years ago per patient. Doubt ACS. Ordered stress test but I was told it won't be done until Sunday. Will ask cardio for assistance. Epigastric/upper abd pain around the surgical site - He is s/p lap dung for chronic cholecystitis and cholelithiasis, open incisional hernia repair 3 weeks back. Having abd pain for a week. Discussed with surgery at bedside today- no plans for surgical intervention- recommended ABx for 7-10 days with OP folow up. Continue iv zosyn, pain management with oxy prn, tylenol- will change to augmentin at discharge SIRS- met SIRS criteria on admission with fever, tachycardia. WBC normal, procal negative, CRP negative, lactate normal, CMP normal. CTA chest A/P reviewed- no acute abnormality or source of infection except for posttop seromas deep to the recent hernia repair site ?infected. UA does not suggest UTI. Blood culture negative till date. - SIRS resolved. Surgery has no plans for any intervention- recommended ABx course. - Continue zosyn->change to augmentin at discharge as per discussion with surgery. RLE wound- does not look infected. Continue local wound care. Follows with OP wound clinic. GERD- continue PPI Hypothyroid- continue synthroid Iron deficiency- improved but still deficient. Continue iron supplementation. DVT ppx- sc lovenox Dispo- Anticipate discharge in 1-2 days back [facility]. Admission and Anticipated Discharge Date Admission Date: April 25, 2022 Subjective Continues to have chest pain and abdominal pain. No fever, chills, nausea, vomiting. States he had stress test done 11 years ago and he did not like it. No other issues. Physical Exam Physical Exam: General: Lying comfortably in bed, not in distress, on room air HEENT: EOMI, KIARRA, MMM Chest: Clear breath sounds bilaterally, no wheezes or crackles CVS: Regular rate and rhythm, normal heart sounds, no murmur Abdomen: Soft, upper abd tenderness around the surgical site- incision site clean dry intact and closed with no cellulitis or drainage, normal bowel sounds Neuro: Awake, alert, oriented, conversing well, non focal Extremities: No cyanosis, clubbing or edema. RLE wound covered with dressing- does not look infected. LLE with chronic skin changes. Results & Data Results & Data ([facility]) Vital Signs (Past 12 Hours) Vital Signs Temp Pulse Resp BP BP Pulse Ox 04/26/22 11:42 37.1 C 85 16 131/80 95 04/26/22 08:02 36.7 C 77 16 128/83 95 Laboratory Results Short CBC 04/26/22 Range/Units 02:15 WBC 8.32 (4.8-10.8) K/uL Hgb 12.4 L (14.0-18.0) g/dL Hct 40.9 L (42-52) % Plt Count 169 (130-400) K/uL BMP 04/26/22 02:15 Sodium 140 Potassium 3.6 Chloride 108 H Carbon Dioxide 26 BUN 8 Creatinine 0.71 Glucose 91 Calcium 8.4 L Medications Administered Current Inpatient Medications Acetaminophen (Acetaminophen 325 Mg Tab) 650 mg PO Q6 [facility] Stop: 05/25/22 20:35 Last Admin: 04/26/22 11:30 Dose: 650 mg Documented by: Albuterol (Albuterol Hfa 8 Gm Inhaler) 2 puffs INH QID PRN PRN Reason: Shortness Of Breath Or Wheezing Stop: 05/25/22 17:40 Cyanocobalamin (Cyanocobalamin (B-12) 500 Mcg Tablet) 1,000 mcg PO DAILY [facility] Stop: 05/26/22 08:59 Last Admin: 04/26/22 08:05 Dose: 1,000 mcg Documented by: Doxycycline Hyclate (Doxycycline Hyclate 100 Mg Cap) 100 mg PO BID@1000,2200 [facility] Stop: 05/02/22 21:59 Last Admin: 04/26/22 09:42 Dose: 100 mg Documented by: Enoxaparin Sodium (Enoxaparin Inj 40 Mg/0.4 Ml Syr) 40 mg SQ HS [facility] Stop: 05/25/22 20:59 Last Admin: 04/25/22 21:15 Dose: 40 mg Documented by: Ferrous Sulfate (Ferrous Sulfate 325 Mg Tab) 325 mg PO DAILY [facility] Stop: 05/26/22 08:59 Last Admin: 04/26/22 08:05 Dose: 325 mg Documented by: Gabapentin (Gabapentin 100 Mg Cap) 100 mg PO [facility] Stop: 05/25/22 20:59 Last Admin: 04/25/22 21:17 Dose: 100 mg Documented by: Piperacillin Sod/Tazobactam (Sod 4.5 gm/ Dextrose) 120 mls @ 30 mls/hr IV Q8H [facility]; Protocol Stop: 04/27/22 21:59 Last Admin: 04/26/22 13:07 Dose: 30 mls/hr Documented by: Levothyroxine Sodium (Levothyroxine Sodium 25 Mcg Tablet) [facility] Stop: 05/26/22 06:29 Last Admin: 04/26/22 05:04 Dose: 25 mcg Documented by: Ondansetron HCl (Ondansetron Inj 2 Mg/Ml 2 Ml Vial) 4 mg IV Q6H PRN PRN Reason: Nausea And Vomiting Stop: 05/25/22 20:35 Last Admin: 04/25/22 22:18 Dose: 4 mg Documented by: Oxycodone HCl (Oxycodone Hcl Ir 5 Mg Tab (Immediate Release)) 5 mg PO Q4H PRN PRN Reason: Pain Stop: 05/09/22 20:35 Last Admin: 04/26/22 13:07 Dose: 5 mg Documented by: Pantoprazole Sodium (Pantoprazole 40 Mg Tab) 40 mg PO DAILY [facility] Stop: 05/26/22 08:59 Last Admin: 04/26/22 08:05 Dose: 40 mg Documented by: Polyethylene Glycol (Polyethylene (Miralax) 17 Gm Pack) 17 gm PO DAILY [facility] Stop: 05/26/22 08:59 Last Admin: 04/26/22 08:05 Dose: Not Given Documented by: Sennosides (Senna 8.6 Mg Tab) 8.6 mg PO DAILY PRN PRN Reason: Constipation Stop: 05/25/22 17:40 (1) Chest pain Chest pain type: unspecified Qualified Code(s): R07.9 - Chest pain, unspecified
--- NOTE | 2022-04-26 19:48 | Cardiology Consultation ---
Date of Consultation April 26, 2022 Assessment & Plan (1) Chest wall pain: Clinically, patient felt to have chest wall pain that is easily reproducible on physical exam. Patient grimaced with placement of mild palpation pressure over the left costal margin. Serial HS troponins have been negative despite persistent chest discomfort. Echocardiogram reassuring. At present , no further cardiac testing is indicated. Consider analgesics, such as Tylenol, cautious nonsteroidal anti-inflammatory medication. History of Present Illness Attending Physician: Zbigniew Hearn MD History of Present Illness Enmanuel Zheng is a 36-year-old male seen in cardiology consultation per the request of Dr Hearn for the evaluation of chest discomfort. Patient is morbidly obese, BMI 49 kg/m. He had recently undergone hernia repair on 04/05/2022. Patient admitted via the emergency room 04/25/2022 for epigastric discomfort as well as left chest discomfort for which cardiology consulted. Patient describes to me 2 days of persistent left-sided chest discomfort rating down his left arm. He states that he is not very physically active as he is confined to his cell is an inmate. He is in no acute distress. Family History: Patient notes history of coronary heart disease in multiple relatives including his uncle and grandfather. Allergies Allergy/AdvReac Type Severity Reaction Status Date / Time No Known Allergies Allergy Verified 04/25/22 14:55 Home Medications Medication Instructions Recorded Confirmed Type acetaminophen 325 mg tablet 650 mg PO BID PRN 04/25/22 04/25/22 History (Tylenol) albuterol sulfate 90 mcg/actuation 2 puff INHALATION QID PRN 04/25/22 04/25/22 History aerosol inhaler cyanocobalamin (vitamin B-12) 1,000 mcg PO DAILY 04/25/22 04/25/22 History 1,000 mcg tablet (Vitamin B-12) doxycycline hyclate 100 mg capsule 100 mg PO BID 04/25/22 04/25/22 History ferrous sulfate 325 mg (65 mg 325 mg PO DAILY 04/25/22 04/25/22 History iron) tablet ibuprofen 200 mg tablet 400 mg PO BID PRN 04/25/22 04/25/22 History levothyroxine 25 mcg tablet 25 mcg PO DAILY 04/25/22 04/25/22 History omeprazole 20 mg capsule,delayed 40 mg PO DAILY 04/25/22 04/25/22 History release ondansetron HCl 4 mg tablet 4 mg PO BID 04/25/22 04/25/22 History polyethylene glycol 3350 17 gram 17 g PO DAILY PRN 04/25/22 04/25/22 History oral powder packet (Miralax) sennosides 8.6 mg tablet (senna) 8.6 mg PO DAILY PRN 04/25/22 04/25/22 History Patient History Medical History Anemia Anxiety panic attacks Asthma treated at [facility] for asthma with bronchitis exacerbation/respiratory failure 10/2017- tx with oral steroids, duo nebs, azithromycin Chronic back pain Chronic venous stasis GERD (gastroesophageal reflux disease) Gout H/O gastric ulcer remote bleeding gastric ulcer (2000) Hiatal hernia History of wound infection 07/2020 abdominal, "resolved" Hx of opioid abuse 2012, follows with methadone clinic Hypertension Hypothyroidism Migraine Morbid obesity Obstructive sleep apnea Surgical History History of adenoidectomy History of carpal tunnel surgery of right wrist History of esophagogastroduodenoscopy (EGD) History of femoropopliteal bypass right leg History of herniorrhaphy UMBILICAL HERNIA REPAIR History of tonsillectomy History of tooth extraction S/P excision of ganglion cyst left wrist Family History Mother Cellulitis, leg Other No family history of adverse response to anesthesia Social History Smoking Status: Never smoker Tobacco Type: Cigarettes Cigarettes Per Day: 1 PPD; Second Hand Exposure: Yes; Hx Alcohol Use: No Hx Substance Use: No Preferred Language: Chinese Communication Ability: Effective Aircraft 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 Gastrointestinal (Abdomen): Nontender, well-healing midline surgical incision. Neurologic: No focal deficits. Results & Data ([facility]) Vital Signs (Past 12 Hours) Vital Signs Temp Pulse Resp BP BP Pulse Ox 04/26/22 16:05 36.9 C 80 16 136/87 92 04/26/22 11:42 37.1 C 85 16 131/80 95 04/26/22 08:02 36.7 C 77 16 128/83 95 Laboratory Results Cardiac Enzymes 04/25/22 04/26/22 Range/Units 20:59 02:15 Troponin I High Sens 9.6 D 7.0 (0-20) pg/ml Coagulation 04/26/22 Range/Units 02:15 APTT 26.8 (21.0-31.0) Seconds CBC 04/26/22 Range/Units 02:15 WBC 8.32 (4.8-10.8) K/uL RBC 5.27 (4.7-6.1) M/uL Hgb 12.4 L (14.0-18.0) g/dL Hct 40.9 L (42-52) % Plt Count 169 (130-400) K/uL Neut # (Auto) 4.55 (1.4-6.5) K/uL Lymph # (Auto) 2.46 (1.2-3.4) K/uL [place] # (Auto) 0.90 H (0.11-0.59) K/uL Eos # (Auto) 0.34 (0-0.5) K/uL Baso # (Auto) 0.06 (0-0.2) K/uL Comprehensive Metabolic Panel 04/26/22 Range/Units 02:15 Sodium 140 (136-145) mmol/L Potassium 3.6 (3.5-5.1) mmol/L Chloride 108 H (98-107) mmol/L Carbon Dioxide 26 (21-32) mmol/L BUN 8 (6-23) mg/dl Creatinine 0.71 (0.6-1.4) mg/dl Glucose 91 (70-99(Fasting)) mg/dl Calcium 8.4 L (8.5-10.1) mg/dl Intake and Output 04/26/22 04/26/22 04/26/22 06:59 14:59 22:59 Intake Total 420 / 2622 395 / 515 120 / 515 Output Total 100 / 100 Balance 420 / 2622 295 / 415 120 / 415 Intake: IV 120 / 2310 120 / 240 120 / 240 Piperacillin/Tazobactam 4.5 gm 120 / 120 120 / 240 120 / 240 In Dextrose 5% 100 ml @ 30 mls/ hr IV Q8H [facility] Rx#:[id number] Oral 300 / 312 275 / 275 Output: Urine 100 / 100 Diagnostic Findings EKG performed today 04/26/2022 reveals normal sinus rhythm 82 bpm with nonspecific diffuse T wave flattening. Unchanged compared to previous. Per review of record, diffuse T wave flattening has been a chronic finding noted on tracings dating back to July,. Echocardiogram performed today revealed no regional wall motion abnormalities, LVEF 55 to 60%, trace tricuspid regurgitation.
[2022-04-26] MEDS: ENOXAPARIN INJ 40 MG/0.4 ML SYR SQ SCH (20:17)
[2022-04-26] MEDS: GABAPENTIN 100 MG CAP PO SCH (20:23)
--- NOTE | 2022-04-26 22:43 | Electrocardiogram Report ---
Test Reason : Blood Pressure : / mmHG Vent. Rate : 090 BPM Atrial Rate : 090 BPM P-R Int : 120 ms QRS Dur : 078 ms QT Int : 354 ms P-R-T Axes : 080 -04 031 degrees QTc Int : 433 ms Poor data quality, interpretation may be adversely affected Possible Sinus rhythm Nonspecific ST and T wave abnormality Abnormal ECG When compared with ECG of 25-APR-2022 10:37, Premature ventricular complexes are no longer Present Confirmed by Chalo Mendoza ([id number]) on 04/26/2022 10:43:26 PM Referred By: REFERRED SELF Confirmed By:Chalo Mendoza
[2022-04-27] MEDS: PIPERACILLIN/TAZOBACTAM 4.5 GM in DEXTROSE 5% 100 ML IV SCH (05:31)
[2022-04-27] MEDS: LEVOTHYROXINE SODIUM 25 MCG TABLET PO SCH (05:31)
[2022-04-27] MEDS: ACETAMINOPHEN 325 MG TAB PO SCH ×2 (05:32→11:06)
[2022-04-27] MEDS: oxyCODONE HCL IR 5 MG TAB (IMMEDIATE RELEASE) PO PRN (05:37)
[2022-04-27] MEDS: PANTOprazole 40 MG TAB PO SCH (08:56)
[2022-04-27] MEDS: FERROUS SULFATE 325 MG TAB PO SCH (08:56)
[2022-04-27] MEDS: CYANOCOBALAMIN (B-12) 500 MCG TABLET PO SCH (08:56)
[2022-04-27] MEDS: DOXYCYCLINE HYCLATE 100 MG CAP PO SCH (08:57)
[2022-04-27] MEDS: POLYETHYLENE (MIRALAX) 17 GM PACK PO SCH (08:59)
[2022-04-27] MEDS ORDERED: AMOXICILLIN/CLAVULANATE 875 MG TAB PO SCH (09:00)
--- NOTE | 2022-04-27 10:54 | Surgery Progress Note ---
Date of Service April 27, 2022 Assessment & Plan (1) Epigastric pain: Plan: pt is a 36 year-old male who presents to Er with one day history chest pain and epigastric pain, IMP: chest pain epigastric pain, plan, no surgery indication now, please medicine team admit pt to hospital conservative treatment, pt can have diet, iv antibiotic, control pain, repeat labs in morning, pt agrees with the plan, I answered all questions, will F/u, D/W ER attending, 04/26/2022 9:58Am, Dr. Pollard base on normal WBC, no fever, no redness on incision site, no surgery indication now, continue antibiotic treatment, possible discharge tomorrow with 7 days po antibiotic, will F/U, 04/27/2022 10:51AM, pt is doing fine, remove staplers, incision intact, no redness, S/P repair ventral hernia with mesh, seroma, no signs for abscess now, no surgery indication now, conservative treatment, pt can be discharged today, po cipro + flagyl for 7 days, F/U ok 2 weeks, Admission and Anticipated Discharge Date Admission Date: April 25, 2022 Subjective Continues to have chest pain and abdominal pain. No fever, chills, nausea, vomiting. States he had stress test done 11 years ago and he did not like it. No other issues. 04/27/2022 10:49AM, Dr. Pollard stable, mild epigastric and chest pain, no fever, no nausea, no vomiting, Review of Systems Constitutional: obesity Eyes: as per Subjective / HPI Respiratory: tobacco abuse Cardiovascular: Additional Comments: HTN Gastrointestinal: S/P lap dung, open repair ventral hernia with mesh Neurologic: as per Subjective / HPI Psychiatric: as per Subjective / HPI Endocrine: hypothyroidism Hematologic / Lymphatic: as per Subjective / HPI Physical Exam Eyes: PERRL, conjunctivae normal, anicteric sclerae Neck: trachea midline, no thyromegaly Respiratory: normal respiratory effort, lungs clear to auscultation Cardiovascular: RRR, no murmur, no edema Gastrointestinal (Abdomen): soft, mild tenderness at epigastric area, no rebound pain, no redness, incision intact, Neurologic: patellar DTR's 2+ bilat, sensation intact Psychiatric: A+Ox3, euthymic affect Results & Data ([facility]) Vital Signs (Past 12 Hours) Vital Signs Temp Pulse Pulse Resp BP BP Pulse Ox 04/27/22 08:00 69 04/27/22 07:41 36.9 C 78 16 145/80 H 97 04/27/22 03:36 36.7 C 62 18 114/76 96 04/26/22 23:49 36.8 C 71 18 126/89 93
--- NOTE | 2022-04-27 17:47 | Discharge Summary ---
Date of Service April 27, 2022 Admission HPI Per Admitting Provider 36-year-old male with PMH of multiple hernia repair, recurrent RLE cellulitis [noncompliance with wound care clinic follow-up and with antibiotics], venous insufficiency, venous ulcer of right and left leg, hypothyroidism, opiate abuse on chronic methadone, GERD, morbid obesity, AALIYAH not on CPAP [noncompliance with sleep medicine follow-up], HTN, asthma who was recently admitted to the hospital 03/31-04/07 for abdominal pain and underwent lap dung with open ventral hernia repair at that time with improvement in his symptoms and discharged back to nursing home presented to the ED today with left sided chest pain with radiation to jaw and back. He was given 2 nitro and full dose aspirin en route. He was noted to be diaphoretic and breathing heavy upon arrival. Noted to have fever and tachycardia upon arrival. Labs and CT done. Given ceftriaxone and zosyn in ED for concern for sepsis. ED physician spoke to surgical team who recommended non surgical management for now and admission by hospitalist. Patient was seen and examined at bedside. States his chest pain did not immediately improve with nitro and ASA but slowly abated and is resolved now but has a headache from the nitro. States he now has upper abdominal pain around the surgical site and asking for pain medication. States he has been having pain for the past week, worsening. He was seen by surgery last week in the office in follow up. He also follows with wound care for RLE wound at [facility] and was last seen on Sunday. He does not know if he had fever or chills at the nursing home as it is usually hot there. No nausea, vomiting, abd pain. Regular bowel movements, last one today. Smoking not allowed in nursing home. states he has neuropathy and is upset that his gabapentin was discontinued in the nursing home. No other issues. Admission Exam Per Admitting Provider General: Lying comfortably in bed, not in distress, on room air HEENT: EOMI, KIARRA, MMM Chest: Clear breath sounds bilaterally, no wheezes or crackles CVS: Regular rate and rhythm, normal heart sounds, no murmur Abdomen: Soft, upper abd tenderness around the surgical site- incision site clean dry intact and closed with no cellulitis or drainage, normal bowel sounds Neuro: Awake, alert, oriented, conversing well, non focal Extremities: No cyanosis, clubbing or edema. RLE wound covered with dressing- does not look infected. LLE with chronic skin changes. Principal Diagnosis Chest pain, Abd pain, Postop seroma, SIRS Discharge Exam General: Lying comfortably in bed, not in distress, on room air HEENT: EOMI, KIARRA, MMM Chest: Chest wall tenderness noted even with gentle palpation. Clear breath sounds bilaterally, no wheezes or crackles CVS: Regular rate and rhythm, normal heart sounds, no murmur Abdomen: Soft, upper abd tenderness around the surgical site- incision site clean dry intact and closed with no cellulitis or drainage, normal bowel sounds Neuro: Awake, alert, oriented, conversing well, non focal Extremities: No cyanosis, clubbing or edema. RLE wound covered with dressing- does not look infected. LLE with chronic skin changes. Discharge Data Allergies Allergy/AdvReac Type Severity Reaction Status Date / Time No Known Allergies Allergy Verified 04/25/22 14:55 Consultations 04/25/22 14:37 ED Decision to Admit Stat 04/25/22 14:53 Consult General Surgery Stat 04/26/22 13:40 Consult Cardiology Routine Ordered Studies 04/25/22 11:07 CT abd pelvis IV con only Stat CT angio chest PE protocol Stat Laboratory Results WBC 8.32 K/uL (4.8-10.8) 04/26/22 02:15 RBC 5.27 M/uL (4.7-6.1) 04/26/22 02:15 Hgb 12.4 g/dL (14.0-18.0) L 04/26/22 02:15 Hct 40.9 % (42-52) L 04/26/22 02:15 MCV 77.6 fL (80-100) L 04/26/22 02:15 MCH 23.5 pg (25-34) L 04/26/22 02:15 MCHC 30.3 g/dL (32-36) L 04/26/22 02:15 RDW Std Deviation 48.9 fL (36.4-46.3) H 04/26/22 02:15 RDW Coeff of Raul 17.2 % (11.5-14.5) H 04/26/22 02:15 Plt Count 169 K/uL (130-400) 04/26/22 02:15 MPV 11.4 fL (7.4-10.4) H 04/26/22 02:15 Immature Gran % (Auto) 0.1 % 04/26/22 02:15 Neut % (Auto) 54.7 % 04/26/22 02:15 Lymph % (Auto) 29.6 % 04/26/22 02:15 [place] % (Auto) 10.8 % 04/26/22 02:15 Eos % (Auto) 4.1 % 04/26/22 02:15 Baso % (Auto) 0.7 % 04/26/22 02:15 Neut # (Auto) 4.55 K/uL (1.4-6.5) 04/26/22 02:15 Lymph # (Auto) 2.46 K/uL (1.2-3.4) 04/26/22 02:15 [place] # (Auto) 0.90 K/uL (0.11-0.59) H 04/26/22 02:15 Eos # (Auto) 0.34 K/uL (0-0.5) 04/26/22 02:15 Baso # (Auto) 0.06 K/uL (0-0.2) 04/26/22 02:15 Immature Gran # (Auto) 0.01 K/uL (0.00-0.02) 04/26/22 02:15 PT 11.1 Seconds (9.0-12.0) 04/25/22 11:02 INR 1.0 (0.9-1.1) 04/25/22 11:02 APTT 26.8 Seconds (21.0-31.0) 04/26/22 02:15 PTT Ratio 1.0 04/26/22 02:15 Sodium 140 mmol/L (136-145) 04/26/22 02:15 Potassium 3.6 mmol/L (3.5-5.1) 04/26/22 02:15 Chloride 108 mmol/L (98-107) H 04/26/22 02:15 Carbon Dioxide 26 mmol/L (21-32) 04/26/22 02:15 Anion Gap 6 (3-11) 04/26/22 02:15 BUN 8 mg/dl (6-23) 04/26/22 02:15 Creatinine 0.71 mg/dl (0.6-1.4) 04/26/22 02:15 Est Cr Clr Drug Dosing 209.2 ml/min 04/26/22 02:15 Est GFR ( Amer) 139.9 ml/min 04/26/22 02:15 Est GFR (Non-Af Amer) 120.7 ml/min 04/26/22 02:15 BUN/Creatinine Ratio 11.3 (10-20) 04/26/22 02:15 Glucose 91 mg/dl (70-99(Fasting)) 04/26/22 02:15 Lactate 0.8 mmol/L (0.4-2.0) 04/25/22 12:15 Calcium 8.4 mg/dl (8.5-10.1) L 04/26/22 02:15 Magnesium 1.9 mg/dl (1.7-2.4) 04/26/22 02:15 Ferritin 22.8 ng/ml (8-388) 04/26/22 02:15 Total Bilirubin 0.6 mg/dl (0.2-1.0) 04/25/22 11:02 AST 23 U/L (13-39) 04/25/22 11:02 ALT 24 U/L (7-52) 04/25/22 11:02 Alkaline Phosphatase 93 U/L (34-104) 04/25/22 11:02 Troponin I High Sens 7.0 pg/ml (0-20) 04/26/22 02:15 C-Reactive Protein < 0.50 mg/dl (0-0.5) 04/25/22 11:02 Total Protein 7.7 gm/dl (6.0-8.3) 04/25/22 11:02 Albumin 4.3 gm/dl (3.4-5.0) 04/25/22 11:02 Globulin 3.4 gm/dl (2.5-4.0) 04/25/22 11:02 Albumin/Globulin Ratio 1.3 (0.9-2) 04/25/22 11:02 Procalcitonin < 0.05 ng/ml (0-0.5) 04/25/22 11:02 Urine Color Dark Yellow 04/25/22 13:08 Urine Appearance Clear (Clear) 04/25/22 13:08 Urine pH 6.0 (4.5-7.5) 04/25/22 13:08 Ur Specific [place] > 1.045 (1.000-1.030) H 04/25/22 13:08 Urine Protein 1+ (Negative) H 04/25/22 13:08 Urine Glucose (UA) Negative (Negative) 04/25/22 13:08 Urine Ketones Trace (Negative) H 04/25/22 13:08 Urine Blood 2+ (Negative) H 04/25/22 13:08 Urine Nitrite Negative (Negative) 04/25/22 13:08 Urine Bilirubin Negative (Negative) 04/25/22 13:08 Urine Urobilinogen Negative (Negative) 04/25/22 13:08 Ur Leukocyte Esterase Negative (Negative) 04/25/22 13:08 Urine WBC (Auto) 5-10 /hpf (0-5) H 04/25/22 13:08 Urine RBC (Auto) 10-30 /hpf (0-4) H 04/25/22 13:08 U Hyaline Cast (Auto) 10-30 /lpf (0-5) H 04/25/22 13:08 U Epithel Cells (Auto) >30 /lpf (0-5) H 04/25/22 13:08 Urine Bacteria (Auto) Negative (Negative) 04/25/22 13:08 Ur Renal Epithelial Cell Not Reportable 04/25/22 13:08 Urine Crystals Not Reportable 04/25/22 13:08 Calcium Oxalate Crystal Present (None Prsent) A 04/25/22 13:08 Nasal Screen MRSA (PCR) Negative (Negative) 04/26/22 01:54 SARS-CoV-2, RNA, NAAT NEGATIVE (NEGATIVE) 04/25/22 13:05 Impressions Abdomen/Pelvis CT 04/25/22 11:07 CT ANGIOGRAM OF THE CHEST; CT SCAN OF THE ABDOMEN AND PELVIS WITH IV CONTRAST CLINICAL HISTORY: Left-sided chest pain. Generalized abdominal pain. COMPARISON STUDY: Chest x-ray dated 04/25/2022. Abdominal CT dated 04/03/2022. TECHNIQUE: Following the IV administration of 120 of Optiray 320, CT angiogram of the chest is performed from the upper abdomen to the thoracic inlet utilizing the pulmonary embolus protocol. Images are reviewed in the axial, sagittal, coronal planes. 3-D MIPS images are created and assessed. Subsequently, CT scan of the abdomen and pelvis was performed from the lung bases to the proximal femora. Images are reviewed in the axial, sagittal, and coronal planes. IV contrast was administered without complication. A dose lowering technique was utilized adhering to the principles of ALARA. The examinations are degraded by motion artifact. CT DOSE: 2739.94 mGy.cm FINDINGS: CHEST: Thyroid: Imaged portions of the thyroid gland are normal in size and attenuation. Thoracic aorta: The thoracic aorta is normal in caliber and demonstrates standard 3-vessel arch anatomy. No dissection is seen. Pulmonary vasculature: The pulmonary trunk is normal in caliber. There are no filling defects identified in the main, lobar, or proximal segmental pulmonary arteries to indicate pulmonary embolus. Evaluation of the segmental and subsegmental branches is degraded by motion artifact. Heart: The heart is normal in size and without pericardial effusion. Lungs and pleural spaces: Evaluation of lung parenchyma is degraded by motion artifact. No airspace consolidation or pleural effusion is identified. The trachea and central airways are clear. Mediastinum: There is no mediastinal lymphadenopathy. Barbara: Clear. Axillae: There is no axillary lymphadenopathy. Bony thorax: Degenerative change is noted in the thoracic spine. No lytic or blastic lesions are identified. ABDOMEN AND PELVIS: Liver: The contrast-enhanced liver is mildly enlarged measuring 18.8 cm in length. The liver demonstrates diffusely diminished attenuation dictating steatosis. There is no intrahepatic or ductal dilatation. The hepatic veins and portal veins are patent. Gallbladder: Surgically absent noting clips in the gallbladder fossa. There is mild soft tissue infiltration within the gallbladder fossa. No fluid collection is seen. Spleen: The spleen is enlarged measuring 20.5 cm in length. Pancreas: Unremarkable. Adrenal glands: Unremarkable. Kidneys: The contrast enhanced kidneys are normal in size and without hydronephrosis. The kidneys enhance symmetrically. There is a punctate nonobstructing calculus in the upper pole of the left kidney Abdominal vasculature: The abdominal aorta is normal in course and caliber. Bowel: There is mild to moderate sigmoid diverticulosis without CT evidence of acute diverticulitis. No bowel obstruction is seen. The appendix is well- visualized and normal. Peritoneum: There is no intraperitoneal free air or abdominal ascites. A midline surgical incision is noted with evidence of ventral hernia repair and surrounding infiltration. There is a multiloculated fluid collection within the abdominal midline due to the surgical incision. A simple appearing collection on image #268 measures approximately 9 x 3 x 5.5 cm. A more inferiorly located loculated collection on image #342 measures 3.5 x 2.0 cm, and a more laterally located collection in the right upper pelvis on image #321 measures up to 2.7 cm. Lymphadenopathy: None. Pelvic viscera: The bladder, prostate, and seminal vesicles are normal as visualized. Skeletal structures: There is mild lumbosacral spondylosis. No lytic or blastic lesions are seen. IMPRESSION: 1. There is no evidence of pulmonary embolus in the main, lobar, or proximal s egmental pulmonary arteries. 2. There is no airspace consolidation or pleural effusion. 3. The patient is status post interval cholecystectomy. There is mild infiltration in the gallbladder fossa with no fluid collection identified. 4. There are loculated fluid collections in the ventral abdominal wall deep to an incision site as detailed above. These likely represent postoperative seromas. The sterility of this fluid cannot be assessed by imaging and clinical correlation will be required. 5. Hepatomegaly and hepatic steatosis. 6. Splenomegaly. 7. Colonic diverticulosis without CT evidence of acute diverticulitis. 8. Left-sided nephrolithiasis. 9. Additional findings as above. ACT 112: Negative or not required by law. Electronically signed by: Ar Lazaro M.D. 04/25/2022 1:18 PM Chest CTA 04/25/22 11:07 CT ANGIOGRAM OF THE CHEST; CT SCAN OF THE ABDOMEN AND PELVIS WITH IV CONTRAST CLINICAL HISTORY: Left-sided chest pain. Generalized abdominal pain. COMPARISON STUDY: Chest x-ray dated 04/25/2022. Abdominal CT dated 04/03/2022. TECHNIQUE: Following the IV administration of 120 of Optiray 320, CT angiogram of the chest is performed from the upper abdomen to the thoracic inlet utilizing the pulmonary embolus protocol. Images are reviewed in the axial, sagittal, coronal planes. 3-D MIPS images are created and assessed. Subsequently, CT scan of the abdomen and pelvis was performed from the lung bases to the proximal femora. Images are reviewed in the axial, sagittal, and coronal planes. IV contrast was administered without complication. A dose lowering technique was utilized adhering to the principles of ALARA. The examinations are degraded by motion artifact. CT DOSE: 2739.94 mGy.cm FINDINGS: CHEST: Thyroid: Imaged portions of the thyroid gland are normal in size and attenuation. Thoracic aorta: The thoracic aorta is normal in caliber and demonstrates standard 3-vessel arch anatomy. No dissection is seen. Pulmonary vasculature: The pulmonary trunk is normal in caliber. There are no filling defects identified in the main, lobar, or proximal segmental pulmonary arteries to indicate pulmonary embolus. Evaluation of the segmental and subsegmental branches is degraded by motion artifact. Heart: The heart is normal in size and without pericardial effusion. Lungs and pleural spaces: Evaluation of lung parenchyma is degraded by motion artifact. No airspace consolidation or pleural effusion is identified. The trachea and central airways are clear. Mediastinum: There is no mediastinal lymphadenopathy. Barbara: Clear. Axillae: There is no axillary lymphadenopathy. Bony thorax: Degenerative change is noted in the thoracic spine. No lytic or blastic lesions are identified. ABDOMEN AND PELVIS: Liver: The contrast-enhanced liver is mildly enlarged measuring 18.8 cm in length. The liver demonstrates diffusely diminished attenuation dictating steatosis. There is no intrahepatic or ductal dilatation. The hepatic veins and portal veins are patent. Gallbladder: Surgically absent noting clips in the gallbladder fossa. There is mild soft tissue infiltration within the gallbladder fossa. No fluid collection is seen. Spleen: The spleen is enlarged measuring 20.5 cm in length. Pancreas: Unremarkable. Adrenal glands: Unremarkable. Kidneys: The contrast enhanced kidneys are normal in size and without hydronephrosis. The kidneys enhance symmetrically. There is a punctate nonobstructing calculus in the upper pole of the left kidney Abdominal vasculature: The abdominal aorta is normal in course and caliber. Bowel: There is mild to moderate sigmoid diverticulosis without CT evidence of acute diverticulitis. No bowel obstruction is seen. The appendix is well-visual ized and normal. Peritoneum: There is no intraperitoneal free air or abdominal ascites. A midline surgical incision is noted with evidence of ventral hernia repair and surrounding infiltration. There is a multiloculated fluid collection within the abdominal midline due to the surgical incision. A simple appearing collection on image #268 measures approximately 9 x 3 x 5.5 cm. A more inferiorly located loculated collection on image #342 measures 3.5 x 2.0 cm, and a more laterally located collection in the right upper pelvis on image #321 measures up to 2.7 cm. Lymphadenopathy: None. Pelvic viscera: The bladder, prostate, and seminal vesicles are normal as visualized. Skeletal structures: There is mild lumbosacral spondylosis. No lytic or blastic lesions are seen. IMPRESSION: 1. There is no evidence of pulmonary embolus in the main, lobar, or proximal segmental pulmonary arteries. 2. There is no airspace consolidation or pleural effusion. 3. The patient is status post interval cholecystectomy. There is mild infiltration in the gallbladder fossa with no fluid collection identified. 4. There are loculated fluid collections in the ventral abdominal wall deep to an incision site as detailed above. These likely represent postoperative seromas. The sterility of this fluid cannot be assessed by imaging and clinical correlation will be required. 5. Hepatomegaly and hepatic steatosis. 6. Splenomegaly. 7. Colonic diverticulosis without CT evidence of acute diverticulitis. 8. Left-sided nephrolithiasis. 9. Additional findings as above. ACT 112: Negative or not required by law. Electronically signed by: Ar Lazaro M.D. 04/25/2022 1:18 PM Chest X-Ray 04/25/22 11:07 SINGLE VIEW CHEST CLINICAL HISTORY: Sepsis. FINDINGS: An AP, portable, upright chest radiograph is compared to study dated 01/12/2020. The cardiomediastinal silhouette is unremarkable. The lungs and pleural spaces are clear. No pneumothorax is seen. The bony thorax is grossly intact. IMPRESSION: No active disease in the chest. ACT 112: Negative or not required by law. Electronically signed by: Ar Lazaro M.D. 04/25/2022 11:32 AM Hospital Course (1) SIRS (systemic inflammatory response syndrome): (2) Chest pain: (3) Epigastric pain: 36 year old male s/p lap dung and open incisional hernia repair 04/05 presented to the ED with left sided chest pain today as well as upper abd/epigastric pain for 1 week. Met SIRS criteria in ED with fever and t achycardia. CT A/P showed post op seroma, unable to rule out infection. Started on Iv zosyn. Seen by surgery and did not recommend any surgical intervention. Recommended antibiotic for a week and follow up with Dr Pollard as OP. His chest pain is likely MSK, tropx3 negative, no acute ischemic changes in EKG, stress test could not be done due to unavailability but evaluated by cardio who stated non cardiac chest pain, recommended pain management but no further cardiac testing. I spoke to ANA Warren from the nursing home and gave the signout. He is comfortable and stable for discharge. CT C/A/P 1. There is no evidence of pulmonary embolus in the main, lobar, or proximal segmental pulmonary arteries. 2. There is no airspace consolidation or pleural effusion. 3. The patient is status post interval cholecystectomy. There is mild infiltration in the gallbladder fossa with no fluid collection identified. 4. There are loculated fluid collections in the ventral abdominal wall deep to an incision site as detailed above. These likely represent postoperative seromas. The sterility of this fluid cannot be assessed by imaging and clinical correlation will be required. 5. Hepatomegaly and hepatic steatosis. 6. Splenomegaly. 7. Colonic diverticulosis without CT evidence of acute diverticulitis. 8. Left-sided nephrolithiasis. Chest pain- S/p 2 SL nitro and ASA prior to admission. Trop x3 negative, EKG with no acute ischemic changes. Seen by cardio- likely MSK pain, no further cardiac testing recommended. Pain management. Epigastric/upper abd pain around the surgical site - He is s/p lap dung for chronic cholecystitis and cholelithiasis, open incisional hernia repair 3 weeks back. Having abd pain for a week. - Seen by surgery- did not recommend any surgical intervention but antibiotic course for a week and follow up with Dr Pollard as OP SIRS- met SIRS criteria on admission with fever, tachycardia. WBC normal, procal negative, CRP negative, lactate normal, CMP normal. CTA chest A/P reviewed- no acute abnormality or source of infection except for posttop seromas deep to the recent hernia repair site, unable to r/o infection. UA does not suggest UTI. Blood culture negative - SIRS resolved. Surgery has no plans for any intervention- recommended ABx course. S/p IV zosyn->changed to Augmentin at discharge for 1 more week. RLE wound- does not look infected. Continue local wound care. Follows with OP wound clinic. GERD- continue PPI Hypothyroid- continue synthroid Iron deficiency- improved but still deficient. Continue iron supplementation. Total Time Total Time Spent Total Time Spent (In Minutes): 40 Discharge Plan Discharge Items [facility]position[facility] Reason For Visit: CHEST PAIN Discharge Diagnosis: Chest pain, abd pain, SIRS, seroma Activity: Resume your previous activity Non-emergency contact: Primary Care Provider Call non-emergency contact if: you have any medication questions, your symptoms worsen, your pain is not controlled, you have a fever, your wound has increased redness and your wound has increased drainage Follow-up/Referrals: [facility] [Primary Care Provider] - Diet: Regular Addtl Attending Provider Instructions: Your chest pain does not seem to be coming from the heart, it is more likely musculoskeletal. You were seen by cardiology who did not recommend any further cardiac work up You have some fluid inside the belly which could be the expected postoperative seroma or it could be infected- You were seen by surgery- they did not recommend any surgical intervention but antibiotic course. Continue augmentin twice daily for 1 more week Pain medications as needed for chest wall and abdominal pain Follow up with general surgery Dr Pollard in a week Pending Studies at Discharge: No Stand-Alone Forms: My [facility] Skilled Items Patient informed of condition?: Yes Discharge Level of Care: Other Communicable Disease: No Discharge Prognosis: Stable Lines: None Urinary Catheter: No Medications and DC Order Prescriptions: New amoxicillin-pot clavulanate 875-125 mg tablet 1 tab PO BID Qty: 14 RF: 0 Continued sennosides [senna] 8.6 mg Tablet 8.6 mg PO DAILY PRN (Reason: Constipation) RF: 0 acetaminophen [Tylenol] 325 mg Tablet 650 mg PO BID PRN (Reason: Pain) RF: 0 doxycycline hyclate 100 mg capsule 100 mg PO BID RF: 0 polyethylene glycol 3350 [Miralax] 17 gram Powder In Packet 17 g PO DAILY PRN (Reason: Constipation) RF: 0 ondansetron HCl 4 mg Tablet 4 mg PO BID RF: 0 cyanocobalamin (vitamin B-12) [Vitamin B-12] 1,000 mcg Tablet 1,000 mcg PO DAILY RF: 0 levothyroxine 25 mcg tablet 25 mcg PO DAILY RF: 0 ferrous sulfate 325 mg (65 mg iron) Tablet 325 mg PO DAILY RF: 0 ibuprofen 200 mg Tablet 400 mg PO BID PRN (Reason: Pain) RF: 0 omeprazole 20 mg Capsule,Delayed Release(Dr/Ec) 40 mg PO DAILY RF: 0 albuterol sulfate 90 mcg/actuation HFA aerosol inhaler 2 puff INHALATION QID PRN (Reason: Shortness Of Breath Or Wheezing) RF: 0 Discharge Orders: Discharge Order (Routine); Ordered 04/27/22 Ordered By: Zbigniew Hearn Admission Data Admit Date/Time: 04/25/22 16:52 Attending Provider: Zbigniew Hearn Admit Provider: Zbigniew Hearn Primary Care Provider: [facility] Other Providers: Jadyn Hairston ; Donna Pollard ; Xavier Hightower Other Interventions: Discharge Summary Assessment (RN) Last Done: 04/27/22 11:59
--- NOTE | 2022-04-27 22:37 | Electrocardiogram Report ---
Test Reason : Blood Pressure : / mmHG Vent. Rate : 082 BPM Atrial Rate : 082 BPM P-R Int : 130 ms QRS Dur : 082 ms QT Int : 344 ms P-R-T Axes : 043 -06 117 degrees QTc Int : 401 ms Normal sinus rhythm Minimal voltage criteria for LVH, may be normal variant Nonspecific ST and T wave abnormality Abnormal ECG When compared with ECG of 26-APR-2022 01:26, No significant change Confirmed by Chalo Mendoza ([id number]) on 04/27/2022 10:37:10 PM Referred By: REFERRED SELF Confirmed By:Chalo Mendoza
--- NOTE | 2022-05-02 08:30 | Coding Query ---
Patient did not have sepsis or bacteremia or septic shock or any of that you suggested SEPSIS To promote full compliance with coding requirements relating to patient care, physician participation is requested in all cases of nursing unit coordinator uncertainty. Please assist us with the question(s) below: In responding to this query, please exercise your independent professional judgement. The fact that a question is asked does not imply that any particular answer is desired or expected. We appreciate your clarification on this issue. Throughout the medical record, you have clearly documented a localized infection and your patient has clinical evidence of a generalized sepsis or severe sepsis. The term urosepsis is a nonspecific entity and is coded as an UTI. If the patient has sepsis, severe sepsis, from an urinary source or some other source, please clarify in your response below. The medical record reflects the following clinical findings: Patient adm several weeks postop from lap dung/hernia repair with epigastric and chest pain. Postop seroma dx'd ... SIRS documented on DS: " Met SIRS criteria on admission with fever". Please check below the diagnosis that was treated if applicable. Thanks for your help! Lee Mendoza [employer]EF[employer] SPECIALIST [facility] ____ ( )Bacteremia (Nonspecific laboratory finding of bacteria in the blood) Specify Organism ( ) Present on Admission ( ) Not present on admission ( ) Unable to clinically determine ( ) Septicemia (Systemic disease associated with the presence of pathogenic microorganisms in the blood): Specify Organism ( ) Present on Admission ( ) Not present on admission ( ) Unable to clinically determine ( ) Sepsis Specify Organism Specify Associated Condition/Diagnosis ( ) Present on Admission ( ) Not present on admission ( ) Unable to clinically determine ( ) Severe Sepsis (Sepsis associated with acute organ dysfunction) Specify Organism Specify Associated Condition/Diagnosis ( ) Present on Admission ( ) Not present on admission ( ) Unable to clinically determine ( ) Septic Shock (Severe sepsis with acute circulatory failure, unexplained by other causes) ( ) Present on Admission ( ) Not present on admission ( ) Unable to clinically determine ( ) Other, patient has: MTDD
== END 2022-04-27 12:47 | DRG 920 ==
LOC: ED 10:31 → 2N 16:52